=== PATIENT | female | born 2000 | race Caucasian/White ===

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

== ENCOUNTER 2021-02-01 09:30 | Emergency (ER) | payer OTHER ==
[2021-02-01 11:01] LABS: Urine Blood 2+ (Negative); Urine Glucose Negative (Negative); Urine Protein Negative (Negative); Urine Specific Gravity >=1.030 (1.005-1.030); Urine pH 6.5 (5.0-7.0)
[2021-02-01 11:05] LABS: Absolute Lymphocytes (CBC) 1.5 K/uL (0.7-4.9); Basophils % 0.5 % (0-1.3); Hematocrit 36.7 % (36.0-45.0); Lymphocytes % 20.2 % (15.3-44.8); MPV 7.4 fL (7.6-11.3)
[2021-02-01 11:06] LABS: Protime INR 0.97
--- NOTE | 2021-02-01 11:07 | RAD REPORT ---
EXAM DESCRIPTION: RAD - Chest Single View - 02/01/2021 10:51 am CLINICAL HISTORY: syncope COMPARISON: No comparisons FINDINGS: Lines: None. Lungs: No evidence of edema or pneumonia. Pleural: No significant pleural effusions or pneumothorax. Cardiac: The heart size is within normal limits. Bones: No acute fractures. Other: IMPRESSION: No acute cardiopulmonary disease.
--- NOTE | 2021-02-01 11:20 | RAD REPORT ---
EXAM DESCRIPTION: US - Abdomen Exam Limited - 02/01/2021 11:05 am CLINICAL HISTORY: abdominal pain COMPARISON: Abdomen Exam Limited dated 12/12/2018 FINDINGS: The gallbladder demonstrates no gallstones. No pericholecystic fluid or gallbladder wall t hickening. The common bile duct is normal measuring 3 mm. The liver demonstrates no findings of intrahepatic biliary dilatation. IMPRESSION: Negative for cholelithiasis or acute cholecystitis. No biliary duct dilatation. Exam is within normal limits.
[2021-02-01] MEDS ORDERED: NA CHLORIDE 0.9% 1,000 ML ONE (11:26)
[2021-02-01 11:27] LABS: Urine Specific Gravity/Preg >1.030 (1.005-1.030)
[2021-02-01 11:28] LABS: ALT/SGPT 19 U/L (12-78); AST/SGOT 13 U/L (15-37); Albumin 3.6 g/dL (3.4-5.0); Alkaline Phosphatase 105 U/L (45-117); BUN Blood Urea Nitrogen 13 mg/dL (7-18); Bicarbonate 29 mmol/L (21-32); Bilirubin Direct < 0.1 mg/dL (0-0.2); Bilirubin Total 0.2 mg/dL (0.2-1.0); Glucose Level 102 mg/dL (74-106); NT PRO-BNP 36 pg/mL (<125); Potassium 3.9 mmol/L (3.5-5.1); Protein, Total 7.7 g/dL (6.4-8.2); Sodium Level 140 mmol/L (136-145); Troponin (Emerg Dept Use Only) < 0.02 ng/mL (0.0-0.045)
--- NOTE | 2021-02-01 13:02 | RAD REPORT ---
EXAM DESCRIPTION: CTAbdomen Pelvis W Contrast - 02/01/2021 12:51 pm CLINICAL HISTORY: Abdominal pain. ABD PAIN COMPARISON: No comparisons TECHNIQUE: Biphasic CT imaging of the abdomen and pelvis was performed with 100 ml non-ionic IV cont rast. All CT scans are performed using dose optimization technique as appropriate and may include automated exposure control or mA/KV adjustment according to patient size. FINDINGS: The lung bases are clear. The liver, spleen, pancreas, adrenal glands and kidneys are within normal limits. No bowel obstruction, free air, free fluid or abscess. Sigmoid diverticulosis mild. Appendectomy. No evidence of significant lymphadenopathy. No suspicious bony findings. IMPRESSION: No acute intra-abdominal or pelvic finding.
--- NOTE | 2021-02-01 13:11 | ER ---
Nurse's Notes [facility] Name: Izzy Krishnan Age: 20 yrs Sex: Female : 2000 Arrival Date: 02/01/2021 Time: 09:33 Bed 30 Private MD: Diagnosis: Syncope Presentation: 02/01 09:48 Chief complaint: Patient states: i have been feeling weak, really weak since Saturday. I tw2 was 11 days past my period but i started last night. but my period blood is brown. i fainted last night. and from my chest down i have been hot even though my house is cold. also my stomach as been hurting and i vomited last night. Coronavirus screen: fatigue, nausea, Client presents with at least one sign or symptom that may indicate coronavirus-19. Standard/surgical mask placed on the client. Provider contacted for isolation considerations. Ebola Screen: Patient denies travel to an Ebola-affected area in the 21 days before illness onset. Initial Sepsis Screen: Does the patient meet any 2 criteria? No. Patient's initial sepsis screen is negative. Does the patient have a suspected source of infection? No. Patient's initial sepsis screen is negative. Risk Assessment: Do you want to hurt yourself or someone else? Patient reports no desire to harm self or others. Onset of symptoms was February 01, 2021. 09:48 Method Of Arrival: Ambulatory tw2 09:48 Acuity: ESAU 3 tw2 Triage Assessment: 09:53 General: Appears in no apparent distress. obese, Behavior is calm, cooperative, tw2 appropriate for age. Pain: Complains of pain in abdomen and pelvis. GI: Reports upper abdominal pain, cramping, nausea. 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 - Social history:: Smoking status: Reported history of juuling and/or vaping. 5% nicotine. Screenin:05 Abuse screen: Denies threats or abuse. Nutritional screening: No deficits noted. tw2 Tuberculosis screening: No symptoms or risk factors identified. Fall Risk None identified. Assessment: 10:52 Neuro: Reports dizziness, a syncopal episode weakness since saturday. oh 10:53 : Reports brown colored urine. oh Vital Signs: 09:48 Pulse 88; Resp 18; Temp 98.4(TE); Pulse Ox 99% on R/A; Weight 77.11 kg; Height 5 ft. 3 tw2 in. (160.02 cm); Pain 1010; 09:54 BP 107 / 68; tw2 11:15 BP 110 / 80 Supine; Pulse 71; Resp 19; Pulse Ox 100% on R/A; oh 11:18 BP 114 / 80 Sitting; Pulse 76; Resp 21; Pulse Ox 98% on R/A; oh 11:22 BP 121 / 90 Standing; Pulse 77; Resp 21; Pulse Ox 100% on R/A; oh 13:52 BP 119 / 89; Pulse 77; Resp 19; Pulse Ox 99% on R/A; oh 09:48 Body Mass Index 30.11 (77.11 kg, 160.02 cm) tw2 ED Course: 09:33 Patient arrived in ED. mr 09:40 Iván Nascimento PA is PHCP. jmm 09:40 Jose Rangel MD is Attending Physician. jmm 09:53 Triage completed. tw2 09:53 Arm band placed on. tw2 09:55 Bed in low position. Call light in reach. pt given urine specimen cup for sample. tw2 10:01 Angi Ward, RN is Primary Nurse. oh 10:51 XRAY Chest (1 view) In Process Unspecified. EDMS 10:52 Patient taken to ultrasound. oh 10:53 Inserted saline lock: 20 gauge in right antecubital area, using aseptic technique. oh Blood collected. 10:55 US Abdomen Limited In Process Unspecified. EDMS 11:43 D-Dimer Sent. oh 12:51 CT Abd/Pelvis - IV Contrast Only In Process Unspecified. EDMS 13:53 IV discontinued, bleeding controlled, Pressure dressing applied. oh 13:53 No provider procedures requiring assistance completed. oh Administered Medications: 11:10 Drug: NS 0.9% 1000 ml Route: IV; Rate: 1 bolus; Site: right antecubital; oh Point of Care Testing: Urine : 11:04 hCG Reading: Negative; oh Outcome: 13:11 Discharge ordered by MD. young 13:52 Discharged to home ambulatory. oh 13:52 Condition: stable 13:52 Discharge instructions given to patient. 13:53 Patient left the ED. oh Signatures: Dispatcher [employer] EDMS Iván Nascimento PA PA jmm Fouzia JacksonSavi, RN RN tw2 Angi Ward RN RN oh Corrections: (The following items were deleted from the chart) 10:06 09:48 Chief complaint: Patient states: i have been feeling weak, really weak since tw2 Saturday. I was 11 days past my period but i started last night. but my period blood is brown. i fainted last night. and from my chest down i have been got. and also my stomach as been hurting and i vomited last night tw2
--- NOTE | 2021-02-01 13:12 | EDPHYS ---
Physician Documentation [facility] Name: Izzy Krishnan Age: 20 yrs Sex: Female : 2000 Arrival Date: 02/01/2021 Time: 09:33 Bed 30 Private MD: ED Physician Jose Rangel HPI: 02/01 10:33 This 20 yrs old Female presents to ER via Ambulatory with complaints of jmm Weakness, Abdominal Pain. 10:33 The patient has experienced syncope. Onset: The symptoms/episode began/occurred jmm acutely, 1 day(s) ago. Associated injury: The patient did not suffer any apparent associated injury. Associated signs and symptoms: Pertinent positives: abdominal pain, vaginal bleeding, weakness. The patient has not experienced similar symptoms in the past. 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 - Social history:: Smoking status: Reported history of juuling and/or vaping. 5% nicotine. ROS: 10:33 Constitutional: Negative for fever, chills, and weight loss, Cardiovascular: Negative jmm for chest pain, palpitations, and edema, Respiratory: Negative for shortness of breath, cough, wheezing, and pleuritic chest pain. 10:33 Abdomen/GI: Positive for abdominal pain. 10:33 Neuro: Positive for syncope. 10:33 All other systems are negative. Exam: 10:33 Constitutional: This is a well developed, well nourished patient who is awake, alert, jmm and in no acute distress. Head/Face: atraumatic. Eyes: EOMI, no conjunctival erythema appreciated ENT: Moist Mucus Membranes Neck: Trachea midline, Supple Chest/axilla: Normal chest wall appearance and motion. Cardiovascular: Regular rate and rhythm. No edema appreciated Respiratory: Normal respirations, no respiratory distress appreciated 10:33 Back: Normal ROM Skin: General appearance color normal MS/ Extremity: Moves all extremities, no obvious deformities appreciated, no edema noted to the lower extremities Neuro: Awake and alert, normal gait Psych: Behavior is normal, Mood is normal, Patient is cooperative and pleasant 10:33 Abdomen/GI: Inspection: abdomen appears normal, Bowel sounds: normal, Palpation: soft, mild abdominal tenderness, in the right upper quadrant and left upper quadrant. Vital Signs: 09:48 Pulse 88; Resp 18; Temp 98.4(TE); Pulse Ox 99% on R/A; Weight 77.11 kg; Height 5 ft. 3 tw2 in. (160.02 cm); Pain 10/10; 09:54 BP 107 / 68; tw2 11:15 BP 110 / 80 Supine; Pulse 71; Resp 19; Pulse Ox 100% on R/A; oh 11:18 BP 114 / 80 Sitting; Pulse 76; Resp 21; Pulse Ox 98% on R/A; oh 11:22 BP 121 / 90 Standing; Pulse 77; Resp 21; Pulse Ox 100% on R/A; oh 13:52 BP 119 / 89; Pulse 77; Resp 19; Pulse Ox 99% on R/A; oh 09:48 Body Mass Index 30.11 (77.11 kg, 160.02 cm) tw2 MDM: 10:32 Patient medically screened. [facility] 13:10 Data reviewed: vital signs, nurses notes. Counseling: I had a detailed discussion with phil the patient and/or guardian regarding: the historical points, exam findings, and any diagnostic results supporting the discharge/admit diagnosis, lab results, radiology results, the need for outpatient follow up, to return to the emergency department if symptoms worsen or persist or if there are any questions or concerns that arise at home. ED course: Is alert nontoxic in appearance in the ED. [place] syncope rules does not recommend admission. Patient advised to follow-up with PCP and otherwise given strict return precautions. Patient understood agrees plan of care.. 02/01 10:33 Order name: Basic Metabolic Panel; Complete Time: 11:42 [facility] 02/01 10:33 Order name: CBC with Diff; Complete Time: 11:06 [facility] 02/01 10:33 Order name: LFT's; Complete Time: 11:42 [facility] 02/01 10:33 Order name: Magnesium; Complete Time: 11:42 [facility] 02/01 10:33 Order name: NT PRO-BNP; Complete Time: 11:42 [facility] 02/01 10:33 Order name: PT-INR; Complete Time: 11:08 [facility] 02/01 10:33 Order name: Troponin (emerg Dept Use Only); Complete Time: 11:42 [facility] 02/01 10:33 Order name: XRAY Chest (1 view); Complete Time: 11:08 [facility] 02/01 10:35 Order name: Lipase; Complete Time: 11:42 [facility] 02/01 10:35 Order name: US Abdomen Limited; Complete Time: 11:22 [facility] 02/01 11:01 Order name: Urine Dipstick-Ancillary; Complete Time: 11:02 [facility] 02/01 11:01 Order name: Urine --Ancillary (enter results); Complete Time: 11:42 bd 02/01 11:07 Order name: D-Dimer [facility] 02/01 11:07 Order name: D-Dimer; Complete Time: 12:17 [facility] 02/01 10:33 Order name: EKG; Complete Time: 10:34 [facility] 02/01 10:33 Order name: Cardiac monitoring; Complete Time: 10:34 [facility] 02/01 10:33 Order name: EKG - Nurse/Tech; Complete Time: 10:51 [facility] 02/01 10:33 Order name: IV Saline Lock; Complete Time: 10:52 [facility] 02/01 10:33 Order name: Labs collected and sent; Complete Time: 10:52 [facility] 02/01 10:33 Order name: O2 Per Protocol; Complete Time: 10:34 [facility] 02/01 10:33 Order name: O2 Sat Monitoring; Complete Time: 10:34 [facility] 02/01 10:33 Order name: Urine Dipstick-Ancillary (obtain specimen); Complete Time: 11:04 [facility] 02/01 10:33 Order name: Urine Test (obtain specimen); Complete Time: 10:34 [facility] 02/01 10:33 Order name: Orthostatics; Complete Time: 11:25 [facility] 02/01 12:33 Order name: CT Abd/Pelvis - IV Contrast Only; Complete Time: 13:03 [facility] Administered Medications: 11:10 Drug: NS 0.9% 1000 ml Route: IV; Rate: 1 bolus; Site: right antecubital; oh Point of Care Testing: Urine : 11:04 hCG Reading: Negative; oh Disposition: 23:43 Co-signature as Attending Physician, Jose Rangel MD I agree with the assessment and kdr plan of care. Disposition Summary: 02/01/21 13:11 Discharge Ordered Location: Home [facility] Condition: Stable jm Diagnosis - Syncope jm Followup: jm - With: Private Physician - When: 2 - 3 days - Reason: Recheck today's complaints, Continuance of care, Re-evaluation by your physician Discharge Instructions: - Discharge Summary Sheet jmm - Syncope jm Forms: - Medication Reconciliation Form [facility] - Thank You Letter jm - Antibiotic Education [facility] - Work release form [facility] - Prescription Opioid Use [facility] Signatures: Dispatcher [employer] EDJose Shipman MD MD kdr Mickail, Joel, PA PA jmm Wise, Tara, RN RN tw2 Angi Ward RN RN oh
[2021-02-01 14:01] VITALS: TEMP 98.4
[2021-02-01 14:06] VITALS: BP 119/89; O2SAT 99
== END 2021-02-01 13:53 | disposition home or self-care (01) ==
LOC: ER 09:30
DX: R55 Syncope and collapse (principal); R53.1 Weakness
CPT/HCPCS: 93005; 85025; 80048; 36415; 83735; 81025; 85610; 85379; 80076; 81003; 84484; 83690; 83880; 74177; 71045; 76705; 99284; Q9967; J7030

== ENCOUNTER 2021-06-13 18:53 | Emergency (ER) | payer OTHER, SELFPAY ==
--- OUTSIDE RECORDS SUMMARY | 2021-06-13 18:56 | XMS REPORT | Continuity of Care Document ---
:2000 Author Organization [facility] t Address [address] [place] [address] Care Team Providers Name Role Phone Ulisses Barron Primary Care Physician Zane GARDNER Attending Clinician Unavailable Zane Elizondo Attending Clinician Swetha Henry Attending Clinician SWETHA ARANDA Attending Clinician Unavailable Doctor Unassigned, Name Attending Clinician Unavailable SWETHA ARANDA Admitting Clinician Unavailable Payers Payer Name Policy Type Policy Number Effective Date Expiration Date [facility] [id number] 2021 CHOICE MEDICAID 00:00:00 Problems Condition Condition Condition Status Onset Resolution Last Treating Co mments Source Name Details Category Date Date Treatment Clinician Date Behavior Behavior Disease Active Unive rs concern concern 05-04 ity of 00:00: [address] Family Family Disease Active Univers circumstan circumstan 05-04 it y of ce ce 00:00: [address] Hx of Hx of Disease Active Univers suicide suicide 05-04 ity of attempt attempt 00:00: [address] Depression Depression Disease Active U nivers , , 1- it[place] Medical depression depression Br anch type type BMI (body BMI (body Disease Active Uni vers mass mass 1-13 ity of index), index), 00:00: [place] pediatric, pediatric, 00 Me dical 95-99% for 95-99% for Br anch age age Allergies, Adverse Reactions, Alerts Allergy Allergy Status Severity Reaction(s) Onset Inactive Treating Comm ents Source Name Type Date Date Clinician NO KNOWN Drug Active Univers ALLERGIE Class ity of S [facility] Social History Social Habit Start Date Stop Date Quantity Comments Source Exposure to Not sure [facility] SARS-CoV-2 (event) Medica l Branch Alcohol intake 2016-05-14 2016-05-14 0 /d [facility] 00:00:00 00:00:00 [facility] Sex Assigned At [birth year] [facility] 00:00:00 00:00:00 Medical Branch Smoking Status Start Date Stop Date Source Never smoker [facility] Medications Ordered Filled Start Stop Current Ordering Indication Dosage Frequency Signature Comments Components Source Medication Medication Date Date Medication? Clinician (SIG) Name Name amoxicillin 2020-04 No 500mg 500 mg, U nivers (TRIMOX) 06-08 Oral, ity of capsule 500 00:30: 23:33 [place]CE[place] 1 [place] :00 dose, On Medical [place] Branch 04/06/21 at 1830, JOANNA
Re ason for Anti-Infec tive: Documented Infection< br>Documen nadiya Infection Site: HEENT
D uration of Therapy: Other (see Comments) ketorolac 2020-04 No 30mg 30 mg, Unive rs (TORADOL) 06-08-16 Intramuscu ity of injection 00:30: 23:33 lar, ONCE, [place] 30 mg 00 :00 1 dose, On Medical [place] Branch 04/06/21 at 1830, JOANNA ibuprofen 2020-04 Yes [id number] 800mg Take 1 U nivers 800 mg 2-16 tablet by ity of tablet 00:00: mouth 3 00 (three) Medical times Branch daily with meals. chlorhexidi 2020-04 Yes [id number] 15mL Swish and Univers ne 0.12 % 2-16 spit out ity of mouthwash 00:00: 15 mL 2 [place] 00 (two) Medical times [place] daily. amoxicillin 2020-04- Yes [id number] 500mg Take 1 Univers 500 mg -16 12-24 capsule by ity of capsule 00:00: 05:59 mouth 3 [place] 00 :00 (three) Medical times [place] daily for 7 days. NaCl 0.9% 2020-04- No 1000mL at 999 Uni vers (NS) bolus 0-15 10-15 mL/hr, ity of infusion 23:15: 23:43 1,000 mL, [place] as 1,000 mL 00 :00 IV Medical Infusion, Branch ONCE, 1 dose, On Sat02/03/21 at 1815, STAT METAXALONE Yes Take by Uni vers (SKELAXIN 1-23 mouth. ity of ORAL) 14:34: [address] METAXALONE Yes Take by Uni vers (SKELAXIN 1-23 mouth. ity of ORAL) 14:34: [address] METAXALONE Yes Take by Uni vers (SKELAXIN 1-23 mouth. ity of ORAL) 14:34: [address] Vital Signs Vital Name Observation Time Observation Value Comments Source Body temperature 2021-04-06 22:53:00 36.94 [facility] Respiratory rate 2021-04-06 22:53:00 18 /min [facility] Body height 2021-04-06 22:53:00 162.6 cm [facility] Body weight 2021-04-06 22:53:00 86.183 kg [facility] BMI 2021-04-06 22:53:00 32.61 kg/m2 [facility] Oxygen saturation in 2021-04-06 22:53:00 99 /min [facility] Arterial blood by [facility] Pulse oximetry Branch Systolic blood 2021-04-06 22:53:00 139 mm[Hg] Univer sity of pressure [facility] Diastolic blood 2021-04-06 22:53:00 99 mm[facility]Hg[facility] Heart rate 2021-04-06 22:53:00 76 /min [facility] Systolic blood 2021-02-03 22:20:00 140 mm[Hg] Univer sity of pressure [facility] Diastolic blood 2021-02-03 22:20:00 98 mm[Hg] Unive rsity of pressure [facility] Heart rate 2021-02-03 22:20:00 85 /min [facility] Respiratory rate 2021-02-03 22:20:00 18 /min [facility] Oxygen saturation in 2021-02-03 22:20:00 99 /min [facility] Arterial blood by [facility] Pulse oximetry [place] Body temperature 2021-02-03 15:54:00 36.78 [facility] Body height 2021-02-03 15:54:00 160 cm [facility] Body weight 2021-02-03 15:54:00 74.844 kg [facility] BMI 2021-02-03 15:54:00 29.23 kg/m2 [facility] Body mass index 2021-02-03 15:54:00 91.94 % Unive rsity of (BMI) [Percentile] [facility] ica Per age and sex Branch Procedures Procedure Date / Time Performing Clinician Source Performed POCT TEST 2021-04-06 23:20:00 Lou Gardner [facility] CONSENT/REFUSAL FOR 2021-04-06 22:35:43 Doctor Unassigned, No Un [facility] DIAGNOSIS AND TREATMENT Name Medical [place] XR CHEST 1 VW 2021-02-03 23:04:39 Jesus Alberto Aranda [facility] D-DIMER 2021-02-03 18:33:00 Jesus Alberto Aranda [facility] LIPASE 2021-02-03 18:24:00 Jesus Alberto Aranda [facility] MAGNESIUM 2021-02-03 18:24:00 Jesus Alberto Aranda [facility] COMP. METABOLIC PANEL 2021-02-03 18:24:00 Jesus Alberto Aranda [facility] ([id number]) [facility] CBC WITH DIFF 2021-02-03 18:24:00 Partha, K Swetha [facility] URINALYSIS 2021-02-03 18:24:00 Jesus Alberto Aranda [facility] o f [facility] URINE DRUG (IMMUNOASSAY) 2021-02-03 18:23:00 Jesus [facility] 2021-02-03 18:23:00 Jesus Alberto Aranda Universi ty of [facility] NOTICE OF PRIVACY 2021-02-03 15:44:16 Doctor Unassigned, No Univ [facility] PRACTICES Name [facility] CONSENT/REFUSAL FOR 2021-02-03 15:43:59 [facility]igned, [facility]REATMENT Name [facility] Encounters Start End Encounter Admission Attending Care Care Encounter Source Date/Time Date/Time Type Type Clinicians Facility Department ID 2021-04-06 2021-04-06 Emergency X [facility] ERT [id number] Univers 16:54:00 17:47:00 LOU paula [facility] 2021-04-06 2021-04-06 Emergency [facility] [id number] Univers 16:54:00 17:47:00 Lou WARREN [id number] i ty of [place] [id number] [facility] [id number] [address] 2021-02-03 2021-02-03 Emergency Jesus Alberto Aranda [facility] [id number] Univers 11:11:00 18:44:00 Swetha Warren [id number] i ty of [place] [id number] [facility] [id number] [address] 2021-02-03 2021-02-03 Emergency X Jesus Alberto ARANDA [facility] ERT [id number] Univers 11:11:00 18:44:00 ity of [facility] 2021-02-03 2021-02-03 Orders Doctor LUO [id number] Univers 00:00:00 00:00:00 Only Unassigned, CHINYERE [id number] ity of [place] [facility] [id number] [place] as [id number] [address] Results Test Description Test Time Test Comments Results Result Comments Source POCT TEST 2021-04-06 23:20:00 Test Item Value Reference Range Interpretation Comme nts POCT PREG (test code = 1605) negative POCT PREG LOT # (test code = 3575) [id number] POCT PREG TEST DATE (test code = 3576) 2022-05-22 Lab Interpretation (test code = 25366-7) Normal [id number] 19:30:18 Test Item Value Reference Interpretation Comments Range D-DIMER (test code = <0.27 See_Comment [Autom ated 2929649514) message] The system which generated this result transmitted reference range : <0.41 ?g/mL (FEU). The reference range was not used to interpret this result as normal/abnormal . NIKA (test code = This test may be NIKA) used in conjunction with a clinical pretest probability (PTP) assessment model to exclude venous thromboembolism (VTE) in patients suspected of deep venous thrombosis (DVT) and pulmonary embolism (PE) A D-Dimer value less than 0.50 ?g/ml (FEU) has a negative predicative value of 96 to 100% (95% CI)and 97 to 100% (95% CI) as an aid in the diagnosis of deep vein thrombosis (DVT) and pulmonary embolism when there is low or moderate pretest probability of PE or DVT. D-Dimer values are expressed in initial fibrinogen equivalent units (FEU)" The assay results should be used with other information, including the clinical context, in forming a diagnosis. Lab Interpretation Normal (test code = 13494-1) [facility] 19:00:14 Test Item Value Reference Range Interpretation Comments MAGNESIUM (test code = 5932481791) 1.8 mg/dL 1.7-2.4 Lab Interpretation (test code = Normal 44743-6) [facility] MET[facility]OLIC PANEL (33020)2021-02-03 18:59:54 Test Item Value Reference Range Interpretation Comments NA (test code = 139 mmol/L 135-145 6175073767) K (test code = 4.0 mmol/L 3.5-5.0 0579076395) CL (test code = 101 mmol/L 98-108 0736405742) CO2 TOTAL (test code 30 mmol/L 23-31 = 3954126069) AGAP (test code = 2-16 6113612378) BUN (test code = 13 mg/dL 7-23 1859307164) GLUCOSE (test code = 87 mg/dL 70-110 9922334768) CREATININE (test code 0.57 mg/dL 0.50-1.04 = 3988662641) TOTAL BILI (test code 0.4 mg/dL 0.1-1.1 = 3389070566) CALCIUM (test code = 9.7 mg/dL 8.6-10.6 5082743737) T PROTEIN (test code 8.0 g/dL 6.3-8.2 = 5082189658) ALBUMIN (test code = 4.6 g/dL 3.5-5.0 0791607547) ALK PHOS (test code = 90 U/L 34-122 3144526285) ALTv (test code = 15 U/L 5-35 2-6) AST(SGOT) (test code 23 U/L 13-40 = 6053316685) eGFR (test code = mL/min/1.73m2 6419476204) NIKA (test code = NIKA) Association of Glomerular Filtration Rate (GFR) and Staging of Kidney Disease* + + +- +| GFR (mL/min/1.73 m2) ?| With Kidney Damage ?| ?Without Kidney Damage+ ------+ ----+ ------+| ?>90 ?| ?Stage one ?| ? Normal ?+ -+ + -+| ?60-89 ?| ?Stage two ?| ? Decreased GFR ? + + +- +| ?30-59 ?| ?Stage three ?| ? Stage three ? + + +- +| ?15-29 ?| ?Stage four ? | ? Stage four ?+ -+ + -+| ?<15 (or dialysis) ? ?| ?Stage five ? | ? Stage five ?+ -+ + -+ *Each stage assumes the associated GFR level has been in effect for at least three months. ?Stages 1 to 5, with or without kidney disease, indicate chronic kidney disease. Notes: Determination of stages one and two (with eGFR >59mL/min/1.73 m2) requires estimation of kidney damage for at least three months as defined by structural or functional abnormalities of the kidney, manifested by either:Pathological abnormalities or Markers of kidney damage (including abnormalities in the composition of the blood or urine or abnormalities in imaging tests). [facility] 18:59:34 Test Item Value Reference Range Interpretation Comments LIPASE (test code = 3266478766) 37 U/L 0-220 Lab Interpretation (test code = Normal 17081-7) [facility] Worth[facility] WITH [id number] 18:37:09 Test Item Value Reference Range Interpretation Comments WBC (test code = See_Comment [Automated 6290-2) message] The sy stem which generated this result transmitted reference range : 4.30 - 11.10 10*3/?L. The reference range was not used to interpret this result as normal/abnormal . RBC (test code = See_Comment [Automated 959-8) message] The sy stem which generated this result transmitted reference range : 3.93 - 5.25 10*6/?L. The reference range was not used to interpret this result as normal/abnormal . HGB (test code = 12.6 g/dL 11.6-15.0 718-7) HCT (test code = 40.9 % 35.7-45.2 4544-3) MCV (test code = 81.6 fL 80.6-95.5 787-2) MCH (test code = 25.1 pg 25.9-32.8 L 785-6) MCHC (test code = 30.8 g/dL 31.6-35.1 L 786-4) RDW-SD (test code = 38.9 fL 39.0-49.9 L 93596-5) RDW-CV (test code = 13.2 % 12.0-15.5 788-0) PLT (test code = See_Comment H [Automated 657-3) message] The sy stem which generated this result transmitted reference range : 166 - 358 10*3/ ?L. The reference r tomasa was not used to interpret this result as normal/abnormal . MPV (test code = 9.2 fL 9.5-12.9 L 21291-2) NRBC/100 WBC (test See_Comment [Automat ed code = 8388896865) message] The system which generated this result transmitted reference range : 0.0 - 10.0 /100 WBCs. The refer ence range was not u sed to interpret th is result as normal/abnormal . NRBC x10^3 (test code <0.01 See_Comment [Auto mated = 1601705212) message] The s ystem which generated this result transmitted reference range : 10*3/?L. The reference range was not used to interpret this result as normal/abnormal . GRAN MAT (NEUT) % 66.3 % (test code = 770-8) IMM GRAN % (test code 0.70 % = 0846821071) LYMPH % (test code = 20.6 % 736-9) MONO % (test code = 9.8 % 5905-5) EOS % (test code = 1.7 % 713-8) BASO % (test code = 0.9 % 706-2) GRAN MAT x10^3(ANC) 5.09 10*3/uL 1.88-7.09 (test code = 5246855432) IMM GRAN x10^3 (test 0.05 10*3/uL 0.00-0.06 code = 5555881879) LYMPH x10^3 (test code 1.58 10*3/uL 1.32-3.29 = 731-0) MONO x10^3 (test code 0.75 10*3/uL 0.33-0.92 = 742-7) EOS x10^3 (test code = 0.13 10*3/uL 0.03-0.39 711-2) BASO x10^3 (test code 0.07 10*3/uL 0.01-0.07 = 704-7) Lab Interpretation Abnormal (test code = 20266-4) [facility] [id number] 18:23:00 Test Item Value Reference Range Interpretation Comments POCT PREG (test code = 1605) negative On board controls acceptable with C present Line (test code = 3574) Lab Interpretation (test code = Normal 62476-9) [facility]
[2021-06-13 21:22] LABS: Urine Blood Negative (Negative); Urine Glucose Negative (Negative); Urine Protein Negative (Negative); Urine Specific Gravity >=1.030 (1.005-1.030)
[2021-06-13] MEDS ORDERED: ONDANSETRON 4 MG/2 ML VIAL ONE (21:22)
[2021-06-13] MEDS ORDERED: NA CHLORIDE 0.9% 1,000 ML ONE (21:22)
[2021-06-13 21:23] LABS: Absolute Lymphocytes (CBC) 1.8 K/uL (0.7-4.9); Hematocrit 35.5 % (36.0-45.0); Lymphocytes % 24.3 % (15.3-44.8); MPV 7.5 fL (7.6-11.3); RBC Red Blood Cell Count 4.54 M/uL (3.86-4.86)
[2021-06-13] MEDS ORDERED: FAMOTIDINE 20 MG/2 ML VIAL IV ONE (21:23)
[2021-06-13 21:27] LABS: Protime INR 0.99
[2021-06-13 21:36] LABS: Urine Bacteria 20-50 /HPF (<20); Urine Mucus 2+ /HPF (NONE SEEN); Urine RBC <5 /HPF (NONE SEEN)
[2021-06-13 21:37] LABS: Urine Specific Gravity/Preg >1.030 (1.005-1.030)
[2021-06-13 21:38] LABS: Potassium 3.7 mmol/L (3.5-5.1); Sodium Level 141 mmol/L (136-145)
[2021-06-13 21:50] LABS: ALT/SGPT 22 U/L (12-78); AST/SGOT 12 U/L (15-37); Albumin 3.6 g/dL (3.4-5.0); Alkaline Phosphatase 98 U/L (45-117); BUN Blood Urea Nitrogen 17 mg/dL (7-18); Bicarbonate 29 mmol/L (21-32); Bilirubin Direct < 0.1 mg/dL (0-0.2); Bilirubin Total 0.1 mg/dL (0.2-1.0); Glucose Level 81 mg/dL (74-106); Lipase 66 U/L (73-393); Magnesium 2.1 mg/dL (1.8-2.4); Protein, Total 7.7 g/dL (6.4-8.2)
--- NOTE | 2021-06-13 22:19 | RAD REPORT ---
EXAM DESCRIPTION: US - Abdomen Exam Limited - 06/13/2021 9:24 pm CLINICAL HISTORY: ABD PAIN COMPARISON: Abdomen Pelvis W Contrast dated 02/01/2021 FINDINGS: No gallstones, sludge or other abnormalities within the gallbladder lumen. There is no wal l thickening or pericholecystic fluid. No common duct stone or biliary tree dilatation identified. IMPRESSION: Normal gallbladder and biliary tree ultrasound.
--- NOTE | 2021-06-14 00:57 | EDPHYS ---
Physician Documentation [facility] Name: Izzy Krishnan Age: 21 yrs Sex: Female : 2000 Arrival Date: 06/13/2021 Time: 18:53 Bed 9 Private MD: ED Physician Richard Wakefield HPI: 06/13 20:05 This 21 yrs old Female presents to ER via Ambulatory with complaints of Weakness. cp 20:05 The patient presents to the emergency department with weakness of the entire body, cp generalized weakness. Onset: The symptoms/episode began/occurred last night. Context: occurred at home. Associated signs and symptoms: Pertinent positives: dizziness, syncope, Pertinent negatives: altered mental status, fever, headache, paresthesias. Severity of symptoms: in the emergency department the symptoms are unchanged despite home interventions. Patient's baseline: Neuro: alert and fully oriented, Motor: no deficits, Ambulation: walks without assistance, Speech: normal. Current symptoms: general weakness. Patient reports abdominal pain last night and syncopal episode at work today. 06/14 00:30 The patient presents with pain. cp 00:30 The problem is located in the right lower jaw. Duration: The symptoms are continuous. cp PARTS CHASER: 06/13 19:22 LMP 06/13/2021 al4 Historical: - Allergies: 19:22 No Known Allergies; al4 - PMHx: 19:22 Asthma; al4 - PSHx: 19:22 Appendectomy; al4 - Immunization history:: Adult Immunizations up to date. - Social history:: Smoking status: Reported history of juuling and/or vaping. ROS: 20:10 Constitutional: Negative for body aches, chills, fever, poor PO intake. cp 20:10 Eyes: Negative for injury, pain, redness, and discharge. cp 20:10 ENT: Negative for drainage from ear(s), ear pain, sore throat, difficulty swallowing, difficulty handling secretions. 20:10 Cardiovascular: Negative for chest pain, edema, palpitations. 20:10 Respiratory: Negative for cough, shortness of breath, wheezing. 20:10 Abdomen/GI: Positive for abdominal pain, Negative for vomiting, diarrhea, constipation. 20:10 Back: Negative for pain at rest, pain with movement. 20:10 : Negative for urinary symptoms, vaginal bleeding. 20:10 Neuro: Positive for dizziness, syncope, weakness, Negative for altered mental status, numbness. 20:10 All other systems are negative. Exam: 20:15 Constitutional: The patient appears in no acute distress, alert, awake, cp non-diaphoretic, non-toxic, well developed, well nourished, obese. 20:15 Head/Face: Normocephalic, atraumatic. cp 20:15 Eyes: Periorbital structures: appear normal, Pupils: equal, round, and reactive to light and accomodation, Extraocular movements: intact throughout, Conjunctiva: normal, no exudate, no injection, Sclera: no appreciated abnormality, Lids and lashes: appear normal, bilaterally. 20:15 ENT: External ear(s): are unremarkable, Nose: is normal, Mouth: Lips: moist, Oral mucosa: moist, Posterior pharynx: Airway: no evidence of obstruction, patent. 20:15 Neck: ROM/movement: is normal, is supple, without pain, no range of motions limitations. 20:15 Chest/axilla: Inspection: normal. 20:15 Cardiovascular: Rate: normal, Rhythm: regular, Heart sounds: murmur, not appreciated, Edema: is not appreciated, JVD: is not appreciated. 20:15 Respiratory: the patient does not display signs of respiratory distress, Respirations: normal, no use of accessory muscles, no retractions, labored breathing, is not present, Breath sounds: are clear throughout, no decreased breath sounds, no stridor, no wheezing. 20:15 Abdomen/GI: Inspection: abdomen appears normal, Bowel sounds: active, all quadrants, Palpation: abdomen is soft and non-tender, in all quadrants, rebound tenderness, is not appreciated, involuntary guarding, is not appreciated. 20:15 Back: pain, is absent, ROM is normal. 20:15 Neuro: Orientation: to person, place \T\ time. Mentation: is normal, Cerebellar function: is grossly normal, Motor: moves all fours, strength is normal, Sensation: is normal. 21:57 ECG was reviewed by the Attending Physician. cp 06/14 00:33 ENT: Dental exam: abscess, is not appreciated, dental caries, that is moderate, cp diffusely, pain, that is mild, specifically in the lower right first molar (#30), Voice: is normal. Vital Signs: 06/13 19:22 BP 125 / 88; Pulse 76; Resp 18; Temp 98.6; Pulse Ox 99% ; Weight 92.99 kg (R); Height 5 al4 ft. 4 in. (162.56 cm) (R); Pain 10/10; 21:36 BP 137 / 76 Supine; Pulse 68 LA; fu 21:37 BP 144 / 79 Sitting; Pulse 64; fu 21:37 BP 137 / 86 Standing; Pulse 71; fu 22:27 BP 126 / 66; Pulse 76; Resp 16; Pulse Ox 100% on R/A; Pain 8/10; fu 06/14 00:21 BP 132 / 82; Pulse 81; Resp 16; Pulse Ox 98% on R/A; Pain 8/10; fu 06/13 19:22 Body Mass Index 35.19 (92.99 kg, 162.56 cm) al4 MDM: 06/13 19:58 Patient medically screened. 06/14 00:55 Data reviewed: vital signs, nurses notes, lab test result(s), EKG, radiologic studies, cp CT scan, plain films. 00:55 Test interpretation: by ED physician or midlevel provider: ECG, plain radiologic cp studies. Counseling: I had a detailed discussion with the patient and/or guardian regarding: the historical points, exam findings, and any diagnostic results supporting the discharge/admit diagnosis, lab results, radiology results, the need for outpatient follow up, a family practitioner, to return to the emergency department if symptoms worsen or persist or if there are any questions or concerns that arise at home. Response to treatment: Improved. VSS. Patient resting comfortably in exam room. 00:55 Special discussion: I discussed with the patient the need to follow-up with the PCP/specialist for the noted incidental finding on X-ray/CT scanning. CT head showed concern for pituitary mass, patient instructed to f/u with pcp for MRI. 06/13 19:33 Order name: Glucose, Ancillary Testing; Complete Time: 19:58 EDMS 06/13 20:20 Order name: Basic Metabolic Panel; Complete Time: 22:47 cp 06/13 20:20 Order name: CBC with Diff; Complete Time: 22:47 cp 06/13 22:47 Interpretation: Normal except: HGB 11.8; HCT 35.5; MCV 78.0; MCH 26.0; MPV 7.5; BASO% cp 1.4. 06/13 20:20 Order name: LFT's; Complete Time: 22:47 cp 06/13 22:48 Interpretation: Normal except: AST 12; BILIT 0.1; GLOB 4.1; A/G 0.9. cp 06/13 20:20 Order name: Magnesium; Complete Time: 22:47 cp 06/13 20:20 Order name: PT-INR; Complete Time: 22:47 cp 06/13 20:20 Order name: Troponin HS; Complete Time: 22:47 cp 06/13 22:59 Interpretation: Reviewed. cp 06/13 20:20 Order name: XRAY Chest (1 view) cp 06/13 20:20 Order name: Urine Microscopic Only; Complete Time: 22:47 cp 06/13 22:48 Interpretation: Normal except: UBACT 20-50; SQEPI 5-10. cp 06/13 20:20 Order name: Lipase; Complete Time: 22:47 cp 06/13 20:21 Order name: D-Dimer; Complete Time: 22:47 cp 06/13 21:22 Order name: Urine Dipstick-Ancillary; Complete Time: 22:47 EDMS 06/13 21:30 Order name: Urine --Ancillary (enter results); Complete Time: 22:47 mw2 06/13 21:38 Order name: Urine Culture EDID 06/13 20:20 Order name: EKG; Complete Time: 20:21 cp 06/13 20:20 Order name: Cardiac monitoring; Complete Time: 22:15 cp 06/13 20:20 Order name: EKG - Nurse/Tech; Complete Time: 21:52 cp 06/13 20:20 Order name: IV Saline Lock; Complete Time: 21:21 cp 06/13 20:20 Order name: Labs collected and sent; Complete Time: 21:21 cp 06/13 20:20 Order name: O2 Per Protocol; Complete Time: 22:10 cp 06/13 20:20 Order name: O2 Sat Monitoring; Complete Time: 22:10 cp 06/13 20:20 Order name: Orthostatics; Complete Time: 22:15 cp 06/13 20:20 Order name: Urine Dipstick-Ancillary (obtain specimen); Complete Time: 21:22 cp 06/13 20:20 Order name: US Abdomen Limited: RUQ; Complete Time: 22:47 cp 06/13 22:58 Interpretation: Report reviewed. cp 06/13 23:00 Order name: CT Head Brain wo Cont cp 06/13 23:00 Order name: CT Abd/Pelvis - IV Contrast Only cp 06/13 20:20 Order name: Urine Test (obtain specimen); Complete Time: 21:21 cp 06/13 20:21 Order name: NPO; Complete Time: 22:25 cp EC/22 21:57 Rate is 67 beats/min. Rhythm is regular. CA interval is normal. QRS interval is normal. cp QT interval is normal. T waves are Inverted in lead aVR. Interpreted by me. Reviewed by me. Administered Medications: 21:31 Drug: NS 0.9% 1000 ml Route: IV; Rate: 1 bolus; Site: left antecubital; fu 06/14 00:12 Follow up: Response: No adverse reaction; IV Status: Completed infusion; IV Intake: fu 1000ml 06/13 21:32 Drug: Zofran (Ondansetron) 4 mg Route: IVP; Site: left antecubital; fu 23:01 Follow up: Response: No adverse reaction fu 21:32 Drug: Pepcid (famotidine) 20 mg Route: IVP; Site: left antecubital; fu 23:01 Follow up: Response: No adverse reaction fu 06/14 01:10 Drug: Ibuprofen 800 mg Route: PO; fu 01:18 Follow up: Response: Medication administered at discharge. fu Disposition: 06:38 Co-signature as Attending Physician, Richard Wakefield MD. [email or web address] Disposition Summary: 06/14/21 00:55 Discharge Ordered Location: Home cp Problem: new cp Symptoms: have improved cp Condition: Stable cp Diagnosis - Disorder of teeth and supporting structures, unspecified cp - Syncope cp - Abdominal pain, unspecified cp - Dizziness and giddiness cp Followup: cp - With: Private Physician - When: 2 - 3 days - Reason: Recheck today's complaints Discharge Instructions: - Abdominal Pain, Adult cp - Dental Pain cp - Discharge Summary Sheet fu - Dizziness cp - Syncope cp Forms: - Work release form fu - Medication Reconciliation Form cp - Thank You Letter cp - Antibiotic Education cp - Prescription Opioid Use cp Prescriptions: - Amoxicillin 875 mg Oral Tablet - take 1 tablet by ORAL route every 12 hours for 10 days; 20 tablet; Refills: 0, cp Product Selection Permitted - Meclizine 25 mg Oral Tablet - take 1 tablet by ORAL route every 8 hours As needed; 30 tablet; Refills: 0, cp Product Selection Permitted - Pepcid 20 mg Oral Tablet - take 1 tablet by ORAL route every 12 hours for 10 days; 20 tablet; Refills: 0, cp Product Selection Permitted Signatures: Dispatcher [employer] EDLes Marte PA PA cp Umadhay, Felix, Richard Pfeiffer RN, MD MD 7 Tigre Rasheed
--- NOTE | 2021-06-14 00:57 | ER ---
Nurse's Notes [facility] Name: Izzy Krishnan Age: 21 yrs Sex: Female : 2000 Arrival Date: 06/13/2021 Time: 18:53 Bed 9 Private MD: Diagnosis: Disorder of teeth and supporting structures, unspecified;Syncope;Abdominal pain, unspecified;Dizziness and giddiness Presentation: 06/13 19:16 Chief complaint: Patient states: patient states she started feeling weak last night al4 around 10pm and had abdominal pain. patient woke up this morning weak and dizzy. patient states she has "collapsed" twice today. Coronavirus screen: Vaccine status: Patient reports receiving the 2nd dose of the covid vaccine. [employer]. Ebola Screen: No symptoms or risks identified at this time. No acute neurological deficit is noted. Pre-hospital glucose is not applicable to this patient. Initial Sepsis Screen: Does the patient meet any 2 criteria? No. Patient's initial sepsis screen is negative. Does the patient have a suspected source of infection? No. Patient's initial sepsis screen is negative. Risk Assessment: Do you want to hurt yourself or someone else? Patient reports no desire to harm self or others. Onset of symptoms was June 12, 2021. 19:16 Method Of Arrival: Ambulatory al4 19:16 Acuity: ESAU 3 al4 Triage Assessment: 19:22 The onset of the patients symptoms was June 12, 2021 at 22:00. General: Appears in al4 no apparent distress. uncomfortable, Behavior is calm, cooperative, drowsy. Pain: Complains of pain in abdomen. EENT: No signs and/or symptoms were reported regarding the EENT system. Neuro: Level of Consciousness is awake, alert, obeys commands, Oriented to person, place, time, situation. Neuro: Reports dizziness, headache. Cardiovascular: Capillary refill < 3 seconds Patient's skin is warm and dry. Respiratory: Airway is patent Respiratory effort is even, unlabored, Respiratory pattern is regular, symmetrical. GI: Reports diarrhea, nausea. Musculoskeletal: Range of motion: intact in all extremities. 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 - Social history:: Smoking status: Reported history of juuling and/or vaping. Screenin:04 Abuse screen: Denies threats or abuse. Nutritional screening: No deficits noted. fu Tuberculosis screening: No symptoms or risk factors identified. Fall Risk None identified. Assessment: 20:03 General: Appears in no apparent distress. Behavior is calm, cooperative, appropriate fu for age, Reports weakness Denies fever, fatigue. Pain: Denies pain. Neuro: Level of Consciousness is awake, alert, obeys commands, Oriented to time, situation, [employer] are equal bilaterally Moves all extremities. Speech is normal, Facial symmetry appears normal, Reports weakness. Respiratory: Respiratory effort is even, unlabored, Respiratory pattern is regular. Derm: Skin is intact. 21:00 Reassessment: Patient and/or family updated on plan of care and expected duration. Pain fu level reassessed. Patient is alert, oriented x 3, equal unlabored respirations, skin warm/dry/pink. Patient states feeling better. Patient states symptoms have improved. 22:27 Reassessment: Patient and/or family updated on plan of care and expected duration. Pain fu level reassessed. Patient is alert, oriented x 3, equal unlabored respirations, skin warm/dry/pink. 23:30 Reassessment: Patient and/or family updated on plan of care and expected duration. Pain fu level reassessed. Patient is alert, oriented x 3, equal unlabored respirations, skin warm/dry/pink. 06/14 00:22 Reassessment: Patient complaining of toothache, PCP notified. fu Vital Signs: 06/13 19:22 BP 125 / 88; Pulse 76; Resp 18; Temp 98.6; Pulse Ox 99% ; Weight 92.99 kg (R); Height 5 al4 ft. 4 in. (162.56 cm) (R); Pain 10/10; 21:36 BP 137 / 76 Supine; Pulse 68 LA; fu 21:37 BP 144 / 79 Sitting; Pulse 64; fu 21:37 BP 137 / 86 Standing; Pulse 71; fu 22:27 BP 126 / 66; Pulse 76; Resp 16; Pulse Ox 100% on R/A; Pain 8/10; fu 06/14 00:21 BP 132 / 82; Pulse 81; Resp 16; Pulse Ox 98% on R/A; Pain 8/10; fu 06/13 19:22 Body Mass Index 35.19 (92.99 kg, 162.56 cm) al4 ED Course: 06/13 18:53 Patient arrived in ED. as 19:22 Triage completed. al4 19:22 Arm band placed on left wrist. al4 19:55 Jarad Craig, RN is Primary Nurse. fu 19:57 Les Bell PA is PHCP. cp 19:57 Richard Wakefield MD is Attending Physician. cp 20:05 Patient has correct armband on for positive identification. Placed in gown. Bed in low fu position. 20:20 Inserted saline lock: 22 gauge in left antecubital area, using aseptic technique. Blood fu collected. 21:21 Basic Metabolic Panel Sent. fu 21:21 CBC with Diff Sent. fu 21:21 LFT's Sent. fu 21:21 Magnesium Sent. fu 21:21 PT-INR Sent. fu 21:21 Troponin HS Sent. fu 21:22 Urine Microscopic Only Sent. fu 21:24 US Abdomen Limited: RUQ In Process Unspecified. EDMS 21:26 XRAY Chest (1 view) In Process Unspecified. EDMS 06/14 00:15 CT Head Brain wo Cont In Process Unspecified. EDMS 00:15 CT Abd/Pelvis - IV Contrast Only In Process Unspecified. EDMS 01:19 No provider procedures requiring assistance completed. fu 01:19 IV discontinued, bleeding controlled, Pressure dressing applied. fu Administered Medications: 06/13 21:31 Drug: NS 0.9% 1000 ml Route: IV; Rate: 1 bolus; Site: left antecubital; fu 06/14 00:12 Follow up: Response: No adverse reaction; IV Status: Completed infusion; IV Intake: fu 1000ml 06/13 21:32 Drug: Zofran (Ondansetron) 4 mg Route: IVP; Site: left antecubital; fu 23:01 Follow up: Response: No adverse reaction fu 21:32 Drug: Pepcid (famotidine) 20 mg Route: IVP; Site: left antecubital; fu 23:01 Follow up: Response: No adverse reaction fu 06/14 01:10 Drug: Ibuprofen 800 mg Route: PO; fu 01:18 Follow up: Response: Medication administered at discharge. fu Intake: 00:12 IV: 1000ml; Total: 1000ml. fu Outcome: 00:55 Discharge ordered by . shmuel 01:19 Discharged to home ambulatory. fu 01:19 Condition: good 01:19 Discharge instructions given to patient, Instructed on discharge instructions, follow up and referral plans. Demonstrated understanding of instructions, follow-up care, Prescriptions given X 3. 01:21 Patient left the ED. fu Signatures: Dispatcher [employer] EDhCeri Villafuerte Corey, PA PA cp Umadhay, Felix, RN RN Tigre Cardoso
[2021-06-14] MEDS ORDERED: IBUPROFEN 400 MG TAB ONE (01:09)
[2021-06-14 04:13] VITALS: TEMP 98.6
[2021-06-14 04:18] VITALS: BP 132/82; O2SAT 98
--- NOTE | 2021-06-14 07:15 | RAD REPORT ---
EXAM DESCRIPTION: RAD - Chest Single View - 06/13/2021 9:26 pm CLINICAL HISTORY: syncope COMPARISON: Portable 02/01/2021 TECHNIQUE: AP portable chest image was obtained 06/13/2021 9:26 pm . FINDINGS: No peripheral mass or consolidations seen. Increased opacification over both lower lung fi elds is believed be affects of under penetrated technique and prominent overlying soft tissues. True lung base abnormality is doubtful. No significant failure or volume overload finding. Heart and vasculature are normal. No measurable pleural effusion and no pneumothorax. No acute bony abnormality seen. No acute aortic findings suspected. IMPRESSION: No acute cardiopulmonary process.
--- NOTE | 2021-06-14 11:52 | RAD REPORT ---
EXAM DESCRIPTION: CT - Head Brain Wo Cont - 06/14/2021 8:54 am CLINICAL HISTORY: 21-year-old female with dizziness. COMPARISON: None. TECHNIQUE: CT brain without contrast. This exam was performed according to our departmental dose opt imization program which includes use of automated exposure control, adjustment of the mA and/or kV ac cording to patient size and/or use of iterative reconstruction technique. FINDINGS: Nonspecific slightly increased density is identified within the anterior pituitary gland o f uncertain etiology, clinical significance. Overall the pituitary gland measures within normal range of size of approximately 6 mm. The ventricles, sulci, and cisterns are within normal limits. The finley-white matter differentiati on is preserved. There is no mass effect, midline shift, intra- or extra-axial fluid collection/acu te hemorrhage. The osseous structures are unremarkable. The paranasal sinuses and mastoid air kriss ls are clear. IMPRESSION: 1. No acute intracranial abnormalities. 2. Nonspecific slightly increased density is identified within the anterior pituitary gland of unce rtain etiology, clinical significance. Overall the pituitary gland measures within normal range of si ze of approximately 6 mm. Follow-up evaluation with MRI pre and postcontrast may be considered. Electronically signed by: Shanti Adame MD 06/14/2021 12:37 AM FIELD SUPPORT REPRESENTATIVE Due to temporary technical issues with the PACS/Fluency reporting system, reports are being signed by the in house radiologist without review as a courtesy to ensure prompt reporting. The interpreting r adiologist is fully responsible for the content of the report.
--- NOTE | 2021-06-14 11:53 | RAD REPORT ---
EXAM DESCRIPTION: CT - Abdomen Pelvis W Contrast - 06/14/2021 8:54 am CLINICAL HISTORY: The patient is 21 years old and is Female; ABD PAIN TECHNIQUE: Axial computed tomography images of the abdomen and pelvis with intravenous contrast. S agittal and coronal reformatted images were created and reviewed. This CT exam was performed using one or more of the following dose reduction techniques: automated exposure control, adjustment of t he mA and/or kV according to patient size, and/or use of iterative reconstruction technique. COMPARISON: CT Abdomen Pelvis dated February 01 2021 FINDINGS: LIMITATIONS: Suboptimal study secondary to artifact related to patient body habitus. LUNG BASES: Unremarkable. No mass. No consolidation. ABDOMEN: LIVER: The liver is enlarged and mildly fatty. GALLBLADDER AND BILE DUCTS: No calcified stones. No ductal dilation. PANCREAS: No ductal dilation. No mass. SPLEEN: Unremarkable. ADRENALS: Unremarkable. No mass. KIDNEYS AND URETERS: Unremarkable. The kidneys enhance symmetrically. No obstructing renal or ur eteral calculus is seen. No hydronephrosis or hydroureter. No perinephric fluid or stranding. STOMACH AND BOWEL: The stomach is distended with fluid and air. The small bowel is normal in tate iber. Stool is present throughout colon. There is no mucosal thickening or evidence of bowel obstruct ion. PELVIS: APPENDIX: The appendix is surgically absent. BLADDER: The bladder is moderately distended. REPRODUCTIVE: Unremarkable as visualized. ABDOMEN and PELVIS: INTRAPERITONEAL SPACE: Unremarkable. No free air. No significant fluid collection. BONES/JOINTS: No acute fracture. SOFT TISSUES: The soft tissues are normal. VASCULATURE: Unremarkable. No abdominal aortic aneurysm. LYMPH NODES: Unremarkable. No enlarged lymph nodes. IMPRESSION: No acute findings on this contrasted CT of the abdomen and pelvis to explain the patient 's symptoms. Electronically signed by: Estelle Valdez MD 06/14/2021 12:34 AM VP OF MARKETING Due to temporary technical issues with the PACS/Fluency reporting system, reports are being signed by the in house radiologist without review as a courtesy to ensure prompt reporting. The interpreting r adiologist is fully responsible for the content of the report.
== END 2021-06-14 01:21 | disposition home or self-care (01) ==
LOC: ER 18:53
DX: K02.9 Dental caries, unspecified (principal); R10.9 Unspecified abdominal pain; R42 Dizziness and giddiness
CPT/HCPCS: 36415; 70450; 71045; 74177; 76705; 80048; 80076; 81003; 81015; 81025; 82947; 83690; 83735; 84484; 85025; 85379; 85610; 87086; 87088; 96361; 96374; 96375; 99284; J2405; J7030; Q9967

== ENCOUNTER 2021-08-18 10:46 | Emergency (ER) | payer SELFPAY ==
--- OUTSIDE RECORDS SUMMARY | 2021-08-18 10:49 | XMS REPORT | Continuity of Care Document ---
:2000 [facility] t Address [address] [place] [address] Care Team Providers Name Role Phone PCP, DOES NOT HAVE A Primary Care Physician Unavailable Zane GARDNER Attending Clinician Unavailable Zane Elizondo Attending Clinician Swetha Henry Attending Clinician SWETHA ARANDA Attending Clinician Unavailable SWETHA ARANDA Admitting Clinician Unavailable Payers Payer Name Policy Type Policy Number Effective Date Expiration Date Critical access hospital [id number] 2021 [facility] 00:00:00 Problems Condition Condition Condition Status Onset Resolution Last Treating Co mments Source Name Details Category Date Date Treatment Clinician Date Behavior Behavior Disease Active Unive rs concern concern -13 ity of 00:00: [address] Family Family Disease Active Univers circumstan circumstan -13 it y of ce ce 00:: [address] Hx of Hx of Disease Active Univers suicide suicide 13 ity of attempt attempt 00:00: [address] Depression Depression Disease Active U nivers , , 1- ity of [place]specif[place] depression depression Br anch type type BMI (body BMI (body Disease Active Uni vers mass mass 1-13 ity of index), index), 00:[place]: [place] [facility] pediatric, 00 Me dical 95-99% for 95-99% for Br anch age age Allergies, Adverse Reactions, Alerts Allergy Allergy Status Severity Reaction(s) Onset Inactive Treating Comm ents Source Name Type Date Date Clinician NO KNOWN Drug Active Univers ALLERGIE Class ity of [facility] [place] [facility] Social History Social Habit Start Date Stop Date Quantity Comments Source Exposure to Not sure [facility] SARS-CoV-2 (event) Medica l Branch Alcohol intake 2016-05-14 2016-05-14 0 /d [facility] 00:00:00 00:00:00 [facility] Branch Sex Assigned At [birth year] [facility] 00:00:00 00:00:00 Medical Branch Smoking Status Start Date Stop Date Source Never smoker [facility] Medications Ordered Filled Start Stop Current Ordering [...] No 30mg 30 mg, Unive rs (TORADOL) 06-08- Intramuscu ity of injection 00:30: 23:33 lar, ONCE, [place] 30 mg 00 :00 1 dose, On Medical Steffany Branch 04/06/21 at 1830, JOANNA ibuprofen 2020-04 Yes [id number] 800mg Take 1 U nivers 800 mg 2-16 tablet by ity of tablet 00:00: mouth 3 (three) Medical times Branch daily with meals. chlorhexidi 2020-04 Yes [id number] 15mL Swish and Univers ne 0.12 % 2-16 spit out ity of mouthwash 00:00: 15 mL 2 (two) Medical times [place] daily. amoxicillin 2020-04 No [id number] 500mg Take 1 Univers 500 mg 06-07 1224 capsule by ity of capsule 00:00: 05:59 mouth 3 [place] 00 :00 (three) Medical times [place] daily for 7 days. NaCl 0.9% 2020-04 No 1000mL at 999 Uni vers (NS) bolus 0-15 10-15 mL/hr, ity of infusion 23:15: 23:43 1,000 mL, [place] as 1,000 mL 00 :00 IV Medical Infusion, Branch ONCE, 1 dose, On Sat02/03/21 at 1815, STAT METAXALONE 2016- Yes Take by Uni vers (SKELAXIN 1-23 mouth. ity of ORAL) 14:34: [address] METAXALONE 2016- Yes Take by Uni vers (SKELAXIN 1-23 mouth. ity of ORAL) 14:34: [address] Vital Signs Vital Name Observation Time Observation Value Comments Source Body temperature 2021-04-06 22:53:00 36.94 Charo [facility] Respiratory rate 2021-04-06 22:53:00 18 /min [facility] Body height 2021-04-06 22:53:00 162.6 cm [facility] Body weight 2021-04-06 22:53:00 86.183 kg [facility] BMI 2021-04-06 22:53:00 32.61 kg/m2 [facility] Oxygen saturation in 2021-04-06 22:53:00 99 /min [facility] Arterial blood by [facility] Pulse oximetry Branch Systolic blood 2021-04-06 22:53:00 139 mm[Hg] Univer sity of pressure [facility] Diastolic blood 2021-04-06 22:53:00 99 mm[Hg] Unive rsity of [facility] Heart rate 2021-04-06 22:53:00 76 /min [facility] Systolic blood 2021-02-03 22:20:00 140 mm[Hg] Univer sity of [facility] Diastolic blood 2021-02-03 22:20:00 98 mm[Hg] Unive rsity of [facility] Heart rate 2021-02-03 22:20:00 85 /min [facility] Respiratory rate 2021-02-03 22:20:00 18 /min [facility] Oxygen saturation in 2021-02-03 22:20:00 99 /min [facility] Arterial blood by [facility] Pulse oximetry [place] Body temperature 2021-02-03 15:54:00 36.78 [place] [facility] ersity [facility] Body height 2021-02-03 15:54:00 160 cm [facility] Body weight 2021-02-03 15:54:00 74.844 kg [facility] BMI 2021-02-03 15:54:00 29.23 kg/m2 [facility] Body mass index 2021-02-03 15:54:00 91.94 % Unive rsity of (BMI) [Percentile] [facility] ica Per age and sex Branch Procedures Procedure Date / Time Performing Clinician Source Performed POCT TEST 2021-04-06 23:20:00 Lou Gardner [facility] CONSENT/REFUSAL FOR 2021-04-06 22:35:43 Doctor Unassigned, No Un [facility] DIAGNOSIS AND TREATMENT Name [facility] XR CHEST 1 VW 2021-02-03 23:04:39 Jesus Alberto Aranda [facility] D-DIMER 2021-02-03 18:33:00 Jesus Alberto Aranda [facility] CBC WITH DIFF 2021-02-03 18:24:00 Jesus Alberto Aranda [facility] URINALYSIS 2021-02-03 18:24:00 Jesus Alberto Aranda [facility] LIPASE 2021-02-03 18:24:00 Jesus Alberto Aranda [facility] MAGNESIUM 2021-02-03 18:24:00 Jesus Alberto Aranda [facility] COMP. METABOLIC PANEL 2021-02-03 18:24:00 Jesus Alberto Aranda [facility] ([id number]) [facility] URINE DRUG (IMMUNOASSAY) 2021-02-03 18:23:00 Jesus Alberto Aranda [facility] SCREEN POCT TEST 2021-02-03 18:23:00 Jesus Alberto Aranda [facility] NOTICE OF PRIVACY 2021-02-03 15:44:16 Doctor Unassigned, No Univ [facility] PRACTICES Name Medical Branch Encounters Start End Encounter Admission Attending Care Care Encounter Source Date/Time Date/Time Type Type Clinicians Facility Department ID 2021-04-06 2021-04-06 Emergency X [facility] ERT [id number] Univers 16:54:00 17:47:00 [facility] 2021-04-06 2021-04-06 Emergency [facility] [id number] Univers 16:54:00 17:47:00 Lou WARREN [id number] i ty of [place] [id number] [facility] [id number] [address] 2021-02-03 2021-02-03 Emergency RosiJesus Alberto [facility] [id number] Univers 11:11:00 18:44:00 Swetha Warren [id number] i ty of [place] [id number] [facility] [id number] [address] 2021-02-03 2021-02-03 Emergency X ROSI, K [facility] ERT [id number] Univers 11:11:00 18:44:00 [facility] Results Test Description Test Time Test Comments Results Result Comments Source POCT TEST 2021-04-06 23:20:00 Test Item Value Reference Range Interpretation Comme nts POCT PREG (test code = 1605) negative POCT PREG LOT # (test code = 3575) [id number] POCT PREG TEST DATE (test code = 3576) 2022-05-22 Lab Interpretation (test code = 24719-6) [id number]:30[facility]18 Test Item Value Reference Interpretation Comments Range D-DIMER (test code = <0.27 See_Comment [Autom ated [id number]) message] The system which generated this result [...] diagnosis. Lab Interpretation Normal (test code = 60667-3) [facility] 19:00:14 Test Item Value Reference Range Interpretation Comments MAGNESIUM (test code = 3492804911) 1.8 mg/dL 1.7-2.4 Lab Interpretation (test code = Normal 87413-0) [facility] (45392)2021-02-03 18:59:54 Test Item Value Reference Range Interpretation Comments NA (test code = 139 mmol/L 135-145 4256164868) K (test code = 4.0 mmol/L 3.5-5.0 3162709110) CL (test code = 101 mmol/L 98-108 9470267188) CO2 TOTAL (test code 30 mmol/L 23-31 = 8997422428) AGAP (test code = 2-16 1226193601) BUN (test code = 13 mg/dL 7-23 4616217355) GLUCOSE (test code = 87 mg/dL 70-110 9833547915) CREATININE (test code 0.57 mg/dL 0.50-1.04 = 3042937612) TOTAL BILI (test code 0.4 mg/dL 0.1-1.1 = 6882461816) CALCIUM (test code = 9.7 mg/dL 8.6-10.6 8256449283) T PROTEIN (test code 8.0 g/dL 6.3-8.2 = 8961742785) ALBUMIN (test code = 4.6 g/dL 3.5-5.0 1970840275) ALK PHOS (test code = 90 U/L 34-122 0178138935) ALTv (test code = 15 U/L 5-35 1742-6) AST(SGOT) (test code 23 U/L 13-40 = 2744039422) eGFR (test code = mL/min/1.73m2 8044846112) NIKA (test code = NIKA) Association of [...] or urine or abnormalities in imaging tests). [facility] 18:59:34 Test Item Value Reference Range Interpretation Comments LIPASE (test code = 1731537098) 37 U/L 0-220 Lab Interpretation (test code = Normal 87697-9) [facility] [id number] 18:37:09 Test Item Value Reference Range Interpretation Comments WBC (test code = See_Comment [Automated 6690-2) message] The sy stem which generated this result transmitted reference range : 4.30 - 11.10 10*3/?L. The reference range was not used to interpret this result as normal/abnormal . RBC (test code = See_Comment [Automated 789-8) message] The sy stem which generated this [...] (test code = 38.9 fL 39.0-49.9 L 44258-6) RDW-CV (test code = 13.2 % 12.0-15.5 788-0) PLT (test code = See_Comment H [Automated 777-3) message] The sy stem which generated this result transmitted reference range : 166 - 358 10*3/ ?L. The reference r tomasa was not used to interpret this result as normal/abnormal . MPV (test code = 9.2 fL 9.5-12.9 L 83454-2) NRBC/100 WBC (test See_Comment [Automat ed code = 2513358540) message] The system which generated this result transmitted reference range : 0.0 - 10.0 /100 WBCs. The refer ence range was not u sed to interpret th is result as normal/abnormal . NRBC x10^3 (test code <0.01 See_Comment [Auto mated = 1529643009) message] The s ystem which generated this result transmitted reference range : 10*3/?L. The reference range was not used to interpret this result as normal/abnormal . GRAN MAT (NEUT) % 66.3 % (test code = 770-8) IMM GRAN % (test code 0.70 % = 6777624467) LYMPH % (test code = 20.6 % 736-9) MONO % (test code = 9.8 % 5905-5) EOS % (test code = 1.7 % 713-8) BASO % (test code = 0.9 % 706-2) GRAN MAT x10^3(ANC) 5.09 10*3/uL 1.88-7.09 (test code = 9550451831) IMM GRAN x10^3 (test 0.05 10*3/uL 0.00-0.06 code = 9472858109) LYMPH x10^3 (test code 1.58 10*3/uL 1.32-3.29 = 731-0) MONO x10^3 (test code 0.75 10*3/uL 0.33-0.92 = 742-7) EOS x10^3 (test code = 0.13 10*3/uL 0.03-0.39 711-2) BASO x10^3 (test code 0.07 10*3/uL 0.01-0.07 = 704-7) Lab Interpretation Abnormal (test code = 15162-5) [facility] [id number] 18:23:00 Test Item Value Reference Range Interpretation Comments POCT PREG (test code = 1605) negative On board controls acceptable with C present Line (test code = 3574) Lab Interpretation (test code = Normal 35666-1) [facility]
[2021-08-18] MEDS ORDERED: IBUPROFEN 400 MG TAB ONE (12:11)
[2021-08-18 12:53] LABS: SARS-COV-2 RT PCR NEGATIVE (NEGATIVE)
--- NOTE | 2021-08-18 13:10 | EDPHYS ---
Physician Documentation [facility] Name: Izzy Krishnan Age: 21 yrs Sex: Female : 2000 Arrival Date: 08/18/2021 Time: 10:48 Bed 28 Private MD: ED Physician Jose Rangel HPI: 08/18 11:20 This 21 yrs old Female presents to ER via Ambulatory with complaints of Cough, Nasal jmm Congestion. 11:20 The patient or guardian reports cough. Onset: The symptoms/episode began/occurred jmm gradually, 3 day(s) ago. Is a 21-year-old female with history of asthma the presents emerged part with complaints of cough congestion body aches beginning approximately 3 days ago. Denies vomiting.. 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 - Social history:: Smoking status: Patient reports the use of cigarette tobacco products, Reported history of juuling and/or vaping. ROS: 11:20 Constitutional: Positive for body aches, chills. jmm 11:20 ENT: Positive for sore throat. 11:20 Respiratory: Positive for cough. 11:20 All other systems are negative. Exam: 11:20 Constitutional: This is a well developed, well nourished patient who is awake, alert, jmm and in no acute distress. Head/Face: atraumatic. Eyes: EOMI, no conjunctival erythema appreciated 11:20 Neck: Trachea midline, Supple Chest/axilla: Normal chest wall appearance and motion. Cardiovascular: Regular rate and rhythm. No edema appreciated Respiratory: Normal respirations, no respiratory distress appreciated Abdomen/GI: Non distended, soft Back: Normal ROM Skin: General appearance color normal MS/ Extremity: Moves all extremities, no obvious deformities appreciated, no edema noted to the lower extremities Neuro: Awake and alert Psych: Behavior is normal, Mood is normal, Patient is cooperative and pleasant 11:20 ENT: Posterior pharynx: erythema, that is moderate. 13:08 ENT: TM's: erythema, that is moderate, on the left. [facility] Vital Signs: 11:16 Pulse 89; Resp 16; Temp 98.9; Pulse Ox 96% on R/A; Weight 85.73 kg; Height 5 ft. 3 in. iw (160.02 cm); 13:07 BP 145 / 90; Pulse 87; Resp 17; Temp 98.9; Pulse Ox 97% ; bp 11:16 Body Mass Index 33.48 (85.73 kg, 160.02 cm) iw MDM: 11:53 Patient medically screened. [facility] 13:08 Data reviewed: vital signs, nurses notes. Counseling: I had a detailed discussion with [facility] the patient and/or guardian regarding: the historical points, exam findings, and any diagnostic results supporting the discharge/admit diagnosis, lab results, the need for outpatient follow up, to return to the emergency department if symptoms worsen or persist or if there are any questions or concerns that arise at home. ED course: Patient is alert nontoxic in appearance NAD. No signs respiratory distress. Patient advised follow-up PCP and otherwise given strict return precautions. Patient understood agrees plan of care.. 08/18 11:19 Order name: COVID-19/FLU A+B (Document "Date of Onset" if Symptomatic); Complete Time: [facility] 13:07 08/18 11:19 Order name: Strep; Complete Time: 11:54 [facility] 08/18 11:56 Order name: Throat Culture EDMS Administered Medications: 12:10 Drug: Ibuprofen 400 mg Route: PO; bp 13:00 Follow up: Response: No adverse reaction bp Disposition Summary: 08/18/21 13:09 Discharge Ordered Location: Home [facility] Condition: Stable [facility] Diagnosis - Acute pharyngitis, unspecified [facility] - Cough [facility] Followup: [facility] - With: Private Physician - When: 2 - 3 days - Reason: Recheck today's complaints, Continuance of care, Re-evaluation by your physician Discharge Instructions: - Discharge Summary Sheet [facility] - Pharyngitis [facility] - Cough, Adult [facility] Forms: - Medication Reconciliation Form [facility] - Thank You Letter [facility] - Antibiotic Education [facility] - Prescription Opioid Use [facility] - Work release form eb Prescriptions: - cefdinir 300 mg Oral capsule - take 1 capsule by ORAL route every 12 hours for 10 days; 20 capsule; Refills: jmm 0, Product Selection Permitted - albuterol sulfate 90 mcg/actuation Inhalation HFA aerosol inhaler - inhale 2 puff by INHALATION route every 4 hours; 1 Pump; Refills: 0, Product [facility] Selection Permitted Addendum: 08/20/2021 07:27 Co-signature as Attending Physician, Jose Rangel MD I agree with the assessment and k dr plan of care. 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
--- NOTE | 2021-08-18 13:10 | ER ---
Nurse's Notes [facility] Name: Izzy Krishnan Age: 21 yrs Sex: Female : 2000 Arrival Date: 08/18/2021 Time: 10:48 Bed 28 Private MD: Diagnosis: Acute pharyngitis, unspecified;Cough Presentation: 08/18 11:16 Chief complaint: Patient states: sore throat, cough with white phlegm and nasal iw congestion X 3 days ,also has a headache. Coronavirus screen: Client presents with at least one sign or symptom that may indicate coronavirus-19. Ebola Screen: Patient negative for fever greater than or equal to 101.5 degrees Fahrenheit, and additional compatible Ebola Virus Disease symptoms Patient denies exposure to infectious person. Patient denies travel to an Ebola-affected area in the 21 days before illness onset. No symptoms or risks identified at this time. Initial Sepsis Screen: Does the patient meet any 2 criteria? No. Patient's initial sepsis screen is negative. Does the patient have a suspected source of infection? No. Patient's initial sepsis screen is negative. Risk Assessment: Do you want to hurt yourself or someone else? Patient reports no desire to harm self or others. Onset of symptoms was August 15, 2021. 11:16 Method Of Arrival: Ambulatory iw 11:16 Acuity: ESAU 4 iw Triage Assessment: 11:20 General: Appears distressed, uncomfortable, obese, Behavior is calm, cooperative, bp appropriate for age. Pain: Denies pain. EENT: Reports nasal congestion. Neuro: No deficits noted. Cardiovascular: No deficits noted. Respiratory: Reports cough that is. GI: No signs and/or symptoms were reported involving the gastrointestinal system. : No signs and/or symptoms were reported regarding the genitourinary system. Derm: No deficits noted. Musculoskeletal: No deficits noted. 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 - Social history:: Smoking status: Patient reports the use of cigarette tobacco products, Reported history of juuling and/or vaping. Screenin:20 Abuse screen: Denies threats or abuse. Denies injuries from another. Nutritional bp screening: No deficits noted. Tuberculosis screening: No symptoms or risk factors identified. Fall Risk None identified. Assessment: 11:20 General: SEE TRIAGE NOTE. bp 13:08 Reassessment: No changes from previously documented assessment. Patient and/or family bp updated on plan of care and expected duration. Pain level reassessed. 13:22 Reassessment: PT D/C HOME AMBULATORY, DX WITH ACUTE PHARYNGITIS. bp Vital Signs: 11:16 Pulse 89; Resp 16; Temp 98.9; Pulse Ox 96% on R/A; Weight 85.73 kg; Height 5 ft. 3 in. iw (160.02 cm); 13:07 BP 145 / 90; Pulse 87; Resp 17; Temp 98.9; Pulse Ox 97% ; bp 11:16 Body Mass Index 33.48 (85.73 kg, 160.02 cm) iw ED Course: 10:48 Patient arrived in ED. am2 11:17 Triage completed. iw 11:18 Iván Nascimento PA is PHCP. hector 11:18 Jose Rangel MD is Attending Physician. jmm 11:18 Arm band placed on. iw 11:19 Roibn Bro, IRIS is Primary Nurse. bp 11:20 Patient has correct armband on for positive identification. Bed in low position. Call bp light in reach. Side rails up X2. 11:30 COVID-19/FLU A+B (Document "Date of Onset" if Symptomatic) Sent. tp1 11:30 Strep Sent. tp1 13:22 No provider procedures requiring assistance completed. Patient did not have IV access bp during this emergency room visit. Administered Medications: 12:10 Drug: Ibuprofen 400 mg Route: PO; bp 13:00 Follow up: Response: No adverse reaction bp Outcome: 13:09 Discharge ordered by . jmm 13:22 Discharged to home ambulatory. bp 13:22 Condition: stable 13:22 Discharge instructions given to patient, Instructed on discharge instructions, follow up and referral plans. medication usage, Demonstrated understanding of instructions, follow-up care, medications, Prescriptions given X 2. 13:23 Patient left the ED. bp Signatures: MickailIván PA PA jmm Williams, Irene, RN RN iw Mami Bonilla am2 Robin Bro, RN RN Elaine Branch tp1
[2021-08-18 13:29] VITALS: TEMP 98.9
[2021-08-18 13:31] VITALS: BP 145/90; O2SAT 97
== END 2021-08-18 13:23 | disposition home or self-care (01) ==
LOC: ER 10:46
DX: R05.9 Cough, unspecified (principal); J02.9 Acute pharyngitis, unspecified; Z20.822 Contact with and (suspected) exposure to COVID-19; Z72.0 Tobacco use
CPT/HCPCS: 0240U; 87070; 87081; 99283

== ENCOUNTER 2021-09-01 12:04 | Emergency (ER) | payer SELFPAY ==
--- OUTSIDE RECORDS SUMMARY | 2021-09-01 12:08 | XMS REPORT | Continuity of Care Document ---
:2000 Author Organization [facility] t Address [address] [place] [address] Care Team Providers Name Role Phone PCP, DOES NOT HAVE A Primary Care Physician Unavailable Zane GARDNER Attending Clinician Unavailable Zane Elizondo Attending Clinician Swetha Henry Attending Clinician SWETHA ARANDA Attending Clinician Unavailable SWETHA RAANDA Admitting Clinician Unavailable Payers Payer Name Policy Type Policy Number Effective Date Expiration Date [facility] [id number] 2021 [facility] MEDICAID 00:00:00 Problems Condition Condition Condition Status Onset Resolution Last Treating Co mments Source Name Details Category Date Date Treatment Clinician Date Behavior Behavior Disease Active Unive rs concern concern 05-04 ity of 00:00: [address] Family Family Disease Active Univers circumstan circumstan - it y of ce ce 00:: [address] Hx of Hx of Disease Active Univers suicide suicide 13 ity of attempt attempt 00:00: [address] Depression Depression Disease Active U nivers , , 1- ity of unspecif[place] depression [place] anch type type BMI (body BMI (body Disease Active Uni vers mass mass 1-13 ity of index), index), 00:00: [place] [facility], pediatric, 00 Me dical 95-99% for 95-99% for Br anch age age Allergies, Adverse Reactions, Alerts Allergy Allergy Status Severity Reaction(s) Onset Inactive Treating Comm ents Source Name Type Date Date Clinician NO KNOWN Drug Active Univers ALLERGIE Class ity of [facility] [place] [facility] Social History Social Habit Start Date Stop Date Quantity Comments Source Exposure to Not sure [facility] SARS-CoV-2 (event) Medica l Branch Alcohol intake 2016-05-14 2016-05-14 0 /d [facility] 00:00:00 00:00:00 Medical Branch Sex Assigned At [birth year] [facility] 00:00:00 00:00:00 Medical Branch Smoking Status [...] 04/06/21 at 1830, JOANNA ibuprofen 2020-04 Yes [id number] 800mg Take 1 U nivers 800 mg 2-16 tablet by ity of tablet 00:00: mouth 3 (three) Medical times Branch daily with meals. chlorhexidi 2020-04 Yes [id number] 15mL Swish and Univers ne 0.12 % 2-16 spit out ity of mouthwash 00:00: 15 mL 2 (two) Medical times [facility] daily. amoxicillin 2020-04- No [id number] 500mg Take 1 Univers 500 mg 06-07 12-24 capsule by ity of capsule 00:00: 05:59 mouth 3 [place] 00 :00 (three) Medical times [facility] daily for 7 days. NaCl 0.9% 2020-04- No 1000mL at 999 Uni vers (NS) bolus 0-15 10-15 mL/hr, ity of infusion 23:15: 23:43 1,000 mL, Leroy as 1,000 mL 00 :00 IV Medical Infusion, Branch ONCE, 1 dose, On Sat02/03/21 at 1815, STAT METAXALONE 2016- Yes Take by Uni vers (SKELAXIN 1-23 mouth. ity of ORAL) 14:34: [address] METAXALONE 2016- Yes Take by Uni vers (SKELAXIN 1-23 mouth. ity of ORAL) 14:34: [address] Vital Signs Vital Name Observation Time Observation Value Comments Source Body temperature 2021-04-06 22:53:00 36.94 Charo [facility] Respiratory rate 2021-04-06 22:53:00 18 /min [facility] Body height 2021-04-06 22:53:00 162.6 cm [facility] Body weight 2021-04-06 22:53:00 86.183 kg [facility] BMI 2021-04-06 22:53:00 32.61 kg/m2 [facility] Oxygen saturation in 2021-04-06 22:53:00 99 /min [facility] Arterial blood by [facility] Pulse oximetry Branch Systolic blood 2021-04-06 22:53:00 139 mm[Hg] Univer sity of pressure [facility] Diastolic blood 2021-04-06 22:53:00 99 mm[Hg] [facility] Heart rate 2021-04-06 22:53:00 76 /min [facility] Systolic blood 2021-02-03 22:20:00 140 mm[Hg] Univer sity of [facility] Diastolic blood 2021-02-03 22:20:00 98 mm[Hg] Unive rsity of [facility] Heart rate 2021-02-03 22:20:00 85 /min [facility] Respiratory rate 2021-02-03 22:20:00 18 /min [facility] Oxygen saturation in 2021-02-03 22:20:00 99 /min [facility] Arterial blood by [facility] Pulse oximetry [facility] Body temperature 2021-02-03 15:54:00 36.78 Charo [facility] ersity [facility] Body height 2021-02-03 15:54:00 160 cm [facility] Body weight 2021-02-03 15:54:00 74.844 kg [facility] BMI 2021-02-03 15:54:00 29.23 kg/m2 [facility] Body mass index 2021-02-03 15:54:00 91.94 % Unive rsity of (BMI) [Percentile] [facility] [place] Per age and sex Branch Procedures Procedure Date / Time Performing Clinician Source Performed POCT TEST 2021-04-06 23:20:00 Lou Gardner [facility] CONSENT/REFUSAL FOR 2021-04-06 22:35:43 Doctor Unassigned, No [facility]AT[facility] Name [facility] XR CHEST 1 VW 2021-02-03 23:04:[address] [facility] D-DIMER 2021-02-03 18:33:00 Jesus Alberto Aranda [facility] CBC WITH DIFF 2021-02-03 18:24:[address] [facility] URINALYSIS 2021-02-03 18:24:[address] [facility] LIPASE 2021-02-03 18:24:[address] [facility] MAGNESIUM 2021-02-03 18:24:[address] [facility] COMP. METABOLIC PANEL 2021-02-03 18:24:00 Jesus Alberto Aranda [facility] ([id number]) [facility] URINE DRUG (IMMUNOASSAY) 2021-02-03 18:23:00 [facility] 2021-02-03 18:23:00 Jesus Alberto Aranda [facility] NOTICE OF PRIVACY 2021-02-03 15:44:16 Doctor Unassigned, No Univ [facility] PRACTICES Name Medical Branch Encounters Start End Encounter Admission Attending Care Care Encounter Source Date/Time Date/Time Type Type Clinicians Facility Department ID 2021-04-06 2021-04-06 Emergency X [facility] ERT [id number] Univers 16:54:00 17:47:[facility] 2021-04-06 2021-04-06 Emergency [facility] [id number] Univers 16:54:00 17:47:00 Lou WARREN [id number] i ty of [place] [id number] [facility] [id number] [address] 2021-02-03 2021-02-03 Emergency Jesus Alberto Aranda [facility] [id number] Univers 11:11:00 18:44:00 Swetha Warren [id number] i ty of [place] [id number] [facility] [id number] [address] 2021-02-03 2021-02-03 Emergency X ROSI, K [facility] ERT [id number] Univers 11:11:00 18:44:00 [facility] Results Test Description Test Time Test Comments Results Result Comments Source POCT TEST 2021-04-06 23:20:00 Test Item Value Reference Range Interpretation Comme nts POCT PREG (test code = 1605) negative POCT PREG LOT # (test code = 3575) [id number] POCT PREG TEST DATE (test code = 3576) 2022-05-22 Lab Interpretation (test code = 20747-5) Normal [id number] 19:30:18 Test Item Value Reference Interpretation Comments Range D-DIMER (test code = <0.27 See_Comment [Autom ated [id number]) message] The system which generated this result [...] diagnosis. Lab Interpretation Normal (test code = 88287-4) [facility] 19:00:14 Test Item Value Reference Range Interpretation Comments MAGNESIUM (test code = 3458623178) 1.8 mg/dL 1.7-2.4 Lab Interpretation (test code = Normal 58508-7) [facility] MET[facility]OLIC PAN[facility] (18149)2021-02-03 18:59:54 Test Item Value Reference Range Interpretation Comments NA (test code = 139 mmol/L 135-145 9592091814) K (test code = 4.0 mmol/L 3.5-5.0 8476259832) CL (test code = 101 mmol/L 98-108 0471986080) CO2 TOTAL (test code 30 mmol/L 23-31 = 1512909206) AGAP (test code = 2-16 9487875759) BUN (test code = 13 mg/dL 7-23 5339737020) GLUCOSE (test code = 87 mg/dL 70-110 9622750764) CREATININE (test code 0.57 mg/dL 0.50-1.04 = 5843249598) TOTAL BILI (test code 0.4 mg/dL 0.1-1.1 = 4283576151) CALCIUM (test code = 9.7 mg/dL 8.6-10.6 5500425191) T PROTEIN (test code 8.0 g/dL 6.3-8.2 = 2576615742) ALBUMIN (test code = 4.6 g/dL 3.5-5.0 2257636375) ALK PHOS (test code = 90 U/L 34-122 3577809223) ALTv (test code = 15 U/L 5-35 2-6) AST(SGOT) (test code 23 U/L 13-40 = 7055580691) eGFR (test code = mL/min/1.73m2 4387218550) NIKA (test code = NIKA) Association of [...] or urine or abnormalities in imaging tests). [facility] 18:59:34 Test Item Value Reference Range Interpretation Comments LIPASE (test code = 5761073257) 37 U/L 0-220 Lab Interpretation (test code = Normal 64115-9) [facility] WITH [id number] 18:37:09 Test Item Value Reference Range Interpretation [...] (test code = 38.9 fL 39.0-49.9 L 80464-7) RDW-CV (test code = 13.2 % 12.0-15.5 788-0) PLT (test code = See_Comment H [Automated 777-3) message] The sy stem which generated this result transmitted reference range : 166 - 358 10*3/ ?L. The reference r tomasa was not used to interpret this result as normal/abnormal . MPV (test code = 9.2 fL 9.5-12.9 L 61572-6) NRBC/100 WBC (test See_Comment [Automat ed code = 8668219402) message] The system which generated this result transmitted reference range : 0.0 - 10.0 /100 WBCs. The refer ence range was not u sed to interpret th is result as normal/abnormal . NRBC x10^3 (test code <0.01 See_Comment [Auto mated = 5175510192) message] The s ystem which generated this result transmitted reference range : 10*3/?L. The reference range was not used to interpret this result as normal/abnormal . GRAN MAT (NEUT) % 66.3 % (test code = 770-8) IMM GRAN % (test code 0.70 % = 0680898705) LYMPH % (test code = 20.6 % 736-9) MONO % (test code = 9.8 % 5905-5) EOS % (test code = 1.7 % 713-8) BASO % (test code = 0.9 % 706-2) GRAN MAT x10^3(ANC) 5.09 10*3/uL 1.88-7.09 (test code = 3248225839) IMM GRAN x10^3 (test 0.05 10*3/uL 0.00-0.06 code = 2415710461) LYMPH x10^3 (test code 1.58 10*3/uL 1.32-3.29 = 731-0) MONO x10^3 (test code 0.75 10*3/uL 0.33-0.92 = 742-7) EOS x10^3 (test code = 0.13 10*3/uL 0.03-0.39 711-2) BASO x10^3 (test code 0.07 10*3/uL 0.01-0.07 = 704-7) Lab Interpretation Abnormal (test code = 56103-6) [facility] [id number] 18:23:00 Test Item Value Reference Range Interpretation Comments POCT PREG (test code = 1605) negative On board controls acceptable with C present Line (test code = 3574) Lab Interpretation (test code = Normal 39346-5) [facility]
[2021-09-01] MEDS ORDERED: BENZONATATE 100 MG CAP PO ONE (14:38)
--- NOTE | 2021-09-01 14:58 | RAD REPORT ---
EXAM DESCRIPTION: RAD - Chest Pa And Lat (2 Views) - 09/01/2021 2:50 pm CLINICAL HISTORY: COUGH Chest pain. COMPARISON: Chest Single View dated 06/13/2021; Chest Single View dated 02/01/2021 FINDINGS: The lungs are clear. The heart is normal in size. No displaced fractures. IMPRESSION: No acute or concerning finding suspected.
--- NOTE | 2021-09-01 15:31 | EDPHYS ---
Physician Documentation [facility] Name: Izzy Krishnan Age: 21 yrs Sex: Female : 2000 Arrival Date: 09/01/2021 Time: 12:05 Bed 12 Private MD: ED Physician Jose Rangel HPI: 09/01 14:15 This 21 yrs old Female presents to ER via Ambulatory with complaints of Cough, cp Nausea/Vomiting, Headache, Dizziness. 14:15 The patient or guardian reports cough, that is constant. Onset: The symptoms/episode cp began/occurred last week. Associated signs and symptoms: Pertinent positives: sore throat, vomiting, headache, dizziness, Pertinent negatives: chest pain, diarrhea, fever. 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 - Social history:: Smoking status: Reported history of juuling and/or vaping. ROS: 14:20 Constitutional: Negative for body aches, chills, fever, poor PO intake. cp 14:20 Eyes: Negative for injury, pain, redness, and discharge. cp 14:20 ENT: Positive for sore throat, Negative for drainage from ear(s), ear pain, difficulty swallowing, difficulty handling secretions. 14:20 Cardiovascular: Negative for chest pain. 14:20 Respiratory: Positive for cough, "sounds productive", Negative for wheezing. 14:20 Abdomen/GI: Positive for vomiting, Negative for abdominal pain, diarrhea, constipation. 14:20 Neuro: Positive for dizziness, headache, Negative for altered mental status. 14:20 All other systems are negative. Exam: 14:25 Constitutional: The patient appears in no acute distress, alert, awake, non-toxic, well cp developed, well nourished. 14:25 Head/Face: Normocephalic, atraumatic. cp 14:25 Eyes: Periorbital structures: appear normal, Conjunctiva: normal, no exudate, no injection, Sclera: no appreciated abnormality, Lids and lashes: appear normal, bilaterally. 14:25 ENT: External ear(s): are unremarkable, Ear canal(s): are normal, clear, TM's: dullness, bilaterally, Nose: is normal, Mouth: Lips: moist, Oral mucosa: pink and intact, moist, Posterior pharynx: Airway: no evidence of obstruction, patent, Tonsils: no enlargement, no exudate, swelling, is not appreciated, erythema, that is mild, exudate, is not appreciated. 14:25 Neck: ROM/movement: is normal, is supple, without pain, no range of motions limitations, no meningismus, Lymph nodes: no appreciated lymphadenopathy. 14:25 Chest/axilla: Inspection: normal. 14:25 Cardiovascular: Rate: normal. 14:25 Respiratory: the patient does not display signs of respiratory distress, Respirations: normal, no use of accessory muscles, no retractions, labored breathing, is not present, Breath sounds: decreased breath sounds, are not appreciated, stridor, is not appreciated, + upper airway congestion. wheezing: is not appreciated. 14:25 Abdomen/GI: Exam negative for discomfort, distension, guarding, Inspection: abdomen appears normal. 14:25 Skin: no rash present. Vital Signs: 14:13 BP 134 / 85; Pulse 85; Resp 16; Temp 99.0(TE); Pulse Ox 99% ; Weight 86.18 kg; Height 5 vg1 ft. 3 in. (160.02 cm); Pain 9/10; 14:13 Body Mass Index 33.66 (86.18 kg, 160.02 cm) vg1 MDM: 14:36 Patient medically screened. cp 15:15 Differential Diagnosis: Bronchitis Influenza Pharyngitis Viral Syndrome Pneumonia. cp 15:30 Data reviewed: vital signs, nurses notes, lab test result(s), radiologic studies, plain cp films. 15:30 Test interpretation: by ED physician or midlevel provider: plain radiologic studies. cp Counseling: I had a detailed discussion with the patient and/or guardian regarding: the historical points, exam findings, and any diagnostic results supporting the discharge/admit diagnosis, lab results, radiology results, to return to the emergency department if symptoms worsen or persist or if there are any questions or concerns that arise at home. Response to treatment: the patient's symptoms have mildly improved after treatment, and as a result, I will discharge patient. 09/01 14:03 Order name: Strep; Complete Time: 15:19 cp 09/01 15:20 Interpretation: Reviewed. cp 09/01 15:12 Order name: Throat Culture EDOH 09/01 14:03 Order name: XRAY Chest Pa And Lat (2 Views); Complete Time: 15:19 cp 09/01 15:19 Interpretation: Report reviewed. cp Administered Medications: 14:35 Drug: Tessalon Perle (benzonatate) 200 mg Route: PO; aa5 16:00 Follow up: Response: No adverse reaction aa5 Disposition Summary: 09/01/21 15:30 Discharge Ordered Location: Home cp Problem: new cp Symptoms: have improved cp Condition: Stable cp Diagnosis - Acute bronchitis, unspecified cp Followup: cp - With: Private Physician - When: 2 - 3 days - Reason: Worsening of condition Discharge Instructions: - Discharge Summary Sheet cp - Acute Bronchitis, Adult cp Forms: - Work release form aa5 - Medication Reconciliation Form cp - Thank You Letter cp - Antibiotic Education cp - Prescription Opioid Use cp Prescriptions: - albuterol sulfate 90 mcg/actuation Inhalation HFA aerosol inhaler - inhale 1 puff by INHALATION route every 4 hours; 1 Inhaler; Refills: 0, Product cp Selection Permitted - Tessalon Perles 100 mg Oral Capsule - take 2 capsule by ORAL route every 8 hours As needed; 20 capsule; Refills: 0, cp Product Selection Permitted - Zithromax Z-Garrett 250 mg Oral Tablet - take 1 tablet by ORAL route as directed for 5 days Day 1 - take two (2) tablets cp one time. Day 2, 3, 4 , 5 take one (1) tablet once daily.; 6 tablet; Refills: 0, Product Selection Permitted Signatures: Dispatcher [employer] [facility] Nichol Muller, RN RN aa5 Les Bell PA PA cp Garcia, Victoria RN RN vg1 Corrections: (The following items were deleted from the chart) 09/02 13:24 09/01 15:20 Data reviewed: vital signs, nurses notes, lab test result(s), radiologic cp studies, plain films, cp
--- NOTE | 2021-09-01 15:31 | ER ---
Nurse's Notes [facility] Name: Izzy Krishnan Age: 21 yrs Sex: Female : 2000 Arrival Date: 09/01/2021 Time: 12:05 Bed 12 Private MD: Diagnosis: Acute bronchitis, unspecified Presentation: 09/01 14:10 Chief complaint: Patient states: Was seen last week for cough and vomiting, states is vg1 still coughing and vomiting; c/o headache, stomach pain, and throat soreness. Also states 'Im starting to feel really dizzy'. Coronavirus screen: Vaccine status: Patient reports receiving the 2nd dose of the covid vaccine. Client denies travel out of the [place] in the last 14 days. Ebola Screen: Patient denies exposure to infectious person. Patient denies travel to an Ebola-affected area in the 21 days before illness onset. Initial Sepsis Screen: Does the patient meet any 2 criteria? No. Patient's initial sepsis screen is negative. Does the patient have a suspected source of infection? No. Patient's initial sepsis screen is negative. Risk Assessment: Do you want to hurt yourself or someone else? Patient reports no desire to harm self or others. Onset of symptoms was August 25, 2021. 14:10 Method Of Arrival: Ambulatory vg1 14:10 Acuity: ESAU 4 vg1 Triage Assessment: 14:12 General: Appears uncomfortable, Behavior is calm, cooperative. Pain: Complains of pain vg1 in head, throat, and ABD Pain currently is 9 out of 10 on a pain scale. Respiratory: Reports cough that is productive, Airway is patent Respiratory effort is even, unlabored. GI: Reports nausea, vomiting. 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 - Social history:: Smoking status: Reported history of juuling and/or vaping. Assessment: 14:35 Reassessment: Patient is alert, oriented x 3, equal unlabored respirations, skin aa5 warm/dry/pink. 16:01 Reassessment: Patient is alert, oriented x 3, equal unlabored respirations, skin aa5 warm/dry/pink. Vital Signs: 14:13 BP 134 / 85; Pulse 85; Resp 16; Temp 99.0(TE); Pulse Ox 99% ; Weight 86.18 kg; Height 5 vg1 ft. 3 in. (160.02 cm); Pain 9/10; 14:13 Body Mass Index 33.66 (86.18 kg, 160.02 cm) vg1 ED Course: 12:05 Patient arrived in ED. am2 12:21 Les Bell PA is PHCP. cp 12:21 Jose Rangel MD is Attending Physician. cp 14:08 Strep swab sent to lab. 3 14:12 Triage completed. vg1 14:12 Arm band placed on. vg1 14:52 XRAY Chest Pa And Lat (2 Views) In Process Unspecified. EDMS 16:01 No provider procedures requiring assistance completed. Patient did not have IV access aa5 during this emergency room visit. Administered Medications: 14:35 Drug: Tessalon Perle (benzonatate) 200 mg Route: PO; aa5 16:00 Follow up: Response: No adverse reaction aa5 Outcome: 15:30 Discharge ordered by . cp 16:01 Discharged to home ambulatory. aa5 16:01 Condition: stable 16:01 Discharge instructions given to patient, Instructed on discharge instructions, follow up and referral plans. medication usage, Demonstrated understanding of instructions, follow-up care, medications, Prescriptions given X 3. 16:02 Patient left the ED. aa5 Signatures: Dispatcher [employer] [facility] Nichol Muller, RN RN aa5 Les Bell PA PA Mami David am2 Nilda Cody, RN RN 1 Mechelle Cano 3
[2021-09-01 16:58] VITALS: BP 134/85; TEMP 99; O2SAT 99
== END 2021-09-01 16:02 | disposition home or self-care (01) ==
LOC: ER 12:04
DX: J20.9 Acute bronchitis, unspecified (principal)
CPT/HCPCS: 71046; 87070; 87081; 99284

== ENCOUNTER 2022-02-13 17:09 | Emergency (ER) | payer SELFPAY ==
--- OUTSIDE RECORDS SUMMARY | 2022-02-13 17:13 | XMS REPORT | Continuity of Care Document ---
:2000 Author Organization [facility] t Address [address] [place] [address] Care Team Providers Name Role Phone Pcp, Patient Does Not Have A Primary Care Physician [id number] PADMINI DOMINGO Attending Clinician Unavailable Padmini Diaz Attending Clinician Doctor Unassigned, [place] Attending Clinician Unavailable LOU GARDNER Attending Clinician Unavailable Lou Elizondo Attending Clinician Jesus Alberto Henry Attending Clinician Jesus Alberto ARANDA Attending Clinician Unavailable Jesus Alberto ARANDA Admitting Clinician Unavailable Payers Payer Name Policy Type Policy Number Effective Date Expiration Date [facility] [id number] 2021 CHOICE [place] STAR 00:00:00 Problems Condition Condition Condition Status Onset Resolution Last Treating Co mments Source Name Details Category Date Date Treatment Clinician Date Behavior Behavior Disease Active Unive rs concern concern -13 ity of 00:00: [address] Family Family Disease Active Univers circumstan circumstan -13 it y of ce ce 00:00: [place] 00 Medical Branch Hx of Hx of Disease Active Univers suicide suicide 1-13 ity of attempt attempt 00:00: [place] 00 Medical Branch Depression Depression Disease Active U nivers , , 1-13 ity of unspecifie unspecifie 00:00: [place] 00 Medical depression depression Br anch type type BMI (body BMI (body Disease Active Uni vers mass mass 1-13 ity of index), index), 00:00: [place] pediatric, pediatric, 00 Me dical 95-99% for 95-99% for Br anch age age Allergies, Adverse Reactions, Alerts Allergy Allergy Status Severity Reaction(s) Onset Inactive Treating Comm ents Source Name Type Date Date Clinician NO KNOWN Drug Active Univers ALLERGIE Class ity of S [facility] Social History Social Habit Start Date Stop Date Quantity Comments Source Exposure to 2022-01-15 2022-01-25 Not sure [facility] SARS-CoV-2 (event) 00:00:00 16:49:00 Medica l [place] Alcohol intake 2016-05-14 2016-05-14 0 /d [facility] 00:00:00 00:00:00 [facility] [birth year] [facility] [place] [facility]:00 [facility] Branch Smoking Status Start Date Stop Date Source Never smoked tobacco [facility] Medications Ordered Filled Start Stop Current Ordering Indication Dosage Frequency Signature Comments Components Source Medication Medication Date Date Medication? Clinician (SIG) Name Name ondansetron 2021-04 No 4mg 4 mg, Slow Univers (ZOFRAN 001-25 IV Push, ity of (PF)) 23:30: 22:39 ONCE, 1 [place] injection 4 00 :00 dose, On Medi tate mg [facility] 01/25/22 at 1830, JOANNA ketorolac 2021-04 No 15mg 15 mg, Unive rs (TORADOL) 001-25 Slow IV ity of injection 23:30: 22:39 Push, [place] 15 mg 00 :00 ONCE, 1 Medical dose, On Branch [facility] 01/25/22 at 1830, Routine ondansetron 2021-04 No 4mg 4 mg, Slow Univers (ZOFRAN 001-25 IV Push, ity of (PF)) 22:45: 22:04 ONCE, 1 [place] injection 4 00 :00 dose, On Medi tate mg [facility] Branch 01/25/22 at 1745, JOANNA NaCl 0.9% 2021-04 No 1000mL at 999 Uni vers (NS) bolus 0-06 10-06 mL/hr, ity of infusion 22:45: 23:10 1,000 mL, [place] as 1,000 mL 00 :00 IV Medical Infusion, Branch ONCE, 1 dose, On Steffany 01/25/22 at 1745, JOANNA dicyclomine 2021-04 Yes [id number] 20mg Take 1 Univers 20 mg 0-06 tablet by ity of tablet 00:00: mouth [place] 00 every 6 Medical (six) Branch hours as needed for Abdominal pain. ondansetron 2021-04 Yes [id number] 4mg Take 1 Univers 4 mg 0-06 tablet by ity of disintegrat 00:00: mouth [place] ing tablet 00 every 6 Medica l (six) Branch hours as needed for Nausea and Vomiting (N/V). amoxicillin 2020-04 No 500mg 500 mg, U nivers (TRIMOX) 06-08 Oral, ity of capsule 500 00:30: 23:33 [place]CE[place] 1 [place] mg [place] :[place] dose, On Medical [facility] Branch 04/06/21 at 1830, JOANNA
Re ason for Anti-Infec tive: Documented Infection< br>Documen nadiya Infection Site: HEENT
D uration of Therapy: Other (see Comments) ketorolac 2020-04 No 30mg 30 mg, Unive rs (TORADOL) 06-08 Intramuscu ity of injection 00:30: 23:33 lar, ONCE, [place] 30 mg 00 :00 1 dose, On Medical [place] Branch 04/06/21 at 1830, JOANNA ibuprofen 2020-04 Yes [id number] 800mg Take 1 U nivers 800 mg 2-16 tablet by ity of tablet 00:00: mouth 3 [place] 00 (three) Medical times Branch daily with meals. chlorhexidi 2020-04 Yes [id number] 15mL Swish and Univers ne 0.12 % 2-16 spit out ity of mouthwash 00:00: 15 mL 2 [place] 00 (two) Medical times Branch daily. chlorhexidi 2020-04 Yes [id number] 15mL Swish and Univers ne 0.12 % 2-16 spit out ity of mouthwash 00:00: 15 mL 2 [place] 00 (two) Medical times Branch daily. ibuprofen 2020-04 Yes [id number] 800mg Take 1 U nivers 800 mg 2-16 tablet by ity of tablet 00:00: mouth 3 [place] 00 (three) Medical times Branch daily with meals. chlorhexidi 2020-04 Yes [id number] 15mL Swish and Univers ne 0.12 % 2-16 spit out ity of mouthwash 00:00: 15 mL 2 [place] 00 (two) Medical times Branch daily. ibuprofen 2020-04- No [id number] 800mg Take 1 Univers 800 mg 2-16 10-06 tablet by ity of tablet 00:00: 00:00 mouth 3 [place] 00 :00 (three) Medical times Branch daily with meals. amoxicillin 2020-04- No [id number] 500mg Take 1 Univers 500 mg 2-16 12-24 capsule by ity of capsule 00:00: 05:59 mouth 3 [place] 00 :00 (three) Medical times Branch daily for 7 days. NaCl 0.9% 2020-04- No 1000mL at 999 Uni vers (NS) bolus 0-15 10-15 mL/hr, ity of infusion 23:15: 23:43 1,000 mL, [place] as 1,000 mL 00 :00 IV Medical Infusion, Branch ONCE, 1 dose, On Sat02/03/21 at 1815, STAT METAXALONE Yes Take by [facility] ers (SKELAXIN 1-23 mouth. ity of ORAL) 14:34: [address] METAXALONE Yes Take by [facility] ers (SKELAXIN 1-23 mouth. ity of ORAL) 14:34: [address] METAXALONE Yes Take by [facility] ers (SKELAXIN 1-23 mouth. ity of ORAL) 14:34: [address] METAXALONE Yes Take by [facility] ers (SKELAXIN 1-23 mouth. ity of ORAL) 14:34: [address] Vital Signs Vital Name Observation Time Observation Value Comments Source Heart rate 2022-01-25 21:49:00 80 /min [facility] [place] [facility] Body temperature 2022-01-25 21:49:00 37.06 Charo Univ [facility] [place] [facility] Respiratory rate 2022-01-25 21:49:00 16 /min Univ [facility] [place] [facility] Body height 2022-01-25 21:49:00 160 cm [facility] [place] [facility] Body weight 2022-01-25 21:49:00 88.451 kg [facility] [place] [facility] BMI 2022-01-25 21:49:00 34.54 kg/m2 [facility] [place] [facility] Oxygen saturation in 2022-01-25 21:49:00 97 /min University of Arterial blood by [place] [employer] tate Pulse oximetry Branch Systolic blood 2022-01-25 21:49:00 152 mm[Hg] Univer sity of pressure [place] [facility] Diastolic blood 2022-01-25 21:49:00 102 mm[Hg] Unive rsity of pressure [place] [facility] Body temperature 2021-04-06 22:53:00 36.94 Charo Univ [facility] [place] [facility] Respiratory rate 2021-04-06 22:53:00 18 /min Univ [facility] [place] [facility] Body height 2021-04-06 22:53:00 162.6 cm [facility] [place] [facility] Body weight 2021-04-06 22:53:00 86.183 kg [facility] [place] [facility] BMI 2021-04-06 22:53:00 32.61 kg/m2 [facility] [place] [facility] Oxygen saturation in 2021-04-06 22:53:00 99 /min University of Arterial blood by [place] [employer] tate Pulse oximetry Branch Systolic blood 2021-04-06 22:53:00 139 mm[Hg] Univer sity of pressure [place] [facility] Diastolic blood 2021-04-06 22:53:00 99 mm[Hg] Unive rsity of pressure [place] [facility] Heart rate 2021-04-06 22:53:00 76 /min [facility] [place] [facility] Systolic blood 2021-02-03 22:20:00 140 mm[Hg] Univer sity of pressure [place] [facility] Diastolic blood 2021-02-03 22:20:00 98 mm[Hg] Unive rsity of pressure [place] [facility] Heart rate 2021-02-03 22:20:00 85 /min [facility] Respiratory rate 2021-02-03 22:20:00 18 /min [facility] Oxygen saturation in 2021-02-03 22:20:00 99 /min [facility] Arterial blood by [facility] Pulse oximetry [place] Body temperature 2021-02-03 15:54:00 36.78 Charo [facility] Body height 2021-02-03 15:54:00 160 cm [facility] Body weight 2021-02-03 15:54:00 74.844 kg [facility] BMI 2021-02-03 15:54:00 29.23 kg/m2 [facility] Body mass index 2021-02-03 15:54:00 91.94 % Unive rsity of (BMI) [Percentile] [facility] ica Per age and sex Branch Procedures Procedure Date / Time Performing Clinician Source Performed POCT TEST 2022-01-25 22:06:00 Padmini Domingo [facility] LIPASE 2022-01-25 22:03:00 Padmini Domingo [facility] MAGNESIUM 2022-01-25 22:03:00 [facility] COMP. METABOLIC PANEL 2022-01-25 22:03:00 [facility] [place] [id number] CBC WITH DIFF 2022-01-25 22:03:00 [facility] NOTICE OF PRIVACY 2022-01-25 21:25:28 Doctor Unassigned, No [facility] ersity [facility] PRACTICES Name [facility] Branch CONSENT/REFUSAL FOR 2022-01-25 21:25:07 Doctor Unassigned, No Un [facility] [place] DIAGNOSIS AND TREATMENT Name [facility] POCT TEST 2021-04-06 23:20:00 Lou Gardner [facility] CONSENT/REFUSAL FOR 2021-04-06 22:35:43 Doctor Unassigned, No [facility] [place] [facility]NOS[facility] Name [facility] XR CHEST 1 VW 2021-02-03 23:04:39 Jesus Alberto Aranda Madalyn [facility] D-DIMER 2021-02-03 18:33:00 Jesus Alberto Aranda [facility] LIPASE 2021-02-03 18:24:00 Jesus Alberto Aranda [facility] MAGNESIUM 2021-02-03 18:24:00 Jesus Alberto Aranda Madalyn [facility] COMP. METABOLIC PANEL 2021-02-03 18:24:00 Jesus Alberto Aranda [facility] ([id number]) [facility] CBC WITH DIFF 2021-02-03 18:24:00 Jesus Alberto Aranda Madalyn [facility] URINALYSIS 2021-02-03 18:24:00 Jesus Alberto Aranda Madalyn [facility] URINE DRUG (IMMUNOASSAY) 2021-02-03 18:23:00 Jesus Alberto Aranda [facility] DRUG Medical [facility] nch SCREEN POCT TEST 2021-02-03 18:23:00 Jesus Alberto Aranda [facility] NOTICE OF PRIVACY 2021-02-03 15:44:16 Doctor Unassguera, No [facility] PRACTICES Name [facility] Encounters Start End Encounter Admission Attending Care Care Encounter Source Date/Time Date/Time Type Type Clinicians Facility Department ID 2022-01-25 2022-01-25 Emergency X RIDDLE, [facility] ERT [id number] Univers 16:50:00 18:32:00 PADMINI it y of [facility] 2022-01-25 2022-01-25 Emergency [place], [facility] [id number] Univers 16:50:00 18:32:00 Padmini WARREN [id number] ity of [place] [id number] [facility] [id number] [facility] 084 Branch 2022-01-25 2022-01-25 Orders Doctor LUO [id number] Univers 00:00:00 00:00:00 Only Unassigned, CHINYERE [id number] ity of [place] [facility] 4.2.7.2.686 [place] [id number] [facility] 009 Branch 2021-04-062021-04-06 Emergency X GARDNER, [facility] ERT [id number] Univers 16:54:00 17:47:00 [facility] 2021-04-06 2021-04-06 Emergency [facility] [id number] Univers 16:54:00 17:47:00 Lou WARREN [id number] i ty of [place] 4.2.7.2.686 [facility] [id number] [address] 2021-02-03 2021-02-03 Emergency Jesus Alberto Aranda [facility] [id number] Univers 11:11:00 18:44:00 Madalyn Warren [id number] i ty of [employer] 4.2.7.2.686 [facility] [id number] [address] 2021-02-03 2021-02-03 Emergency X Jesus Alberto ARANDA [facility] ERT [id number] Univers 11:11:00 18:44:00 [facility] Results Test Description Test Time Test Comments Results Result Comments Source POCT TEST 2022-01-25 22:06:00 Test Item Value Reference Range Interpretation Comme nts POCT PREG (test code = 1605) negative On board controls acceptable with C Line (test code = 3574) present POCT PREG LOT # (test code = 3575) [id number] POCT PREG TEST DATE (test code = 3576) Lab Interpretation (test code = 70688-9) Normal [facility] [id number] 23:20:00 Test Item Value Reference Range Interpretation Comments POCT PREG (test code = 1605) negative POCT PREG LOT # (test code = 3575) [id number] POCT PREG TEST DATE (test 2022-05-22 code = 3576) Lab Interpretation (test code = Normal 81206-6) [facility]-[id number] 19:30:18 Test Item Value Reference Interpretation Comments Range D-DIMER (test code = <0.27 See_Comment [Autom ated [id number]) message] The system which generated this result [...] diagnosis. Lab Interpretation Normal (test code = 06348-3) [facility]2021-10-15 19:00:14 Test Item Value Reference Range Interpretation Comments MAGNESIUM (test code = 7073353186) 1.8 mg/dL 1.7-2.4 Lab Interpretation (test code = Normal 32179-5) [facility]IC PAN[facility] ([id number])2021-02-03 18:59:54 Test Item Value Reference Range Interpretation Comments NA (test code = 139 mmol/L 135-145 9695751204) K (test code = 4.0 mmol/L 3.5-5.0 1642397960) CL (test code = 101 mmol/L 98-108 3305023969) CO2 TOTAL (test code 30 mmol/L 23-31 = 1485236765) AGAP (test code = 2-16 6759476670) BUN (test code = 13 mg/dL 7-23 7660224003) GLUCOSE (test code = 87 mg/dL 70-110 3944438122) CREATININE (test code 0.57 mg/dL 0.50-1.04 = 3900617407) TOTAL BILI (test code 0.4 mg/dL 0.1-1.1 = 5349906768) CALCIUM (test code = 9.7 mg/dL 8.6-10.6 3121008496) T PROTEIN (test code 8.0 g/dL 6.3-8.2 = 1909663766) ALBUMIN (test code = 4.6 g/dL 3.5-5.0 2321836803) ALK PHOS (test code = 90 U/L 34-122 0457071752) ALTv (test code = 15 U/L 5-35 1742-6) AST(SGOT) (test code 23 U/L 13-40 = 9242781765) eGFR (test code = mL/min/1.73m2 0885147503) NIKA (test code = NIKA) Association of [...] or urine or abnormalities in imaging tests). [facility]15 18:59:34 Test Item Value Reference Range Interpretation Comments LIPASE (test code = 5347765723) 37 U/L 0-220 Lab Interpretation (test code = Normal 01637-4) [facility] WITH [id number] 18:37:09 Test Item Value Reference Range Interpretation [...] (test code = 38.9 fL 39.0-49.9 L 52555-1) RDW-CV (test code = 13.2 % 12.0-15.5 788-0) PLT (test code = See_Comment H [Automated 777-3) message] The sy stem which generated this result transmitted reference range : 166 - 358 10*3/ ?L. The reference r tomasa was not used to interpret this result as normal/abnormal . MPV (test code = 9.2 fL 9.5-12.9 L 01025-5) NRBC/100 WBC (test See_Comment [Automat ed code = 4681719218) message] The system which generated this result transmitted reference range : 0.0 - 10.0 /100 WBCs. The refer ence range was not u sed to interpret th is result as normal/abnormal . NRBC x10^3 (test code <0.01 See_Comment [Auto mated = 4739271173) message] The s ystem which generated this result transmitted reference range : 10*3/?L. The reference range was not used to interpret this result as normal/abnormal . GRAN MAT (NEUT) % 66.3 % (test code = 770-8) IMM GRAN % (test code 0.70 % = 9704486341) LYMPH % (test code = 20.6 % 736-9) MONO % (test code = 9.8 % 5905-5) EOS % (test code = 1.7 % 713-8) BASO % (test code = 0.9 % 706-2) GRAN MAT x10^3(ANC) 5.09 10*3/uL 1.88-7.09 (test code = 3960275157) IMM GRAN x10^3 (test 0.05 10*3/uL 0.00-0.06 code = 2007318118) LYMPH x10^3 (test code 1.58 10*3/uL 1.32-3.29 = 731-0) MONO x10^3 (test code 0.75 10*3/uL 0.33-0.92 = 742-7) EOS x10^3 (test code = 0.13 10*3/uL 0.03-0.39 711-2) BASO x10^3 (test code 0.07 10*3/uL 0.01-0.07 = 704-7) Lab Interpretation Abnormal (test code = 51452-7) [facility] [id number] 18:23:00 Test Item Value Reference Range Interpretation Comments POCT PREG (test code = 1605) negative On board controls acceptable with C present Line (test code = 3574) Lab Interpretation (test code = Normal 02052-0) [facility]
[2022-02-13] MEDS ORDERED: LIDOCAINE 2% MPF 5 ML VIAL ONE ×2 (17:40→18:33)
[2022-02-13] MEDS ORDERED: HYDROCODONE/APAP 10/325 TAB ONE (17:40)
[2022-02-13] MEDS ORDERED: TETANUS & DIPHTHERIA TOX,ADULT 0.5 ML VIAL ONE (17:41)
[2022-02-13] MEDS ORDERED: BUPIVACAINE 0.5% PF 10 ML VIAL ONE (18:33)
--- NOTE | 2022-02-13 20:13 | EDPHYS ---
Physician Documentation [facility] [place] [facility] Name: Izzy Krishnan Age: 21 yrs Sex: Female : 2000 Arrival Date: 02/13/2022 Time: 17:13 Bed 14 Private MD: ED Physician Noe Schofield HPI: 02/13 17:33 This 21 yrs old Female presents to ER via Ambulatory with complaints of Finger nail pm1 injury. 17:33 The patient or guardian reports injury. The complaints affect the left thumb. Context: pm1 The problem was sustained at home, resulted from playing with daughter and accidentally bent her left thumb nail back. Patient had some fake acrylic nails on her fingers. Onset: The symptoms/episode began/occurred just prior to arrival. Modifying factors: The symptoms are alleviated by nothing, the symptoms are aggravated by movement, of her nail. Associated signs and symptoms: The patient has no apparent associated signs or symptoms. Severity of symptoms: in the emergency department the symptoms are unchanged. The patient has not experienced similar symptoms in the past. The patient has not recently seen a physician. Historical: - Allergies: 17:18 No Known Allergies; ss - Home Meds: 17:18 None [Active]; ss - PMHx: 17:18 Asthma; ss - PSHx: 17:18 Appendectomy; ss - Immunization history:: Client reports receiving the 2nd dose of the Covid vaccine. - Social history:: Smoking status: Reported history of juuling and/or vaping. Patient uses street drugs, marijuana. ROS: 17:33 Constitutional: Negative for fever, chills, and weight loss, Cardiovascular: Negative pm1 for chest pain, palpitations, and edema, Respiratory: Negative for shortness of breath, cough, wheezing, and pleuritic chest pain. 17:33 Neuro: Negative for headache, weakness, numbness, tingling, and seizure. 17:33 MS/extremity: Positive for pain, of the left thumb, Negative for decreased range of motion. 17:33 Skin: Positive for of the partial avulsion of left thumb nail. 17:33 All other systems are negative. Exam: 17:33 Constitutional: This is a well developed, well nourished patient who is awake, alert, pm1 and in no acute distress. Head/Face: Normocephalic, atraumatic. 17:33 MS/ Extremity: Pulses equal, no cyanosis. Neurovascular intact. Full, normal range of motion. 17:33 Eyes: Exam is negative for acute changes, Periorbital structures: no acute changes, Extraocular movements: no acute changes. 17:33 Cardiovascular: Exam negative for acute changes, Rate: normal, Rhythm: regular, Pulses: no pulse deficits are appreciated. 17:33 Respiratory: Exam negative for acute changes, respiratory distress, shortness of breath. 17:33 Skin: Appearance: normal except for affected area, injury, partial avulsion of left thumb nail. Proximal aspect of nail intact with large and thick acrylic nail attached. 17:33 Neuro: Exam negative for acute changes, Orientation: is normal, Mentation: is normal, Motor: is normal, moves all fours. Vital Signs: 17:16 Pulse 80; Resp 18; Temp 98.4(TE); Pulse Ox 98% on R/A; Weight 88.45 kg; Height 5 ft. 3 ss in. (160.02 cm); Pain 10/10; 17:18 BP 119 / 95; ss 19:25 BP 118 / 90; Pulse 80; Resp 19; Pulse Ox 98% on R/A; ha1 17:16 Body Mass Index 34.54 (88.45 kg, 160.02 cm) ss Laceration: 20:09 Wound Repair of 2cm ( 0.8in ) subcutaneous laceration to left thumb. Parital avulsion pm1 of left thumb nail. Distal neuro/vascular/tendon intact. Anesthesia: Digital block administered with 1 mls of Lido/Marcaine. Wound prep: Extensive cleansing with betadine with hibiclenz by me, Wound irrigation with saline by me, Wound explored extensively, Copious irrigation. Skin closed with 1 4-0 Prolene using figure 8. Dressed with 4x4's. Patient tolerated well. MDM: 17:28 Patient medically screened. pm1 19:49 ED course: Patient was able to remove the acrylic finger nail with soaking in warm pm1 water. Therefore I will clean her wound and figure 8 the nail to maintain the nail groove opening. 20:12 Data reviewed: vital signs. Data interpreted: Pulse oximetry: on room air is 98 %. pm1 Interpretation: normal. Counseling: I had a detailed discussion with the patient and/or guardian regarding: the historical points, exam findings, and any diagnostic results supporting the discharge/admit diagnosis, the need for outpatient follow up, to return to the emergency department if symptoms worsen or persist or if there are any questions or concerns that arise at home. 20:26 ED course: PMPAware reviewed. 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 Exp: bp 09/09/2023. Lot #: [id number]. } Route: IM; Site: right deltoid; 17:50 Drug: [place] (HYDROcodone-acetaminophen) 10 mg-325 mg 1 tabs Route: PO; bp Disposition Summary: 02/13/22 20:13 Discharge Ordered Location: Home pm1 Problem: new pm1 Symptoms: have improved pm1 Condition: Stable pm1 Diagnosis - Laceration without foreign body of left thumb with damage to nail, initial encounterpm1 Followup: pm1 - With: Emergency Department - When: As needed - Reason: Worsening of condition Followup: pm1 - With: Private Physician - When: 7 - 10 days - Reason: Recheck today's complaints, Continuance of care, Staple/Suture removal, Re-evaluation by your physician Discharge Instructions: - Discharge Summary Sheet pm1 - Laceration Care, Adult pm1 - Nail Avulsion pm1 Forms: - Medication Reconciliation Form pm1 - Thank You Letter pm1 - Antibiotic Education pm1 - Prescription Opioid Use pm1 Prescriptions: - Cephalexin 500 mg Oral Capsule - take 1 capsule by ORAL route every 6 hours for 10 days; 40 capsule; Refills: 0, pm1 Product Selection Permitted - Tramadol 50 mg Oral Tablet - take 1 tablet by ORAL route every 8 hours as needed; 12 tablet; Refills: 0, pm1 Product Selection Permitted Signatures: Shell Otto RN RN ss Khari Walter, MEDICAL LABORATORY SCIENTIST MEDICAL LABORATORY SCIENTIST pm1 Robin Bro, RN RN bp
--- NOTE | 2022-02-13 20:13 | ER ---
Nurse's Notes [facility] Name: Izzy Krishnan Age: 21 yrs Sex: Female : 2000 Arrival Date: 02/13/2022 Time: 17:13 Bed 14 Private MD: Diagnosis: Laceration without foreign body of left thumb with damage to nail, initial encounter Presentation: 02/13 17:16 Chief complaint: Patient states: "I was playing with my daughter and my hand hit my leg ss and my whole nail lifted off of my thumb and it hurts. I can't get it off the rest of the way.". Coronavirus screen: Client denies travel out of the [place] in the last 14 days. Ebola Screen: Patient denies exposure to infectious person. Patient denies travel to an Ebola-affected area in the 21 days before illness onset. Initial Sepsis Screen: Does the patient meet any 2 criteria? No. Patient's initial sepsis screen is negative. Does the patient have a suspected source of infection? No. Patient's initial sepsis screen is negative. Risk Assessment: Do you want to hurt yourself or someone else? Patient reports no desire to harm self or others. Onset of symptoms was February 13, 2022. 17:16 Method Of Arrival: Ambulatory ss 17:16 Acuity: ESAU 4 ss Historical: - Allergies: 17:18 No Known Allergies; ss - Home Meds: 17:18 None [Active]; ss - PMHx: 17:18 Asthma; ss - PSHx: 17:18 Appendectomy; ss - Immunization history:: Client reports receiving the 2nd dose of the Covid vaccine. - Social history:: Smoking status: Reported history of juuling and/or vaping. Patient uses street drugs, marijuana. Screenin:04 Abuse screen: Denies threats or abuse. Denies injuries from another. Nutritional ha1 screening: No deficits noted. Tuberculosis screening: No symptoms or risk factors identified. Fall Risk None identified. Assessment: 19:25 General: Appears in no apparent distress. Behavior is calm, cooperative. General: PT. ha1 REPORTS PULLING HER NAIL BY ACCIDENT. CARE PROVIDER AT BEDSIDE CUTTING LOOSE NAIL. Pain: Complains of pain in NAIL. Neuro: Level of Consciousness is awake, alert, Oriented to person, place, time, situation. Cardiovascular: Patient's skin is warm and dry. Respiratory: Airway is patent Trachea midline Respiratory effort is even, unlabored, Respiratory pattern is regular, symmetrical. GI: No signs and/or symptoms were reported involving the gastrointestinal system. : No signs and/or symptoms were reported regarding the genitourinary system. EENT:. Derm:. Musculoskeletal: Circulation, motion, and sensation intact. Range of motion: intact in all extremities. 20:25 Reassessment: Patient and/or family updated on plan of care and expected duration. Pain ha1 level reassessed. Patient is alert, oriented x 3, equal unlabored respirations, skin warm/dry/pink. SUTURES PUT IN PLACE BY CARE PROVIDER.FINGER NAIL COVER WITH A FINGER SPLINT. Vital Signs: 17:16 Pulse 80; Resp 18; Temp 98.4(TE); Pulse Ox 98% on R/A; Weight 88.45 kg; Height 5 ft. 3 ss in. (160.02 cm); Pain 10/10; 17:18 BP 119 / 95; ss 19:25 BP 118 / 90; Pulse 80; Resp 19; Pulse Ox 98% on R/A; ha1 17:16 Body Mass Index 34.54 (88.45 kg, 160.02 cm) ED Course: 17:13 Patient arrived in ED. mr 17:18 Triage completed. ss 17:18 Arm band placed on right wrist. ss 17:25 Robin Bro, RN is Primary Nurse. bp 17:27 Khari Walter, MARY is PHCP. pm1 17:27 Noe Schofield MD is Attending Physician. pm1 20:07 Patient has correct armband on for positive identification. Bed in low position. Call ha1 light in reach. Side rails up X 1. Door closed. Noise minimized. Warm blanket given. 20:29 No provider procedures requiring assistance completed. Patient did not have IV access ha1 during this emergency room visit. 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 Exp: bp 09/09/2023. Lot #: [id number]. } Route: IM; Site: right deltoid; 17:50 Drug: Tasley (HYDROcodone-acetaminophen) 10 mg-325 mg 1 tabs Route: PO; bp Medication: 20:29 VIS not applicable for this client. ha1 Outcome: 20:13 Discharge ordered by . pm1 20:29 Discharged to home ambulatory. ha1 20:29 Condition: stable 20:29 Discharge instructions given to patient, Instructed on discharge instructions, follow up and referral plans. Demonstrated understanding of instructions, follow-up care, medications, Prescriptions given X 2. 20:30 Patient left the ED. ha1 Signatures: Fouzia Jackson Shelby, RN RN ss Khari Walter NP EYE SURGEON pm1 Robin Bro RN RN bp Namrata Grant RN RN ha1
[2022-02-13 20:55] VITALS: TEMP 98.4; O2SAT 98
[2022-02-13 20:57] VITALS: BP 118/90
== END 2022-02-13 20:30 | disposition home or self-care (01) ==
LOC: ER 17:09
PROC: 0JQK0ZZ Repair Left Hand Subcutaneous Tissue and Fascia, Open Approach (ICD-10-PCS; principal; 2022-02-13)
DX: S61.112A Laceration without foreign body of left thumb with damage to nail, initial encounter (principal); Z23 Encounter for immunization
CPT/HCPCS: 90471; 90714; 99283; J2001

== ENCOUNTER 2022-08-30 22:26 | Emergency (ER) | payer SELFPAY ==
--- OUTSIDE RECORDS SUMMARY | 2022-08-30 22:45 | XMS REPORT | Continuity of Care Document ---
:2000 Author Organization [facility] t Address [address] [place] [address] Care Team Providers Name Role Phone Pcp, Patient Does Not Have A Primary Care Physician [id number] PADMINI DOMINGO Attending Clinician Unavailable Padmini Diaz Attending Clinician Doctor Unassigned, [place] Attending Clinician Unavailable LOU GARDNER Attending Clinician Unavailable Lou Elizondo Attending Clinician Jesus Alberto Henry Attending Clinician Jesus Alberto ARANDA Attending Clinician Unavailable Jesus Alberto ARANDA Admitting Clinician Unavailable Payers Payer Name Policy Type Policy Number Effective Date Expiration Date [facility] [id number] 2021 CHOICE [place] 00:00:00 Problems Condition Condition Condition Status Onset Resolution Last Treating Co mments Source Name Details Category Date Date Treatment Clinician Date Behavior Behavior Disease Active Unive rs concern concern -13 ity of 00:00: [address] Family Family Disease Active Univers circumstan [...] Source Exposure to 2022-01-15 2022-01-25 Not sure [facility] SARS-CoV-2 (event) 00:00:00 16:49:00 [facility] [place] Alcohol intake 2016-05-14 2016-05-14 0 /d [facility] 00:00:00 00:00:00 [facility] Sex Assigned At [address] [facility] [place] [facility]:00 00:00:00 [facility] Smoking Status Start Date Stop Date Source Never smoked tobacco [facility] Medications Ordered Filled Start Stop Current Ordering Indication Dosage Frequency Signature Comments Components Source Medication Medication Date Date Medication? Clinician (SIG) Name Name ondansetron 2021-04 No 4mg 4 mg, Slow Univers (ZOFRAN 001-25 IV Push, ity of (PF)) 23:30: 22:39 ONCE, 1 [place] injection 4 00 :00 dose, On Medi tate mg [facility] 01/25/22 at 1830, JOANNA ketorolac 2021-04 No 15mg 15 mg, Unive rs (TORADOL) 001-25 Slow IV ity of injection 23:30: 22:39 Push, [place] 15 mg 00 :00 ONCE, 1 Medical dose, On Branch [facility] 01/25/22 at 1830, Routine ondansetron 2021-04 No [...] 01/25/22 at 1745, JOANNA dicyclomine 2021-04 Yes [id number] 20mg Take 1 Univers 20 mg 0-06 tablet by ity of tablet 00:00: mouth [place] 00 every 6 Medical (six) Branch hours as needed for Abdominal pain. ondansetron 2021-04 Yes [id number] 4mg Take 1 Univers 4 mg 0-06 [...] 04/06/21 at 1830, JOANNA ibuprofen 2020-04 Yes [id number] 800mg Take 1 U nivers 800 mg 2-16 tablet by ity of tablet 00:00: mouth 3 [place] 00 (three) Medical times Branch daily with meals. chlorhexidi 2020-04 Yes [id number] 15mL Swish and Univers ne 0.12 % 2-16 spit out ity of mouthwash 00:00: 15 mL 2 [place] 00 (two) Medical times Branch daily. chlorhexidi 2020-04 Yes [id number] 15mL Swish and Univers ne 0.12 % 2-16 spit out ity of mouthwash 00:00: 15 mL 2 [place] 00 (two) Medical times Branch daily. ibuprofen 2020-04 Yes [id number] 800mg Take 1 U nivers 800 mg 2-16 tablet by ity of tablet 00:00: mouth 3 [place] 00 (three) Medical times Branch daily with meals. chlorhexidi 2020-04 Yes [id number] 15mL Swish and Univers ne 0.12 % 2-16 spit out ity of mouthwash 00:00: 15 mL 2 [place] 00 (two) Medical times Branch daily. ibuprofen 2020-04- No [id number] 800mg Take 1 Univers 800 mg 2-16 10-06 tablet by ity of tablet 00:00: 00:00 mouth 3 [place] 00 :00 (three) Medical times Branch daily with meals. amoxicillin 2020-04- No [id number] 500mg Take 1 Univers 500 mg 2-16 [...] at 1815, STAT METAXALONE Yes Take by [facility] ers (SKELAXIN 1-23 mouth. ity of ORAL) 14:34: [address] METAXALONE Yes Take by [facility] ers (SKELAXIN 1-23 mouth. ity of ORAL) 14:34: [address] METAXALONE Yes Take by [facility] ers (SKELAXIN 1-23 mouth. ity of ORAL) 14:34: [address] METAXALONE Yes Take by [facility] ers (SKELAXIN 1-23 mouth. ity of ORAL) 14:34: [address] Vital Signs Vital Name Observation Time Observation Value Comments Source Heart rate 2022-01-25 21:49:00 80 /min [facility] [place] [facility] Body temperature 2022-01-25 21:49:00 37.06 Charo [facility] [place] [facility] Respiratory rate 2022-01-25 21:49:00 16 /min [facility] [place] [facility] Body height 2022-01-25 21:49:00 160 cm [facility] [place] [facility] Body weight 2022-01-25 21:49:00 88.451 kg [facility] [place] [facility] BMI 2022-01-25 21:49:00 34.54 kg/m2 [facility] [place] [facility] Oxygen saturation in 2022-01-25 21:49:00 97 /min University of Arterial blood by [place] datango tate Pulse oximetry Branch Systolic blood 2022-01-25 21:49:00 152 mm[Hg] Univer sity of pressure [place] [facility] Diastolic blood 2022-01-25 21:49:00 102 mm[Hg] Unive rsity of pressure [place] [facility] Body temperature 2021-04-06 22:53:00 36.94 Charo [facility] [place] [facility] Respiratory rate 2021-04-06 22:53:00 18 /min [facility] [place] [facility] Body height 2021-04-06 22:53:00 162.6 cm [facility] [place] [facility] Body weight 2021-04-06 22:53:00 86.183 kg [facility] [place] [facility] BMI 2021-04-06 22:53:00 32.61 kg/m2 [facility] [place] [facility] Oxygen saturation in 2021-04-06 22:53:00 99 /min University of Arterial blood by [place] datango tate Pulse oximetry Branch Systolic blood 2021-04-06 22:53:00 139 mm[Hg] Univer sity [facility] [place] [facility] Diastolic blood 2021-04-06 22:53:00 99 mm[Hg] Unive rsity of pressure [place] [facility] Heart rate 2021-04-06 22:53:00 76 /min [facility] [place] [facility] Systolic blood 2021-02-03 22:20:00 140 mm[Hg] Univer sity [facility] [place] [facility] Diastolic blood 2021-02-03 22:20:00 98 mm[Hg] Unive rsity of [facility] [place] [facility] Heart rate 2021-02-03 22:20:00 85 /min [facility] Respiratory rate 2021-02-03 22:20:00 18 /min [facility] Oxygen saturation in 2021-02-03 22:20:00 99 /min [facility] Arterial blood by [facility] Pulse oximetry [place] Body temperature 2021-02-03 15:54:00 36.78 Charo [facility] Body height 2021-02-03 15:54:00 160 cm [facility] Body weight 2021-02-03 15:54:00 74.844 kg [facility] BMI 2021-02-03 15:54:00 29.23 kg/m2 [facility] Body mass index 2021-02-03 15:54:00 91.94 % Unive rsity of (BMI) [Percentile] [facility] ica Per age and sex Branch Procedures Procedure Date / Time Performing Clinician Source Performed POCT TEST 2022-01-25 22:06:00 Padmini Domingo [facility] LIPASE 2022-01-25 22:03:00 Padmini Domingo [facility] MAGNESIUM 2022-01-25 22:03:00 Jose L [facility] COMP. METABOLIC PANEL 2022-01-25 22:03:00 [facility] [place] [id number] CBC WITH DIFF 2022-01-25 22:03:00 Jose L [facility] NOTICE OF PRIVACY 2022-01-25 21:25:28 Doctor Unassigned, No [facility] ersity [facility] PRACTICES Name [facility] CONSENT/REFUSAL FOR 2022-01-25 21:25:07 Doctor Unassigned, No Un [facility] [place] DIAGNOSIS AND TREATMENT Name [facility] POCT TEST 2021-04-06 23:20:00 Lou [facility] CONSENT/REFUSAL FOR 2021-04-06 22:35:43 Doctor Unassigned, No Un [facility] [place] [facility] Name [facility] XR CHEST 1 VW 2021-02-03 23:04:39 Jesus Alberto Aranda Madalyn [facility] D-DIMER 2021-02-03 18:33:00 Jesus Alberto Aranda [facility] LIPASE 2021-02-03 18:24:00 Jesus Alberto Aranda [facility] MAGNESIUM 2021-02-03 18:24:00 Jesus Alberto Aranda Madalyn [facility] COMP. METABOLIC PANEL 2021-02-03 18:24:00 Jesus Alberto Aranda [facility] ([id number]) [facility] CBC WITH DIFF 2021-02-03 18:24:00 Jesus Alberto Aranda Madalyn [facility] URINALYSIS 2021-02-03 18:24:00 Jesus Alberto Aranda Madalyn [facility] URINE DRUG (IMMUNOASSAY) 2021-02-03 18:23:00 Jesus Alberto Aranda [facility] DRUG Medical [facility] SCREEN POCT TEST 2021-02-03 18:23:00 Jesus Alberto Aranda [facility] NOTICE OF PRIVACY 2021-02-03 15:44:16 Doctor Unassguera, No [facility] PRACTICES Name [facility] Encounters Start End Encounter Admission Attending Care Care Encounter Source Date/Time Date/Time Type Type Clinicians Facility Department ID 2022-01-25 2022-01-25 Emergency X RIDDLE, [facility] ERT [id number] Univers 16:50:00 18:32:00 PADMINI it y of [facility] 2022-01-25 2022-01-25 Emergency [place], [facility] [id number] Univers 16:50:00 18:32:00 Padmini WARREN [id number] ity of [place] [id number] [facility] [id number] [facility] 084 Branch 2022-01-25 2022-01-25 Orders Doctor LUO [id number] Univers 00:00:00 00:00:00 Only Unassigned, CHINYERE [id number] ity of [place] [facility] [id number] Leroy [id number] [facility] 009 Branch 2021-04-062021-04-06 Emergency X GARDNER, [facility] ERT [id number] Univers 16:54:00 17:47:00 [facility] 2021-04-06 2021-04-[address] [facility] [id number] Univers 16:54:00 17:47:00 Lou WARREN [id number] i ty of [place] 4.2.7.2.686 [facility] [id number] [address] 2021-02-03 2021-02-03 Emergency Jesus Alberto Aranda [facility] [id number] Univers 11:11:00 18:44:00 Madalyn [place] [id number] i ty of [place] 4.2.7.2.686 [facility] [id number] [address] 2021-02-03 2021-02-03 Emergency X Jesus Alberto ARANDA [facility] ERT [id number] Univers 11:11:00 18:44:00 [facility] Results Test Description Test Time Test Comments Results Result Comments Source POCT TEST 2022-01-25 22:06:00 Test Item Value Reference Range Interpretation Comme nts POCT PREG (test code = 1605) negative On board controls acceptable with C Line (test code = 3574) present POCT PREG LOT # (test code = 3575) [id number] POCT PREG TEST DATE (test code = 3576) Lab Interpretation (test code = 68515-9) Normal [facility] [id number] 23:20:00 Test Item Value Reference Range Interpretation Comments POCT PREG (test code = 1605) negative POCT PREG LOT # (test code = 3575) [id number] POCT PREG TEST DATE (test 2022-05-22 code = 3576) Lab Interpretation (test code = Normal 35895-3) [facility][id number] 19:30:18 Test Item Value Reference Interpretation Comments Range D-DIMER (test code = <0.27 See_Comment [Autom ated 6944169998) message] The system which generated this result [...] diagnosis. Lab Interpretation Normal (test code = 19180-9) [facility]2021-[facility]-15 19:00:14 Test Item Value Reference Range Interpretation Comments MAGNESIUM (test code = 5557328762) 1.8 mg/dL 1.7-2.4 Lab Interpretation (test code = Normal 51698-1) [facility]OLIC PANEL (15074)2021-02-03 18:59:54 Test Item Value Reference Range Interpretation Comments NA (test code = 139 mmol/L 135-145 3506838076) K (test code = 4.0 mmol/L 3.5-5.0 8172613520) CL (test code = 101 mmol/L 98-108 7231170746) CO2 TOTAL (test code 30 mmol/L 23-31 = 7732509530) AGAP (test code = 2-16 1684857434) BUN (test code = 13 mg/dL 7-23 3978274082) GLUCOSE (test code = 87 mg/dL 70-110 2451439178) CREATININE (test code 0.57 mg/dL 0.50-1.04 = 6347817255) TOTAL BILI (test code 0.4 mg/dL 0.1-1.1 = 3223344529) CALCIUM (test code = 9.7 mg/dL 8.6-10.6 5928443802) T PROTEIN (test code 8.0 g/dL 6.3-8.2 = 4127249690) ALBUMIN (test code = 4.6 g/dL 3.5-5.0 1286644356) ALK PHOS (test code = 90 U/L 34-122 3639645338) ALTv (test code = 15 U/L 5-35 1742-6) AST(SGOT) (test code 23 U/L 13-40 = 3356624692) eGFR (test code = mL/min/1.73m2 0327318512) NIKA (test code = NIKA) Association of [...] or abnormalities in imaging tests). [facility] 18:59:34 Test Item Value Reference Range Interpretation Comments LIPASE (test code = 8414534548) 37 U/L 0-220 Lab Interpretation (test code = Normal 43107-4) [facility] WITH [id number] 18:37:09 Test Item Value Reference Range Interpretation [...] (test code = 38.9 fL 39.0-49.9 L 89631-2) RDW-CV (test code = 13.2 % 12.0-15.5 788-0) PLT (test code = See_Comment H [Automated 777-3) message] The sy stem which generated this result transmitted reference range : 166 - 358 10*3/ ?L. The reference r tomasa was not used to interpret this result as normal/abnormal . MPV (test code = 9.2 fL 9.5-12.9 L 87564-9) NRBC/100 WBC (test See_Comment [Automat ed code = 4438535804) message] The system which generated this result transmitted reference range : 0.0 - 10.0 /100 WBCs. The refer ence range was not u sed to interpret th is result as normal/abnormal . NRBC x10^3 (test code <0.01 See_Comment [Auto mated = 3564883884) message] The s ystem which generated this result transmitted reference range : 10*3/?L. The reference range was not used to interpret this result as normal/abnormal . GRAN MAT (NEUT) % 66.3 % (test code = 770-8) IMM GRAN % (test code 0.70 % = 6953775664) LYMPH % (test code = 20.6 % 736-9) MONO % (test code = 9.8 % 5905-5) EOS % (test code = 1.7 % 713-8) BASO % (test code = 0.9 % 706-2) GRAN MAT x10^3(ANC) 5.09 10*3/uL 1.88-7.09 (test code = 6829758364) IMM GRAN x10^3 (test 0.05 10*3/uL 0.00-0.06 code = 6931990619) LYMPH x10^3 (test code 1.58 10*3/uL 1.32-3.29 = 731-0) MONO x10^3 (test code 0.75 10*3/uL 0.33-0.92 = 742-7) EOS x10^3 (test code = 0.13 10*3/uL 0.03-0.39 711-2) BASO x10^3 (test code 0.07 10*3/uL 0.01-0.07 = 704-7) Lab Interpretation Abnormal (test code = 61875-0) [facility] [id number] 18:23:00 Test Item Value Reference Range Interpretation Comments POCT PREG (test code = 1605) negative On board controls acceptable with C present Line (test code = 3574) Lab Interpretation (test code = Normal 95265-4) [facility]
--- NOTE | 2022-08-31 00:20 | ER ---
Nurse's Notes [facility] Name: Izzy Krishnan Age: 22 yrs Sex: Female : 2000 Arrival Date: 08/30/2022 Time: 22:26 Bed IW1 Private MD: Diagnosis: Disorder of teeth and supporting structures, unspecified Presentation: 08/30 23:43 Chief complaint: Patient states: "I was running 105 temp and my ears hurt, I can't tell vc1 if it is a toothache or earache.". Coronavirus screen: At this time, the client does not indicate any symptoms associated with coronavirus-19. Ebola Screen: Patient negative for fever greater than or equal to 101.5 degrees Fahrenheit, and additional compatible Ebola Virus Disease symptoms Patient denies exposure to infectious person. Patient denies travel to an Ebola-affected area in the 21 days before illness onset. No symptoms or risks identified at this time. Initial Sepsis Screen: Does the patient meet any 2 criteria? No. Patient's initial sepsis screen is negative. Does the patient have a suspected source of infection? No. Patient's initial sepsis screen is negative. Risk Assessment: Do you want to hurt yourself or someone else? Patient reports no desire to harm self or others. Onset of symptoms was August 30, 2022. 23:43 Method Of Arrival: Ambulatory vc1 23:43 Acuity: ESAU 4 vc1 Triage Assessment: 23:48 General: Appears in no apparent distress. uncomfortable, Behavior is calm, cooperative, vc1 appropriate for age. Pain: Complains of pain in right ear, left ear, right jaw and left jaw Pain does not radiate. Pain currently is 8 out of 10 on a pain scale. EENT: Reports pain in right ear, left ear, right jaw and left jaw. Neuro: No deficits noted. Cardiovascular: No deficits noted. Respiratory: Airway is patent Respiratory effort is even, unlabored, Respiratory pattern is regular, symmetrical. GI: No deficits noted. No signs and/or symptoms were reported involving the gastrointestinal system. : No deficits noted. No signs and/or symptoms were reported regarding the genitourinary system. Derm: No deficits noted. No signs and/or symptoms reported regarding the dermatologic system. Musculoskeletal: No deficits noted. No signs and/or symptoms reported regarding the musculoskeletal system. 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 - Social history:: Smoking status: Patient denies any tobacco usage or history of. Patient uses street drugs, marijuana. Screenin:47 [facility] ED Fall Risk Assessment (Adult) History of falling in the last 3 months, vc1 including since admission No falls in past 3 months (0 pts) Confusion or Disorientation No (0 pts) Intoxicated or Sedated No (0 pts) Impaired Gait No (0 pts) Mobility Assist Device Used No (0 pt) Altered Elimination No (0 pt) Score/Fall Risk Level 0 - 2 = Low Risk Oriented to surroundings, Maintained a safe environment, Educated pt \\T\\ family on fall prevention, incl call for assistance when getting out of bed. Abuse screen: Denies threats or abuse. Nutritional screening: No deficits noted. Tuberculosis screening: No symptoms or risk factors identified. Vital Signs: 23:43 BP 135 / 99; Pulse 68; Resp 20; Temp 98.4; Pulse Ox 100% ; vc1 ED Course: 22:28 Patient arrived in ED. ja2 22:30 Les Bell PA is PHCP. cp 22:30 Yoshi Espino MD is Attending Physician. cp 23:46 Triage completed. vc1 23:47 Arm band placed on left wrist. vc1 23:48 No provider procedures requiring assistance completed. Patient did not have IV access vc1 during this emergency room visit. 08/31 00:19 Saman Lagunas DDS is Referral Physician. cp 00:28 Savannah Funez RN is Primary Nurse. vc1 Administered Medications: 00:27 Drug: Acetaminophen PO 1000 mg Route: PO; vc1 00:28 Drug: Clindamycin PO 300 mg Route: PO; vc1 Medication: 08/30 23:48 VIS not applicable for this client. vc1 Outcome: 08/31 00:19 Discharge ordered by . cp 00:28 Discharged to home ambulatory. vc1 00:28 Condition: good 00:28 Discharge instructions given to patient, Instructed on discharge instructions, follow up and referral plans. medication usage, Demonstrated understanding of instructions, follow-up care, medications, Prescriptions given X 2. 00:28 Patient left the ED. vc1 Signatures: Les Bell PA PA cp Alexander, Jessica ja2 [place], Vanessa RN RN vc1
--- NOTE | 2022-08-31 00:20 | EDPHYS ---
Physician Documentation [facility] Name: Izzy Krishnan Age: 22 yrs Sex: Female : 2000 Arrival Date: 08/30/2022 Time: 22:26 Bed IW1 Private MD: ED Physician Yoshi Espino HPI: 08/31 00:00 This 22 yrs old Female presents to ER via Ambulatory with complaints of Toothache, cp Fever. 00:00 The patient presents with pain, lower jaw pain. The problem is located in the painful cp tooth to right lower jaw. Associated signs and symptoms: Pertinent positives: swelling, bilateral ear pain, reported fever of 105, Pertinent negatives: anorexia, dysphagia, inability to eat, vomiting. Severity of symptoms: in the emergency department the symptoms are unchanged, despite home interventions. 00:00 Duration: The symptoms are continuous, and are steadily getting worse. 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 - Social history:: Smoking status: Patient denies any tobacco usage or history of. Patient uses street drugs, marijuana. ROS: 08/31 00:05 Constitutional: Positive for body aches, Negative for fever, poor PO intake. cp 00:05 ENT: Positive for dental pain, ear pain, Negative for drainage from ear(s), sore cp throat, difficulty swallowing, difficulty handling secretions. 00:05 Neck: Negative for pain with movement, pain at rest, stiffness. 00:05 Cardiovascular: Negative for chest pain. 00:05 Respiratory: Negative for cough, shortness of breath, wheezing. 00:05 Abdomen/GI: Negative for abdominal pain, vomiting, diarrhea. 00:05 : Negative for urinary symptoms. 00:05 All other systems are negative. Exam: 00:10 Constitutional: The patient appears in no acute distress, alert, awake, non-toxic, well cp developed, well nourished. 00:10 Head/face: Noted is tenderness, that is mild, of the right jaw and left jaw. cp 00:10 Eyes: Periorbital structures: appear normal, Conjunctiva: normal, no exudate, no injection, Sclera: no appreciated abnormality, Lids and lashes: appear normal, bilaterally. 00:10 ENT: External ear(s): are unremarkable, Ear canal(s): are normal, clear, TM's: dullness, bilaterally, Nose: is normal, Mouth: Lips: moist, Oral mucosa: normal, Posterior pharynx: Airway: no evidence of obstruction, patent, Tonsils: enlarged on the right, swelling, is not appreciated, erythema, is not appreciated, exudate, is not appreciated, Dental exam: abscess, is not appreciated, dental caries, diffusely, fractured teeth are noted, specifically the lower right first molar (#30), gum swelling, not appreciated, pain, that is moderate, specifically in the lower left third molar (#17), lower right first molar (#30) and lower right third molar (#32), Voice: is normal. 00:10 Neck: ROM/movement: is normal, is supple, without pain, no range of motions limitations, no meningismus, Lymph nodes: no appreciated lymphadenopathy. 00:10 Chest/axilla: Inspection: normal. 00:10 Cardiovascular: Rate: normal. 00:10 Respiratory: the patient does not display signs of respiratory distress, Respirations: normal, no use of accessory muscles, no retractions, labored breathing, is not present, Breath sounds: are clear throughout. 00:10 Abdomen/GI: Exam negative for discomfort, distension, guarding, Inspection: abdomen appears normal. 00:10 Back: pain, is absent, ROM is normal. 00:10 Skin: cellulitis, is not appreciated. 00:10 Neuro: Orientation: to person, place \T\ time. Mentation: is normal. Vital Signs: 08/30 23:43 BP 135 / 99; Pulse 68; Resp 20; Temp 98.4; Pulse Ox 100% ; vc1 MDM: 23:42 Patient medically screened. 08/31 00:10 Differential diagnosis: dental caries, gingivitis, dental abscess, pericoronitis, cp aphthous ulcers, acute necrotizing ulcerative gingivitis. 00:18 Data reviewed: vital signs, nurses notes. 00:18 I considered the following discharge prescriptions or medication management in the emergency department Medications were administered in the Emergency Department. See MAR. Test considered but Not performed: Labs: cbc, bmp. Counseling: I had a detailed discussion with the patient and/or guardian regarding: the historical points, exam findings, and any diagnostic results supporting the discharge/admit diagnosis, the need for outpatient follow up, for definitive care, a dentist, to return to the emergency department if symptoms worsen or persist or if there are any questions or concerns that arise at home. Administered Medications: 00:27 Drug: Acetaminophen PO 1000 mg Route: PO; vc1 00:28 Drug: Clindamycin PO 300 mg Route: PO; vc1 Disposition: 22:42 Co-signature as Attending Physician, Yoshi Espino MD I reviewed the patient's care rn provided by the Advanced Practice Provider and agree with the diagnosis and treatment plan. Disposition Summary: 08/31/22 00:19 Discharge Ordered Location: Home cp Problem: new cp Symptoms: have improved cp Condition: Stable cp Diagnosis - Disorder of teeth and supporting structures, unspecified cp Followup: cp - With: Saman Lagunas DDS - When: 2 - 3 days - Reason: Recheck today's complaints Discharge Instructions: - Discharge Summary Sheet cp Forms: - Medication Reconciliation Form cp - Thank You Letter cp - Antibiotic Education cp - Prescription Opioid Use cp Prescriptions: - Clindamycin HCl 300 mg Oral Capsule - take 1 capsule by ORAL route every 6 hours for 10 days; 40 capsule; Refills: 0, cp Product Selection Permitted - Diclofenac Sodium 75 mg Oral Tablet Sustained Release - take 1 tablet by ORAL route 2 times per day; 30 tablet; Refills: 0, Product cp Selection Permitted Signatures: Yoshi Espino MD MD rn Page, Corey, PA PA cp Calcote, Vanessa, RN RN vc1 Corrections: (The following items were deleted from the chart) 20:52 00:00 Associated signs and symptoms: Pertinent positives: swelling, bilateral ear pain, cp reported fever, Pertinent negatives: anorexia, dysphagia, inability to eat, vomiting, cp
[2022-08-31] MEDS ORDERED: ACETAMINOPHEN 500 MG TAB ONE (00:31)
[2022-08-31 00:45] VITALS: BP 135/99; TEMP 98.4; O2SAT 100
== END 2022-08-31 00:28 | disposition home or self-care (01) ==
LOC: ER 22:26
DX: K08.9 Disorder of teeth and supporting structures, unspecified (principal)
CPT/HCPCS: 99283

== ENCOUNTER 2022-10-11 15:23 | Emergency (ER) | payer SELFPAY ==
--- OUTSIDE RECORDS SUMMARY | 2022-10-11 15:28 | XMS REPORT | Continuity of Care Document ---
:2000 Author Organization [facility] [place] t Address [address] [place] [address] Care Team Providers Name Role Phone Pcp, Patient Does Not Have A Primary Care Physician [id number] PADMINI DOMINGO Attending Clinician Unavailable Padmini Diaz Attending Clinician Doctor Unassigned, [place] Attending Clinician Unavailable LOU GARDNER Attending Clinician Unavailable Lou Elizondo Attending Clinician Jesus Alberto Henry Attending Clinician Jesus Alberto ARANDA Attending Clinician Unavailable Jesus Alberto ARANDA Admitting Clinician Unavailable Payers Payer Name Policy Type Policy Number Effective Date Expiration Date [facility] [id number] 2021 CHOICE [place] 00:00:00 Problems Condition Condition Condition Status Onset Resolution Last Treating Co mments Source Name Details Category Date Date Treatment Clinician Date Behavior Behavior Disease Active Unive rs concern concern -13 ity of 00:00: [address] Family Family Disease Active Univers circumstan [...] Active Univers ALLERGIE Class ity of S [facility] Social History Social Habit Start Date Stop Date Quantity Comments Source Exposure to 2022-01-15 2022-01-25 Not sure [facility] SARS-CoV-2 (event) 00:00:00 16:49:00 [facility] [place] Alcohol intake 2016-05-14 2016-05-14 0 /d [facility] 00:00:00 00:00:00 [facility]igned At [birth year] [facility] [place] 00:00:00 00:00:00 [facility] Smoking Status Start Date Stop Date Source Never smoked tobacco [facility] Medications Ordered Filled Start Stop Current Ordering Indication Dosage Frequency Signature Comments Components Source Medication Medication Date Date Medication? Clinician (SIG) Name Name ondansetron 2021-04 No 4mg 4 mg, Slow Univers (ZOFRAN 001-25 IV Push, ity of (PF)) 23:30: 22:39 ONCE, 1 [place] injection 4 00 :00 dose, On Medi tate mg [facility] 01/25/22 at 1830, JOANNA ketorolac 2021-04 No 15mg 15 mg, Unive rs (TORADOL) 001-25 Slow IV ity of injection 23:30: 22:39 Push, [place] 15 mg 00 :00 ONCE, 1 Medical dose, On Branch [facility] 01/25/22 at 1830, Routine ondansetron 2021-04 [...] 01/25/22 at 1745, JOANNA dicyclomine 2021-04 Yes [id number] 20mg Take 1 Univers 20 mg 0-06 tablet by ity of tablet 00:00: mouth [place] 00 every 6 Medical (six) Branch hours as needed for Abdominal pain. ondansetron 2021-04 Yes [id number] 4mg Take 1 Univers 4 mg 0-06 [...] 04/06/21 at 1830, JOANNA ibuprofen 2020-04 Yes [id number] 800mg Take 1 U nivers 800 mg 2-16 tablet by ity of tablet 00:00: mouth 3 [place] 00 (three) Medical times Branch daily with meals. chlorhexidi 2020-04 Yes [id number] 15mL Swish and Univers ne 0.12 % 2-16 spit out ity of mouthwash 00:00: 15 mL 2 [place] 00 (two) Medical times Branch daily. chlorhexidi 2020-04 Yes [id number] 15mL Swish and Univers ne 0.12 % 2-16 spit out ity of mouthwash 00:00: 15 mL 2 [place] 00 (two) Medical times Branch daily. ibuprofen 2020-04 Yes [id number] 800mg Take 1 U nivers 800 mg 2-16 tablet by ity of tablet 00:00: mouth 3 [place] 00 (three) Medical times Branch daily with meals. chlorhexidi 2020-04 Yes [id number] 15mL Swish and Univers ne 0.12 % 2-16 spit out ity of mouthwash 00:00: 15 mL 2 [place] 00 (two) Medical times Branch daily. ibuprofen 2020-04- No [id number] 800mg Take 1 Univers 800 mg 2-16 10-06 tablet by ity of tablet 00:00: 00:00 mouth 3 [place] 00 :00 (three) Medical times Branch daily with meals. amoxicillin 2020-04- No [id number] 500mg Take 1 Univers 500 mg 2-16 [...] at 1815, STAT METAXALONE Yes Take by [facility] ers (SKELAXIN 1-23 mouth. ity of ORAL) 14:34: [address] METAXALONE Yes Take by [facility] ers (SKELAXIN 1-23 mouth. ity of ORAL) 14:34: [address] METAXALONE Yes Take by [facility] ers (SKELAXIN 1-23 mouth. ity of ORAL) 14:34: [address] METAXALONE Yes Take by [facility] ers (SKELAXIN 1-23 mouth. ity of ORAL) 14:34: [address] Vital Signs Vital Name Observation Time Observation Value Comments Source Diastolic blood 2022-01-25 21:49:00 102 mm[Hg] Unive rsity of pressure [place] [facility] Heart rate 2022-01-25 21:49:00 80 /min Universi ty [facility] [place] [facility] Body temperature 2022-01-25 21:49:00 37.06 Charo Univ ersity of [place] [facility] Respiratory rate 2022-01-25 21:49:00 16 /min Univ ersity of [place] [facility] Body height 2022-01-25 21:49:00 160 cm [facility] [place] [facility] Body weight 2022-01-25 21:49:00 88.451 kg [facility] [place] [facility] BMI 2022-01-25 21:49:00 34.54 kg/m2 Universi ty [facility] [place] [facility] Oxygen saturation in 2022-01-25 21:49:00 97 /min University of Arterial blood by [place] [employer] tate Pulse oximetry Branch Systolic blood 2022-01-25 21:49:00 152 mm[Hg] Univer sity of pressure [place] [facility] Body temperature 2021-04-06 22:53:00 36.94 Charo Univ ersity [facility] [place] [facility] Respiratory rate 2021-04-06 22:53:00 18 /min Univ ersity [facility] [place] [facility] Body height 2021-04-06 22:53:00 162.6 cm [facility] [place] [facility] Body weight 2021-04-06 22:53:00 86.183 kg [facility] [place] [facility] BMI 2021-04-06 22:53:00 32.61 kg/m2 [facility] [place] [facility] Oxygen saturation in 2021-04-06 22:53:00 99 /min University of Arterial blood by [place] Medi tate Pulse oximetry Branch Systolic blood 2021-04-06 22:53:00 139 mm[Hg] Univer sity of pressure [place] [facility] Diastolic blood 2021-04-06 22:53:00 99 mm[Hg] Unive rsity of pressure [place] [facility] Heart rate 2021-04-06 22:53:00 76 /min [facility]i [facility] [place] [facility] Systolic blood 2021-02-03 22:20:00 140 mm[Hg] Univer sity of pressure [place] [facility] Diastolic blood 2021-02-03 22:20:00 98 mm[Hg] Unive rsity of pressure [place] [facility] Heart rate 2021-02-03 22:20:00 85 /min [facility] Respiratory rate 2021-02-03 22:20:00 18 /min [facility] Oxygen saturation in 2021-02-03 22:20:00 99 /min [facility] Arterial blood by [facility] Pulse oximetry [place] Body temperature 2021-02-03 15:54:00 36.78 Charo [facility] Body height 2021-02-03 15:54:00 160 cm [facility] Body weight 2021-02-03 15:54:00 74.844 kg [facility] BMI 2021-02-03 15:54:00 29.23 kg/m2 [facility] Body mass index 2021-02-03 15:54:00 91.94 % Unive rsity of (BMI) [Percentile] [facility] ica Per age and sex Branch Procedures Procedure Date / Time Performing Clinician Source Performed POCT TEST 2022-01-25 22:06:00 Padmini Domingo [facility] LIPASE 2022-01-25 22:03:00 Padmini Domingo [facility] MAGNESIUM 2022-01-25 22:03:00 [facility] COMP. METABOLIC PANEL 2022-01-25 22:03:00 [facility] [place] [id number] CBC WITH DIFF 2022-01-25 22:03:00 [facility] NOTICE OF PRIVACY 2022-01-25 21:25:28 Doctor Unassigned, No [facility] ersity [facility] PRACTICES Name [facility] CONSENT/REFUSAL FOR 2022-01-25 21:25:07 Doctor Unassigned, No Un iversity of [place] DIAGNOSIS AND TREATMENT Name [facility] POCT TEST 2021-04-06 23:20:00 Lou Gardner [facility] CONSENT/REFUSAL FOR 2021-04-06 22:35:43 Doctor Unassigned, No Un iversity of [place] DIAGNOSIS AND TREATMENT Name [facility] XR CHEST 1 VW 2021-02-03 23:04:39 Jesus Alberto Aranda Madalyn [facility] D-DIMER 2021-02-03 18:33:00 Jesus Alberto Aranda [facility] LIPASE 2021-02-03 18:24:00 Jesus Alberto Aranda [facility] MAGNESIUM 2021-02-03 18:24:00 Jesus Alberto Aranda [facility] COMP. METABOLIC PANEL 2021-02-03 18:24:00 Jesus Alberto Aranda [facility] ([id number]) [facility] CBC WITH DIFF 2021-02-03 18:24:00 Jesus Alberto Aranda Madalyn [facility] URINALYSIS 2021-02-03 18:24:00 Jesus Alberto Aranda Madalyn [facility] URINE DRUG (IMMUNOASSAY) 2021-02-03 18:23:00 Jesus Alberto Aranda [facility] DRUG Medical [facility] SCREEN POCT TEST 2021-02-03 18:23:00 Jesus Alberto Aradna [facility] NOTICE OF PRIVACY 2021-02-03 15:44:16 Doctor Unassigned, No [facility] PRACTICES Name [facility] Encounters Start End Encounter Admission Attending Care Care Encounter Source Date/Time Date/Time Type Type Clinicians Facility Department ID 2022-10-01 2022-10-01 Outpatient [facility] [id number] Erasmo 08:43:03 08:43:03 0612 F Howell 2022-01-25 2022-01-25 Emergency X RIDD[place], [facility] ERT [id number] Univers 16:50:00 18:32:00 PADMINI catherine y of [facility] 2022-01-25 2022-01-25 Emergency [place], [facility] [id number] Univers 16:50:00 18:32:00 Padmini WARREN 350.1.13.10 ity [facility] 4.2.7.2.686 [facility] [id number] [facility] 084 Branch 2022-01-25 2022-01-25 Orders Doctor LUO [id number] Univers 00:00:00 00:00:00 Only UnassignedCHINYERE 350.1.13.10 ity of [facility] 4.2.7.2.686 Leroy as [id number] [address] 2021-04-06 2021-04-06 Emergency X [facility] ERT [id number] Univers 16:54:00 17:47:[address] [facility] 2021-04-06 2021-04-06 Emergency [facility] [id number] Univers 16:54:00 17:47:00 Lou WARREN 350.1.13.10 i ty of [place] 4.2.7.2.686 [place] [id number] [address] 2021-02-03 2021-02-03 Emergency [facility] [id number] Univers 11:11:00 18:44:00 Madalyn [place] 350.1.13.10 i ty of [place] 4.2.7.2.686 [facility] [id number] [address] 2021-02-03 2021-02-03 Emergency X Jesus Alberto ARANDA [facility] ERT [id number] Univers 11:11:00 18:44:00 [facility] Results Test Description Test Time Test Comments Results Result Comments Source POCT TEST 2022-01-25 22:06:00 Test Item Value Reference Range Interpretation Comme nts POCT PREG (test code = 1605) negative On board controls acceptable with C Line (test code = 3574) present POCT PREG LOT # (test code = 3575) [id number] POCT PREG TEST DATE (test code = 3576) Lab Interpretation (test code = 50051-2) Normal [facility] [id number] 23:20:00 Test Item Value Reference Range Interpretation Comments POCT PREG (test code = 1605) negative POCT PREG LOT # (test code = 3575) [id number] POCT PREG TEST DATE (test 2022-05-22 code = 3576) Lab Interpretation (test code = Normal 46953-4) [facility][id number] 19:30:18 Test Item Value Reference Interpretation Comments Range D-DIMER (test code = <0.27 See_Comment [Autom ated [id number]) message] The system which generated this result [...] diagnosis. Lab Interpretation Normal (test code = 89230-5) [facility]21-[facility]-15 19:00:14 Test Item Value Reference Range Interpretation Comments MAGNESIUM (test code = 3352745379) 1.8 mg/dL 1.7-2.4 Lab Interpretation (test code = Normal 18390-3) [facility] MET[facility]OLIC PANEL (75044)2021-02-03 18:59:54 Test Item Value Reference Range Interpretation Comments NA (test code = 139 mmol/L 135-145 8404194361) K (test code = 4.0 mmol/L 3.5-5.0 0260978403) CL (test code = 101 mmol/L 98-108 3654413045) CO2 TOTAL (test code 30 mmol/L 23-31 = 2649178832) AGAP (test code = 2-16 4616799455) BUN (test code = 13 mg/dL 7-23 8422909912) GLUCOSE (test code = 87 mg/dL 70-110 5750381330) CREATININE (test code 0.57 mg/dL 0.50-1.04 = 2680483623) TOTAL BILI (test code 0.4 mg/dL 0.1-1.1 = 4297207264) CALCIUM (test code = 9.7 mg/dL 8.6-10.6 8731520438) T PROTEIN (test code 8.0 g/dL 6.3-8.2 = 7572893172) ALBUMIN (test code = 4.6 g/dL 3.5-5.0 8518839762) ALK PHOS (test code = 90 U/L 34-122 1662442985) ALTv (test code = 15 U/L 5-35 1742-6) AST(SGOT) (test code 23 U/L 13-40 = 2495112788) eGFR (test code = mL/min/1.73m2 4254906820) NIKA (test code = NIKA) Association of [...] or abnormalities in imaging tests). [facility] 18:59:34 Test Item Value Reference Range Interpretation Comments LIPASE (test code = 0015427595) 37 U/L 0-220 Lab Interpretation (test code = Normal 35948-4) [facility] WITH [id number] 18:37:09 Test Item Value Reference Range Interpretation [...] (test code = 38.9 fL 39.0-49.9 L 83895-4) RDW-CV (test code = 13.2 % 12.0-15.5 788-0) PLT (test code = See_Comment H [Automated 777-3) message] The sy stem which generated this result transmitted reference range : 166 - 358 10*3/ ?L. The reference r tomasa was not used to interpret this result as normal/abnormal . MPV (test code = 9.2 fL 9.5-12.9 L 50402-1) NRBC/100 WBC (test See_Comment [Automat ed code = 5370868599) message] The system which generated this result transmitted reference range : 0.0 - 10.0 /100 WBCs. The refer ence range was not u sed to interpret th is result as normal/abnormal . NRBC x10^3 (test code <0.01 See_Comment [Auto mated = 1184151647) message] The s ystem which generated this result transmitted reference range : 10*3/?L. The reference range was not used to interpret this result as normal/abnormal . GRAN MAT (NEUT) % 66.3 % (test code = 770-8) IMM GRAN % (test code 0.70 % = 1651744966) LYMPH % (test code = 20.6 % 736-9) MONO % (test code = 9.8 % 5905-5) EOS % (test code = 1.7 % 713-8) BASO % (test code = 0.9 % 706-2) GRAN MAT x10^3(ANC) 5.09 10*3/uL 1.88-7.09 (test code = 4429131103) IMM GRAN x10^3 (test 0.05 10*3/uL 0.00-0.06 code = 8072421814) LYMPH x10^3 (test code 1.58 10*3/uL 1.32-3.29 = 731-0) MONO x10^3 (test code 0.75 10*3/uL 0.33-0.92 = 742-7) EOS x10^3 (test code = 0.13 10*3/uL 0.03-0.39 711-2) BASO x10^3 (test code 0.07 10*3/uL 0.01-0.07 = 704-7) Lab Interpretation Abnormal (test code = 97078-5) [facility] [id number] 18:23:00 Test Item Value Reference Range Interpretation Comments POCT PREG (test code = 1605) negative On board controls acceptable with C present Line (test code = 3574) Lab Interpretation (test code = Normal 80211-3) [facility]
[2022-10-11 16:23] LABS: Specific Gravity > 1.030 (1.005-1.030)
[2022-10-11 16:25] LABS: Absolute Lymphocytes (CBC) 1.5 K/uL (0.7-4.9); Hematocrit 37.8 % (36.0-45.0); Lymphocytes % 19.7 % (15.3-44.8); MCV 76.9 fL (80-100); MPV 7.8 fL (7.6-11.3); RBC Red Blood Cell Count 4.91 M/uL (3.86-4.86)
[2022-10-11 16:26] LABS: Specific Gravity > 1.030 (1.005-1.030); Urine Bacteria <20 /HPF (<20); Urine Bilirubin NEGATIVE (Negative); Urine Blood 3+ (OVER) (Negative); Urine Clarity Turbid (Clear); Urine Color Yellow (Yellow); Urine Glucose NEGATIVE (Negative); Urine Mucus Slight /HPF (None Seen); Urine Protein TRACE (Negative); Urine RBC <5 /HPF (None Seen); Urine Urobilinogen Normal (Normal); Urine pH 5.5 (5.0-7.0)
[2022-10-11] MEDS ORDERED: ONDANSETRON 4 MG/2 ML VIAL ONE ×2 (16:40→18:05)
[2022-10-11] MEDS ORDERED: FAMOTIDINE 20 MG/2 ML VIAL IV ONE (16:40)
[2022-10-11] MEDS ORDERED: KETOROLAC 30 MG/ML INJ ONE (16:40)
[2022-10-11] MEDS ORDERED: NA CHLORIDE 0.9% 1,000 ML ONE (16:40)
[2022-10-11 16:50] LABS: Albumin 3.7 g/dL (3.4-5.0); Bilirubin Total 0.4 mg/dL (0.2-1.0); Potassium 3.7 mEq/L (3.5-5.1); Protein, Total 8.1 g/dL (6.4-8.2)
--- NOTE | 2022-10-11 16:59 | ER ---
Nurse's Notes [facility] Name: Izzy Krishnan Age: 22 yrs Sex: Female : 2000 Arrival Date: 10/11/2022 Time: 15:23 Bed 10 Private MD: Diagnosis: Upper abdominal pain, unspecified;Nausea with vomiting, unspecified;Diarrhea, unspecified Presentation: 10/11 15:40 Chief complaint: Patient states: Vomiting, diarrhea and abdominal pain X5-6 days. Pt cm10 now able to keep down fluids. Coronavirus screen: Vaccine status: Patient reports receiving the 2nd dose of the covid vaccine. Ebola Screen: No symptoms or risks identified at this time. Initial Sepsis Screen: Does the patient meet any 2 criteria? No. Patient's initial sepsis screen is negative. Does the patient have a suspected source of infection? No. Patient's initial sepsis screen is negative. Risk Assessment: Do you want to hurt yourself or someone else? Patient reports no desire to harm self or others. Onset of symptoms was October 06, 2022. 15:40 Method Of Arrival: Ambulatory cm10 15:40 Acuity: ESAU 3 cm10 Triage Assessment: 15:44 General: Appears in no apparent distress. comfortable, Behavior is calm, cooperative. cm10 Neuro: No deficits noted. Level of Consciousness is awake, alert, Oriented to person, place, time, situation. Respiratory: No deficits noted. Airway is patent Respiratory effort is even, unlabored, Respiratory pattern is regular, symmetrical. 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 - Social history:: Smoking status: Reported history of juuling and/or vaping. Patient uses street drugs, marijuana. Screenin:40 [facility] ED Fall Risk Assessment (Adult) Score/Fall Risk Level 0 - 2 = Low Risk ll1 Oriented to surroundings, Maintained a safe environment, Educated pt \T\ family on fall prevention, incl call for assistance when getting out of bed, Hourly rounding (assess needs \T\ fall precautionary measures) done. Abuse screen: Denies threats or abuse. Nutritional screening: No deficits noted. Tuberculosis screening: No symptoms or risk factors identified. Assessment: 16:40 Reassessment: No changes from previously documented assessment. Patient and/or family ll1 updated on plan of care and expected duration. Pain level reassessed. Patient is alert, oriented x 3, equal unlabored respirations, skin warm/dry/pink. 17:12 Reassessment: No changes from previously documented assessment. Patient and/or family ll1 updated on plan of care and expected duration. Pain level reassessed. Patient is alert, oriented x 3, equal unlabored respirations, skin warm/dry/pink. 18:01 Reassessment: No changes from previously documented assessment. Patient and/or family ll1 updated on plan of care and expected duration. Pain level reassessed. Patient is alert, oriented x 3, equal unlabored respirations, skin warm/dry/pink. 18:11 Reassessment: No changes from previously documented assessment. Patient and/or family ll1 updated on plan of care and expected duration. Pain level reassessed. 18:11 Pain: Denies pain. GI: Bowel sounds present X 4 quads. Abd is soft and non tender X 4 ll1 quads. Vital Signs: 15:40 BP 132 / 91; Pulse 86; Resp 18; Temp 97.6(O); Pulse Ox 100% on R/A; Weight 99.79 kg; cm10 Height 5 ft. 2 in. ; Pain 8/10; 18:11 BP 99 / 52; Pulse 64; Resp 17; Pulse Ox 100% ; ll1 15:40 Body Mass Index 40.24 (99.79 kg, 157.48 cm) cm10 15:40 Pain Scale: Adult cm10 ED Course: 15:24 Patient arrived in ED. mr 15:36 Lali Black F[facility]-C is [facility]. kb 15:36 Marlon Dao MD is Attending Physician. kb 15:43 Triage completed. cm10 15:44 Arm band placed on Patient placed in waiting room. cm10 16:08 Urinalysis w/ reflexes Sent. ll1 16:08 Test, Urine Sent. ll1 16:08 Inserted saline lock: 22 gauge in left antecubital area, using aseptic technique. Blood ll1 collected. 16:28 Christopher Larios RN is Primary Nurse. ll1 16:28 Patient placed in an exam room, on a stretcher. ll1 16:40 Patient has correct armband on for positive identification. Bed in low position. Call ll1 light in reach. Cardiac monitoring not applicable on this patient. 18:11 No provider procedures requiring assistance completed. IV discontinued, intact, ll1 bleeding controlled, No redness/swelling at site. Pressure dressing applied. Administered Medications: 16:40 Drug: NS 0.9% IV 1000 ml Route: IV; Rate: 1 bolus; Site: left antecubital; ll1 18:12 Follow up: Response: No adverse reaction; IV Status: Completed infusion; IV Intake: ll1 1000ml 16:40 Drug: Famotidine IVP 20 mg Route: IVP; Site: left antecubital; ll1 17:15 Follow up: Response: No adverse reaction ll1 16:40 Drug: TORadol - Ketorolac IVP 15 mg Route: IVP; Site: left antecubital; ll1 17:15 Follow up: Response: No adverse reaction ll1 16:40 Drug: Ondansetron IVP 4 mg Route: IVP; Site: left antecubital; ll1 17:15 Follow up: Response: No adverse reaction ll1 18:01 Drug: Ondansetron IVP 4 mg Route: IVP; Site: left antecubital; ll1 18:12 Follow up: Response: No adverse reaction ll1 18:01 Drug: Acetaminophen PO 1000 mg Route: PO; ll1 18:12 Follow up: Response: No adverse reaction ll1 Medication: 16:40 VIS not applicable for this client. ll1 Intake: 18:12 IV: 1000ml; Total: 1000ml. ll1 Outcome: 16:59 Discharge ordered by . kb 18:11 Discharged to home ambulatory. ll1 18:11 Condition: stable 18:11 Discharge instructions given to patient, Instructed on discharge instructions, follow up and referral plans. medication usage, Demonstrated understanding of instructions, follow-up care, medications, Prescriptions given X 2. 18:12 Patient left the ED. ll1 Signatures: Lali Black, CLINICAL TECHNICIAN-C CLINICAL TECHNICIAN-Ivana JacksonFouzia Christopher Larios, RN RN ll1 Izzy Avila RN RN cm10
--- NOTE | 2022-10-11 17:00 | EDPHYS ---
Physician Documentation [facility] Name: Izzy Krishnan Age: 22 yrs Sex: Female : 2000 Arrival Date: 10/11/2022 Time: 15:23 Bed 10 Private MD: ED Physician Marlon Dao HPI: 10/11 16:42 This 22 yrs old Female presents to ER via Ambulatory with complaints of Abdominal Pain, kb Vomiting/Diarrhea. 16:42 The patient presents with abdominal pain that is diffuse. Onset: The symptoms/episode kb began/occurred 5 day(s) ago. The symptoms do not radiate. Associated signs and symptoms: Pertinent positives: nausea, vomiting, and diarrhea, Pertinent negatives: fever. The symptoms are described as constant. Modifying factors: The symptoms are alleviated by nothing, the symptoms are aggravated by nothing. Severity of pain: At its worst the pain was moderate in the emergency department the pain is unchanged. The patient has not experienced similar symptoms in the past. The patient has not recently seen a physician. Pt reports diarrhea and abd pain for 5-6 days, vomiting started today so her boss sent her in to get checked out. denies fever. PT drinking water at time of triage. 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 - Social history:: Smoking status: Reported history of juuling and/or vaping. Patient uses street drugs, marijuana. ROS: 16:41 Constitutional: Negative for fever, chills, and weight loss. kb 16:41 Abdomen/GI: Positive for abdominal pain, nausea, vomiting, and diarrhea. 16:41 All other systems are negative. Exam: 16:41 Constitutional: This is a well developed, well nourished patient who is awake, alert, kb and in no acute distress. Head/Face: Normocephalic, atraumatic. ENT: Moist Mucous membranes Cardiovascular: Regular rate and rhythm with a normal S1 and S2. No gallops, murmurs, or rubs. No pulse deficits. Respiratory: Respirations even and unlabored. No increased work of breathing. Talking in full sentences Abdomen/GI: Soft, non-tender. No distention Skin: Warm, dry with normal turgor. Normal color. MS/ Extremity: Pulses equal, no cyanosis. Neurovascular intact. Full, normal range of motion. Neuro: Awake and alert, GCS 15, oriented to person, place, time, and situation. Moves all extremities. Normal gait. Vital Signs: 15:40 BP 132 / 91; Pulse 86; Resp 18; Temp 97.6(O); Pulse Ox 100% on R/A; Weight 99.79 kg; cm10 Height 5 ft. 2 in. ; Pain 8/10; 18:11 BP 99 / 52; Pulse 64; Resp 17; Pulse Ox 100% ; ll1 15:40 Body Mass Index 40.24 (99.79 kg, 157.48 cm) cm10 15:40 Pain Scale: Adult cm10 MDM: 15:41 Patient medically screened. kb 16:56 Differential diagnosis: gastritis, non-specific abd pain. Data reviewed: vital signs, kb nurses notes. Test considered but Not performed: CT: CT considered, but pt has no abd tenderness, is afebrile, nontoxic in appearance. . Counseling: I had a detailed discussion with the patient and/or guardian regarding: the historical points, exam findings, and any diagnostic results supporting the discharge/admit diagnosis, lab results, the need for outpatient follow up, a family practitioner, to return to the emergency department if symptoms worsen or persist or if there are any questions or concerns that arise at home. ED course: Pt is tolerating po intake, nontoxic in appearance, afebrile with no abd tenderness. Stable for discharge. 17:53 ED course: Pt reports she ate a THC gummy yesterday for the first time.. kb 10/11 15:42 Order name: CBC with Diff; Complete Time: 16:29 kb 10/11 15:42 Order name: CMP; Complete Time: 16:54 kb 10/11 15:42 Order name: Lipase; Complete Time: 16:54 kb 10/11 15:42 Order name: Test, Urine; Complete Time: 16:41 kb 10/11 15:42 Order name: Urinalysis w/ reflexes; Complete Time: 16:29 kb 10/11 15:42 Order name: IV Saline Lock; Complete Time: 15:58 kb 10/11 15:42 Order name: Labs collected and sent; Complete Time: 15:58 kb Administered Medications: 16:40 Drug: NS 0.9% IV 1000 ml Route: IV; Rate: 1 bolus; Site: left antecubital; ll1 18:12 Follow up: Response: No adverse reaction; IV Status: Completed infusion; IV Intake: ll1 1000ml 16:40 Drug: Famotidine IVP 20 mg Route: IVP; Site: left antecubital; ll1 17:15 Follow up: Response: No adverse reaction ll1 16:40 Drug: TORadol - Ketorolac IVP 15 mg Route: IVP; Site: left antecubital; ll1 17:15 Follow up: Response: No adverse reaction ll1 16:40 Drug: Ondansetron IVP 4 mg Route: IVP; Site: left antecubital; ll1 17:15 Follow up: Response: No adverse reaction ll1 18:01 Drug: Ondansetron IVP 4 mg Route: IVP; Site: left antecubital; ll1 18:12 Follow up: Response: No adverse reaction ll1 18:01 Drug: Acetaminophen PO 1000 mg Route: PO; ll1 18:12 Follow up: Response: No adverse reaction ll1 Disposition: 10/12 09:59 Co-signature as Attending Physician, Marlon Dao MD I reviewed the patient's care rt provided by the Advanced Practice Provider and agree with the diagnosis and treatment plan. Disposition Summary: 10/11/22 16:59 Discharge Ordered Location: Home kb Condition: Stable kb Diagnosis - Upper abdominal pain, unspecified kb - Nausea with vomiting, unspecified kb - Diarrhea, unspecified kb Followup: kb - With: Emergency Department - When: As needed - Reason: Worsening of condition Followup: kb - With: Private Physician - When: 2 - 3 days - Reason: Recheck today's complaints, Continuance of care, Re-evaluation by your physician Discharge Instructions: - Discharge Summary Sheet kb - Food Choices to Help Relieve Diarrhea, Adult kb - Nausea and Vomiting, Adult, [id number] kb - Diarrhea, Adult, [id number] kb Forms: - Medication Reconciliation Form kb - Thank You Letter kb - Antibiotic Education kb - Prescription Opioid Use kb - Work release form ll1 Prescriptions: - Zofran 4 mg Oral Tablet - take 1 tablet by ORAL route every 6 hours As needed; 12 tablet; Refills: 0, kb Product Selection Permitted - dicyclomine 20 mg Oral Tablet - take 1 tablet by ORAL route 4 times per day As needed; 20 tablet; Refills: 0, kb Product Selection Permitted Signatures: Dispatcher [employer] Lali Graham, BALDEMARC Christopher Moreland, RN RN ll1 Marlon Dao MD MD rt Martinez, Clarissa, RN RN cm10
[2022-10-11] MEDS ORDERED: ACETAMINOPHEN 500 MG TAB ONE (18:05)
[2022-10-11 18:18] VITALS: TEMP 97.6; O2SAT 100
[2022-10-11 18:20] VITALS: BP 99/52
== END 2022-10-11 18:12 | disposition home or self-care (01) ==
LOC: ER 15:23
DX: R10.10 Upper abdominal pain, unspecified (principal); R11.2 Nausea with vomiting, unspecified; R19.7 Diarrhea, unspecified
CPT/HCPCS: 36415; 80053; 81001; 81025; 83690; 85025; 96361; 96374; 96375; 99284; J2405; J7030

== ENCOUNTER 2022-11-04 14:24 | Emergency (ER) | payer SELFPAY ==
--- OUTSIDE RECORDS SUMMARY | 2022-11-04 14:27 | XMS REPORT | Continuity of Care Document ---
:2000 Author Organization [facility] t Address [address] [facility] [address] [place] [address] Care Team Providers Name Role Phone Pcp, Patient Does Not Have A Primary Care Physician [id number] PADMINI DOMINGO Attending Clinician Unavailable Padmini Diaz Attending Clinician Doctor Unassigned, [place] Attending Clinician Unavailable LOU GARDNER Attending Clinician Unavailable Lou Elizondo Attending Clinician Jesus Alberto Henry Attending Clinician Jesus Alberto ARANDA Attending Clinician Unavailable Jesus Alberto ARANDA Admitting Clinician Unavailable Payers Payer Name Policy Type Policy Number Effective Date Expiration Date [facility] [id number] 2021 CHOICE [place] 00:00:00 Problems Condition Condition Condition Status Onset Resolution Last Treating Co mments Source Name Details Category Date Date Treatment Clinician Date Behavior Behavior Disease Active Unive rs concern concern -13 ity of 00:00: [address] Family Family Disease Active Univers circumstan [...] Active Univers ALLERGIE Class ity of S [facility] [place] Social History Social Habit Start Date Stop Date Quantity Comments Source Exposure to 2022-01-15 2022-01-25 Not sure [facility] SARS-CoV-2 (event) 00:00:00 16:49:00 Medica l [place] Alcohol intake 2016-05-14 2016-05-14 0 /d [facility] 00:00:00 00:00:[address] [facility] At [birth year] [facility] [place] 00:[facility]:00 00:00:00 [facility] Smoking Status Start Date Stop Date Source Never smoked tobacco [facility] Medications Ordered Filled Start Stop Current Ordering Indication Dosage Frequency Signature Comments Components Source Medication Medication Date Date Medication? Clinician (SIG) Name Name ondansetron 2021-04 No 4mg 4 mg, Slow Univers (ZOFRAN 001-25 IV Push, ity of (PF)) 23:30: 22:39 ONCE, 1 [place] injection 4 00 :00 dose, On Medi tate mg [facility] 01/25/22 at 1830, JOANNA ketorolac 2021-04 No 15mg 15 mg, Unive rs (TORADOL) 001-25 Slow IV ity of injection 23:30: 22:39 Push, [place] 15 mg 00 :00 ONCE, 1 Medical dose, On Branch [facility] 01/25/22 at 1830, Routine ondansetron 2021-04 [...] 01/25/22 at 1745, JOANNA dicyclomine 2021-04 Yes [id number] 20mg Take 1 Univers 20 mg 0-06 tablet by ity of tablet 00:00: mouth [place] 00 every 6 Medical (six) Branch hours as needed for Abdominal pain. ondansetron 2021-04 Yes [id number] 4mg Take 1 Univers 4 mg 0-06 [...] 04/06/21 at 1830, JOANNA ibuprofen 2020-04 Yes [id number] 800mg Take 1 U nivers 800 mg 2-16 tablet by ity of tablet 00:00: mouth 3 [place] 00 (three) Medical times Branch daily with meals. chlorhexidi 2020-04 Yes [id number] 15mL Swish and Univers ne 0.12 % 2-16 spit out ity of mouthwash 00:00: 15 mL 2 [place] 00 (two) Medical times Branch daily. chlorhexidi 2020-04 Yes [id number] 15mL Swish and Univers ne 0.12 % 2-16 spit out ity of mouthwash 00:00: 15 mL 2 [place] 00 (two) Medical times Branch daily. ibuprofen 2020-04 Yes [id number] 800mg Take 1 U nivers 800 mg 2-16 tablet by ity of tablet 00:00: mouth 3 [place] 00 (three) Medical times Branch daily with meals. chlorhexidi 2020-04 Yes [id number] 15mL Swish and Univers ne 0.12 % 2-16 spit out ity of mouthwash 00:00: 15 mL 2 [place] 00 (two) Medical times Branch daily. ibuprofen 2020-04- No [id number] 800mg Take 1 Univers 800 mg 2-16 10-06 tablet by ity of tablet 00:00: 00:00 mouth 3 [place] 00 :00 (three) Medical times Branch daily with meals. amoxicillin 2020-04- No [id number] 500mg Take 1 Univers 500 mg 2-16 [...] [facility] ers (SKELAXIN 1-23 mouth. ity of ORAL) 14:34: [address] METAXALONE Yes Take by [facility] ers (SKELAXIN 1-23 mouth. ity of ORAL) 14:34: [address] METAXALONE Yes Take by [facility] ers (SKELAXIN 1-23 mouth. ity of ORAL) 14:34: [address] METAXALONE Yes Take by [facility] ers (SKELAXIN 1-23 mouth. ity of ORAL) 14:34: [address] Vital Signs Vital Name Observation Time Observation Value Comments Source Diastolic blood 2022-01-25 21:49:00 102 mm[Hg] Unive rsity of pressure [place] [facility] Heart rate 2022-01-25 21:49:00 80 /min [facility] [place] [facility] Body temperature 2022-01-25 21:49:00 37.06 Charo Univ ersity [facility] [place] [facility] Respiratory rate 2022-01-25 21:49:00 16 /min Univ ers[facility] [place] [facility] Body height 2022-01-25 21:49:00 160 cm [facility] [place] [facility] Body weight 2022-01-25 21:49:00 88.451 kg [facility] [place] [facility] BMI 2022-01-25 21:49:00 34.54 kg/m2 [facility] [place] [facility] Oxygen saturation in 2022-01-25 21:49:00 97 /min University of Arterial blood by [place] [employer] tate Pulse oximetry Branch Systolic blood 2022-01-25 21:49:00 152 mm[Hg] Univer sity of pressure [place] [facility] Body temperature 2021-04-06 22:53:00 36.94 Charo Univ [facility] [place] [facility] Respiratory rate 2021-04-06 22:53:00 18 /min Univ [facility] [place] [facility] Body height 2021-04-06 22:53:00 162.6 cm [facility] [place] [facility] Body weight 2021-04-06 22:53:00 86.183 kg [facility] [place] [facility] BMI 2021-04-06 22:53:00 32.61 kg/m2 [facility] [place] [facility] Oxygen saturation in 2021-04-06 22:53:00 99 /min University of Arterial blood by [place] Medi tate Pulse oximetry Branch Systolic blood 2021-04-06 22:53:00 139 mm[Hg] Univer sity of pressure [place] [facility] Diastolic blood 2021-04-06 22:53:00 99 mm[Hg] Unive rsity of pressure [place] [facility] Heart rate 2021-04-06 22:53:00 76 /min [facility] [place] [facility] Systolic blood 2021-02-03 22:20:00 140 mm[Hg] Univer sity of pressure [place] [facility] Diastolic blood 2021-02-03 22:20:00 98 mm[Hg] Unive rsity of pressure [place] [facility] Heart rate 2021-02-03 22:20:00 85 /min [facility] Respiratory rate 2021-02-03 22:20:00 18 /min [facility] Oxygen saturation in 2021-02-03 22:20:00 99 /min [facility] Arterial blood by [facility] Pulse oximetry [place] Body temperature 2021-02-03 15:54:00 36.78 Charo [facility] Body height 2021-02-03 15:54:00 160 cm [facility] Body weight 2021-02-03 15:54:00 74.844 kg [facility] BMI 2021-02-03 15:54:00 29.23 kg/m2 [facility] Body mass index 2021-02-03 15:54:00 91.94 % Unive rsity of (BMI) [Percentile] [facility] ica Per age and sex Branch Procedures Procedure Date / Time Performing Clinician Source Performed POCT TEST 2022-01-25 22:06:00 Padmini Domingo [facility] LIPASE 2022-01-25 22:03:00 Padmini Domingo [facility] MAGNESIUM 2022-01-25 22:03:00 [facility] COMP. METABOLIC PANEL 2022-01-25 22:03:00 [facility] [place] [id number] CBC WITH DIFF 2022-01-25 22:03:00 Joes L [facility] NOTICE OF PRIVACY 2022-01-25 21:25:28 Doctor Unassigned, No [facility] ersity [facility] [place] PRACTICES Name [facility] CONSENT/REFUSAL FOR 2022-01-25 21:25:07 Doctor Unassigned, No Un [facility] [place] DIAGNOSIS AND TREATMENT Name [facility] POCT TEST 2021-04-06 23:20:00 Lou Gardner [facility] CONSENT/REFUSAL FOR 2021-04-06 22:35:43 Doctor Unassigned, No Un [facility] [place] DIAGNOSIS AND TREATMENT Name [facility] XR CHEST 1 VW 2021-02-03 23:04:39 Jesus Alberto Aranda Madalyn [facility] D-DIMER 2021-02-03 18:33:00 Jesus Alberto Aranda [facility] LIPASE 2021-02-03 18:24:00 Jesus Alberto Aranda [facility] MAGNESIUM 2021-02-03 18:24:00 Jesus Alberto Aranda [facility] COMP. METABOLIC PANEL 2021-02-03 18:24:00 Jesus Alberto Aranda [facility] ([id number]) [facility] CBC WITH DIFF 2021-02-03 18:24:00 Jesus Alberto Aranda Madalyn [facility] URINALYSIS 2021-02-03 18:24:00 Jesus Alberto Aranda Madalyn [facility] URINE DRUG (IMMUNOASSAY) 2021-02-03 18:23:00 Jesus Alberto Aranda [facility] DRUG Medical [facility] nc SCREEN POCT TEST 2021-02-03 18:23:00 Jesus Alberto Aranda [facility] NOTICE OF PRIVACY 2021-02-03 15:44:16 Doctor Unassigned, No [facility] PRACTICES Name [facility] Encounters Start End Encounter Admission Attending Care Care Encounter Source Date/Time Date/Time Type Type Clinicians Facility Department ID 2022-10-01 2022-10-[address] [facility] [id number] Erasmo 08:43:03 08:43:03 0612 F [place] 2022-01-25 2022-01-25 Emergency X [place], [facility] ERT [id number] Univers 16:50:00 18:32:00 PADMINI catherine y of [facility] [place] 2022-01-25 2022-01-25 Emergency [place], [facility] [id number] Univers 16:50:00 18:32:00 Padmini WARREN [id number] ity [facility] [id number] [facility] [id number] [facility] 084 Branch 2022-01-25 2022-01-25 Orders Doctor LUO [id number] Univers 00:00:00 00:00:00 Only UnassignedCHINYERE [id number] ity of [facility] 4.2.7.2.686 Leroy as [id number] [address] 2021-04-06 2021-04-06 Emergency X [facility] ERT [id number] Univers 16:54:00 17:47:00 LOU ity [facility] 2021-04-06 2021-04-06 Emergency [facility] [id number] Univers 16:54:00 17:47:00 Lou WARREN [id number] i ty of [place] 4.2.7.2.686 [place] [id number] [address] 2021-02-03 2021-02-03 Emergency [facility] [id number] Univers 11:11:00 18:44:00 Madalyn Warren [id number] i ty of [place] 4.2.7.2.686 [facility] [id number] [address] 2021-02-03 2021-02-03 Emergency X Jesus Alberto ARANDA [facility] ERT [id number] Univers 11:11:00 18:44:00 [facility] Results Test Description Test Time Test Comments Results Result Comments Source POCT TEST 2022-01-25 22:06:00 Test Item Value Reference Range Interpretation Comme nts POCT PREG (test code = 1605) negative On board controls acceptable with C Line (test code = 3574) present POCT PREG LOT # (test code = 3575) [id number] POCT PREG TEST DATE (test code = 3576) Lab Interpretation (test code = 01430-4) Normal [facility] [id number] 23:20:00 Test Item Value Reference Range Interpretation Comments POCT PREG (test code = 1605) negative POCT PREG LOT # (test code = 3575) [id number] POCT PREG TEST DATE (test 2022-05-22 code = 3576) Lab Interpretation (test code = Normal 86159-9) [facility]-[id number] 19:30:18 Test Item Value Reference Interpretation Comments Range D-DIMER (test code = <0.27 See_Comment [Autom ated 9478126157) message] The system which generated this result [...] diagnosis. Lab Interpretation Normal (test code = 93482-4) [facility]2021-10-15 19:00:14 Test Item Value Reference Range Interpretation Comments MAGNESIUM (test code = 0256345630) 1.8 mg/dL 1.7-2.4 Lab Interpretation (test code = Normal 48417-4) [facility] MET[facility]OLIC PANEL (84931)2021-02-03 18:59:54 Test Item Value Reference Range Interpretation Comments NA (test code = 139 mmol/L 135-145 6200197603) K (test code = 4.0 mmol/L 3.5-5.0 5614063951) CL (test code = 101 mmol/L 98-108 1000995853) CO2 TOTAL (test code 30 mmol/L 23-31 = 4626016111) AGAP (test code = 2-16 3244431230) BUN (test code = 13 mg/dL 7-23 7221409461) GLUCOSE (test code = 87 mg/dL 70-110 8229216193) CREATININE (test code 0.57 mg/dL 0.50-1.04 = 8598066785) TOTAL BILI (test code 0.4 mg/dL 0.1-1.1 = 0719943862) CALCIUM (test code = 9.7 mg/dL 8.6-10.6 3619709979) T PROTEIN (test code 8.0 g/dL 6.3-8.2 = 3108320519) ALBUMIN (test code = 4.6 g/dL 3.5-5.0 6185941112) ALK PHOS (test code = 90 U/L 34-122 1607203998) ALTv (test code = 15 U/L 5-35 1742-6) AST(SGOT) (test code 23 U/L 13-40 = 9693125763) eGFR (test code = mL/min/1.73m2 1015662287) NIKA (test code = NKIA) Association of Glomerular Filtration Rate (GFR) and [...] [facility]2021-10-15 18:59:34 Test Item Value Reference Range Interpretation Comments LIPASE (test code = 0188299753) 37 U/L 0-220 Lab Interpretation (test code = Normal 77826-4) [facility] WITH [id number] 18:37:09 Test Item Value Reference Range Interpretation [...] (test code = 38.9 fL 39.0-49.9 L 69310-4) RDW-CV (test code = 13.2 % 12.0-15.5 788-0) PLT (test code = See_Comment H [Automated 777-3) message] The sy stem which generated this result transmitted reference range : 166 - 358 10*3/ ?L. The reference r tomasa was not used to interpret this result as normal/abnormal . MPV (test code = 9.2 fL 9.5-12.9 L 54875-5) NRBC/100 WBC (test See_Comment [Automat ed code = 2179977675) message] The system which generated this result transmitted reference range : 0.0 - 10.0 /100 WBCs. The refer ence range was not u sed to interpret th is result as normal/abnormal . NRBC x10^3 (test code <0.01 See_Comment [Auto mated = 4455186859) message] The s ystem which generated this result transmitted reference range : 10*3/?L. The reference range was not used to interpret this result as normal/abnormal . GRAN MAT (NEUT) % 66.3 % (test code = 770-8) IMM GRAN % (test code 0.70 % = 2221263882) LYMPH % (test code = 20.6 % 736-9) MONO % (test code = 9.8 % 5905-5) EOS % (test code = 1.7 % 713-8) BASO % (test code = 0.9 % 706-2) GRAN MAT x10^3(ANC) 5.09 10*3/uL 1.88-7.09 (test code = 3868462213) IMM GRAN x10^3 (test 0.05 10*3/uL 0.00-0.06 code = 6882220325) LYMPH x10^3 (test code 1.58 10*3/uL 1.32-3.29 = 731-0) MONO x10^3 (test code 0.75 10*3/uL 0.33-0.92 = 742-7) EOS x10^3 (test code = 0.13 10*3/uL 0.03-0.39 711-2) BASO x10^3 (test code 0.07 10*3/uL 0.01-0.07 = 704-7) Lab Interpretation Abnormal (test code = 52297-1) [facility] [id number] 18:23:00 Test Item Value Reference Range Interpretation Comments POCT PREG (test code = 1605) negative On board controls acceptable with C present Line (test code = 3574) Lab Interpretation (test code = Normal 55713-2) [facility]
[2022-11-04] MEDS ORDERED: IBUPROFEN 200 MG TAB PO ONE (14:48)
[2022-11-04] MEDS ORDERED: IBUPROFEN 400 MG TAB ONE (14:48)
--- NOTE | 2022-11-04 15:11 | EDPHYS ---
Physician Documentation [facility] Name: Izzy Krishnan Age: 22 yrs Sex: Female : 2000 Arrival Date: 11/04/2022 Time: 14:24 Bed 17 Private MD: ED Physician Les Trejo HPI: 11/04 15:05 This 22 yrs old Female presents to ER via Ambulatory with complaints of Fever, kb Headache, Sore Throat. 15:05 The patient or guardian reports cough, flu symptoms. Onset: The symptoms/episode kb began/occurred this morning. Severity of symptoms: At their worst the symptoms were mild, moderate, in the emergency department the symptoms are unchanged. Modifying factors: The symptoms are alleviated by nothing, the symptoms are aggravated by nothing. Associated signs and symptoms: Pertinent positives: fever, rhinorrhea, sore throat. The patient has not experienced similar symptoms in the past. The patient has not recently seen a physician. Patient reports cough, congestion, runny nose, sore throat, fever, chills, body aches that started this morning.. 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 kb 15:05 Constitutional: Positive for body aches, chills, fatigue, fever, malaise. 15:05 ENT: Positive for rhinorrhea, sinus congestion, sore throat. 15:05 Respiratory: Positive for cough. 15:05 Neuro: Positive for headache. 15:05 All other systems are negative. Exam: 15:06 Constitutional: This is a well developed, well nourished patient who is awake, alert, kb and in no acute distress. Head/Face: Normocephalic, atraumatic. ENT: Moist Mucous membranes Cardiovascular: Regular rate and rhythm with a normal S1 and S2. No gallops, murmurs, or rubs. No pulse deficits. Respiratory: Respirations even and unlabored. No increased work of breathing. Talking in full sentences Abdomen/GI: Soft, non-tender. No distention Skin: Warm, dry with normal turgor. Normal color. MS/ Extremity: Pulses equal, no cyanosis. Neurovascular intact. Full, normal range of motion. Neuro: Awake and alert, GCS 15, oriented to person, place, time, and situation. Moves all extremities. Normal gait. Vital Signs: 14:30 BP 102 / 76; Pulse 126; Resp 18; Temp 100.8; Pulse Ox 98% on R/A; iw 15:04 BP 103 / 82; Pulse 105; Resp 18; Temp 98.6(O); Pulse Ox 98% on R/A; Weight 88.45 kg; mb9 Height 5 ft. 3 in. ; 15:04 Body Mass Index 34.54 (88.45 kg, 160.02 cm) mb9 MDM: 14:27 Patient medically screened. kb 15:06 Differential Diagnosis: Other Strep, flu, COVID, URI. Data reviewed: vital signs, kb nurses notes. 15:10 Counseling: I had a detailed discussion with the patient and/or guardian regarding: the kb historical points, exam findings, and any diagnostic results supporting the discharge/admit diagnosis, lab results, the need for outpatient follow up, a family practitioner, to return to the emergency department if symptoms worsen or persist or if there are any questions or concerns that arise at home. 11/04 14:28 Order name: Strep; Complete Time: 15:10 kb 11/04 14:28 Order name: Flu; Complete Time: 15:10 kb 11/04 14:28 Order name: SARS-COV-2 RT PCR; Complete Time: 15:14 kb Administered Medications: 14:45 Drug: Ibuprofen PO 600 mg Route: PO; mb9 Disposition Summary: 11/04/22 15:10 Discharge Ordered Location: Home kb Condition: Stable kb Diagnosis - Streptococcal pharyngitis kb - SARS-associated coronavirus as the cause of diseases classified elsewhere kb Followup: kb - With: Emergency Department - When: As needed - Reason: Worsening of condition Followup: kb - With: Private Physician - When: 2 - 3 days - Reason: Recheck today's complaints, Continuance of care, Re-evaluation by your physician Discharge Instructions: - Discharge Summary Sheet kb - Strep Throat, Adult, Pbiu-ut-Qzel kb - COVID-19 kb Forms: - Medication Reconciliation Form kb - Thank You Letter kb - Antibiotic Education kb - Prescription Opioid Use kb - Patient Portal Instructions kb - Work release form mb9 Prescriptions: - Augmentin 875-125 mg Oral Tablet - take 1 tablet by ORAL route every 12 hours for 10 days; 20 tablet; Refills: 0, kb Product Selection Permitted Signatures: Dispatcher [employer] Lali Graham, Vandana Andrew, IRIS SIMMONS iw Fouzia Sutton RN RN mb9
--- NOTE | 2022-11-04 15:11 | ER ---
Nurse's Notes [facility] Name: Izzy Krishnan Age: 22 yrs Sex: Female : 2000 Arrival Date: 11/04/2022 Time: 14:24 Bed 17 Private MD: Diagnosis: Streptococcal pharyngitis;SARS-associated coronavirus as the cause of diseases classified elsewhere Presentation: 11/04 14:30 Chief complaint: Patient states: fever, headache, ,my ribs on right side are hurting , iw feels cold, woke up with symptoms, nose runny , sore throat. Coronavirus screen: Client presents with at least one sign or symptom that may indicate coronavirus-19. Ebola Screen: Patient negative for fever greater than or equal to 101.5 degrees Fahrenheit, and additional compatible Ebola Virus Disease symptoms Patient denies exposure to infectious person. Patient denies travel to an Ebola-affected area in the 21 days before illness onset. No symptoms or risks identified at this time. Initial Sepsis Screen: Does the patient meet any 2 criteria? No. Patient's initial sepsis screen is negative. Does the patient have a suspected source of infection? No. Patient's initial sepsis screen is negative. Risk Assessment: Do you want to hurt yourself or someone else? Patient reports no desire to harm self or others. Onset of symptoms was November 04, 2022. 14:30 Method Of Arrival: Ambulatory iw 14:30 Acuity: ESAU 4 iw Triage Assessment: 14:47 Headache History: The patient has had previous headaches and this one is similar to mb9 previous episodes. 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 - mb9 Historical: - Allergies: 14:33 No Known Allergies; iw - PMHx: 14:33 Asthma; iw - PSHx: 14:33 Appendectomy; iw Screenin:47 [facility] ED Fall Risk Assessment (Adult) History of falling in the last 3 months, mb9 including since admission No falls in past 3 months (0 pts) Confusion or Disorientation No (0 pts) Intoxicated or Sedated No (0 pts) Impaired Gait No (0 pts) Mobility Assist Device Used No (0 pt) Altered Elimination No (0 pt) Score/Fall Risk Level 0 - 2 = Low Risk Oriented to surroundings, Maintained a safe environment, Educated pt \T\ family on fall prevention, incl call for assistance when getting out of bed. Abuse screen: Denies threats or abuse. Nutritional screening: No deficits noted. Tuberculosis screening: No symptoms or risk factors identified. Assessment: 14:45 General: Appears uncomfortable, Behavior is calm, cooperative. Pain: Complains of pain mb9 in head Pain does not radiate. Pain currently is 10 out of 10 on a pain scale. Quality of pain is described as throbbing, Pain began suddenly. Neuro: Pandey Agitation-Sedation Scale (RASS): 0 - Alert and Calm Level of Consciousness is awake, alert, obeys commands, Oriented to person, place, time, situation, Appropriate for age. Neuro: Reports headache. Cardiovascular: Patient's skin is warm and dry. Respiratory: Airway is patent Respiratory effort is even, unlabored, Respiratory pattern is regular, symmetrical. Respiratory: Reports cough that is. GI: Abdomen is round non-distended, Bowel sounds present X 4 quads. Abd is soft and non tender X 4 quads. Reports diarrhea. EENT: Throat is reddened. Derm: Skin is pink, warm \T\ dry. Musculoskeletal: Range of motion: intact in all extremities. Vital Signs: 14:30 BP 102 / 76; Pulse 126; Resp 18; Temp 100.8; Pulse Ox 98% on R/A; iw 15:04 BP 103 / 82; Pulse 105; Resp 18; Temp 98.6(O); Pulse Ox 98% on R/A; Weight 88.45 kg; mb9 Height 5 ft. 3 in. ; 15:04 Body Mass Index 34.54 (88.45 kg, 160.02 cm) mb9 ED Course: 14:25 Patient arrived in ED. am2 14:27 Lali Black FNP-C [facility]. kb 14:27 Les Trejo MD is Attending Physician. kb 14:33 Triage completed. iw 14:33 Arm band placed on. iw 14:37 Fouzia Sutton, IRIS is Primary Nurse. mb9 14:45 SARS-COV-2 RT PCR Sent. mb9 14:45 Flu Sent. mb9 14:45 Strep Sent. mb9 14:47 Placed in gown. Bed in low position. Call light in reach. Side rails up X 1. Client mb9 placed on continuous cardiac and pulse oximetry monitoring. NIBP monitoring applied. 14:48 No provider procedures requiring assistance completed. mb9 15:19 Patient did not have IV access during this emergency room visit. mb9 Administered Medications: 14:45 Drug: Ibuprofen PO 600 mg Route: PO; mb9 Medication: 14:48 VIS not applicable for this client. mb9 Outcome: 15:10 Discharge ordered by . jackie 15:19 Discharged to home ambulatory. mb9 15:19 Condition: stable 15:19 Discharge instructions given to patient, Instructed on discharge instructions, follow up and referral plans. Demonstrated understanding of instructions, follow-up care, medications, Prescriptions given X 1. 15:19 Patient left the ED. mb9 Signatures: Lali Black, PHOTOGRAPHIC ENLARGER OPERATOR-C PHOTOGRAPHIC ENLARGER OPERATOR-Vandana Antonio, RN Mami Hamilton Mary Beth RN RN mb9 Corrections: (The following items were deleted from the chart) 15:05 15:04 BP 103 / 82; Pulse 105bpm; Resp 18bpm; Pulse Ox 98% RA; Temp 98.6F Oral; mb9 mb9
[2022-11-04 15:42] VITALS: O2SAT 98
[2022-11-04 15:43] VITALS: BP 103/82; TEMP 98.6
== END 2022-11-04 15:19 | disposition home or self-care (01) ==
LOC: ER 14:24
DX: U07.1 COVID-19 (principal); J02.0 Streptococcal pharyngitis
CPT/HCPCS: 87081; 87635; 87804; 99284

== ENCOUNTER 2022-11-30 13:34 | Emergency (ER) | payer SELFPAY ==
--- OUTSIDE RECORDS SUMMARY | 2022-11-30 13:38 | XMS REPORT | Continuity of Care Document ---
:[address] [facility] t Address [address] [facility] [address] [place] [address] Care Team Providers Name Role Phone PCP, PATIENT DOES NOT HAVE A Primary Care Physician Unavaila ble GORDON DUKE Attending Clinician Unavailable Gordon Duke MD Attending Clinician PADMINI DOMINGO Attending Clinician Unavailable Padmini Diaz Attending Clinician Doctor Unassigned, [place] Attending Clinician Unavailable LOU GARDNER Attending Clinician Unavailable Lou Elizondo Attending Clinician Jesus Alberto Henry Attending Clinician Jesus Alberto ARANDA Attending Clinician Unavailable GORDON DUKE Admitting Clinician Unavailable Jesus Alberto ARANDA Admitting Clinician Unavailable Payers Payer Name Policy Type Policy Number Effective Date Expiration Date [facility] [id number] 2021 CHOICE [place] STAR 00:00:00 Problems Condition Condition Condition Status Onset Resolution Last Treating Co mments Source Name Details Category Date Date Treatment Clinician Date Behavior Behavior Disease Active Unive rs concern concern 05-04 ity of 00:00: [address] Family Family Disease Active Univers circumstan circumstan 1-13 it y of ce ce 00:00: [place] 00 Medical Branch Hx of Hx of Disease Active Univers suicide suicide -13 ity of attempt attempt 00:00: [place] 00 Medical Branch Depression Depression Disease Active U nivers , , 1-13 ity of unspecif[place] Medical depression depression Br anch type type BMI (body BMI (body Disease Active Uni vers mass mass 1-13 ity of index), index), 00:00: [place] pediatric, pediatric, 00 Me dical 95-99% for 95-99% for Br anch age age Allergies, Adverse Reactions, Alerts Allergy Allergy Status Severity Reaction(s) Onset Inactive Treating Comm ents Source Name Type Date Date Clinician NO KNOWN Drug Active Univers ALLERGIE Class ity of S [facility] Social History Social Habit Start Date Stop Date Quantity Comments Source Gender identity Universit y [facility] Exposure to 2022-01-15 2022-01-25 Not sure [facility] SARS-CoV-2 (event) 00:00:00 16:49:00 Medica l Branch Alcohol intake 2016-05-14 2016-05-14 0 /d [facility] 00:00:00 00:00:00 [facility] History of Social 2016-03-08 2016-03-08 [facility] of [place] function 00:00:00 00:00:00 [facility] Sex Assigned At [birth year] [facility] of [place] 00:00:00 00:00:00 [facility] Smoking Status Start Date Stop Date Source Never smoked tobacco [facility] Medications Ordered Filled Start Stop Current Ordering Indication Dosage Frequency Signature Comments Components Source Medication Medication Date Date Medication? Clinician (SIG) Name Name acetaminoph 2022- No 975mg 975 mg, U nivers en 11-06 Oral, ity of (TYLENOL) 02:45: 01:45 ONCE, [place] tablet 975 00 :00 dose, On Medic al mg [facility] Branch 11/05/22 at 2145, JOANNA loratadine- Yes [id number] 1{tbl} Take 1 Univers pseudoephed 7-17 tablet by ity of rine 00:00: mouth in [place] (CLARITIN-D 00 the Medical 24 HOUR) morning. Branch 10-240 mg per 24 hr tablet dextrometho Yes [id number] 10mL Take 10 mL Univers rphan-guaif 7-17 by mouth ity of enesin 00:00: every 6 [place] 10-100 mg/5 00 (six) Medical mL solution hours as Bran ch needed for Cough. ondansetron 0 Yes [id number] 4mg Take 1 Univers 4 mg 7-17 tablet by ity of disintegrat 00:00: mouth [place] ing tablet 00 every 4 Medica l (four) Branch hours as needed for Nausea and Vomiting (N/V). naproxen 0 2022- Yes [id number] 500mg Take 1 Univers 500 mg 7-17 07-28 tablet by ity of tablet 00:00: 04:59 mouth in [place] 00 :00 the Medical morning Branch and 1 tablet in the evening. Take with meals. Do all this for 10 days. ondansetron 2021-04 No 4mg 4 mg, Slow Univers (ZOFRAN 0-06 10-06 IV Push, ity of (PF)) 23:30: 22:39 ONCE, 1 [place] injection 4 00 :00 dose, On Medi tate mg [facility] 01/25/22 at 1830, JOANNA ketorolac 2021-04 No 15mg 15 mg, Unive rs (TORADOL) 0-06 10-06 Slow IV ity of injection 23:30: 22:39 Push, [place] 15 mg 00 :00 ONCE, 1 Medical dose, On Branch [facility] 01/25/22 at 1830, Routine ondansetron 2021-04 No 4mg 4 mg, Slow Univers (ZOFRAN 0-06 10-06 IV Push, ity of (PF)) 22:45: 22:04 ONCE, 1 [place] injection 4 00 :00 dose, On Medi tate mg [facility] 01/25/22 at 1745, JOANNA NaCl 0.9% 2021-04 No 1000mL at 999 Uni vers (NS) bolus 0-06 10-06 mL/hr, ity of infusion 22:45: 23:10 1,000 mL, [place] as 1,000 mL 00 :00 IV Medical Infusion, Branch ONCE, 1 dose, On [place] 01/25/22 at 1745, JOANNA dicyclomine 2021-04 Yes [id number] 20mg Take 1 Univers 20 mg 0-06 tablet by ity of tablet 00:00: mouth [place] 00 every 6 Medical (six) Branch hours as needed for Abdominal pain. ondansetron 2021-04 Yes [id number] 4mg Take 1 Univers 4 mg 0-06 tablet by ity of disintegrat 00:00: mouth [place] ing tablet 00 every 6 Medica l (six) Branch hours as needed for Nausea and Vomiting (N/V). dicyclomine 2021-04 Yes [id number] 20mg Take 1 Univers 20 mg 0-06 tablet by ity of tablet 00:00: mouth [place] 00 every 6 Medical (six) Branch hours as needed for Abdominal pain. ondansetron 2021-04 No [id number] 4mg Take 1 Univers 4 mg 0-06 07-17 tablet by ity of disintegrat 00:00: 00:00 [place] tablet 00 :00 every 6 Medica l (six) Branch hours [...] uration of Therapy: Other (see Comments) ketorolac 2020-04- No 30mg 30 mg, Unive rs (TORADOL) 06-08-16 Intramuscu ity of injection 00:30: 23:33 lar, ONCE, [place] 30 mg 00 :00 1 dose, On Medical [place] Branch 04/06/21 at 1830, JOANNA ibuprofen 2020-04 Yes [id number] 800mg Take 1 U nivers 800 mg 2-16 tablet by ity of tablet 00:00: mouth 3 [place] 00 (three) Medical times Branch daily with meals. chlorhexidi 2020-04 Yes [id number] 15mL Swish and Univers ne 0.12 % 2-16 spit out ity of mouthwash 00:00: 15 mL 2 [place] 00 (two) Medical times Branch daily. chlorhexidi 2020-04 Yes [id number] 15mL Swish and Univers ne 0.12 % 2-16 spit out ity of mouthwash 00:00: 15 mL 2 [place] 00 (two) Medical times Branch daily. chlorhexidi 2020-04 Yes [id number] 15mL Swish and Univers ne 0.12 % 2-16 spit out ity of mouthwash 00:00: 15 mL 2 [place] 00 (two) Medical times Branch daily. ibuprofen 2020-04 Yes [id number] 800mg Take 1 U nivers 800 mg 2-16 tablet by ity of tablet 00:00: mouth 3 [place] 00 (three) Medical times Branch daily with meals. chlorhexidi 2020-04 Yes [id number] 15mL Swish and Univers ne 0.12 % 2-16 spit out ity of mouthwash 00:00: 15 mL 2 [place] 00 (two) Medical times Branch daily. ibuprofen 2020-04- No [id number] 800mg Take 1 Univers 800 mg 2-16 10-06 tablet by ity of tablet 00:00: 00:00 mouth 3 [place] 00 :00 (three) Medical times Branch daily with meals. amoxicillin 2020-04- No [id number] 500mg Take 1 Univers 500 mg 2-16 12-24 capsule by ity of capsule 00:00: 05:59 mouth 3 [place] 00 :00 (three) Medical times Branch daily for 7 days. NaCl 0.9% 2020-04- No 1000mL at 999 Uni vers (NS) bolus 0-15 10-15 mL/hr, ity of infusion 23:15: 23:43 1,000 mL, [place] as 1,000 mL 00 :00 IV Medical Infusion, Branch ONCE, 1 dose, On Sat02/03/21 at 1815, STAT METAXALONE Yes Take by [facility] ers (SKELAXIN 1-23 mouth. ity of ORAL) 14:34: [place] [address] Medical Branch METAXALONE 2016- Yes Take by [facility] ers (SKELAXIN 1-23 mouth. ity of ORAL) 14:34: [address] Branch METAXALONE Yes Take by [facility] ers (SKELAXIN 1-23 mouth. ity of ORAL) 14:34: [address] METAXALONE Yes Take by Univ ers (SKELAXIN 1-23 mouth. ity of ORAL) 14:34: [address] METAXALONE Yes Take by [facility] ers (SKELAXIN 1-23 mouth. ity of ORAL) 14:34: [address] Vital Signs Vital Name Observation Time Observation Value Comments Source Heart rate 2022-11-06 04:10:00 96 /min Universi ty [facility] Body temperature 2022-11-06 04:10:00 37.28 Charo [facility] Respiratory rate 2022-11-06 04:10:00 18 /min [facility] Oxygen saturation in 2022-11-06 04:10:00 98 /min [facility] Arterial blood by [facility] [place] [facility] Pulse oximetry Branch Systolic blood 2022-11-06 01:19:00 116 mm[Hg] Univer sity of [facility] Diastolic blood 2022-11-06 01:19:00 83 mm[Hg] Unive rsity of [facility] Body height 2022-11-06 01:19:00 157.5 cm Universi ty [facility] Body weight 2022-11-06 01:19:00 97.523 [facility] BMI 2022-11-06 01:19:00 39.32 kg/m2 Universi ty [facility] Systolic blood 2022-01-25 21:49:00 152 mm[Hg] Univer sity of [facility] Diastolic blood 2022-01-25 21:49:00 102 mm[Hg] Unive rsity of [facility] Heart rate 2022-01-25 21:49:00 80 /min Universi ty [facility] Body temperature 2022-01-25 21:49:00 37.06 Charo [facility] [place] [facility] Respiratory rate 2022-01-25 21:49:00 16 /min [facility] [place] [facility] Body height 2022-01-25 21:49:00 160 cm Universi ty [facility] Body weight 2022-01-25 21:49:00 88.451 kg Universi ty [facility] [place] [facility] BMI 2022-01-25 21:49:00 34.54 kg/m2 Universi ty [facility] [place] [facility] Oxygen saturation in 2022-01-25 21:49:00 97 /min University of Arterial blood by [facility] tate Pulse oximetry Branch Body temperature 2021-04-06 22:53:00 36.94 Charo Univ ersity of [place] [facility] Respiratory rate 2021-04-06 22:53:00 18 /min Univ ersity of [place] [facility] Body height 2021-04-06 22:53:00 162.6 cm Universi ty [facility] [place] [facility] Body weight 2021-04-06 22:53:00 86.183 kg Universi ty [facility] [place] [facility] BMI 2021-04-06 22:53:00 32.61 kg/m2 Universi ty of [place] [facility] Oxygen saturation in 2021-04-06 22:53:00 99 /min University of Arterial blood by [facility] [place] [facility] Pulse oximetry Branch Systolic blood 2021-04-06 22:53:00 139 mm[Hg] Univer sity of pressure [place] [facility] Diastolic blood 2021-04-06 22:53:00 99 mm[Hg] Unive rsity of pressure [place] [facility] Heart rate 2021-04-06 22:53:00 76 /min Universi ty [facility] [place] [facility] Systolic blood 2021-02-03 22:20:00 140 mm[Hg] Univer sity of pressure [place] [facility] Diastolic blood 2021-02-03 22:20:00 98 mm[Hg] Unive rsity of pressure [place] [facility] Heart rate 2021-02-03 22:20:00 85 /min Universi ty [facility] [place] [facility] Respiratory rate 2021-02-03 22:20:00 18 /min Univ ersity of [place] [facility] Oxygen saturation in 2021-02-03 22:20:00 99 /min University of Arterial blood by [facility] tate Pulse oximetry Branch Body temperature 2021-02-03 15:54:00 36.78 Charo Univ ersity of [place] [facility] Body height 2021-02-03 15:54:00 160 cm Universi ty [facility] [place] [facility] Body weight 2021-02-03 15:54:00 74.844 kg Universi ty [facility] [place] [facility] BMI 2021-02-03 15:54:00 29.23 kg/m2 [facility] Body mass index 2021-02-03 15:54:00 91.94 % [facility] (BMI) [Percentile] [facility] ica Per age and sex Branch Procedures Procedure Date / Time Performing Clinician Source Performed XR CHEST 2 VW 2022-11-06 03:46:00 Gordon Duke [place] o f [facility] RAPID STREP SCREEN FOR 2022-11-06 01:45:00 Gordon Duke [facility] GROUP A [facility] RAPID INFLUENZA A/B 2022-11-06 01:45:00 Gordon Duke [facility] COVID-19 (ID NOW RAPID 2022-11-06 01:45:00 Gordon Duke [facility] TESTING) Medical Branch CONSENT/REFUSAL FOR 2022-11-06 01:06:48 Doctor Unassigned, No Un iversity of [place] DIAGNOSIS AND TREATMENT Name [facility] POCT TEST 2022-01-25 22:06:00 Padmini Domingo [facility] [place] [facility] LIPASE 2022-01-25 22:03:00 [facility] MAGNESIUM 2022-01-25 22:03:00 Jose L [facility] COMP. METABOLIC PANEL 2022-01-25 22:03:00 [facility]admini [facility]ingo [facility] [place] [id number] CBC WITH DIFF 2022-01-25 22:03:00 Jose L [facility] NOTICE OF PRIVACY 2022-01-25 21:25:28 Doctor Unassigned, No Univ ersity [facility] PRACTICES Name [facility] CONSENT/REFUSAL FOR 2022-01-25 21:25:07 Doctor Unassigned, No Un iversity of [place] DIAGNOSIS AND TREATMENT Name [facility] POCT TEST 2021-04-06 23:20:00 Lou Gardner [facility] CONSENT/REFUSAL FOR 2021-04-06 22:35:43 Doctor Unassigned, No Un iversity of [place] DIAGNOSIS AND TREATMENT Name [facility] XR CHEST 1 VW 2021-02-03 23:04:39 Jesus Alberto Aranda [place] [facility] D-DIMER 2021-02-03 18:33:00 Jesus Alberto Aranda [facility] LIPASE 2021-02-03 18:24:00 Jesus Alberto Aranda Madalyn [facility] MAGNESIUM 2021-02-03 18:24:00 Jesus Alberto Aranda [facility] COMP. METABOLIC PANEL 2021-02-03 18:24:00 Jesus Alberto Aranda [facility] ([id number]) [facility] CBC WITH DIFF 2021-02-03 18:24:00 Jesus Alberto Aranda Madalyn [facility] URINALYSIS 2021-02-03 18:24:00 [facility] URINE DRUG (IMMUNOASSAY) 2021-02-03 18:23:00 Jesus Alberto Aranda [facility] Medical [facility] SCREEN POCT TEST 2021-02-03 18:23:00 Jesus Alberto Aranda [facility] NOTICE OF PRIVACY 2021-02-03 15:44:16 Doctor Unassigned, No [facility] PRACTICES Name [facility] Encounters Start End Encounter Admission Attending Care Care Encounter Source Date/Time Date/Time Type Type Clinicians Facility Department ID 2022-11-05 2022-11-05 Emergency X [facility] ERT [id number] Univers 20:21:00 23:12:00 GORDON chai [facility] 2022-11-05 2022-11-05 Emergency [facility] [id number] Univers 20:21:00 23:12:[id number] [facility] [id number] [facility] [id number] [facility] 084 Branch 2022-10-01 2022-10-01 Outpatient SFA SFA [id number] Erasmo 08:43:03 08:43:03 0612 F Schuyler 2022-01-25 2022-01-25 Emergency X RIDROSEMARIE, [facility] ERT [id number] Univers 16:50:00 18:32:00 PADMINI catherine [facility] 2022-01-25 2022-01-25 Emergency Arthur, [facility] [id number] Univers 16:50:00 18:32:00 Padmini WARREN [id number] ity of [place] 4.2.7.2.686 [facility] [id number] [place] [address]014 [place] 2022-01-25 2022-01-25 Orders Doctor PUJA [id number] Univers 00:00:00 00:00:00 Only Unassigned, CHINYERE [id number] ity of [place] [facility] 4.2.7.2.686 [place] [id number] [place] [address] Branch 2021-04-06 2021-04-06 Emergency X [facility] ERT [id number] Univers 16:54:00 17:47:00 LOU ity [facility] 2021-04-06 2021-04-[address] [facility] [id number] Univers 16:54:00 17:47:00 Lou WARREN 350.1.13.10 i ty of [place] 4.2.7.2.686 [facility] [id number] [address] 2021-02-03 2021-02-03 Emergency Jesus Alberto Aranda [facility] [id number] Univers 11:11:00 18:44:00 Madalyn Warren [id number] i ty of [place] 4.2.7.2.6 [facility] [id number] [address] 2021-02-03 2021-02-03 Emergency X Jesus Alberto ARANDA [facility] ERT [id number] Univers 11:11:00 18:44:00 ity [facility] Results Test Description Test Time Test Comments Results Result Comments Source POCT TEST 2022-01-25 22:06:00 Test Item Value Reference Range Interpretation Comme nts POCT PREG (test code = 1605) negative On board controls acceptable with C Line (test code = 3574) present POCT PREG LOT # (test code = 3575) [id number] POCT PREG TEST DATE (test code = 3576) Lab Interpretation (test code = 75163-9) Normal [facility] [id number] 23:20:00 Test Item Value Reference Range Interpretation Comments POCT PREG (test code = 1605) negative POCT PREG LOT # (test code = 3575) [id number] POCT PREG TEST DATE (test 2022-05-22 code = 3576) Lab Interpretation (test code = Normal 93280-0) [facility]-[id number] 19:30:18 Test Item Value Reference Interpretation Comments Range D-DIMER (test code = <0.27 See_Comment [Autom ated 1377155212) message] The system which generated this result [...] diagnosis. Lab Interpretation Normal (test code = 19405-7) [facility]2021-10-15 19:00:14 Test Item Value Reference Range Interpretation Comments MAGNESIUM (test code = 6197196815) 1.8 mg/dL 1.7-2.4 Lab Interpretation (test code = Normal 71926-8) [facility] MET[facility]OLIC PANEL (50745)2021-02-03 18:59:54 Test Item Value Reference Range Interpretation Comments NA (test code = 139 mmol/L 135-145 0029878823) K (test code = 4.0 mmol/L 3.5-5.0 3382593080) CL (test code = 101 mmol/L 98-108 8501630389) CO2 TOTAL (test code 30 mmol/L 23-31 = 9449980623) AGAP (test code = 2-16 9498742452) BUN (test code = 13 mg/dL 7-23 9214641310) GLUCOSE (test code = 87 mg/dL 70-110 4937427334) CREATININE (test code 0.57 mg/dL 0.50-1.04 = 9585676925) TOTAL BILI (test code 0.4 mg/dL 0.1-1.1 = 2768219731) CALCIUM (test code = 9.7 mg/dL 8.6-10.6 8261184955) T PROTEIN (test code 8.0 g/dL 6.3-8.2 = 4022245439) ALBUMIN (test code = 4.6 g/dL 3.5-5.0 2091223179) ALK PHOS (test code = 90 U/L 34-122 3711145307) ALTv (test code = 15 U/L 5-35 1742-6) AST(SGOT) (test code 23 U/L 13-40 = 6385046209) eGFR (test code = mL/min/1.73m2 5269562159) NIKA (test code = NIKA) Association of [...] [facility]20[facility]-15 18:59:34 Test Item Value Reference Range Interpretation Comments LIPASE (test code = 3900782713) 37 U/L 0-220 Lab Interpretation (test code = Normal 52143-3) [facility] [id number] 18:37:09 Test Item Value Reference Range Interpretation [...] (test code = 38.9 fL 39.0-49.9 L 85600-5) RDW-CV (test code = 13.2 % 12.0-15.5 788-0) PLT (test code = See_Comment H [Automated 777-3) message] The sy stem which generated this result transmitted reference range : 166 - 358 10*3/ ?L. The reference r tomasa was not used to interpret this result as normal/abnormal . MPV (test code = 9.2 fL 9.5-12.9 L 14958-4) NRBC/100 WBC (test See_Comment [Automat ed code = 9827657126) message] The system which generated this result transmitted reference range : 0.0 - 10.0 /100 WBCs. The refer ence range was not u sed to interpret th is result as normal/abnormal . NRBC x10^3 (test code <0.01 See_Comment [Auto mated = 0284027359) message] The s ystem which generated this result transmitted reference range : 10*3/?L. The reference range was not used to interpret this result as normal/abnormal . GRAN MAT (NEUT) % 66.3 % (test code = 770-8) IMM GRAN % (test code 0.70 % = 4467716546) LYMPH % (test code = 20.6 % 736-9) MONO % (test code = 9.8 % 5905-5) EOS % (test code = 1.7 % 713-8) BASO % (test code = 0.9 % 706-2) GRAN MAT x10^3(ANC) 5.09 10*3/uL 1.88-7.09 (test code = 4030182260) IMM GRAN x10^3 (test 0.05 10*3/uL 0.00-0.06 code = 5124063021) LYMPH x10^3 (test code 1.58 10*3/uL 1.32-3.29 = 731-0) MONO x10^3 (test code 0.75 10*3/uL 0.33-0.92 = 742-7) EOS x10^3 (test code = 0.13 10*3/uL 0.03-0.39 711-2) BASO x10^3 (test code 0.07 10*3/uL 0.01-0.07 = 704-7) Lab Interpretation Abnormal (test code = 71479-4) [facility] [id number] 18:23:00 Test Item Value Reference Range Interpretation Comments POCT PREG (test code = 1605) negative On board controls acceptable with C present Line (test code = 3574) Lab Interpretation (test code = Normal 15957-5) [facility]
[2022-11-30] MEDS ORDERED: ACETAMINOPHEN 500 MG TAB ONE (14:11)
--- NOTE | 2022-11-30 14:13 | RAD REPORT ---
EXAM DESCRIPTION: RAD - Chest Single View - 11/30/2022 2:03 pm CLINICAL HISTORY: Cough;Congestion Chest pain. COMPARISON: Chest Pa And Lat (2 Views) dated 09/01/2021; Chest Single View dated 06/13/2021; Chest Sin gle View dated 02/01/2021 FINDINGS: Portable technique limits examination quality. The lungs are grossly clear. The heart is normal in size. No displaced fractures. IMPRESSION: No acute intrathoracic process suspected.
--- NOTE | 2022-11-30 15:00 | ER ---
Nurse's Notes [facility] Name: Izzy Krishnan Age: 22 yrs Sex: Female : 2000 Arrival Date: 11/30/2022 Time: 13:34 Bed IW1 Private MD: Diagnosis: Streptococcal pharyngitis Presentation: 11/30 13:47 Chief complaint: Patient states: Sore throat, congestion, body aches, malaise since nj yesterday. Coronavirus screen: Vaccine status: Patient reports receiving the 2nd dose of the covid vaccine. Ebola Screen: Patient denies travel to an Ebola-affected area in the 21 days before illness onset. Initial Sepsis Screen: Does the patient meet any 2 criteria? HR > 90 bpm. No. Patient's initial sepsis screen is negative. Does the patient have a suspected source of infection? No. Patient's initial sepsis screen is negative. Risk Assessment: Do you want to hurt yourself or someone else? Patient reports no desire to harm self or others. Onset of symptoms was November 29, 2022. 13:47 Method Of Arrival: Ambulatory [facility] 13:47 Acuity: ESAU 5 [facility] Triage Assessment: 14:00 General: Appears in no apparent distress. uncomfortable, Behavior is calm, cooperative, nj1 appropriate for age. 14:00 Pain: Complains of pain in Throat Pain currently is 8 out of 10 on a pain scale. EENT: nj1 Throat has enlarged tonsils. Neuro: Level of Consciousness is awake, alert, obeys commands, Oriented to person, place, time, situation. Cardiovascular: Patient's skin is warm and dry. Respiratory: Airway is patent Respiratory effort is even, unlabored. 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 - Social history:: Smoking status: Reported history of juuling and/or vaping. Screenin:00 [facility] ED Fall Risk Assessment (Adult) Score/Fall Risk Level 0 - 2 = Low Risk nj Oriented to surroundings, Maintained a safe environment. 14:00 Abuse screen: Denies threats or abuse. Denies injuries from another. Nutritional nj1 screening: No deficits noted. Tuberculosis screening: No symptoms or risk factors identified. Vital Signs: 13:47 BP 143 / 91; Pulse 91; Resp 18; Temp 98.4; Pulse Ox 98% ; Weight 97.52 kg; Height 5 ft. nj1 2 in. ; Pain 8/10; 15:22 BP 141 / 85; Pulse 85; Resp 18; Temp 98.9(O); Pulse Ox 99% on R/A; Pain 8/10; nj1 13:47 Body Mass Index 39.32 (97.52 kg, 157.48 cm) nj1 13:47 Pain Scale: Adult nj1 15:22 Pain Scale: Adult nj1 ED Course: 13:37 Patient arrived in ED. mr 13:38 [facility] Black [facility]C [facility]. kb 13:38 Garry Sutton MD is Attending Physician. kb 13:53 Triage completed. nj1 13:54 Arm band placed on left wrist. nj1 14:05 Chest Single View XRAY In Process Unspecified. EDMS 15:20 Patient has correct armband on for positive identification. Provided Education on: nj1 Strep throat treatment. 15:21 No provider procedures requiring assistance completed. Patient did not have IV access nj1 during this emergency room visit. Administered Medications: 14:12 Drug: Acetaminophen PO 1000 mg Route: PO; nj1 15:18 Follow up: Response: No adverse reaction nj1 15:17 Drug: Dexamethasone IM 10 mg Route: IM; Site: left gluteus; nj1 15:25 Follow up: Response: No adverse reaction nj1 Medication: 15:20 VIS not applicable for this client. nj1 Outcome: 15:00 Discharge ordered by . kb 15:21 Discharged to home ambulatory. nj1 15:21 Condition: stable 15:21 Discharge instructions given to patient, Instructed on discharge instructions, follow up and referral plans. medication usage, Demonstrated understanding of instructions, follow-up care, medications, Prescriptions given X 3. 15:25 Patient left the ED. nj1 Signatures: Dispatcher [employer] EDMS Lali Black FNP-C FNP-Ivana Fouzia Jackson Isha Oneal, RN RN nj1 Corrections: (The following items were deleted from the chart) 15:23 15:21 Discharge instructions given to patient, Instructed on discharge instructions, nj1 follow up and referral plans. medication usage, Demonstrated understanding of instructions, follow-up care, medications, Prescriptions given X 2, nj1 15:24 15:22 Pulse 85bpm; Resp 18bpm; Pulse Ox 99% RA; Temp 98.9F Oral; Pain 8/10, Adult; nj1 nj1
--- NOTE | 2022-11-30 15:00 | EDPHYS ---
Physician Documentation [facility] Name: Izzy Krishnan Age: 22 yrs Sex: Female : 2000 Arrival Date: 11/30/2022 Time: 13:34 Bed IW1 Private MD: ED Physician Garry Sutton HPI: 11/30 14:59 This 22 yrs old Female presents to ER via Ambulatory with complaints of Flu Symptoms. kb 14:59 The patient or guardian reports cough, that is intermittent, described as mild. Onset: kb The symptoms/episode began/occurred yesterday. Severity of symptoms: At their worst the symptoms were moderate, in the emergency department the symptoms are unchanged. Modifying factors: The symptoms are alleviated by nothing, the symptoms are aggravated by nothing. Associated signs and symptoms: Pertinent positives: rhinorrhea, sore throat. The patient has experienced similar episodes in the past. The patient has not recently seen a physician. 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 Historical: - Allergies: 13:53 No Known Allergies; nj1 - PMHx: 13:53 Asthma; nj1 - PSHx: 13:53 Appendectomy; nj1 - Immunization history:: Client reports receiving the 2nd dose of the Covid vaccine. - Social history:: Smoking status: Reported history of juuling and/or vaping. ROS: 14:57 Constitutional: Negative for fever, chills, and weight loss. kb 14:57 ENT: Positive for rhinorrhea, sinus congestion, sore throat. 14:57 Respiratory: Positive for cough. 14:57 All other systems are negative. Exam: 14:57 Constitutional: This is a well developed, well nourished patient who is awake, alert, kb and in no acute distress. Head/Face: Normocephalic, atraumatic. Cardiovascular: Regular rate and rhythm with a normal S1 and S2. No gallops, murmurs, or rubs. No pulse deficits. Respiratory: Respirations even and unlabored. No increased work of breathing. Talking in full sentences Abdomen/GI: Soft, non-tender. No distention Skin: Warm, dry with normal turgor. Normal color. MS/ Extremity: Pulses equal, no cyanosis. Neurovascular intact. Full, normal range of motion. Neuro: Awake and alert, GCS 15, oriented to person, place, time, and situation. Moves all extremities. Normal gait. 14:57 ENT: Posterior pharynx: Airway: normal, no evidence of obstruction, Tonsils: bilaterally enlarged, with erythema. Vital Signs: 13:47 BP 143 / 91; Pulse 91; Resp 18; Temp 98.4; Pulse Ox 98% ; Weight 97.52 kg; Height 5 ft. nj1 2 in. ; Pain 8/10; 15:22 BP 141 / 85; Pulse 85; Resp 18; Temp 98.9(O); Pulse Ox 99% on R/A; Pain 8/10; nj1 13:47 Body Mass Index 39.32 (97.52 kg, 157.48 cm) nj1 13:47 Pain Scale: Adult nj1 15:22 Pain Scale: Adult nj1 MDM: 13:38 Patient medically screened. kb 14:58 Differential diagnosis: flu, covid, strep, pharyngitis, tonsillitis. Data reviewed: kb vital signs, nurses notes. Counseling: I had a detailed discussion with the patient and/or guardian regarding: the historical points, exam findings, and any diagnostic results supporting the discharge/admit diagnosis, lab results, radiology results, the need for outpatient follow up, an ENT specialist, to return to the emergency department if symptoms worsen or persist or if there are any questions or concerns that arise at home. ED course: Pt was diagnosed with strep and treated with augmentin last month. will prescribe zithromax this time and pt educated to follow up with ENT. 11/30 13:46 Order name: Flu; Complete Time: 14:54 kb 11/30 13:46 Order name: Strep; Complete Time: 14:54 kb 11/30 13:46 Order name: COVID-19 SARS RT PCR; Complete Time: 15:04 kb 11/30 13:46 Order name: Chest Single View XRAY; Complete Time: 14:15 kb Administered Medications: 14:12 Drug: Acetaminophen PO 1000 mg Route: PO; nj1 15:18 Follow up: Response: No adverse reaction nj1 15:17 Drug: Dexamethasone IM 10 mg Route: IM; Site: left gluteus; nj1 15:25 Follow up: Response: No adverse reaction nj1 Disposition: 14:55 I agree with the assessment and plan of care. cp3 15:23 I agree with the assessment and plan of care. I reviewed the patient's care provided by cp3 Advanced Practice Provider \T\ agree w/ the diagnosis \T\ care plan. I personally saw the pt \T\ performed a substantive portion of the visit, incldng all aspects of the (History/Exam/Medical Decision Making). ED attending note: Patient is a 22-year-old female with a history of recurrent strep pharyngitis. Patient endorses that this is her third episode of pharyngitis in the last 3 months. Patient denies fever, chills, vomiting. Patient tolerating p.o. without difficulty no changes to the voice no throat pain no shortness of breath. On exam patient afebrile well-appearing no acute distress patient with symmetrical bilateral tonsillitis with white exudate. No pointing of the tonsils and uvula is midline. I agree with the history, exam, assessment of BING provider. Discussed with patient need for close outpatient follow-up with ENT for consideration of tonsil removal per her discussion and advised that on today's visit we would treat for both strep and mono as a secondary cause for tonsillar enlargement. Patient with positive strep as well today. Patient is nontoxic-appearing at time of discharge and Motrin and prednisone added to discharge medications to help with pain and tonsillar swelling.. Disposition Summary: 11/30/22 15:00 Discharge Ordered Location: Home Condition: Stable Diagnosis - Streptococcal pharyngitis kb Followup: kb - With: Emergency Department - When: As needed - Reason: Worsening of condition Followup: kb - With: Private Physician - When: 2 - 3 days - Reason: Recheck today's complaints, Continuance of care, Re-evaluation by your physician Discharge Instructions: - Discharge Summary Sheet kb - Strep Throat, Adult, [id number] kb Forms: - Medication Reconciliation Form kb - Thank You Letter kb - Antibiotic Education kb - Prescription Opioid Use kb - Patient Portal Instructions kb Prescriptions: - Zithromax 500 mg Oral Tablet - take 1 tablet by ORAL route once daily for 5 days; 5 tablet; Refills: 0, kb Product Selection Permitted - Ibuprofen 800 mg Oral Tablet - take 1 tablet by ORAL route every 8 hours As needed take with food; 30 tablet; cp3 Refills: 0, Product Selection Permitted - Prednisone 20 mg Oral Tablet - take 2 tablets by ORAL route once daily for 5 days; 10 tablet; Refills: 0, cp3 Product Selection Permitted Signatures: Dispatcher [employer] Lali Graham, BALDEMARC Garry Aguilar MD MD cp3 Isha Oneal RN RN nj1
[2022-11-30] MEDS ORDERED: dexAMETHasone 10 MG/ML VIAL ONE (15:24)
[2022-11-30 15:32] VITALS: BP 141/85; TEMP 98.9; O2SAT 99
== END 2022-11-30 15:25 | disposition home or self-care (01) ==
LOC: ER 13:34
DX: J02.0 Streptococcal pharyngitis (principal); Z20.822 Contact with and (suspected) exposure to COVID-19
CPT/HCPCS: 71045; 87081; 87635; 87804; 96372; 99284; J1100

== ENCOUNTER → 2023-05-20 | Emergency (ER) | payer SELFPAY ==
[~2023-05-20] MED LIST: GABAPENTIN 100 MG CAP ONE; KETOROLAC 30 MG/ML INJ ONE; NA CHLORIDE 0.9% 1,000 ML ONE
--- OUTSIDE RECORDS SUMMARY | 2023-05-20 13:22 | XMS REPORT | Continuity of Care Document ---
Author Name Unknown Address [address] [facility] [address] [place] [address] [facility] thconnect Address [address] [facility] [address] [place] [address] Care Team Providers Care Practice Physician Name Role Phone PCP, PATIENT DOES NOT HAVE A Primary Care Physic tristin Unavailable PADMINI DOMINGO Attending Clinician UnavailPadmini Donnelly Attending Clinician [phone] GORDON DUKE Attending Clinician Unavailable Gordon Duke MD Attending Clinician [phone] Doctor Unassigned, Gallina Attending Clinician LOU Painting Attending Clinician Unavailable Lou Elizondo Attending Clinician [phone] Jesus Alberto Henry Attending Clinician [phone] Jesus Alberto ARANDA Attending Clinician Unavailable GORDON DUKE Admitting Clinician Unavailable Jesus Alberto ARANDA Admitting Clinician Unavailable Payers Payer Name Policy Type Policy Number Effective Date Expirati on Date Source TherOx [facility] [id number] 2021 00:00:00 Problems Condition Name Condition Details Condition Category Status Onset Date Resolution Date Last Treatment Date Treating Clinician Comments Source Behavior concern Behavior concern Disease Active 05-04 00:00: 00 [facility] Family circumstan ce Family circumstan ce Disease Active 05-04 00:00: 00 [facility] Hx of suicide attempt Hx of suicide attempt Disease Active 05-04 00:00: 00 [facility] Depression , unspecifie d depression type Depression , unspecifie d depression type Disease Active 05-04 00:00: 00 [facility] BMI (body mass index), pediatric, 95-99% for age BMI (body mass index), pediatric, 95-99% for age Disease Active 05-04 00:00: 00 [facility] Allergies, Adverse Reactions, Alerts Allergy Name Allergy Type Status Severity Reaction(s) Onset Date Inactive Date Treating Clinician Comments Source NO KNOWN ALLERGIE S Drug Class Active [facility] Social History Social Habit Start Date Stop Date Quantity Comments Source Gender identity [facility] of Social function 2023-01-03 00:00:00 2023-01-03 00:00:00 [facility] Alcohol intake 2023-01-03 00:00:00 2023-01-03 00:00:00 0 /d [facility] Exposure to SARS-CoV-2 (event) 2022-01-15 00:00:00 2022-01-25 16:49:00 Not sure [facility] Sex Assigned At 2001 00:00:00 2000 00:00:00 [facility] Smoking Status Start Date Stop Date Source Never smoked tobacco [facility] Medications Ordered Medication Name Filled Medication Name Start Date Stop Date Current Medication? Ordering Clinician Indication Dosage Frequency Signature (SIG) Comments Components Source acetaminoph en (TYLENOL) tablet 1,000 mg 01-04 02:30: 00 01-04 01:59 :00 No 1000mg 1,000 mg, Oral, ONCE, 1 dose, On Steffany 01/03/23 at 2130, JOANNA [facility] ondansetron (ZOFRAN) tablet 4 mg 01-04 02:30: 00 01-04 02:30 :00 No 4mg 4 mg, Oral, ONCE, 1 dose, On Steffany 01/03/23 at 2130, Routine [facility] ondansetron 4 mg disintegrat ing tablet 01-03 00:00: 00 Yes [id number] 4mg Take 1 tablet by mouth every 8 (eight) hours as needed for Nausea and Vomiting (N/V). [facility] acetaminoph en (TYLENOL) tablet 975 mg 11-06 02:45: 00 11-06 01:45 :00 No 975mg 975 mg, Oral, ONCE, 1 dose, On Sat11/05/22 at 2145, JOANNA [facility] loratadine- pseudoephed rine (CLARITIN-D 24 HOUR) 10-240 mg per 24 hr tablet 11-05 00:00: 00 Yes [id number] 1{tbl} Take 1 tablet by mouth in the morning. [facility] dextrometho rphan-guaif enesin 10-100 mg/5 mL solution 11-05 00:00: 00 Yes [id number] 10mL Take 10 mL by mouth every 6 (six) hours as needed for Cough. [facility] ondansetron 4 mg disintegrat ing tablet 11-05 00:00: 00 Yes [id number] 4mg Take 1 tablet by mouth every 4 (four) hours as needed for Nausea and Vomiting (N/V). [facility] loratadine- pseudoephed rine (CLARITIN-D 24 HOUR) 10-240 mg per 24 hr tablet 11-05 00:00: 00 Yes [id number] 1{tbl} Take 1 tablet by mouth in the morning. [facility] dextrometho rphan-guaif enesin 10-100 mg/5 mL solution 11-05 00:00: 00 Yes [id number] 10mL Take 10 mL by mouth every 6 (six) hours as needed for Cough. [facility] ondansetron 4 mg disintegrat ing tablet 11-05 00:00: 00 01-03 00:00 :00 No [id number] 4mg Take 1 tablet by mouth every 4 (four) hours as needed for Nausea and Vomiting (N/V). [facility] naproxen 500 mg tablet 17 00:00: 00 11-16 04:59 :00 No [id number] 500mg Take 1 tablet by mouth in the morning and 1 tablet in the evening. Take with meals. Do all this for 10 days. [facility] ondansetron (ZOFRAN (PF)) injection 4 mg 2021-04 0 23:30: 00 01-25 22:39 :00 No 4mg 4 mg, Slow IV Push, ONCE, 1 dose, On Steffany 01/25/22 at 1830, JOANNA [facility] ketorolac (TORADOL) injection 15 mg 2021-04 0 23:30: 00 01-25 22:39 :00 No 15mg 15 mg, Slow IV Push, ONCE, 1 dose, On Steffany 01/25/22 at 1830, Routine [facility] ondansetron (ZOFRAN (PF)) injection 4 mg 2021-04 0 22:45: 00 01-25 22:04 :00 No 4mg 4 mg, Slow IV Push, ONCE, 1 dose, On Steffany 01/25/22 at 1745, JOANNA [facility] NaCl 0.9% (NS) bolus infusion 1,000 mL 2021-04 22:45: 00 01-25 23:10 :00 No 1000mL at 999 mL/hr, 1,000 mL, IV Infusion, ONCE, 1 dose, On Steffany 01/25/22 at 1745, JOANNA [facility] dicyclomine 20 mg tablet 2021-04 0 00:00: 00 Yes [id number] 20mg Take 1 tablet by mouth every 6 (six) hours as needed for Abdominal pain. [facility] ondansetron 4 mg disintegrat ing tablet 2021-04 0 00:00: 00 Yes [id number] 4mg Take 1 tablet by mouth every 6 (six) hours as needed for Nausea and Vomiting (N/V). [facility] dicyclomine 20 mg tablet 2021-04 0-06 00:00: 00 Yes [id number] 20mg Take 1 tablet by mouth every 6 (six) hours as needed for Abdominal pain. [facility] dicyclomine 20 mg tablet 2021-04 0-06 00:00: 00 Yes [id number] 20mg Take 1 tablet by mouth every 6 (six) hours as needed for Abdominal pain. [facility] ondansetron 4 mg disintegrat ing tablet 2021-04 0 00:00: 00 11-05 00:00 :00 No [id number] 4mg Take 1 tablet by mouth every 6 (six) hours as needed for Nausea and Vomiting (N/V). [facility] amoxicillin (TRIMOX) capsule 500 mg 2020-04 00:30: 00 04-06 23:33 :00 No 500mg 500 mg, Oral, ONCE, 1 dose, On Steffany 04/06/21 at 1830, JOANNA
Re ason for Anti-Infec tive: Documented Infection< br>Documen nadiya Infection Site: HEENT
D uration of Therapy: Other (see Comments) [facility] ketorolac (TORADOL) injection 30 mg 2020-04 00:30: 00 04-06 23:33 :00 No 30mg 30 mg, Intramuscu lar, ONCE, 1 dose, On Steffany 04/06/21 at 1830, JOANNA [facility] ibuprofen 800 mg tablet 2020-04 00:00: 00 Yes [id number] 800mg Take 1 tablet by mouth 3 (three) times daily with meals. [facility] chlorhexidi ne 0.12 % mouthwash 2020-04 00:00: 00 Yes [id number] 15mL Swish and spit out 15 mL 2 (two) times daily. [facility] chlorhexidi ne 0.12 % mouthwash 2020-04 00:00: 00 Yes [id number] 15mL Swish and spit out 15 mL 2 (two) times daily. [facility] chlorhexidi ne 0.12 % mouthwash 2020-0416 00:00: 00 Yes [id number] 15mL Swish and spit out 15 mL 2 (two) times daily. [facility] chlorhexidi ne 0.12 % mouthwash 2020-0416 00:00: 00 Yes [id number] 15mL Swish and spit out 15 mL 2 (two) times daily. [facility] ibuprofen 800 mg tablet 2020-0416 00:00: 00 Yes [id number] 800mg Take 1 tablet by mouth 3 (three) times daily with meals. [facility] chlorhexidi ne 0.12 % mouthwash 2020-04 00:00: 00 Yes [id number] 15mL Swish and spit out 15 mL 2 (two) times daily. [facility] ibuprofen 800 mg tablet 2020-04 00:00: 00 01-25 00:00 :00 No [id number] 800mg Take 1 tablet by mouth 3 (three) times daily with meals. [facility] amoxicillin 500 mg capsule 2020-04 00:00: 00 04-14 05:59 :00 No [id number] 500mg Take 1 capsule by mouth 3 (three) times daily for 7 days. [facility] NaCl 0.9% (NS) bolus infusion 1,000 mL 2020-04 23:15: 00 02-03 23:43 :00 No 1000mL at 999 mL/hr, 1,000 mL, IV Infusion, ONCE, 1 dose, On Sat02/03/21 at 1815, STAT [facility] METAXALONE (SKELAXIN ORAL) 05-14 14:34: 04 Yes Take by mouth. [facility] METAXALONE (SKELAXIN ORAL) 05-14 14:34: 04 Yes Take by mouth. [facility] METAXALONE (SKELAXIN ORAL) 05-14 14:34: 04 Yes Take by mouth. [facility] METAXALONE (SKELAXIN ORAL) 05-14 14:34: 04 Yes Take by mouth. [facility] METAXALONE (SKELAXIN ORAL) 05-14 14:34: 04 Yes Take by mouth. [facility] METAXALONE (SKELAXIN ORAL) 05-14 14:34: 04 Yes Take by mouth. [facility] Vital Signs Vital Name Observation Time Observation Value Comments Jey austin Systolic blood pressure 2023-01-04 01:35:00 148 mm[Hg] [facility] Diastolic blood pressure 2023-01-04 01:35:00 107 mm[Hg] [facility] Heart rate 2023-01-04 01:35:00 98 /min [facility] Body temperature 2023-01-04 01:35:00 37.39 Charo [facility] Respiratory rate 2023-01-04 01:35:00 18 /min [facility] Body height 2023-01-04 01:35:00 157.5 cm [facility] Body weight 2023-01-04 01:35:00 89.812 kg [facility] BMI 2023-01-04 01:35:00 36.21 kg/m2 [facility] Oxygen saturation in Arterial blood by Pulse oximetry 2023-01-04 01:35:00 99 /min [facility] Heart rate 2022-11-06 04:10:00 96 /min [facility] Body temperature 2022-11-06 04:10:00 37.28 Charo [facility] Respiratory rate 2022-11-06 04:10:00 18 /min [facility] Oxygen saturation in Arterial blood by Pulse oximetry 2022-11-06 04:10:00 98 /min [facility] Systolic blood pressure 2022-11-06 01:19:00 116 mm[Hg] [facility] Diastolic blood pressure 2022-11-06 01:19:00 83 mm[Hg] [facility] Body height 2022-11-06 01:19:00 157.5 cm [facility] Body weight 2022-11-06 01:19:00 97.523 kg [facility] BMI 2022-11-06 01:19:00 39.32 kg/m2 [facility] Systolic blood pressure 2022-01-25 21:49:00 152 mm[Hg] [facility] Diastolic blood pressure 2022-01-25 21:49:00 102 mm[Hg] [facility] Heart rate 2022-01-25 21:49:00 80 /min [facility] Body temperature 2022-01-25 21:49:00 37.06 Charo [facility] Respiratory rate 2022-01-25 21:49:00 16 /min [facility] Body height 2022-01-25 21:49:00 160 cm [facility] Body weight 2022-01-25 21:49:00 88.451 kg [facility] BMI 2022-01-25 21:49:00 34.54 kg/m2 [facility] Oxygen saturation in Arterial blood by Pulse oximetry 2022-01-25 21:49:00 97 /min [facility] Body temperature 2021-04-06 22:53:00 36.94 Charo [facility] Respiratory rate 2021-04-06 22:53:00 18 /min [facility] Body height 2021-04-06 22:53:00 162.6 cm [facility] Body weight 2021-04-06 22:53:00 86.183 kg [facility] BMI 2021-04-06 22:53:00 32.61 kg/m2 [facility] Oxygen saturation in Arterial blood by Pulse oximetry 2021-04-06 22:53:00 99 /min [facility] Systolic blood pressure 2021-04-06 22:53:00 139 mm[Hg] [facility] Diastolic blood pressure 2021-04-06 22:53:00 99 mm[Hg] [facility] Heart rate 2021-04-06 22:53:00 76 /min [facility] Systolic blood pressure 2021-02-03 22:20:00 140 mm[Hg] [facility] Diastolic blood pressure 2021-02-03 22:20:00 98 mm[Hg] [facility] Heart rate 2021-02-03 22:20:00 85 /min [facility] Respiratory rate 2021-02-03 22:20:00 18 /min [facility] Oxygen saturation in Arterial blood by Pulse oximetry 2021-02-03 22:20:00 99 /min [facility] Body temperature 2021-02-03 15:54:00 36.78 Charo [facility] Body height 2021-02-03 15:54:00 160 cm [facility] Body weight 2021-02-03 15:54:00 74.844 kg [facility] BMI 2021-02-03 15:54:00 29.23 kg/m2 [facility] Body mass index (BMI) [Percentile] Per age and sex 2021-02-03 15:54:00 91.94 % [facility] Procedures Procedure Date / Time Performed Performing Clinician Source [facility]23[facility]01-04 [facility]23-01-04 02:27:00 Tarun Domingo [facility] CONSENT/REFUSAL FOR DIAGNOSIS AND TREATMENT 2023-01-04 01:19:40 Doctor Unassigned, Gallina [facility] XR CHEST 2 VW 2022-11-06 03:46:00 Gordon Duke [facility] RAPID STREP SCREEN FOR GROUP A 2022-11-06 01:45:00 Gordon Duke [facility] RAPID INFLUENZA A/B 2022-11-06 01:45:00 Twan Duke [facility] COVID-19 (ID NOW RAPID TESTING) 2022-11-06 01:45:00 Gordon Duke [facility] CONSENT/REFUSAL FOR DIAGNOSIS AND TREATMENT 2022-11-06 01:06:48 Doctor Unassigned, Gallina [facility] POCT TEST 2022-01-25 22:06:00 Tarun Domingo [facility] LIPASE 2022-01-25 22:03:00 Padmini Domingo [facility] MAGNESIUM 2022-01-25 22:03:00 Cuney Padmini Fragoso [facility] COMP. METABOLIC PANEL ([id number]) 2022-01-25 22:03:[address] CBC WITH DIFF 2022-01-25 22:03:00 Jose L [facility] NOTICE OF PRIVACY PRACTICES 2022-01-25 21:25:28 Doctor Unassigned, Gallina [facility] CONSENT/REFUSAL FOR DIAGNOSIS AND TREATMENT 2022-01-25 21:25:07 Doctor Unassigned, Gallina [facility] POCT TEST 2021-04-06 23:20:00 Lou Vences [facility] CONSENT/REFUSAL FOR DIAGNOSIS AND TREATMENT 2021-04-06 22:35:43 Doctor Unassigned, Gallina [facility] XR CHEST 1 VW 2021-02-03 23:04:39 Jesus Alberto Aranda [facility] D-DIMER 2021-02-03 18:33:00 Jesus Alberto Aranda [facility] LIPASE 2021-02-03 18:24:00 Jesus Alberto Arandae [facility] MAGNESIUM 2021-02-03 18:24:00 [facility] COMP. METABOLIC PANEL ([id number]) 2021-02-03 18:24:00 Jesus Alberto Aranda [facility] CBC WITH DIFF 2021-02-03 18:24:00 Jesus Alberto Aranda [facility] URINALYSIS 2021-02-03 18:24:00 [facility] URINE DRUG (IMMUNOASSAY) - COMPREHENSIVE DRUG SCREEN 2021-02-03 18:23:00 Jesus Alberto Aranda [facility] POCT TEST 2021-02-03 18:23:00 Jesus Alberto Aranda [facility] NOTICE OF PRIVACY PRACTICES 2021-02-03 15:44:16 Doctor Unassigned, Gallina [facility] Encounters Start Date/Time End Date/Time Encounter Type Admission Type Attending [facility] Care Department Encounter ID Source 2023-01-03 20:37:00 2023-01-03 22:10:00 Emergency X PADMINI DOMINGO [facility] ERT [id number] [facility] 2023-01-03 20:37:00 2023-01-03 22:10:00 Emergency [facility] 1.2840.114 350.1.13.10 4.2.7.2.686 [id number] [facility] 2022-11-05 20:21:00 2022-11-05 23:12:00 Emergency X GORDON DUKE [facility] ERT [id number] [facility] 2022-11-05 20:21:00 2022-11-05 23:12:00 Emergency Gordon Duke [facility] 1.2840.114 350.1.13.10 4.2.7.2.686 [id number] [facility] 2022-10-01 08:43:03 2022-10-01 08:43:03 Outpatient [facility] [id number] Erasmo Payan 2022-01-25 16:50:00 2022-01-25 18:32:00 Emergency X PADMINI DOMINGO [facility] ERT [id number] [facility] 2022-01-25 16:50:00 2022-01-25 18:32:00 Emergency Cuney, [facility] 1.2840.114 350.1.13.10 4.2.7.2.686 [id number] [facility] 2022-01-25 00:00:00 2022-01-25 00:00:00 Orders Only Doctor Unassigned, Gallina [facility] [id number] 350.1.13.10 4.2.7.2.686 [id number] [facility] 2021-04-06 16:54:00 2021-04-06 17:47:00 Emergency LOU VIRAMONTES [facility] ERT [id number] [facility] 2021-04-06 16:54:00 2021-04-06 17:47:00 Emergency Lou Vences [facility] [id number] 350.1.13.10 4.2.7.2.686 [id number] [facility] 2021-02-03 11:11:00 2021-02-03 18:44:00 Emergency Jesus Alberto Aranda [facility] [id number] 350.1.13.10 4.2.7.2.686 [id number] [facility] 2021-02-03 11:11:00 2021-02-03 18:44:00 Emergency X Jesus Alberto ARANDA [facility] ERT [id number] [facility] Results Test Description Test Time Test Comments Results Result Co mments Source [id number] 22:06:00* Test Item Value Reference Range Interpretation Comme [facility] PO[facility] PREG (test code = 1605) negative On board controls acceptable with C Line (test code = 3574) present POCT PREG LOT # (test code = 3575) [id number] POCT PREG TEST DATE ( test code = 3576) Lab Interpretation (test cod e = 17263-1) Normal [facility] [id number] 23:20:00* Test Item Value Reference Range Interpretation Comme [facility] POCT PREG (test code = 1605) negative POCT PREG LOT # (test code = 3575) [id number] POCT PREG TEST DATE ( test code = 3576) 2022-05-22 Lab Interpretation (test cod e = 34117-0) Normal [facility][id number] 19:30:18* Test Item Value Reference Range Interpretation Comments D-DIMER (test code = 9303764862) <0.27 See_Comment [Automated message] The system which generated this result transmitted reference range: <0.41 ?g/mL (FEU). The reference range was not used to interpret this result as normal/abnormal. NIKA (test code = NIKA) This test may be used in conjunction with a clinical pretest [...] context, in forming a diagnosis. Lab Interpretation (test code = 55490-8) [facility]2021-[facility]-15 19:00:14* Test Item Value Reference Range Interpretation Comme nts MAGNESIUM (test code = 6972285666) 1.8 mg/dL 1.7-2.4 Lab Interpretation (test cod e = 47126-7) [facility] ([id number])2021-02-03 18:59:54* Test Item Value Reference Range Interpretation Comme nts NA (test code = 9696754703) 139 mmol/L 135-145 K (test code = 5871191674) 4.0 mmol/L 3.5-5.0 CL (test code = 6285058425) 101 mmol/L 98-108 CO2 TOTAL (test code = 3942462922) 30 mmol/L 23-31 AGAP (test code = 7041305268) 2-16 BUN (test code = 5343245403) 13 mg/dL 7-23 GLUCOSE (test code = 2648449559) 87 mg/dL 70-110 CREATININE (test code = 1108428483) 0.57 mg/dL 0.50-1.04 TOTAL BILI (test code = 2739992791) 0.4 mg/dL 0.1-1.1 CALCIUM (test code = 5882648964) 9.7 mg/dL 8.6-10.6 T PROTEIN (test code = 0463869246) 8.0 g/dL 6.3-8.2 ALBUMIN (test code = 4682203943) 4.6 g/dL 3.5-5.0 ALK PHOS (test code = 0987027943) 90 U/L 34-122 ALTv (test code = 1742-6) 15 U/L 5-35 AST(SGOT) (test code = 7176912410) 23 U/L 13-40 eGFR (test code = 9986828719) mL/min/1.73m2 NIKA (test code = NIKA) Association of [...] or urine or abnormalities in imaging tests). [facility] 18:59:34* Test Item Value Reference Range Interpretation Comme nts LIPASE (test code = 9641869289) 37 U/L 0-220 Lab Interpretation (test cod e = 72665-4) Normal [facility] WITH [id number] 18:37:09* Test Item Value Reference Range Interpretation Comme nts WBC (test code = 6690-2) See_Comment [Automated messa ge] The system which generated this result transmitted reference range: 4.30 - 11.10 10*3/?L. The reference range was not used to interpret this result as normal/abnormal. RBC (test code = 789-8) See_Comment [Automated messa ge] The system which generated this result transmitted reference range: 3.93 - 5.25 10*6/?L. The reference range was not used to interpret this result as normal/abnormal. HGB (test code = 718-7) 12.6 g/dL 11.6-15.0 HCT (test code = 4544-3) 40.9 % 35.7-45.2 MCV (test code = 787-2) 81.6 fL 80.6-95.5 MCH (test code = 785-6) 25.1 pg 25.9-32.8 L MCHC (test code = 786-4) 30.8 g/dL 31.6-35.1 L RDW-SD (test code = 39343-7) 38.9 fL 39.0-49.9 L RDW-CV (test code = 788-0) 13.2 % 12.0-15.5 PLT (test code = 777-3) See_Comment H [Automated messa ge] The system which generated this result transmitted reference range: 166 - 358 10*3/?L. The reference range was not used to interpret this result as normal/abnormal. MPV (test code = 35987-4) 9.2 fL 9.5-12.9 L NRBC/100 WBC (test code = 1153153428) See_Comment [Automated [employer] ssage] The system which generated this result transmitted reference range: 0.0 - 10.0 /100 WBCs. The reference range was not used to interpret this result as normal/abnormal. NRBC x10^3 (test code = 6306423562) <0.01 See_Comment [Automated messa ge] The system which generated this result transmitted reference range: 10*3/?L. The reference range was not used to interpret this result as normal/abnormal. GRAN MAT (NEUT) % (test code = 770-8) 66.3 % IMM GRAN % (test code = 1923468569) 0.70 % LYMPH % (test code = 736-9) 20.6 % MONO % (test code = 5905-5) 9.8 % EOS % (test code = 713-8) 1.7 % BASO % (test code = 706-2) 0.9 % GRAN MAT x10^3(ANC) (test code = 7617877582) 5.09 10*3/uL 1.88-7.09 IMM GRAN x10^3 (test code = 6593219941) 0.05 10*3/uL 0.00-0.06 LYMPH x10^3 (test code = 731-0) 1.58 10*3/uL 1.32-3.29 MONO x10^3 (test code = 742-7) 0.75 10*3/uL 0.33-0.92 EOS x10^3 (test code = 711-2) 0.13 10*3/uL 0.03-0.39 BASO x10^3 (test code = 704-7) 0.07 10*3/uL 0.01-0.07 Lab Interpretation (test code = 48617-1) [facility]normal [facility] [id number] 18:23:00* Test Item Value Reference Range Interpretation Comme nts POCT PREG (test code = 1605) negative On board controls acceptable with C Line (test code = 3574) present Lab Interpretation (test cod e = 48727-7) Normal [facility] Notes Date/Time Note Provider Source 2023-01-03 22:05:51 [id number]+[id number] [id number] [id number]/[id number] -09-14T22:05:51 Awake, alert oriented X4, respiratory even and unlabored,skin w/d color appropriate for race, moves all ext well, pt encouraged to follow up with pcp and or return as neededPt given printed and verbal discharge instructions regarding frequency of urination, viral illness , patient verbralized understanding and signature obtained, patient denies any other concerns. Prescriptions providedAdvised to seek medical attention for new/prolonged/worsening of symptoms, No adverse reaction to meds given in ER noted upon dischargePt [facility] 10719-1Puduipnvp department [id number]:06:22[facility] [id number] .[id number] for patient [id number] [address] [id number]| [id number] [facility] 2023-01-03 20:32:45 [id number] v/[id number] [id number]+[id number] -09-14T20:32:45 Pt states that she was seen @ [facility] this am and was neg for covid and strep. Pt states she is still not feeling well and she has to work tomorrow and doesn't want to feel this way. 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 Pt states the pain is sharp. [id number] department Triage [id number]:35:24[facility] Triage [id number] for patient [id number] department [id number] J Hoot RN[address] T[id number]| [id number] Angi Perry RN [facility]
[2023-05-20 15:36] LABS: Absolute Lymphocytes (CBC) 1.9 K/uL (0.7-4.9); Hematocrit 36.9 % (36.0-45.0); Lymphocytes % 20.2 % (15.3-44.8); MCV 78.5 fL (80-100); MPV 7.3 fL (7.6-11.3); Platelets 388 thou/uL (152-406)
--- NOTE | 2023-05-20 15:42 | RAD REPORT ---
EXAM DESCRIPTION: RADChest Single View05/20/2023 2:26 pm CLINICAL HISTORY: CHEST PAIN COMPARISON: Chest Single View dated 11/30/2022; Chest Pa And Lat (2 Views) dated 09/01/2021; Chest Sin gle View dated 06/13/2021; Chest Single View dated 02/01/2021 TECHNIQUE: Portable AP view of the chest. FINDINGS: The lungs are clear. No pneumothorax or effusion. The cardiomediastinal contours are unre markable. IMPRESSION: No acute cardiopulmonary process.
[2023-05-20 15:51] LABS: Potassium 3.5 mEq/L (3.5-5.1); Troponin High Sensitivity 3.2 pg/mL (<58.9)
--- NOTE | 2023-05-20 17:10 | ER ---
Nurse's Notes [facility] Name: Izzy Krishnan Age: 23 yrs Sex: Female : 2000 Arrival Date: 05/20/2023 Time: 13:18 Bed 12 Private MD: Diagnosis: chest pain, nipple pain Presentation: 05/20 13:55 Chief complaint: Patient states: Pt c/o stabbing right side breast and nipple pain tl4 since last . Pt also c/o chest pain and headache. Coronavirus screen: Vaccine status: Patient reports receiving the 2nd dose of the covid vaccine. At this time, the client does not indicate any symptoms associated with coronavirus-19. Ebola Screen: Patient negative for fever greater than or equal to 101.5 degrees Fahrenheit, and additional compatible Ebola Virus Disease symptoms Patient denies exposure to infectious person. Patient denies travel to an Ebola-affected area in the 21 days before illness onset. No symptoms or risks identified at this time. Initial Sepsis Screen: Does the patient meet any 2 criteria? No. Patient's initial sepsis screen is negative. Does the patient have a suspected source of infection? No. Patient's initial sepsis screen is negative. Risk Assessment: Do you want to hurt yourself or someone else? Patient reports no desire to harm self or others. Onset of symptoms was May 15, 2023. 13:55 Method Of Arrival: Ambulatory tl4 13:55 Acuity: ESAU 3 tl4 Triage Assessment: 13:59 General: Appears in no apparent distress. Behavior is calm, cooperative. Pain: tl4 Complains of pain in chest, right breast/nipple. EENT: No deficits noted. No signs and/or symptoms were reported regarding the EENT system. Neuro: No deficits noted. Cardiovascular: Reports chest pain, Denies diaphoresis, fatigue, lightheadedness, palpitations. Respiratory: No deficits noted. Denies cough, shortness of breath. GI: No deficits noted. No signs and/or symptoms were reported involving the gastrointestinal system. : No deficits noted. No signs and/or symptoms were reported regarding the genitourinary system. Historical: - Allergies: 13:59 No Known Allergies; tl4 - Home Meds: 13:59 None [Active]; tl4 - PMHx: 13:59 Asthma; tl4 - PSHx: 13:59 Appendectomy; tl4 - Immunization history:: Adult Immunizations unknown. - Social history:: Smoking status: Reported history of juuling and/or vaping. Screenin:43 [facility] ED Fall Risk Assessment (Adult) Score/Fall Risk Level 0 - 2 = Low Risk nj1 Oriented to surroundings, Maintained a safe environment, Hourly rounding (assess needs \T\ fall precautionary measures) done. Abuse screen: Denies threats or abuse. Denies injuries from another. Nutritional screening: No deficits noted. Tuberculosis screening: No symptoms or risk factors identified. Assessment: 15:43 Reassessment: See triage assessment. nj1 16:40 Reassessment: Patient appears in no apparent distress at this time. Patient and/or nj1 family updated on plan of care and expected duration. Pain level reassessed. Patient is alert, oriented x 3, equal unlabored respirations, skin warm/dry/pink. 16:40 Pain: Complains of pain in chest Pain currently is 8 out of 10 on a pain scale. nj1 Vital Signs: 13:55 BP 151 / 97; Pulse 94; Resp 16; Temp 98.4; Pulse Ox 100% ; Weight 112.04 kg; Height 5 tl4 ft. 2 in. ; Pain 8/10; 15:55 BP 126 / 96; Pulse 81; Resp 18; Pulse Ox 96% on R/A; Pain 8/10; nj1 16:40 BP 102 / 81; Pulse 75; Resp 16; Pulse Ox 100% on R/A; Pain 8/10; nj1 17:23 Pain 7/10; nj1 13:55 Body Mass Index 45.18 (112.04 kg, 157.48 cm) tl4 13:55 Pain Scale: Adult tl4 15:55 Pain Scale: Adult nj1 16:40 Pain Scale: Adult nj1 17:23 Pain Scale: Adult nj1 ED Course: 13:21 Patient arrived in ED. im 13:27 Radha Sanchez PA-C is PHCP. sb4 13:27 Marlon Dao MD is Attending Physician. sb4 13:59 Triage completed. tl4 14:00 Arm band placed on right wrist. tl4 14:27 XRAY Chest (1 view) In Process Unspecified. EDMS 15:27 Basic Metabolic Panel Sent. ap3 15:27 CBC with Diff Sent. ap3 15:27 D-Dimer Sent. ap3 15:27 Troponin HS Sent. ap3 15:27 Initial lab(s) drawn, by me, sent to lab. Inserted saline lock: 20 gauge in right ap3 antecubital area, using aseptic technique. Blood collected. 15:42 Isha Oneal, RN is Primary Nurse. nj1 15:43 Patient maintains SpO2 saturation greater than 95% on room air. nj1 15:44 Patient has correct armband on for positive identification. Bed in low position. Call nj1 light in reach. Side rails up X 1. Provided Education on: call light, fall precautions. 15:55 EKG done, by ED staff, reviewed by Radha Sanchez PA-C. em1 17:10 Natali Peacock MD is Referral Physician. sb4 17:23 No provider procedures requiring assistance completed. IV discontinued, intact, nj1 bleeding controlled. Administered Medications: 15:55 Drug: NS 0.9% IV 1000 ml IV at 1 bolus Per protocol; 1000 mL bolus Route: IV; Rate: 1 nj1 bolus; Site: right antecubital; 17:22 Follow up: Response: No adverse reaction; IV Status: Completed infusion; IV Intake: nj1 1000ml 16:38 Drug: Ketorolac IVP 30 mg IVP once Route: IVP; Site: right antecubital; nj1 17:23 Follow up: Pain 7/10 Adult; Response: No adverse reaction; Pain is decreased nj1 17:22 Drug: Gabapentin PO 100 mg PO once Route: PO; nj1 Medication: 17:24 VIS not applicable for this client. nj1 Intake: 17:22 IV: 1000ml; Total: 1000ml. nj1 Outcome: 17:10 Discharge ordered by . sb4 17:23 Discharged to home ambulatory, nj1 17:23 Condition: stable 17:23 Discharge instructions given to patient, Instructed on discharge instructions, follow up and referral plans. medication usage, Demonstrated understanding of instructions, follow-up care, medications, Prescriptions given X 1, 17:24 Patient left the ED. nj1 Signatures: Dispatcher [employer] EDMS Ruddy Avila em1 Mami Julio RN RN ap3 Radha Sanchez PA-C PA-C sb4 Isha Oneal RN RN nj1 Suri Vasquez Toni tl4 Corrections: (The following items were deleted from the chart) 14:03 13:55 Pulse 94bpm; Resp 16bpm; Pulse Ox 100%; Temp 98.4F; 112.04 kg; Height 5 ft. 2 tl4 in.; BMI: 45.1; Pain 8/10, Adult; tl4
--- NOTE | 2023-05-20 17:11 | EDPHYS ---
Physician Documentation [facility] Name: Izzy Krishnan Age: 23 yrs Sex: Female : 2000 Arrival Date: 05/20/2023 Time: 13:18 Bed 12 Private MD: ED Physician Marlon Dao HPI: 05/20 14:05 This 23 yrs old Female presents to ER via Ambulatory with complaints of Breast Problem, sb4 Chest Pain. 14:05 patient states that she has been experiencing epigastric/substernal chest pain for 24 sb4 hours now. she also reports right nipple pain- stabbing/shooting. she is unsure if they are related. she has not taken anything for the pain. she states she ended her menstrual cycle last week. also reports headache. denies any sob, fever, chills, URI symptoms, vag bleeding. Historical: - Allergies: 13:59 No Known Allergies; tl4 - Home Meds: 13:59 None [Active]; tl4 - PMHx: 13:59 Asthma; tl4 - PSHx: 13:59 Appendectomy; tl4 - Immunization history:: Adult Immunizations unknown. - Social history:: Smoking status: Reported history of juuling and/or vaping. ROS: 14:05 Constitutional: Negative for fever, chills, and weight loss, sb4 14:07 Cardiovascular: Positive for chest pain, sb4 14:07 Skin: Positive for right nipple pain, 14:07 Neuro: Positive for headache, 14:07 All other systems are negative, Exam: 15:47 Constitutional: This is a well developed, well nourished patient who is awake, alert, sb4 and in no acute distress. Head/Face: Normocephalic, atraumatic. Eyes: Extra-ocular motions intact. Periorbital areas with no swelling, redness, or edema. ENT: Mucous membranes moist. Cardiovascular: Regular rate and rhythm with a normal S1 and S2. Respiratory: Lungs have equal breath sounds bilaterally, clear to auscultation and percussion. No rales, rhonchi or wheezes noted. No increased work of breathing, no retractions or nasal flaring. Abdomen/GI: Soft, non-tender, no distension. Skin: Warm, dry with normal turgor. Normal color with no rashes, no lesions, and no evidence of cellulitis. MS/ Extremity: Pulses equal, no cyanosis. Neurovascular intact. Full, normal range of motion. Neuro: Awake and alert, GCS 15, oriented to person, place, time, and situation. Motor strength 5/5 in all extremities. Sensory grossly intact. 15:47 Chest/axilla: Breasts: abscess, not appreciated, cellulitis, is not appreciated, nipple discharge, is not appreciated, rash, is not appreciated, swelling, is not appreciated, tenderness, that is moderate, of the right breast, Vital Signs: 13:55 BP 151 / 97; Pulse 94; Resp 16; Temp 98.4; Pulse Ox 100% ; Weight 112.04 kg; Height 5 tl4 ft. 2 in. ; Pain 8/10; 15:55 BP 126 / 96; Pulse 81; Resp 18; Pulse Ox 96% on R/A; Pain 8/10; nj1 16:40 BP 102 / 81; Pulse 75; Resp 16; Pulse Ox 100% on R/A; Pain 8/10; nj1 17:23 Pain 7/10; nj1 13:55 Body Mass Index 45.18 (112.04 kg, 157.48 cm) tl4 13:55 Pain Scale: Adult tl4 15:55 Pain Scale: Adult nj1 16:40 Pain Scale: Adult nj1 17:23 Pain Scale: Adult nj1 MDM: 14:03 Patient medically screened. sb4 17:10 Data reviewed: vital signs, nurses notes, lab test result(s), EKG, radiologic studies, sb4 and as a result, I will discharge patient. Counseling: I had a detailed discussion with the patient and/or guardian regarding the historical points, exam findings, and any diagnostic results supporting the discharge/admit diagnosis, lab results, radiology results, the need for outpatient follow up, an OB/Gyne specialist, to return to the emergency department if symptoms worsen or persist or if there are any questions or concerns that arise at home. 05/20 13:58 Order name: Basic Metabolic Panel; Complete Time: 15:52 sb4 05/20 13:58 Order name: CBC with Diff; Complete Time: 15:39 sb4 05/20 13:58 Order name: D-Dimer; Complete Time: 15:47 sb4 05/20 13:58 Order name: Troponin HS; Complete Time: 15:52 sb4 05/20 13:58 Order name: Test, Urine; Complete Time: 16:33 sb4 05/20 13:58 Order name: XRAY Chest (1 view); Complete Time: 15:43 sb4 05/20 13:58 Order name: EKG; Complete Time: 13:58 sb4 05/20 13:58 Order name: EKG - Nurse/Tech; Complete Time: 15:54 sb4 05/20 13:58 Order name: IV Saline Lock; Complete Time: 15:27 sb4 EC:52 Rate is 68 beats/min. Rhythm is regular, Normal Sinus Rhythm. MD interval is normal at sb4 132 msec. QRS interval is normal at 88 msec. QT interval is normal at 384 msec. No Q waves. T waves are Normal. No ST changes noted. Clinical impression: Normal ECG. Interpreted by me. Reviewed by me. Administered Medications: 15:55 Drug: NS 0.9% IV 1000 ml IV at 1 bolus Per protocol; 1000 mL bolus Route: IV; Rate: 1 nj1 bolus; Site: right antecubital; 17:22 Follow up: Response: No adverse reaction; IV Status: Completed infusion; IV Intake: nj1 1000ml 16:38 Drug: Ketorolac IVP 30 mg IVP once Route: IVP; Site: right antecubital; nj1 17:23 Follow up: Pain 7/10 Adult; Response: No adverse reaction; Pain is decreased nj1 17:22 Drug: Gabapentin PO 100 mg PO once Route: PO; nj1 Disposition: 17:53 Co-signature as Attending Physician, Marlon Dao MD I reviewed the patient's care rt provided by the Advanced Practice Provider and agree with the diagnosis and treatment plan. Chart complete. Disposition Summary: 05/20/23 17:10 Discharge Ordered Notes: Location: Home sb4 Problem: new sb4 Symptoms: are unchanged sb4 Condition: Stable sb4 Diagnosis - chest pain, nipple pain sb4 Followup: sb4 - With: Natali Peacock MD - When: As needed - Reason: Further diagnostic work-up, Recheck today's complaints, Re-evaluation by your physician Discharge Instructions: - Discharge Summary Sheet sb4 - Nonspecific Chest Pain, Adult, [id number] sb4 Forms: - Medication Reconciliation Form sb4 - Thank You Letter sb4 - Antibiotic Education sb4 - Prescription Opioid Use sb4 - Patient Portal Instructions sb4 - Leadership Thank You Letter sb4 Prescriptions: - Diclofenac Sodium 75 mg Oral tablet, delayed release (enteric coated) - take 1 tablet ORAL route 2 times per day; 14 tablet; Refills: 0, Product sb4 Selection Permitted Signatures: Dispatcher [employer] Radha Bernal PA-C PA-C sb4 Marlon Dao MD MD rt Isha Oneal RN RN nj1 Fitz Logan tl4
[2023-05-20 19:53] VITALS: BP 102/81; TEMP 98.4; O2SAT 100
== END ==
LOC: ER 13:18
DX: R07.9 Chest pain, unspecified (principal); N64.4 Mastodynia
CPT/HCPCS: 36415; 71045; 80048; 81025; 84484; 85025; 85379; 93005; J7030

== ENCOUNTER → 2023-06-12 | Emergency (ER) | payer BC ==
[~2023-06-12] MED LIST changes: -GABAPENTIN 100 MG CAP ONE; +LIDOCAINE VISCOUS 2% 10ML ORAL SOLN ONE; +METOCLOPRAMIDE 10 MG/2mL INJ ONE; +ONDANSETRON 4 MG/2 ML VIAL ONE; +dexAMETHasone 10 MG/ML VIAL ONE
--- OUTSIDE RECORDS SUMMARY | 2023-06-12 17:41 | XMS REPORT | Continuity of Care Document ---
Author Name Unknown Address [address] [facility]. [address] [place] [address] [facility] thconnect Address [address] [facility] [address] [place] [address] Care Team Providers Care Signing Teacher Name Role Phone PCP, PATIENT DOES NOT HAVE A Primary Care Physic tristin Unavailable PADMINI DOMINGO Attending Clinician UnavailPadmini Donnelly Attending Clinician [phone] GORDON DUKE Attending Clinician Unavailable Gordon Duke MD Attending Clinician [phone] Doctor Unassigned, [place] Attending Clinician LOU Painting Attending Clinician Unavailable Lou Elizondo Attending Clinician [phone] Jesus Alberto Henry Attending Clinician [phone] Jesus Alberto ARANDA Attending Clinician Unavailable GORDON DUKE Admitting Clinician Unavailable Jesus Alberto ARANDA Admitting Clinician Unavailable Payers Payer Name Policy Type Policy Number Effective Date Expirati on Date Source hiyalife [facility] [id number] 2021 00:00:00 Problems Condition Name Condition Details Condition Category Status Onset Date Resolution Date Last Treatment Date Treating Clinician Comments Source Behavior concern Behavior concern Disease Active 05-04 00:00: 00 [facility] Family circumstan ce Family circumstan ce Disease Active 05-04 00:00: 00 [facility] Hx of suicide attempt Hx of suicide attempt Disease Active 05-04 00:00: 00 [facility] Depression , unspecifie d depression type Depression , unspecifie d depression type Disease Active 05-04 00:00: 00 [facility] BMI (body mass index), pediatric, 95-99% for age BMI (body mass index), pediatric, 95-99% for age Disease Active 05-04 00:00: 00 [facility] Allergies, Adverse Reactions, Alerts Allergy Name Allergy Type Status Severity Reaction(s) Onset Date Inactive Date Treating Clinician Comments Source NO KNOWN ALLERGIE S Drug Class Active [facility] Social History Social Habit Start Date Stop Date Quantity Comments Source Gender identity [facility] function 2023-01-03 00:00:00 2023-01-03 00:00:00 [facility] Alcohol intake 2023-01-03 00:00:00 2023-01-03 00:00:00 0 /d [facility] Exposure to SARS-CoV-2 (event) 2022-01-15 00:00:00 2022-01-25 16:49:00 Not sure [facility] Sex Assigned At 2000 00:00:00 2000 00:00:00 [facility] Smoking Status Start Date Stop Date Source Never smoked tobacco [facility] Medications Ordered Medication Name Filled Medication Name Start Date Stop Date Current Medication? Ordering Clinician Indication Dosage Frequency Signature (SIG) Comments Components Source acetaminoph en (TYLENOL) tablet 1,000 mg 01-04 02:30: 00 01-04 01:59 :00 No 1000mg 1,000 mg, Oral, ONCE, 1 dose, On Steffany 01/03/23 at 2130, JOANNA [facility] ondansetron (ZOFRAN) tablet 4 mg 01-04 02:30: 00 01-04 02:30 :00 No 4mg 4 mg, Oral, ONCE, 1 dose, On Steffany 01/03/23 at 2130, Routine [facility] ondansetron 4 mg disintegrat ing tablet 01-03 00:00: 00 Yes [id number] 4mg Take 1 tablet by mouth every 8 (eight) hours as needed for Nausea and Vomiting (N/V). [facility] acetaminoph en (TYLENOL) tablet 975 mg 11-06 02:45: 00 11-06 01:45 :00 No 975mg 975 mg, Oral, ONCE, 1 dose, On Sat11/05/22 at 2145, JOANNA [facility] loratadine- pseudoephed rine (CLARITIN-D 24 HOUR) 10-240 mg per 24 hr tablet 11-05 00:00: 00 Yes [id number] 1{tbl} Take 1 tablet by mouth in the morning. [facility] dextrometho rphan-guaif enesin 10-100 mg/5 mL solution 11-05 00:00: 00 Yes [id number] 10mL Take 10 mL by mouth every 6 (six) hours as needed for Cough. [facility] ondansetron 4 mg disintegrat ing tablet 11-05 00:00: 00 Yes [id number] 4mg Take 1 tablet by mouth every 4 (four) hours as needed for Nausea and Vomiting (N/V). [facility] loratadine- pseudoephed rine (CLARITIN-D 24 HOUR) 10-240 mg per 24 hr tablet 11-05 00:00: 00 Yes [id number] 1{tbl} Take 1 tablet by mouth in the morning. [facility] dextrometho rphan-guaif enesin 10-100 mg/5 mL solution 11-05 00:00: 00 Yes [id number] 10mL Take 10 mL by mouth every 6 (six) hours as needed for Cough. [facility] ondansetron 4 mg disintegrat ing tablet 11-05 00:00: 00 01-03 00:00 :00 No [id number] 4mg Take 1 tablet by mouth every 4 (four) hours as needed for Nausea and Vomiting (N/V). [facility] naproxen 500 mg tablet 17 00:00: 00 11-16 04:59 :00 No [id number] 500mg Take 1 tablet by mouth in the morning and 1 tablet in the evening. Take with meals. Do all this for 10 days. [facility] ondansetron (ZOFRAN (PF)) injection 4 mg 2021-04 0 23:30: 00 01-25 22:39 :00 No 4mg 4 mg, Slow IV Push, ONCE, 1 dose, On Steffany 01/25/22 at 1830, JOANNA [facility] ketorolac (TORADOL) injection 15 mg 2021-04 0 23:30: 00 01-25 22:39 :00 No 15mg 15 mg, Slow IV Push, ONCE, 1 dose, On Steffany 01/25/22 at 1830, Routine [facility] ondansetron (ZOFRAN (PF)) injection 4 mg 2021-04 0 22:45: 00 01-25 22:04 :00 No 4mg 4 mg, Slow IV Push, ONCE, 1 dose, On Steffany 01/25/22 at 1745, JOANNA [facility] NaCl 0.9% (NS) bolus infusion 1,000 mL 2021-04 22:45: 00 01-25 23:10 :00 No 1000mL at 999 mL/hr, 1,000 mL, IV Infusion, ONCE, 1 dose, On Steffany 01/25/22 at 1745, JOANNA [facility] dicyclomine 20 mg tablet 2021-04 0 00:00: 00 Yes [id number] 20mg Take 1 tablet by mouth every 6 (six) hours as needed for Abdominal pain. [facility] ondansetron 4 mg disintegrat ing tablet 2021-04 0 00:00: 00 Yes [id number] 4mg Take 1 tablet by mouth every 6 (six) hours as needed for Nausea and Vomiting (N/V). [facility] dicyclomine 20 mg tablet 2021-04 0-06 00:00: 00 Yes [id number] 20mg Take 1 tablet by mouth every 6 (six) hours as needed for Abdominal pain. [facility] dicyclomine 20 mg tablet 2021-04 0-06 00:00: 00 Yes [id number] 20mg Take 1 tablet by mouth every 6 (six) hours as needed for Abdominal pain. [facility] ondansetron 4 mg disintegrat ing tablet 2021-04 0 00:00: 00 11-05 00:00 :00 No [id number] 4mg Take 1 tablet by mouth every 6 (six) hours as needed for Nausea and Vomiting (N/V). [facility] amoxicillin (TRIMOX) capsule 500 mg 2020-04 00:30: 00 04-06 23:33 :00 No 500mg 500 mg, Oral, ONCE, 1 dose, On Steffany 04/06/21 at 1830, JOANNA
Re ason for Anti-Infec tive: Documented Infection< br>Documen nadiya Infection Site: HEENT
D uration of Therapy: Other (see Comments) [facility] ketorolac (TORADOL) injection 30 mg 2020-04 00:30: 00 04-06 23:33 :00 No 30mg 30 mg, Intramuscu lar, ONCE, 1 dose, On Steffany 04/06/21 at 1830, JOANNA [facility] ibuprofen 800 mg tablet 2020-04 00:00: 00 Yes [id number] 800mg Take 1 tablet by mouth 3 (three) times daily with meals. [facility] chlorhexidi ne 0.12 % mouthwash 2020-04 00:00: 00 Yes [id number] 15mL Swish and spit out 15 mL 2 (two) times daily. [facility] chlorhexidi ne 0.12 % mouthwash 2020-04 00:00: 00 Yes [id number] 15mL Swish and spit out 15 mL 2 (two) times daily. [facility] chlorhexidi ne 0.12 % mouthwash 2020-0416 00:00: 00 Yes [id number] 15mL Swish and spit out 15 mL 2 (two) times daily. [facility] chlorhexidi ne 0.12 % mouthwash 2020-0416 00:00: 00 Yes [id number] 15mL Swish and spit out 15 mL 2 (two) times daily. [facility] ibuprofen 800 mg tablet 2020-0416 00:00: 00 Yes [id number] 800mg Take 1 tablet by mouth 3 (three) times daily with meals. [facility] chlorhexidi ne 0.12 % mouthwash 2020-04 00:00: 00 Yes [id number] 15mL Swish and spit out 15 mL 2 (two) times daily. [facility] ibuprofen 800 mg tablet 2020-04 00:00: 00 01-25 00:00 :00 No [id number] 800mg Take 1 tablet by mouth 3 (three) times daily with meals. [facility] amoxicillin 500 mg capsule 2020-04 00:00: 00 04-14 05:59 :00 No [id number] 500mg Take 1 capsule by mouth 3 (three) times daily for 7 days. [facility] NaCl 0.9% (NS) bolus infusion 1,000 mL 2020-04 23:15: 00 02-03 23:43 :00 No 1000mL at 999 mL/hr, 1,000 mL, IV Infusion, ONCE, 1 dose, On Sat02/03/21 at 1815, STAT [facility] METAXALONE (SKELAXIN ORAL) 05-14 14:34: 04 Yes Take by mouth. [facility] METAXALONE (SKELAXIN ORAL) 05-14 14:34: 04 Yes Take by mouth. [facility] METAXALONE (SKELAXIN ORAL) 05-14 14:34: 04 Yes Take by mouth. [facility] METAXALONE (SKELAXIN ORAL) 05-14 14:34: 04 Yes Take by mouth. [facility] METAXALONE (SKELAXIN ORAL) 05-14 14:34: 04 Yes Take by mouth. [facility] METAXALONE (SKELAXIN ORAL) 05-14 14:34: 04 Yes Take by mouth. [facility] Vital Signs Vital Name Observation Time Observation Value Comments Jey austin Systolic blood pressure 2023-01-04 01:35:00 148 mm[Hg] [facility] Diastolic blood pressure 2023-01-04 01:35:00 107 mm[Hg] [facility] Heart rate 2023-01-04 01:35:00 98 /min [facility] Body temperature 2023-01-04 01:35:00 37.39 Charo [facility] Respiratory rate 2023-01-04 01:35:00 18 /min [facility] Body height 2023-01-04 01:35:00 157.5 cm [facility] Body weight 2023-01-04 01:35:00 89.812 kg [facility] BMI 2023-01-04 01:35:00 36.21 kg/m2 [facility] Oxygen saturation in Arterial blood by Pulse oximetry 2023-01-04 01:35:00 99 /min [facility] Heart rate 2022-11-06 04:10:00 96 /min [facility] Body temperature 2022-11-06 04:10:00 37.28 Charo [facility] Respiratory rate 2022-11-06 04:10:00 18 /min [facility] Oxygen saturation in Arterial blood by Pulse oximetry 2022-11-06 04:10:00 98 /min [facility] Systolic blood pressure 2022-11-06 01:19:00 116 mm[Hg] [facility] Diastolic blood pressure 2022-11-06 01:19:00 83 mm[Hg] [facility] Body height 2022-11-06 01:19:00 157.5 cm [facility] Body weight 2022-11-06 01:19:00 97.523 kg [facility] BMI 2022-11-06 01:19:00 39.32 kg/m2 [facility] Systolic blood pressure 2022-01-25 21:49:00 152 mm[Hg] [facility] Diastolic blood pressure 2022-01-25 21:49:00 102 mm[Hg] [facility] Heart rate 2022-01-25 21:49:00 80 /min [facility] Body temperature 2022-01-25 21:49:00 37.06 Charo [facility] Respiratory rate 2022-01-25 21:49:00 16 /min [facility] Body height 2022-01-25 21:49:00 160 cm [facility] Body weight 2022-01-25 21:49:00 88.451 kg [facility] BMI 2022-01-25 21:49:00 34.54 kg/m2 [facility] Oxygen saturation in Arterial blood by Pulse oximetry 2022-01-25 21:49:00 97 /min [facility] Body temperature 2021-04-06 22:53:00 36.94 Charo [facility] Respiratory rate 2021-04-06 22:53:00 18 /min [facility] Body height 2021-04-06 22:53:00 162.6 cm [facility] Body weight 2021-04-06 22:53:00 86.183 kg [facility] BMI 2021-04-06 22:53:00 32.61 kg/m2 [facility] Oxygen saturation in Arterial blood by Pulse oximetry 2021-04-06 22:53:00 99 /min [facility] Systolic blood pressure 2021-04-06 22:53:00 139 mm[Hg] [facility] Diastolic blood pressure 2021-04-06 22:53:00 99 mm[Hg] [facility] Heart rate 2021-04-06 22:53:00 76 /min [facility] Systolic blood pressure 2021-02-03 22:20:00 140 mm[Hg] [facility] Diastolic blood pressure 2021-02-03 22:20:00 98 mm[Hg] [facility] Heart rate 2021-02-03 22:20:00 85 /min [facility] Respiratory rate 2021-02-03 22:20:00 18 /min [facility] Oxygen saturation in Arterial blood by Pulse oximetry 2021-02-03 22:20:00 99 /min [facility] Body temperature 2021-02-03 15:54:00 36.78 Charo [facility] Body height 2021-02-03 15:54:00 160 cm [facility] Body weight 2021-02-03 15:54:00 74.844 kg [facility] BMI 2021-02-03 15:54:00 29.23 kg/m2 [facility] Body mass index (BMI) [Percentile] Per age and sex 2021-02-03 15:54:00 91.94 % [facility] Procedures Procedure Date / Time Performed Performing Clinician Source URINALYSIS 2023-01-04 02:27:00 [facility] 2023-01-04 02:27:00 Tarun Domingo [facility] CONSENT/REFUSAL FOR DIAGNOSIS AND TREATMENT 2023-01-04 01:19:40 Doctor Unassigned, [place] [facility] XR CHEST 2 VW 2022-11-06 03:46:00 Gordon Duke [facility] RAPID STREP SCREEN FOR GROUP A 2022-11-06 01:45:00 Gordon Duke [facility] RAPID INFLUENZA A/B 2022-11-06 01:45:00 Twan Duke [facility] COVID-19 (ID NOW RAPID TESTING) 2022-11-06 01:45:00 Gordon Duke [facility] CONSENT/REFUSAL FOR DIAGNOSIS AND TREATMENT 2022-11-06 01:06:48 Doctor Unassigned, [place] [facility] POCT TEST 2022-01-25 22:06:00 Tarun Domingo [facility] LIPASE 2022-01-25 22:03:00 Padmini Domingo [facility] MAGNESIUM 2022-01-25 22:03:00 [place] Padmini Fragoso [facility] COMP. METABOLIC PANEL ([id number]) 2022-01-25 22:03:00 [facility] CBC WITH DIFF 2022-01-25 22:03:00 Jose L [place] NOTICE OF PRIVACY PRACTICES 2022-01-25 21:25:28 Doctor Unassigned, [place] [facility] CONSENT/REFUSAL FOR DIAGNOSIS AND TREATMENT 2022-01-25 21:25:07 Doctor Unassigned, [place] [facility] POCT TEST 2021-04-06 23:20:00 Lou Vences [facility] CONSENT/REFUSAL FOR DIAGNOSIS AND TREATMENT 2021-04-06 22:35:43 Doctor Unassigned, [place] [facility] XR CHEST 1 VW 2021-02-03 23:04:39 Jesus Alberto Aranda [facility] D-DIMER 2021-02-03 18:33:00 Jesus Alberto Aranda [facility] LIPASE 2021-02-03 18:24:00 Jesus Alberto Arandae [facility] MAGNESIUM 2021-02-03 18:24:00 [facility] COMP. METABOLIC PANEL ([id number]) 2021-02-03 18:24:00 Jesus Alberto Aranda [facility] CBC WITH DIFF 2021-02-03 18:24:00 Jesus Alberto Aranda [facility] URINALYSIS 2021-02-03 18:24:00 [facility] URINE DRUG (IMMUNOASSAY) - COMPREHENSIVE DRUG SCREEN 2021-02-03 18:23:00 Jesus Alberto Aranda [facility] POCT TEST 2021-02-03 18:23:00 Jesus Alberto Aranda [facility] NOTICE OF PRIVACY PRACTICES 2021-02-03 15:44:16 Doctor Unassigned, [place] [facility] Encounters Start Date/Time End Date/Time Encounter Type Admission Type Attending [facility] Care Department Encounter ID Source 2023-01-03 20:37:00 2023-01-03 22:10:00 Emergency X PADMINI DOMINGO [facility] ERT [id number] [facility] 2023-01-03 20:37:00 2023-01-03 22:10:00 Emergency Jose L [facility] Emergency Departmentpete [facility] 1.2840.114 350.1.13.10 4.2.7.2.686 [id number] [facility] 2022-11-05 20:21:00 2022-11-05 23:12:00 Emergency X GORDON DUKE [facility] ERT [id number] [facility] 2022-11-05 20:21:00 2022-11-05 23:12:00 Emergency Gordon Duke [facility] 1.2840.114 350.1.13.10 4.2.7.2.686 [id number] [facility] 2022-10-01 08:43:03 2022-10-01 08:43:03 Outpatient [facility] [id number] Erasmo Payan 2022-01-25 16:50:00 2022-01-25 18:32:00 Emergency X PADMINI DOMINGO [facility] ERT [id number] [facility] 2022-01-25 16:50:00 2022-01-25 18:32:00 Emergency [place], [facility] Emergency Departmentpete [facility] 1.2840.114 350.1.13.10 4.2.7.2.686 [id number] [facility] 2022-01-25 00:00:00 2022-01-25 00:00:00 Orders Only Doctor Unassigned, [place] [facility] [id number] 350.1.13.10 4.2.7.2.686 [id number] [facility] 2021-04-06 16:54:00 2021-04-06 17:47:00 Emergency LOU VIRAMONTES [facility] ERT [id number] [facility] 2021-04-06 16:54:00 2021-04-06 17:47:00 Emergency Lou Vences [facility] [id number] 350.1.13.10 4.2.7.2.686 [id number] [facility] 2021-02-03 11:11:00 2021-02-03 18:44:00 Emergency Jesus Alberto Aranda [facility] [id number] 350.1.13.10 4.2.7.2.686 [id number] [facility] 2021-02-03 11:11:00 2021-02-03 18:44:00 Emergency X Jesus Alberto ARANDA [facility] ERT [id number] [facility] Results Test Description Test Time Test Comments Results Result Co mments Source [facility] [id number] 22:06:00* Test Item Value Reference Range Interpretation Comme [facility] POCT PREG (test code = 1605) negative On board controls acceptable with C Line (test code = 3574) present POCT PREG LOT # (test code = 3575) [id number] POCT PREG TEST DATE ( test code = 3576) Lab Interpretation (test cod e = 01461-6) Normal [facility] [id number] 23:20:00* Test Item Value Reference Range Interpretation Comme [facility] POCT PREG (test code = 1605) negative POCT PREG LOT # (test code = 3575) [id number] POCT PREG TEST DATE ( test code = 3576) 2022-05-22 Lab Interpretation (test cod e = 81155-1) Normal [id number] 19:30:18* Test Item Value Reference Range Interpretation Comments D-DIMER (test code = 8573438605) <0.27 See_Comment [Automated message] The system which [...] a diagnosis. Lab Interpretation (test code = 21684-4) Normal [facility]2021-10-15 19:00:14* Test Item Value Reference Range Interpretation Comme nts MAGNESIUM (test code = 3364752292) 1.8 mg/dL 1.7-2.4 Lab Interpretation (test cod e = 61136-8) Normal [facility] MET[facility]OLIC PANEL (18305)2021-02-03 18:59:54* Test Item Value Reference Range Interpretation Comme nts NA (test code = 8381695849) 139 mmol/L 135-145 K (test code = 2825615289) 4.0 mmol/L 3.5-5.0 CL (test code = 4222041493) 101 mmol/L 98-108 CO2 TOTAL (test code = 9193622351) 30 mmol/L 23-31 AGAP (test code = 7353594735) 2-16 BUN (test code = 6759166123) 13 mg/dL 7-23 GLUCOSE (test code = 6495802422) 87 mg/dL 70-110 CREATININE (test code = 1615917465) 0.57 mg/dL 0.50-1.04 TOTAL BILI (test code = 5479714864) 0.4 mg/dL 0.1-1.1 CALCIUM (test code = 9529827995) 9.7 mg/dL 8.6-10.6 T PROTEIN (test code = 2158331321) 8.0 g/dL 6.3-8.2 ALBUMIN (test code = 5340943617) 4.6 g/dL 3.5-5.0 ALK PHOS (test code = 4886485053) 90 U/L 34-122 ALTv (test code = 1742-6) 15 U/L 5-35 AST(SGOT) (test code = 9968267732) 23 U/L 13-40 eGFR (test code = 8324347909) mL/min/1.73m2 NIKA (test code = NIKA) Association [...] or urine or abnormalities in imaging tests). [facility]2021-[facility]-15 18:59:34* Test Item Value Reference Range Interpretation Comme nts LIPASE (test code = 4138587436) 37 U/L 0-220 Lab Interpretation (test cod e = 82966-5) Normal [facility] WITH [id number] 18:37:09* Test Item Value Reference Range Interpretation [...] g/dL 31.6-35.1 L RDW-SD (test code = 22079-4) 38.9 fL 39.0-49.9 L RDW-CV (test code = 788-0) 13.2 % 12.0-15.5 PLT (test code = 777-3) See_Comment H [Automated messa ge] The system which generated this result transmitted reference range: 166 - 358 10*3/?L. The reference range was not used to interpret this result as normal/abnormal. MPV (test code = 42071-8) 9.2 fL 9.5-12.9 L NRBC/100 WBC (test code = 9180333622) See_Comment [Automated Stance ssage] The system which generated this result transmitted reference range: 0.0 - 10.0 /100 WBCs. The reference range was not used to interpret this result as normal/abnormal. NRBC x10^3 (test code = 9525968798) <0.01 See_Comment [Automated messa ge] The system which generated this result transmitted reference range: 10*3/?L. The reference range was not used to interpret this result as normal/abnormal. GRAN MAT (NEUT) % (test code = 770-8) 66.3 % IMM GRAN % (test code = 1990684544) 0.70 % LYMPH % (test code = 736-9) 20.6 % MONO % (test code = 5905-5) 9.8 % EOS % (test code = 713-8) 1.7 % BASO % (test code = 706-2) 0.9 % GRAN MAT x10^3(ANC) (test code = 8088587033) 5.09 10*3/uL 1.88-7.09 IMM GRAN x10^3 (test code = 9664127942) 0.05 10*3/uL 0.00-0.06 LYMPH x10^3 (test code = 731-0) 1.58 10*3/uL 1.32-3.29 MONO x10^3 (test code = 742-7) 0.75 10*3/uL 0.33-0.92 EOS x10^3 (test code = 711-2) 0.13 10*3/uL 0.03-0.39 BASO x10^3 (test code = 704-7) 0.07 10*3/uL 0.01-0.07 Lab Interpretation (test code = 71334-1) Abnormal [facility] [id number] 18:23:00* Test Item Value Reference Range Interpretation Comme nts POCT PREG (test code = 1605) negative On board controls acceptable with C Line (test code = 3574) present Lab Interpretation (test cod e = 21176-4) Normal [facility] Notes Date/Time Note Provider Source 2023-01-03 22:05:51 NzqMGyRxdcaoEL+phF3q gLzbVm3N4jWzOO IZe4L9msGqy7KAkngnrrjo/RpNeGn14986 -09-14T22:05:51 Awake, alert oriented X4, respiratory even [...] ER noted upon dischargePt [facility] gait 79071-7Upinfughb department GtkxJG1770-94-46O50:06:22[facility] [id number] for patient qtwo58916-0KlzfLSJSDEVHCV[id number] 03QFYRHUUVMVIANDDYDFKJSJ9947-16-72 T22:06:221.2.840.731534.1.72.3.15| [id number] [facility] 2023-01-03 20:32:45 lUz1UP111fr4x1obvRFq v/G4H6kkmS4Ekr mrZIwvILh79Z9AMsKmQlMGwi+dQ2W76847 -09-14T20:32:45 Pt states that she was seen @ [facility] this am and was neg for covid and strep. Pt states she is still not feeling well and she has to work tomorrow and doesn't want to feel this way. 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 Pt states the pain is sharp. [id number] department Triage [id number] Triage [id number] for patient [id number] department [id number] J Hoot RN[address] [id number] Angi Perry RN [facility]
--- NOTE | 2023-06-12 18:48 | RAD REPORT ---
[facility] 6[facility]27 pm CLINICAL HISTORY: COUGH COMPARISON: Chest Single View dated 05/20/2023; Chest Single View dated 11/30/2022; Chest Pa And Lat ( 2 Views) dated 09/01/2021; Chest Single View dated 06/13/2021 TECHNIQUE: Portable AP view of the chest. FINDINGS: The lungs are clear. No pneumothorax or effusion. The cardiomediastinal contours are unre markable. IMPRESSION: No acute cardiopulmonary process.
[2023-06-12 19:26] LABS: Absolute Lymphocytes (CBC) 2.7 K/uL (0.7-4.9); Hematocrit 38.1 % (36.0-45.0); Lymphocytes % 24.2 % (15.3-44.8); MCV 77.9 fL (80-100); MPV 7.7 fL (7.6-11.3); Platelets 428 thou/uL (152-406); RBC Red Blood Cell Count 4.89 M/uL (3.86-4.86)
[2023-06-12 19:50] LABS: Albumin 3.5 g/dL (3.4-5.0); Bilirubin Total 0.4 mg/dL (0.2-1.0); Potassium 3.9 mEq/L (3.5-5.1); Protein, Total 8.6 g/dL (6.4-8.2)
--- NOTE | 2023-06-12 20:03 | EDPHYS ---
Physician Documentation [facility] Name: Izzy Krishnan Age: 23 yrs Sex: Female : 2000 Arrival Date: 06/12/2023 Time: 17:38 Bed 4 Private MD: ED Physician David Tineo HPI: 06/12 18:06 This 23 yrs old Female presents to ER via Ambulatory with complaints of Pain, ec2 Breathing Difficulty, Flu Symptoms. 18:06 Patient arrives today for URI signs and symptoms. Reports she has been having symptoms ec2 for approximately 1 week. Reports that she been having rhinorrhea, cough, congestion as well as nausea and vomiting and body pains. Patient reports decreased p.o. intake. Reports taking Tylenol and ibuprofen with minimal alleviation in symptoms.. 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 - Social history:: Smoking status: Reported history of juuling and/or vaping. ROS: 18:06 Constitutional: as per hpi ec2 Exam: 18:06 Constitutional: GEN: NAD Head: atraumatic Eyes: EOMI Ears: External ears are normal. ec2 Mouth: No anterior cervical lymphadenopathy noted CV: regular rate LUNGS: no respiratory distress, no wheezes, rales, or rhonchi ABD: non-distended, soft, nontender, no guarding, not rigid SKIN: no evidence of rashes MSK: no evidence of trauma NEURO: moves all extremities equally Vital Signs: 17:57 BP 131 / 105; Pulse 83; Resp 16; Temp 98.7(O); Pulse Ox 97% ; Weight 102.06 kg; Height db 5 ft. 3 in. ; 17:57 Body Mass Index 39.86 (102.06 kg, 160.02 cm) db MDM: 18:05 Patient medically screened. ec2 18:06 Data reviewed: vital signs. ED course: Patient arrives today for evaluation of URI ec2 signs and symptoms. Examination remarkable for nontoxic dividual is otherwise in no acute distress. Will obtain lab work, chest x-ray and treat the patient symptoms. Suspect viral infection causing patient's symptoms, suspicion for pneumonia given lack of focal lung sounds. Low suspicion for strep given constellation of symptoms.. 18:58 ED course: Chest x-ray shows no acute intrathoracic process.. ec2 19:59 ED course: CBC shows slight leukocytosis, metabolic profile shows appropriate ec2 electrolytes and renal function. On reassessment patient remains well-appearing in no acute distress. Will discharge home with prescription for antiemetic. Return precautions given. . 06/12 18:06 Order name: CBC with Diff; Complete Time: 19:58 ec2 06/12 18:06 Order name: CMP; Complete Time: 19:58 ec2 06/12 18:06 Order name: CXR XRAY; Complete Time: 18:57 ec2 Administered Medications: 19:35 Drug: NS 0.9% IV 1000 ml IV at 1 bolus Per protocol; 1000 mL bolus Route: IV; Rate: 1 jb4 bolus; Site: left antecubital; 19:35 Drug: Ketorolac IVP 15 mg IVP once Route: IVP; Site: left antecubital; jb4 19:35 Drug: Decadron - Dexamethasone IVP 10 mg IVP once Route: IVP; Site: left antecubital; jb4 19:35 Drug: Viscous Lidocaine Mucous Membrane Liquid (4 %) 10 ml Mucous Membrane once {Note: jb4 2% was used due to not having 4%.} Route: Mucous Membrane; 19:35 Drug: Ondansetron IVP 4 mg IVP once; over 2 minutes Route: IVP; Site: left antecubital; jb4 20:16 Drug: metoCLOPramide IVP 10 mg IVP once; over 1 to 2 minutes Route: IVP; Site: left jb4 antecubital; Disposition Summary: 06/12/23 20:02 Discharge Ordered Notes: Location: Home ec2 Condition: Stable ec2 Diagnosis - Viral infection, unspecified ec2 Followup: ec2 - With: Private Physician - When: - Reason: Re-evaluation by your physician Discharge Instructions: - Discharge Summary Sheet ec2 - Viral Illness, Adult ec2 Forms: - Work release form jb4 - Medication Reconciliation Form ec2 - Thank You Letter ec2 - Antibiotic Education ec2 - Prescription Opioid Use ec2 - Patient Portal Instructions ec2 - Leadership Thank You Letter ec2 Prescriptions: - Zofran 4 mg Oral Tablet - take 1 tablet ORAL route every 12 hours As needed; 20 tablet; Refills: 0, ec2 Product Selection Permitted - Tessalon Perles 100 mg Oral Capsule - take 1 capsule ORAL route every 8 hours As needed; 15 capsule; Refills: 0, ec2 Product Selection Permitted Signatures: Dispatcher [employer] Arnaud Diaz RN RN jb4 Camille Akhtar RN RN db Corral, Edwin, MD MD ec2
--- NOTE | 2023-06-12 20:03 | ER ---
Nurse's Notes [facility] Name: Izzy Krishnan Age: 23 yrs Sex: Female : 2000 Arrival Date: 06/12/2023 Time: 17:38 Bed 4 Private MD: Diagnosis: Viral infection, unspecified Presentation: 06/12 17:57 Chief complaint: Patient states: COUGH AND CONGESTION WITH HOARSE VOICE. PCP DID NOT db HAVE ANY OPENINGS. SYMPTOMS STARTED 2 DAYS. VOMITING STARTED LAST NIGHT. Coronavirus screen: Client denies travel out of the [place] in the last 14 days. At this time, the client does not indicate any symptoms associated with coronavirus-19. Ebola Screen: Patient negative for fever greater than or equal to 101.5 degrees Fahrenheit, and additional compatible Ebola Virus Disease symptoms Patient denies exposure to infectious person. Patient denies travel to an Ebola-affected area in the 21 days before illness onset. Initial Sepsis Screen: Does the patient meet any 2 criteria? No. Patient's initial sepsis screen is negative. Does the patient have a suspected source of infection? No. Patient's initial sepsis screen is negative. Risk Assessment: Do you want to hurt yourself or someone else? Patient reports no desire to harm self or others. Onset of symptoms was June 12, 2023. 17:57 Method Of Arrival: Ambulatory db 17:57 Acuity: ESAU 4 db Triage Assessment: 17:59 General: Appears in no apparent distress. comfortable, Behavior is calm, cooperative. db Pain:. Neuro: Level of Consciousness is awake, alert, obeys commands, Oriented to person, place, time, situation. Respiratory: Reports shortness of breath cough that is Airway is patent Respiratory effort is even, unlabored, Respiratory pattern is regular, symmetrical, Onset: The symptoms/episode began/occurred gradually, the patient has mild shortness of breath. 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 - Social history:: Smoking status: Reported history of juuling and/or vaping. Screenin:17 [facility] ED Fall Risk Assessment (Adult) History of falling in the last 3 months, jb4 including since admission No falls in past 3 months (0 pts) Confusion or Disorientation No (0 pts). Abuse screen: Denies threats or abuse. Nutritional screening: No deficits noted. Tuberculosis screening: No symptoms or risk factors identified. Assessment: 19:20 General: Appears in no apparent distress. comfortable, Behavior is calm, cooperative, jb4 appropriate for age. Pain: Complains of pain in abdomen, headache. Neuro: Level of Consciousness is awake, alert, obeys commands, Oriented to person, place, time, situation. Cardiovascular: Patient's skin is warm and dry. Respiratory: Airway is patent Respiratory effort is even, unlabored, Respiratory pattern is regular, symmetrical. GI: Reports nausea. : No signs and/or symptoms were reported regarding the genitourinary system. EENT: No signs and/or symptoms were reported regarding the EENT system. Derm: Skin is intact, Skin is pink, warm \T\ dry. Musculoskeletal: Circulation, motion, and sensation intact. Range of motion: intact in all extremities. 20:17 Reassessment: Patient appears in no apparent distress at this time. Patient and/or jb4 family updated on plan of care and expected duration. Pain level reassessed. Patient is alert, oriented x 3, equal unlabored respirations, skin warm/dry/pink. Vital Signs: 17:57 BP 131 / 105; Pulse 83; Resp 16; Temp 98.7(O); Pulse Ox 97% ; Weight 102.06 kg; Height db 5 ft. 3 in. ; 17:57 Body Mass Index 39.86 (102.06 kg, 160.02 cm) db ED Course: 17:42 Patient arrived in ED. mg5 17:42 David Tineo MD is Attending Physician. ec2 17:59 Triage completed. db 17:59 Arm band placed on. db 18:29 CXR XRAY In Process Unspecified. EDMS 19:25 Inserted saline lock: 20 gauge in left antecubital area, using aseptic technique. Blood kmf collected. 19:26 CMP Sent. kmf 19:26 CBC with Diff Sent. kmf 20:17 Patient has correct armband on for positive identification. Bed in low position. Call jb4 light in reach. Side rails up X 1. 20:17 No provider procedures requiring assistance completed. IV discontinued, intact, jb4 bleeding controlled, No redness/swelling at site. Pressure dressing applied. Administered Medications: 19:35 Drug: NS 0.9% IV 1000 ml IV at 1 bolus Per protocol; 1000 mL bolus Route: IV; Rate: 1 jb4 bolus; Site: left antecubital; 19:35 Drug: Ketorolac IVP 15 mg IVP once Route: IVP; Site: left antecubital; jb4 19:35 Drug: Decadron - Dexamethasone IVP 10 mg IVP once Route: IVP; Site: left antecubital; jb4 19:35 Drug: Viscous Lidocaine Mucous Membrane Liquid (4 %) 10 ml Mucous Membrane once {Note: jb4 2% was used due to not having 4%.} Route: Mucous Membrane; 19:35 Drug: Ondansetron IVP 4 mg IVP once; over 2 minutes Route: IVP; Site: left antecubital; jb4 20:16 Drug: metoCLOPramide IVP 10 mg IVP once; over 1 to 2 minutes Route: IVP; Site: left jb4 antecubital; Outcome: 20:02 Discharge ordered by . ec2 20:17 Discharged to home ambulatory, jb4 20:17 Condition: stable 20:17 Discharge instructions given to patient, Instructed on discharge instructions, follow up and referral plans. medication usage, Demonstrated understanding of instructions, follow-up care, medications, Prescriptions given X 2, 20:19 Patient left the ED. jb4 Signatures: Dispatcher [employer] Arnaud Diaz RN RN jb4 Camille Akhtar RN RN db [place], [place] mg5 David Tineo MD MD ec2 [facility] Corrections: (The following items were deleted from the chart) 18:00 17:57 Pulse 83bpm; Resp 16bpm; Pulse Ox 97%; Temp 98.7F Oral; 102.06 kg; Height 5 ft. 3 db in.; BMI: 39.8; db 18:00 17:57 BP 131 / 105; Pulse 83bpm; Resp 16bpm; Pulse Ox 97%; Temp 98.7F Oral; 102.06 kg; db Height 5 ft. 3 in.; BMI: 39.8; db 19:36 19:35 Viscous Lidocaine Mucous Membrane Liquid (4 %) 10 ml Mucous Membrane jb4 jb4
[2023-06-12 20:41] VITALS: BP 131/105; TEMP 98.7; O2SAT 97
== END ==
LOC: ER 17:38
DX: B34.9 Viral infection, unspecified (principal)
CPT/HCPCS: 85025; 36415; 80053; 71045; J2765; J1100; J2405; J7030

== ENCOUNTER 2023-08-22 11:50 | Emergency (ER) | payer BC ==
--- OUTSIDE RECORDS SUMMARY | 2023-08-22 11:53 | XMS REPORT | Continuity of Care Document ---
Author Name Unknown Address [address] [facility]. [address] [place] [address] [facility] thconnect Address [address] [facility] [address] [place] [address] Care Team Providers Care Sales Trainer Name Role Phone PCP, PATIENT DOES NOT HAVE A Primary Care Physic tritsin Unavailable PADMINI DOMINGO Attending Clinician UnavailPadmini Donnelly Attending Clinician [phone] GORDON DUKE Attending Clinician Unavailable Gordon Duke MD Attending Clinician [phone] Doctor Unassigned, [place] Attending Clinician LOU Painting Attending Clinician Unavailable Lou Elizondo Attending Clinician [phone] Jesus Alberto Henry Attending Clinician [phone] Jesus Alberto ARANDA Attending Clinician Unavailable GORDON DUKE Admitting Clinician Unavailable Jesus Alberto ARANDA Admitting Clinician Unavailable Payers Payer Name Policy Type Policy Number Effective Date Expirati on Date Source Solutionary [facility] [id number] 2021 00:00:00 Problems Condition Name Condition Details Condition Category Status Onset Date Resolution Date Last Treatment Date Treating Clinician Comments Source Behavior concern Behavior concern Disease Active 05-04 00:00: 00 [facility] Family circumstan ce Family circumstan ce Disease Active 05-04 00:00: 00 [facility] Hx of suicide attempt Hx of suicide attempt Disease Active 05-04 00:00: 00 [facility] Depression , unspecifie d depression type Depression , unspecifie d depression type Disease Active 05-04 00:00: 00 [facility] BMI (body mass index), pediatric, 95-99% for age BMI (body mass index), pediatric, 95-99% for age Disease Active 05-04 00:00: 00 [facility] Allergies, Adverse Reactions, Alerts Allergy Name Allergy Type Status Severity Reaction(s) Onset Date Inactive Date Treating Clinician Comments Source NO KNOWN ALLERGIE S Drug Class Active [facility] Social History Social Habit Start Date Stop Date Quantity Comments Source Gender identity [facility] of Social function 2023-01-03 00:00:00 2023-01-03 00:00:00 [facility] Alcohol intake 2023-01-03 00:00:00 2023-01-03 00:00:00 0 /d [facility] Exposure to SARS-CoV-2 (event) 2022-01-15 00:00:00 2022-01-25 16:49:00 Not sure [facility] Sex Assigned At 2001 00:00:00 2000 00:00:00 [facility] Smoking Status Start Date Stop Date Source Never smoked tobacco [facility] Medications Ordered Medication Name Filled Medication Name Start Date Stop Date Current Medication? Ordering Clinician Indication Dosage Frequency Signature (SIG) Comments Components Source acetaminoph en (TYLENOL) tablet 1,000 mg 01-04 02:30: 00 01-04 01:59 :00 No 1000mg 1,000 mg, Oral, ONCE, 1 dose, On Steffany 01/03/23 at 2130, JOANNA [facility] ondansetron (ZOFRAN) tablet 4 mg 01-04 02:30: 00 01-04 02:30 :00 No 4mg 4 mg, Oral, ONCE, 1 dose, On Steffany 01/03/23 at 2130, Routine [facility] ondansetron 4 mg disintegrat ing tablet 01-03 00:00: 00 Yes [id number] 4mg Take 1 tablet by mouth every 8 (eight) hours as needed for Nausea and Vomiting (N/V). [facility] acetaminoph en (TYLENOL) tablet 975 mg 11-06 02:45: 00 11-06 01:45 :00 No 975mg 975 mg, Oral, ONCE, 1 dose, On 11/05/22 at 2145, JOANNA [facility] loratadine- pseudoephed rine (CLARITIN-D 24 HOUR) 10-240 mg per 24 hr tablet 11-05 00:00: 00 Yes [id number] 1{tbl} Take 1 tablet by mouth in the morning. [facility] dextrometho rphan-guaif enesin 10-100 mg/5 mL solution 11-05 00:00: 00 Yes [id number] 10mL Take 10 mL by mouth every 6 (six) hours as needed for Cough. [facility] ondansetron 4 mg disintegrat ing tablet 11-05 00:00: 00 01-03 00:00 :00 No [id number] 4mg Take 1 tablet by mouth every 4 (four) hours as needed for Nausea and Vomiting (N/V). [facility] naproxen 500 mg tablet 11-05 00:00: 00 11-16 04:59 :00 No [id number] 500mg Take 1 tablet by mouth in the morning and 1 tablet in the evening. Take with meals. Do all this for 10 days. [facility] ondansetron (ZOFRAN (PF)) injection 4 mg 2021-04 23:30: 00 01-25 22:39 :00 No 4mg 4 mg, Slow IV Push, ONCE, 1 dose, On Steffany 01/25/22 at 1830, JOANNA [facility] ketorolac (TORADOL) injection 15 mg 2021-04 0 23:30: 00 01-25 22:39 :00 No 15mg 15 mg, Slow IV Push, ONCE, 1 dose, On Steffany 01/25/22 at 1830, Routine [facility] ondansetron (ZOFRAN (PF)) injection 4 mg 2021-04 0 22:45: 00 01-25 22:04 :00 No 4mg 4 mg, Slow IV Push, ONCE, 1 dose, On Steffany 01/25/22 at 1745, JOANNA [facility] NaCl 0.9% (NS) bolus infusion 1,000 mL 2021-04 22:45: 00 01-25 23:10 :00 No 1000mL at 999 mL/hr, 1,000 mL, IV Infusion, ONCE, 1 dose, On Steffany 01/25/22 at 1745, JOANNA [facility] dicyclomine 20 mg tablet 2021-04 00:00: 00 Yes [id number] 20mg Take 1 tablet by mouth every 6 (six) hours as needed for Abdominal pain. [facility] ondansetron 4 mg disintegrat ing tablet 2021-04 00:00: 00 11-05 00:00 :00 No [id number] 4mg Take 1 tablet by mouth every 6 (six) hours as needed for Nausea and Vomiting (N/V). [facility] amoxicillin (TRIMOX) capsule 500 mg 2020-04 00:30: 00 04-06 23:33 :00 No 500mg 500 mg, Oral, ONCE, 1 dose, On Steffany 04/06/21 at 1830, JOANNA
Re ason for Anti-Infec tive: Documented Infection< br>Documen nadiya Infection Site: HEENT
D uration of Therapy: Other (see Comments) [facility] ketorolac (TORADOL) injection 30 mg 2020-04 00:30: 00 04-06 23:33 :00 No 30mg 30 mg, Intramuscu lar, ONCE, 1 dose, On Steffany 04/06/21 at 1830, JOANNA [facility] chlorhexidi ne 0.12 % mouthwash 2020-04 00:00: 00 Yes [id number] 15mL Swish and spit out 15 mL 2 (two) times daily. [facility] ibuprofen 800 mg tablet 2020-04 00:00: 00 01-25 00:00 :00 No [id number] 800mg Take 1 tablet by mouth 3 (three) times daily with meals. [facility] amoxicillin 500 mg capsule 2020-04 00:00: 00 04-14 05:59 :00 No [id number] 500mg Take 1 capsule by mouth 3 (three) times daily for 7 days. [facility] NaCl 0.9% (NS) bolus infusion 1,000 mL 2020-04 0 23:15: 00 02-03 23:43 :00 No 1000mL at 999 mL/hr, 1,000 mL, IV Infusion, ONCE, 1 dose, On Sat02/03/21 at 1815, STAT [facility] METAXALONE (SKELAXIN ORAL) - 14:34: 04 Yes Take by mouth. [facility] Vital Signs Vital Name Observation Time Observation Value Comments S ourmelody Systolic blood pressure 2023-01-04 01:35:00 148 mm[Hg] [facility] Diastolic blood pressure 2023-01-04 01:35:00 107 mm[Hg] [facility] Heart rate 2023-01-04 01:35:00 98 /min [facility] Body temperature 2023-01-04 01:35:00 37.39 Charo [facility] Respiratory rate 2023-01-04 01:35:00 18 /min [facility] Body height 2023-01-04 01:35:00 157.5 cm [facility] Body weight 2023-01-04 01:35:00 89.812 kg [facility] BMI 2023-01-04 01:35:00 36.21 kg/m2 [facility] Oxygen saturation in Arterial blood by Pulse oximetry 2023-01-04 01:35:00 99 /min [facility] Heart rate 2022-11-06 04:10:00 96 /min [facility] Body temperature 2022-11-06 04:10:00 37.28 Charo [facility] Respiratory rate 2022-11-06 04:10:00 18 /min [facility] Oxygen saturation in Arterial blood by Pulse oximetry 2022-11-06 04:10:00 98 /min [facility] Systolic blood pressure 2022-11-06 01:19:00 116 mm[Hg] [facility] Diastolic blood pressure 2022-11-06 01:19:00 83 mm[Hg] [facility] Body height 2022-11-06 01:19:00 157.5 cm [facility] Body weight 2022-11-06 01:19:00 97.523 kg [facility] BMI 2022-11-06 01:19:00 39.32 kg/m2 [facility] Systolic blood pressure 2022-01-25 21:49:00 152 mm[Hg] [facility] Diastolic blood pressure 2022-01-25 21:49:00 102 mm[Hg] [facility] Heart rate 2022-01-25 21:49:00 80 /min [facility] Body temperature 2022-01-25 21:49:00 37.06 Charo [facility] Respiratory rate 2022-01-25 21:49:00 16 /min [facility] Body height 2022-01-25 21:49:00 160 cm [facility] Body weight 2022-01-25 21:49:00 88.451 kg [facility] BMI 2022-01-25 21:49:00 34.54 kg/m2 [facility] Oxygen saturation in Arterial blood by Pulse oximetry 2022-01-25 21:49:00 97 /min [facility] Body temperature 2021-04-06 22:53:00 36.94 Charo [facility] Respiratory rate 2021-04-06 22:53:00 18 /min [facility] Body height 2021-04-06 22:53:00 162.6 cm [facility] Body weight 2021-04-06 22:53:00 86.183 kg [facility] BMI 2021-04-06 22:53:00 32.61 kg/m2 [facility] Oxygen saturation in Arterial blood by Pulse oximetry 2021-04-06 22:53:00 99 /min [facility] Systolic blood pressure 2021-04-06 22:53:00 139 mm[Hg] [facility] Diastolic blood pressure 2021-04-06 22:53:00 99 mm[Hg] [facility] Heart rate 2021-04-06 22:53:00 76 /min [facility] Systolic blood pressure 2021-02-03 22:20:00 140 mm[Hg] [facility] Diastolic blood pressure 2021-02-03 22:20:00 98 mm[Hg] [facility] Heart rate 2021-02-03 22:20:00 85 /min [facility] Respiratory rate 2021-02-03 22:20:00 18 /min [facility] Oxygen saturation in Arterial blood by Pulse oximetry 2021-02-03 22:20:00 99 /min [facility] Body temperature 2021-02-03 15:54:00 36.78 Charo [facility] Body height 2021-02-03 15:54:00 160 cm [facility] Body weight 2021-02-03 15:54:00 74.844 kg [facility] BMI 2021-02-03 15:54:00 29.23 kg/m2 [facility] Body mass index (BMI) [Percentile] Per age and sex 2021-02-03 15:54:00 91.94 % [facility] Procedures Procedure Date / Time Performed Performing Clinician Source URINALYSIS 2023-01-04 02:27:00 [facility] 2023-01-04 02:27:00 Tarun Domingo [facility] CONSENT/REFUSAL FOR DIAGNOSIS AND TREATMENT 2023-01-04 01:19:40 Doctor Unassigned, [place] [facility] XR CHEST 2 VW 2022-11-06 03:46:00 Gordon Duke [facility] RAPID STREP SCREEN FOR GROUP A 2022-11-06 01:45:00 Gordon Duke [facility] RAPID INFLUENZA A/B 2022-11-06 01:45:00 Twan Duke [facility] COVID-19 (ID NOW RAPID TESTING) 2022-11-06 01:45:00 Gordon Duke [facility] CONSENT/REFUSAL FOR DIAGNOSIS AND TREATMENT 2022-11-06 01:06:48 Doctor Unassigned, [place] [facility] POCT TEST 2022-01-25 22:06:00 Tarun Domingo [facility] LIPASE 2022-01-25 22:03:00 Padmini Domingo [facility] MAGNESIUM 2022-01-25 22:03:00 Padmini Domingo [facility] COMP. METABOLIC PANEL ([id number]) 2022-01-25 22:03:00 Jose L [facility] CBC WITH DIFF 2022-01-25 22:03:00 Jose L [facility] NOTICE OF PRIVACY PRACTICES 2022-01-25 21:25:28 Doctor Unassigned, [place] [facility] CONSENT/REFUSAL FOR DIAGNOSIS AND TREATMENT 2022-01-25 21:25:07 Doctor Unassigned, [place] [facility] POCT TEST 2021-04-06 23:20:00 Lou Gardner [facility] CONSENT/REFUSAL FOR DIAGNOSIS AND TREATMENT 2021-04-06 22:35:43 Doctor Unassigned, [place] [facility] XR CHEST 1 VW 2021-02-03 23:04:39 Jesus Alberto Aranda [facility] D-DIMER 2021-02-03 18:33:00 Jesus Alberto Aranda [facility] LIPASE 2021-02-03 18:24:00 [facility] MAG[facility]ESIUM 2021-02-03 18:24:00 Jesus Alberto Aranda [facility] COMP. METABOLIC PANEL ([id number]) 2021-02-03 18:24:00 Jesus Alberto Aranda [facility] CBC WITH DIFF 2021-02-03 18:24:00 Jesus Alberto Aranda [facility] URINALYSIS 2021-02-03 18:24:00 Jesus Alberto Aranda [facility] URINE DRUG (IMMUNOASSAY) - COMPREHENSIVE DRUG SCREEN 2021-02-03 18:23:00 Jesus Alberto Aranda [facility] POCT TEST 2021-02-03 18:23:00 Jesus Alberto Aranda e [facility] NOTICE OF PRIVACY PRACTICES 2021-02-03 15:44:16 Doctor Unassigned, [place] [facility] Encounters Start Date/Time End Date/Time Encounter Type Admission Type Attending [facility] Care Department Encounter ID Source 2023-01-03 20:37:00 2023-01-03 22:10:00 [id number] 2023-01-03 20:37:00 2023-01-03 22:10:00 Emergency Padmini Domingo [facility] 1.2.840.114 350.1.13.10 4.2.7.2.686 [id number] [facility] 2022-11-05 20:21:00 2022-11-05 23:12:00 Emergency X GORDON DUKE [facility] ERT [id number] [facility] 2022-11-05 20:21:00 2022-11-05 23:12:00 Emergency ArvindGordon [facility] 1.2.840.114 350.1.13.10 4.2.7.2.686 [id number] [facility] 2022-10-01 08:43:03 2022-10-01 08:43:03 Outpatient [facility] MICHELLE [id number] Erasmo Payan 2022-01-25 16:50:00 2022-01-25 18:32:00 Emergency X PADMINI DOMINGO [facility] ERT [id number] [facility] 2022-01-25 16:50:00 2022-01-25 18:32:00 Emergency Padmini Domingo [facility] 1.2.840.114 350.1.13.10 4.2.7.2.686 [id number] [facility] 2022-01-25 00:00:00 2022-01-25 00:00:00 Orders Only Doctor Unassigned, [place] [facility] 1.2.840.114 350.1.13.10 4.2.7.2.686 [id number] [facility] 2021-04-06 16:54:00 2021-04-06 17:47:00 Emergency X JANICE GARDNERN [facility] ERT [id number] [facility] 2021-04-06 16:54:00 2021-04-06 17:47:00 Emergency Lou Gardner Zane [facility] 1.2.840.114 350.1.13.10 4.2.7.2.686 [id number] [facility] 2021-02-03 11:11:00 2021-02-03 18:44:00 Emergency Jesus Alberto Aranda [facility] 1.2.840.114 350.1.13.10 4.2.7.2.686 [id number] [facility] 2021-02-03 11:11:00 2021-02-03 18:44:00 Emergency X Jesus Alberto ARANDA [facility] ERT [id number] [facility] Results Test Description Test Time Test Comments Results Result Co mments Source [id number] 22:06:00* Test Item Value Reference Range Interpretation Comme nts POCT PREG (test code = 1605) negative On board controls acceptable with C Line (test code = 3574) present POCT PREG LOT # (test code = 3575) [id number] POCT PREG TEST DATE ( test code = 3576) Lab Interpretation (test cod e = 31374-0) [facility] [id number] 23:20:00* Test Item Value Reference Range Interpretation Comme nts POCT PREG (test code = 1605) negative POCT PREG LOT # (test code = 3575) [id number] POCT PREG TEST DATE ( test code = 3576) 2022-05-22 Lab Interpretation (test cod e = 33905-0) [facility][id number] 19:30:18* Test Item Value Reference Range Interpretation Comments D-DIMER (test code = 7604934415) <0.27 See_Comment [Automated message] The system which [...] a diagnosis. Lab Interpretation (test code = 34334-8) [facility] 19:00:14* Test Item Value Reference Range Interpretation Comme nts MAGNESIUM (test code = 0942840310) 1.8 mg/dL 1.7-2.4 Lab Interpretation (test cod e = 04804-4) [facility]OLIC PAN[facility] (56743)2021-02-03 18:59:54* Test Item Value Reference Range Interpretation Comme nts NA (test code = 6001691600) 139 mmol/L 135-145 K (test code = 3891858194) 4.0 mmol/L 3.5-5.0 CL (test code = 8353188119) 101 mmol/L 98-108 CO2 TOTAL (test code = 0222421926) 30 mmol/L 23-31 AGAP (test code = 7835470329) 2-16 BUN (test code = 3171151747) 13 mg/dL 7-23 GLUCOSE (test code = 4327674260) 87 mg/dL 70-110 CREATININE (test code = 3401910927) 0.57 mg/dL 0.50-1.04 TOTAL BILI (test code = 4149610042) 0.4 mg/dL 0.1-1.1 CALCIUM (test code = 4156946610) 9.7 mg/dL 8.6-10.6 T PROTEIN (test code = 9265192354) 8.0 g/dL 6.3-8.2 ALBUMIN (test code = 0261540228) 4.6 g/dL 3.5-5.0 ALK PHOS (test code = 8499717792) 90 U/L 34-122 ALTv (test code = 1742-6) 15 U/L 5-35 AST(SGOT) (test code = 5388798913) 23 U/L 13-40 eGFR (test code = 4956866124) mL/min/1.73m2 NIKA (test code = NIKA) Association [...] or urine or abnormalities in imaging tests). [facility] 18:59:34* Test Item Value Reference Range Interpretation Comme nts LIPASE (test code = 2343005676) 37 U/L 0-220 Lab Interpretation (test cod e = 77606-1) [facility] [id number] 18:37:09* Test Item Value Reference Range Interpretation Comme nts WBC (test code = 6690-2) See_Comment [Automated [employer]] The system which generated this result transmitted reference range: 4.30 - 11.10 10*3/?L. The reference range was not used to interpret this result as normal/abnormal. RBC (test code = 789-8) See_Comment [Automated [employer]] The system which generated this result transmitted [...] g/dL 31.6-35.1 L RDW-SD (test code = 78122-4) 38.9 fL 39.0-49.9 L RDW-CV (test code = 788-0) 13.2 % 12.0-15.5 PLT (test code = 777-3) See_Comment H [Automated messa ge] The system which generated this result transmitted reference range: 166 - 358 10*3/?L. The reference range was not used to interpret this result as normal/abnormal. MPV (test code = 76166-8) 9.2 fL 9.5-12.9 L NRBC/100 WBC (test code = 8390043256) See_Comment [Automated [employer] ssage] The system which generated this result transmitted reference range: 0.0 - 10.0 /100 WBCs. The reference range was not used to interpret this result as normal/abnormal. NRBC x10^3 (test code = 8105960756) <0.01 See_Comment [Automated messa ge] The system which generated this result transmitted reference range: 10*3/?L. The reference range was not used to interpret this result as normal/abnormal. GRAN MAT (NEUT) % (test code = 770-8) 66.3 % IMM GRAN % (test code = 7894163896) 0.70 % LYMPH % (test code = 736-9) 20.6 % MONO % (test code = 5905-5) 9.8 % EOS % (test code = 713-8) 1.7 % BASO % (test code = 706-2) 0.9 % GRAN MAT x10^3(ANC) (test code = 0346329606) 5.09 10*3/uL 1.88-7.09 IMM GRAN x10^3 (test code = 1230083620) 0.05 10*3/uL 0.00-0.06 LYMPH x10^3 (test code = 731-0) 1.58 10*3/uL 1.32-3.29 MONO x10^3 (test code = 742-7) 0.75 10*3/uL 0.33-0.92 EOS x10^3 (test code = 711-2) 0.13 10*3/uL 0.03-0.39 BASO x10^3 (test code = 704-7) 0.07 10*3/uL 0.01-0.07 Lab Interpretation (test code = 11793-9) Abnormal [facility] [id number] 18:23:00* Test Item Value Reference Range Interpretation Comme nts POCT PREG (test code = 1605) negative On board controls acceptable with C Line (test code = 3574) present Lab Interpretation (test cod e = 98315-6) Normal [facility] Notes Date/Time Note Provider Source 2023-01-03 22:05:51 NzqMGyRxdcaoEL+phF3q mKeaXi8T8bGcMF PIl1Q2ixBrh9EAdaeihhii/FvRgMn73360 -09-14T22:05:51 Awake, alert oriented X4, respiratory even [...] ER noted [facility] 8[facility]-6Tvnmiqsvv department CsisCI4922-03-97R94:06:22Emergency department NoteTXT1.2.840.842971.1.13.104.2.7 .2.444859|[id number] for patient nmwh21742-1KwokAEOVFLRLCT[address]TXTX[address]75 85SYJUBQITABFSXODHPZMKOU0152-33-78 T22:06:221.2.840.485750.1.72.3.15| 1.2.840.674347.1.13.104.2.7.2.7278 [id number] [facility] 2023-01-03 20:32:45 aJs4NN217bs4o2dxpLXe v/E9P6liyI8Esv ltLKzdRYr70W9LEfKmOnBRfp+sE1E29491T20:32:45 Pt states that she was seen @ [facility] this am and was neg for covid and strep. Pt states she is still not feeling well and she has to work tomorrow and doesn't want to feel this way. 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 Pt states the pain is sharp. 59510-5Qrbymcgzk department Triage rpesIX9765-61-08V19:35:24[facility] Triage noteTXT1.2.840.907369.1.13.104.2.7 .2.803442|[id number] for patient gong41175-9Gmbxluncs department TcbaNB756060608Qrorzw J Hoot RNUT[address] StreetKsjwNvhhlzjedQvspnwibjPFLF46234848 19JDFNVLQMDTFCAGWQVUKKJP0819-19-94 T20:35:241.2.840.585853.1.72.3.15| 1.2.840.761300.1.13.104.2.7.2.7278 [id number] Angi Perry RN [facility]
[2023-08-22] MEDS ORDERED: ONDANSETRON 4 MG/2 ML VIAL ONE (12:27)
[2023-08-22 12:32] LABS: Absolute Basophils 0.1 K/uL (0-0.5); Absolute Eosinophils 0.1 K/uL (0-0.5); Absolute Lymphocytes (CBC) 1.6 K/uL (0.7-4.9); Absolute Monocytes 0.7 K/uL (0.1-1.3); Absolute Neutrophil 5.5 K/uL (1.8-8.0); Basophils % 0.8 % (0-1.3); Eosinophils % 1.2 % (0-4.4); Hematocrit 37.9 % (36.0-45.0); Hemoglobin 12.3 g/dL (12.0-15.0); Lymphocytes % 19.7 % (15.3-44.8); MCH 25.5 pg (27.0-35.0); MCHC 32.4 g/dL (32.0-36.0); MCV 78.9 fL (80-100); MPV 8.1 fL (7.6-11.3); Monocytes % 8.4 % (3.3-12.3); Neutrophils % 69.9 % (41.7-73.7); Platelets 394 thou/uL (152-406); RBC Red Blood Cell Count 4.81 M/uL (3.86-4.86); Red Cell Distribution Width 14.2 % (12.1-15.2)
[2023-08-22 12:53] LABS: ALT/SGPT 16 U/L (13-56); AST/SGOT 10 U/L (15-37); Albumin 3.5 g/dL (3.4-5.0); Albumin/Globulin Ratio 0.8 (1.1-1.8); Alkaline Phosphatase 90 U/L (45-117); Anion Gap 7.8 mEq/L (5.0-15.0); BUN Blood Urea Nitrogen 12 mg/dL (7-18); Bicarbonate 28 mEq/L (21-32); Bilirubin Total 0.3 mg/dL (0.2-1.0); Globulin 4.3 g/dL (2.3-3.5); Glomerular Filtration Rate 128 ml/min (=/>90); Glucose Level 98 mg/dL (74-106); Lipase 21 U/L (13-75); Potassium 3.8 mEq/L (3.5-5.1); Protein, Total 7.8 g/dL (6.4-8.2); Sodium Level 139 mEq/L (136-145)
[2023-08-22 12:54] LABS: HCG, Quantitative < 1 mIU/mL (1-3)
[2023-08-22 13:36] LABS: Specific Gravity 1.028 (1.005-1.030)
[2023-08-22 13:54] LABS: Specific Gravity 1.028 (1.005-1.030); Sqamous Epithelial 20-50 /HPF (None Seen); Urine Bacteria <20 /HPF (<20); Urine Bilirubin NEGATIVE (Negative); Urine Blood Negative (Negative); Urine Clarity Extremely Turbid (Clear); Urine Color Light-Orange (Yellow); Urine Culture Reflex Order NOT NEEDED; Urine Glucose NEGATIVE (Negative); Urine Ketones NEGATIVE (Negative); Urine Microscopic Reflex YN ORDER UMIC; Urine Mucus Slight /HPF (None Seen); Urine Nitrite NEGATIVE (Negative); Urine Protein TRACE (Negative); Urine Triple Phosphate Crystal Few /HPF (None Seen); Urine Urobilinogen Normal (Normal)
--- NOTE | 2023-08-22 14:40 | RAD REPORT ---
EXAM DESCRIPTION: CTAbdomen Pelvis W Contrast - 08/22/2023 2:29 pm CLINICAL HISTORY: Abdominal pain. ABD PAIN COMPARISON: Abdomen Pelvis W Contrast dated 06/14/2021; Abdomen Pelvis W Contrast dated TECHNIQUE: Biphasic CT imaging of the abdomen and pelvis was performed with 100 ml non-ionic IV cont rast. All CT scans are performed using dose optimization technique as appropriate and may include automated exposure control or mA/KV adjustment according to patient size. FINDINGS: The lung bases are clear. The liver, spleen, pancreas, adrenal glands and kidneys are within normal limits. No bowel obstruction, free air, free fluid or abscess. Appendectomy. No evidence of significant lym phadenopathy. Small amount of pelvic free fluid likely physiologic. No suspicious bony findings. IMPRESSION: No acute intra-abdominal or pelvic finding. Small volume of pelvic free fluid.
--- NOTE | 2023-08-22 14:55 | EDPHYS ---
Physician Documentation [facility] Name: Izzy Krishnan Age: 23 yrs Sex: Female : 2000 Arrival Date: 08/22/2023 Time: 11:50 Bed 8 Private MD: ED Physician Yoshi Espino HPI: 08/21 14:46 This 23 yrs old Female presents to ER via Ambulatory with complaints of Vomiting, rn Abdominal Pain. 14:46 The patient presents to the emergency department with nausea, vomiting, abdominal pain. rn Onset: The symptoms/episode began/occurred yesterday. Possible causes: unknown. The symptoms are aggravated by nothing. The symptoms are alleviated by nothing. Severity of symptoms: At their worst the symptoms were mild in the emergency department the symptoms have improved. The patient has not experienced similar symptoms in the past. Patient reports lower abdominal pain for about a week, got worse this morning, associated with nausea and vomiting. Took tests at home in June and had 2 positive tests. Since then has had 2 negative tests as well. Denies vaginal bleeding. Last menstrual period was May. Denies trauma. Went to work today and boss that she did not look well so told her to come to the emergency room and he would not let her work. Patient already feeling better.. 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 - Infectious Disease History:: Denies. - Social history:: Smoking status: Patient denies any tobacco usage or history of. Patient uses street drugs, marijuana. - Family history:: not pertinent. - Hospitalizations: : No recent hospitalization is reported. ROS: 14:46 Constitutional: Negative for fever, chills, and weight loss, Cardiovascular: Negative rn for chest pain, palpitations, and edema, Respiratory: Negative for shortness of breath, cough, wheezing, and pleuritic chest pain, Abdomen/GI: Positive for abdominal pain and nausea/vomiting Back: Negative for injury and pain, : Negative for injury, bleeding, discharge, and swelling, MS/Extremity: Negative for injury and deformity, Skin: Negative for injury, rash, and discoloration, Neuro: Negative for headache, weakness, numbness, tingling, and seizure, Exam: 14:46 Constitutional: This is a well developed, well nourished patient who is awake, alert, rn and in no acute distress. Cardiovascular: Regular rate and rhythm with a normal S1 and S2. No gallops, murmurs, or rubs. Normal PMI, no JVD. No pulse deficits. Respiratory: Lungs have equal breath sounds bilaterally, clear to auscultation and percussion. No rales, rhonchi or wheezes noted. No increased work of breathing, no retractions or nasal flaring. Abdomen/GI: Soft, mild lower abdominal tenderness bilaterally. No rebound or guarding Back: No spinal tenderness. No costovertebral tenderness. Full range of motion. MS/ Extremity: Pulses equal, no cyanosis. Neuro: Awake and alert, GCS 15 Vital Signs: 11:55 BP 140 / 95; Pulse 64; Resp 16; Temp 98.7(O); Pulse Ox 96% ; Weight 88.45 kg; Height 5 db ft. 4 in. ; Pain 8/10; 14:28 BP 118 / 78; Pulse 68; Resp 16; Pulse Ox 100% on R/A; mb9 11:55 Body Mass Index 33.47 (88.45 kg, 162.56 cm) db 11:55 Pain Scale: Adult db MDM: 11:55 Patient medically screened. rn 14:46 Differential diagnosis: Nonspecific abd pain, pancreatitis, diverticulitis, viral rn gastroenteritis, gastroenteritis, UTI, , missed . Data reviewed: vital signs, nurses notes, lab test result(s), radiologic studies, CT scan, and as a result, I will discharge patient. Counseling: I had a detailed discussion with the patient and/or guardian regarding the historical points, exam findings, and any diagnostic results supporting the discharge/admit diagnosis, lab results, radiology results, the need for outpatient follow up, to return to the emergency department if symptoms worsen or persist or if there are any questions or concerns that arise at home. Special discussion: I discussed with the patient/guardian in detail that at this point there is no indication for admission to the hospital. It is understood, however, that if the symptoms persist or worsen the patient needs to return immediately for re-evaluation. Based on the history and exam findings, there is no indication for further emergent testing or inpatient evaluation. I discussed with the patient/guardian the need to see the primary care provider for further evaluation of the symptoms. 14:46 ED course: Beta-hCG less than 1, negative UPT. CT abdomen pelvis without acute rn findings. Will discharge home with as needed Zofran and GI follow-up given weeklong symptoms without clear etiology.. 08/21 12:16 Order name: CBC with Diff; Complete Time: 14:17 rn 08/21 12:16 Order name: CMP; Complete Time: 14:17 rn 08/21 12:16 Order name: Lipase; Complete Time: 14:17 rn 08/21 12:16 Order name: Test, Urine; Complete Time: 14:17 rn 08/21 12:16 Order name: Urinalysis w/ reflexes; Complete Time: 14:17 rn 08/21 12:16 Order name: Beta hcg; Complete Time: 14:17 rn 08/21 14:17 Order name: CT Abd/Pelvis - IV Contrast Only; Complete Time: 14:42 rn 08/21 12:16 Order name: IV Saline Lock; Complete Time: 12:25 rn 08/21 12:16 Order name: Labs collected and sent; Complete Time: 12:25 rn Administered Medications: 12:29 Drug: Ondansetron IVP 4 mg IVP once; over 2 minutes Route: IVP; Site: right antecubital;9 12:46 Follow up: Response: No adverse reaction mb9 Disposition Summary: 08/22/23 14:54 Discharge Ordered Notes: Location: Home rn Problem: new rn Symptoms: have improved rn Condition: Stable rn Diagnosis - Lower abdominal pain, unspecified rn Followup: rn - With: Private Physician - When: As needed - Reason: Recheck today's complaints, Re-evaluation by your physician Discharge Instructions: - Abdominal Pain, Adult rn - Pain Without a Known Cause rn - Discharge Summary Sheet mb9 Forms: - Medication Reconciliation Form rn - Antibiotic rn clinical documentation - Prescription Opioid Use rn - Patient Portal Instructions rn - Leadership Thank You Letter rn - Work release form mb9 Prescriptions: - ondansetron 4 mg Oral Tablet,disintegrating - take 1 tablet ORAL route every 8 hours As needed; 10 tablet; Refills: 0, rn Product Selection Permitted Signatures: Dispatcher [employer] EDMS Yoshi Espino MD MD rn Benton, Danielle, RN RN db Herman, Mary, RN RN mb9
--- NOTE | 2023-08-22 14:55 | ER ---
Nurse's Notes [facility] Name: Izzy Krishnan Age: 23 yrs Sex: Female : 2000 Arrival Date: 08/22/2023 Time: 11:50 Bed 8 Private MD: Diagnosis: Lower abdominal pain, unspecified Presentation: 08/21 11:55 Chief complaint: Patient states: N/V STARTED THIS AM. STATES WENT TO WORK BOSS TOLD db LOOKS PALE. STATES WAS "SWEATING". VOMITED AT WORK. Coronavirus screen: Client denies travel out of the [place] in the last 14 days. At this time, the client does not indicate any symptoms associated with coronavirus-19. Ebola Screen: Patient negative for fever greater than or equal to 101.5 degrees Fahrenheit, and additional compatible Ebola Virus Disease symptoms Patient denies exposure to infectious person. Patient denies travel to an Ebola-affected area in the 21 days before illness onset. No symptoms or risks identified at this time. Initial Sepsis Screen: Does the patient meet any 2 criteria? No. Patient's initial sepsis screen is negative. Does the patient have a suspected source of infection? No. Patient's initial sepsis screen is negative. Risk Assessment: Do you want to hurt yourself or someone else? Patient reports no desire to harm self or others. Onset of symptoms was August 22, 2023. 11:55 Method Of Arrival: Ambulatory db 11:55 Acuity: ESAU 3 db Triage Assessment: 11:55 General: Appears in no apparent distress. comfortable, Behavior is calm, cooperative. db Pain: Complains of pain in abdomen. Neuro: Level of Consciousness is awake, alert, obeys commands, Oriented to person, place, time, situation. Respiratory: Airway is patent Respiratory effort is even, unlabored, Respiratory pattern is regular, symmetrical. GI: Reports lower abdominal pain, nausea, vomiting. 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 - Infectious Disease History:: Denies. - Social history:: Smoking status: Patient denies any tobacco usage or history of. Patient uses street drugs, marijuana. - Family history:: not pertinent. - Hospitalizations: : No recent hospitalization is reported. Screenin:03 [facility] ED Fall Risk Assessment (Adult) History of falling in the last 3 months, mb9 including since admission No falls in past 3 months (0 pts) Confusion or Disorientation No (0 pts) Intoxicated or Sedated No (0 pts) Impaired Gait No (0 pts) Mobility Assist Device Used No (0 pt) Altered Elimination No (0 pt) Score/Fall Risk Level 0 - 2 = Low Risk Oriented to surroundings, Maintained a safe environment, Educated pt \\T\\ family on fall prevention, incl call for assistance when getting out of bed. Abuse screen: Denies threats or abuse. Nutritional screening: No deficits noted. Tuberculosis screening: No symptoms or risk factors identified. Assessment: 12:08 General: Appears in no apparent distress. Behavior is calm, cooperative. Pain: mb9 Complains of pain in abdomen Pain does not radiate. Pain currently is 7 out of 10 on a pain scale. Quality of pain is described as crampy, throbbing. Neuro: Pandey Agitation-Sedation Scale (RASS): 0 - Alert and Calm Level of Consciousness is awake, alert, obeys commands, Oriented to person, place, time, situation, Appropriate for age. Cardiovascular: Patient's skin is warm and dry. Respiratory: Airway is patent Respiratory effort is even, unlabored, Respiratory pattern is regular, symmetrical. GI: Abdomen is round non-distended, Bowel sounds present X 4 quads. Abd is soft Abdomen is tender to palpation in suprapubic area, right lower quadrant and left lower quadrant Reports nausea, vomiting. : Urine is clear. EENT: No signs and/or symptoms were reported regarding the EENT system. Derm: Skin is pink, warm \\T\\ dry. Musculoskeletal: Range of motion: intact in all extremities. 13:25 Reassessment: No changes from previously documented assessment. Patient and/or family mb9 updated on plan of care and expected duration. Pain level reassessed. Patient is alert, oriented x 3, equal unlabored respirations, skin warm/dry/pink. 15:00 Reassessment: No changes from previously documented assessment. Patient and/or family mb9 updated on plan of care and expected duration. Pain level reassessed. Patient is alert, oriented x 3, equal unlabored respirations, skin warm/dry/pink. Vital Signs: 11:55 BP 140 / 95; Pulse 64; Resp 16; Temp 98.7(O); Pulse Ox 96% ; Weight 88.45 kg; Height 5 db ft. 4 in. ; Pain 8/10; 14:28 BP 118 / 78; Pulse 68; Resp 16; Pulse Ox 100% on R/A; mb9 11:55 Body Mass Index 33.47 (88.45 kg, 162.56 cm) db 11:55 Pain Scale: Adult db ED Course: 11:54 Patient arrived in ED. mr 11:55 Yoshi Espino MD is Attending Physician. rn 11:55 Camille Akhtar, IRIS is Primary Nurse. db 11:55 Arm band placed on Patient placed in an exam room. db 11:58 Triage completed. db 12:03 Primary Nurse role handed off by Camille Akhtar, RN mb9 12:03 Fouzia Sutton, IRIS is Primary Nurse. mb9 12:03 Placed in gown. Bed in low position. Call light in reach. Side rails up X 1. Provided mb9 Education on: press call light if needing anything. Client placed on continuous cardiac and pulse oximetry monitoring. NIBP monitoring applied. 12:13 Initial lab(s) drawn, by me, sent to lab. Inserted saline lock: 20 gauge in right mb9 antecubital area, using aseptic technique. Blood collected. 12:13 No provider procedures requiring assistance completed. mb9 14:[address] via wheelchair. mb9 14:31 CT Abd/Pelvis - IV Contrast Only In Process Unspecified. EDMS 15:00 IV discontinued, intact, bleeding controlled, No redness/swelling at site. Pressure mb9 dressing applied. Administered Medications: 12:29 Drug: Ondansetron IVP 4 mg IVP once; over 2 minutes Route: IVP; Site: right antecubital;mb9 12:46 Follow up: Response: No adverse reaction mb9 Medication: 12:03 VIS not applicable for this client. mb9 Outcome: 14:54 Discharge ordered by . rn 15:00 Discharged to home ambulatory, mb9 15:00 Condition: stable 15:00 Discharge instructions given to patient, Instructed on discharge instructions, follow up and referral plans. Demonstrated understanding of instructions, follow-up care, medications, Prescriptions given X 1, 15:01 Patient left the ED. mb9 Signatures: Dispatcher [employer] EDMS Fouzia Jackson, Wayne Blcak mr Yoshi Espino MD MD rn Benton, Danielle, RN RN db Breneman, Mary Beth, RN RN mb9 Corrections: (The following items were deleted from the chart) 11:58 11:55 Pulse 64bpm; Resp 16bpm; Pulse Ox 96%; Temp 98.7F Oral; 88.45 kg; Height 5 ft. 4 db in.; BMI: 33.4; Pain 8/10, Adult; db
[2023-08-22 15:21] VITALS: BP 118/78; TEMP 98.7; O2SAT 100
== END 2023-08-22 15:01 | disposition home or self-care (01) ==
LOC: ER 11:50
DX: R10.30 Lower abdominal pain, unspecified (principal); R11.2 Nausea with vomiting, unspecified
CPT/HCPCS: 85025; 81001; 36415; 81025; 84702; 83690; 80053; 74177; 96374; 99285; Q9967; J2405

== ENCOUNTER 2023-12-21 21:56 | Emergency (ER) | payer BC, MEDICARE, OTHER, SELFPAY ==
--- OUTSIDE RECORDS SUMMARY | 2023-12-21 22:00 | XMS REPORT | Continuity of Care Document ---
Author Name Unknown Address [address] [facility] [address] [place] [address] [facility] thconnect Address [address] 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 Name Role Phone PCP, PATIENT DOES NOT HAVE A Primary Care Physic tristin Unavailable PADMINI DOMINGO Attending Clinician UnavailPadmini Donnelly Attending Clinician [phone]- [phone] GORDON DUKE Attending Clinician Unavailable Gordon Duke MD Attending Clinician [phone] Doctor Unassigned, [place] Attending Clinician U LOU Pressley Attending Clinician Unavailable Lou Elizondo Attending Clinician [phone] Jesus Alberto Henry Attending Clinician [phone] Jesus Alberto ARANDA Attending Clinician Unavailable GORDON DUKE Admitting Clinician Unavailable Jesus Alberto ARANDA Admitting Clinician Unavailable Payers Payer Name Policy Type Policy Number Effective Date Expirati on Date Source [facility] [id number] 2021 00:00:00 Problems Condition Name Condition Details Condition Category Status Onset Date Resolution Date Last Treatment Date Treating Clinician Comments Source Behavior concern Behavior concern Disease Active 05-04 00:00: 00 [facility] Family circumstan ce Family circumstan ce Disease Active 05-04 00:00: 00 [facility] Hx of suicide attempt Hx of suicide attempt Disease Active 05-04 00:00: 00 [facility] Depression , unspecifie d depression type Depression , unspecifie d depression type Disease Active 05-04 00:00: 00 [facility] BMI (body mass index), pediatric, 95-99% for age BMI (body mass index), pediatric, 95-99% for age Disease Active 05-04 00:00: 00 [facility] Allergies, Adverse Reactions, Alerts Allergy Name Allergy Type Status Severity Reaction(s) Onset Date Inactive Date Treating Clinician Comments Source NO KNOWN ALLERGIE S Drug Class Active [facility] Social History Social Habit Start Date Stop Date Quantity Comments Source Gender identity [facility] of Social function 2023-01-03 00:00:00 2023-01-03 00:00:00 [facility] Alcohol intake 2023-01-03 00:00:00 2023-01-03 00:00:00 0 /d [facility] Exposure to SARS-CoV-2 (event) 2022-01-15 00:00:00 2022-01-25 16:49:[address] [facility] Sex Assigned At 2001 00:00:00 2001 00:00:00 [facility] Smoking Status Start Date Stop Date Source Never smoked tobacco [facility] Medications Ordered Medication Name Filled Medication Name Start Date Stop Date Current Medication? Ordering Clinician Indication Dosage Frequency Signature (SIG) Comments Components Source acetaminoph en (TYLENOL) tablet 1,000 mg 01-04 02:30: 00 01-04 01:59 :00 No 1000mg 1,000 mg, Oral, ONCE, 1 dose, On Steffany 01/03/23 at 2130, JOANNA [facility] ondansetron (ZOFRAN) tablet 4 mg 01-04 02:30: 00 01-04 02:30 :00 No 4mg 4 mg, Oral, ONCE, 1 dose, On Steffany 01/03/23 at 2130, Routine [facility] ondansetron 4 mg disintegrat ing tablet 01-03 00:00: 00 Yes [id number] 4mg Take 1 tablet by mouth every 8 (eight) hours as needed for Nausea and Vomiting (N/V). [facility] acetaminoph en (TYLENOL) tablet 975 mg 11-06 02:45: 00 11-06 01:45 :00 No 975mg 975 mg, Oral, ONCE, 1 dose, On 11/05/22 at 2145, JOANNA [facility] loratadine- pseudoephed rine (CLARITIN-D 24 HOUR) 10-240 mg per 24 hr tablet 11-05 00:00: 00 Yes [id number] 1{tbl} Take 1 tablet by mouth in the morning. [facility] dextrometho rphan-guaif enesin 10-100 mg/5 mL solution 11-05 00:00: 00 Yes [id number] 10mL Take 10 mL by mouth every 6 (six) hours as needed for Cough. [facility] ondansetron 4 mg disintegrat ing tablet 11-05 00:00: 00 Yes [id number] 4mg Take 1 tablet by mouth every 4 (four) hours as needed for Nausea and Vomiting (N/V). [facility] naproxen 500 mg tablet 11-05 00:00: 00 11-16 04:59 :00 No [id number] 500mg Take 1 tablet by mouth in the morning and 1 tablet in the evening. Take with meals. Do all this for 10 days. [facility] ondansetron (ZOFRAN (PF)) injection 4 mg 2021-04 0 23:30: 00 01-25 22:39 :00 No 4mg 4 mg, Slow IV Push, ONCE, 1 dose, On Steffany 01/25/22 at 1830, JOANNA [facility] ketorolac (TORADOL) injection 15 mg 2021-04 0-06 23:30: 00 01-25 22:39 :00 No 15mg 15 mg, Slow IV Push, ONCE, 1 dose, On Steffany 01/25/22 at 1830, Routine [facility] ondansetron (ZOFRAN (PF)) injection 4 mg 2021-04 006 22:45: 00 01-25 22:04 :00 No 4mg 4 mg, Slow IV Push, ONCE, 1 dose, On Steffany 01/25/22 at 1745, JOANNA [facility] NaCl 0.9% (NS) bolus infusion 1,000 mL 2021-04 22:45: 00 01-25 23:10 :00 No 1000mL at 999 mL/hr, 1,000 mL, IV Infusion, ONCE, 1 dose, On Steffany 01/25/22 at 1745, JOANNA [facility] dicyclomine 20 mg tablet 2021-04 0 00:00: 00 Yes [id number] 20mg Take 1 tablet by mouth every 6 (six) hours as needed for Abdominal pain. [facility] ondansetron 4 mg disintegrat ing tablet 2021-04 0 00:00: 00 Yes [id number] 4mg Take 1 tablet by mouth every 6 (six) hours as needed for Nausea and Vomiting (N/V). [facility] amoxicillin (TRIMOX) capsule 500 mg 2020-04 00:30: 00 04-06 23:33 :00 No 500mg 500 mg, Oral, ONCE, 1 dose, On Steffany 04/06/21 at 1830, JOANNA
Re ason for Anti-Infec tive: Documented Infection< br>Documen nadiya Infection Site: HEENT
D uration of Therapy: Other (see Comments) [facility] ketorolac (TORADOL) injection 30 mg 2020-04 00:30: 00 04-06 23:33 :00 No 30mg 30 mg, Intramuscu lar, ONCE, 1 dose, On Steffany 04/06/21 at 1830, JOANNA [facility] ibuprofen 800 mg tablet 2020-04 00:00: 00 Yes [id number] 800mg Take 1 tablet by mouth 3 (three) times daily with meals. [facility] chlorhexidi ne 0.12 % mouthwash 2020-04 00:00: 00 Yes [id number] 15mL Swish and spit out 15 mL 2 (two) times daily. [facility] amoxicillin 500 mg capsule 2020-04 00:00: 00 04-14 05:59 :00 No [id number] 500mg Take 1 capsule by mouth 3 (three) times daily for 7 days. [facility] NaCl 0.9% (NS) bolus infusion 1,000 mL 2020-04 23:15: 00 02-03 23:43 :00 No 1000mL at 999 mL/hr, 1,000 mL, IV Infusion, ONCE, 1 dose, On Sat02/03/21 at 1815, STAT [facility] METAXALONE (SKELAXIN ORAL) 05-14 14:34: 04 Yes Take by mouth. [facility] Vital Signs Vital Name Observation Time Observation Value Comments S ource Systolic blood pressure 2023-01-04 01:35:00 148 mm[Hg] [facility] Diastolic blood pressure 2023-01-04 01:35:00 107 mm[Hg] [facility] Heart rate 2023-01-04 01:35:00 98 /min [facility] Body temperature 2023-01-04 01:35:[address] [facility] Respiratory rate 2023-01-04 01:35:00 18 /min [facility] Body height 2023-01-04 01:35:00 157.5 cm [facility] Body weight 2023-01-04 01:35:00 89.812 kg [facility] BMI 2023-01-04 01:35:00 36.21 kg/m2 [facility] Oxygen saturation in Arterial blood by Pulse oximetry 2023-01-04 01:35:00 99 /min [facility] Heart rate 2022-11-06 04:10:00 96 /min [facility] Body temperature 2022-11-06 04:10:[address] [facility] Respiratory rate 2022-11-06 04:10:00 18 /min [facility] Oxygen saturation in Arterial blood by Pulse oximetry 2022-11-06 04:10:00 98 /min [facility] Systolic blood pressure 2022-11-06 01:19:00 116 mm[Hg] [facility] Diastolic blood pressure 2022-11-06 01:19:00 83 mm[Hg] [facility] Body height 2022-11-06 01:19:00 157.5 cm [facility] Body weight 2022-11-06 01:19:00 97.523 kg [facility] BMI 2022-11-06 01:19:00 39.32 kg/m2 [facility] Systolic blood pressure 2022-01-25 21:49:00 152 mm[Hg] [facility] Diastolic blood pressure 2022-01-25 21:49:00 102 mm[Hg] [facility] Heart rate 2022-01-25 21:49:00 80 /min [facility] Body temperature 2022-01-25 21:49:[address] [facility] Respiratory rate 2022-01-25 21:49:00 16 /min [facility] Body height 2022-01-25 21:49:00 160 cm [facility] Body weight 2022-01-25 21:49:00 88.451 kg [facility] BMI 2022-01-25 21:49:00 34.54 kg/m2 [facility] Oxygen saturation in Arterial blood by Pulse oximetry 2022-01-25 21:49:00 97 /min [facility] Body temperature 2021-04-06 22:53:[address] [facility] Respiratory rate 2021-04-06 22:53:00 18 /min [facility] Body height 2021-04-06 22:53:00 162.6 cm [facility] Body weight 2021-04-06 22:53:00 86.183 kg [facility] BMI 2021-04-06 22:53:00 32.61 kg/m2 [facility] Oxygen saturation in Arterial blood by Pulse oximetry 2021-04-06 22:53:00 99 /min [facility] Systolic blood pressure 2021-04-06 22:53:00 139 mm[Hg] [facility] Diastolic blood pressure 2021-04-06 22:53:00 99 mm[Hg] [facility] Heart rate 2021-04-06 22:53:00 76 /min [facility] Systolic blood pressure 2021-02-03 22:20:00 140 mm[Hg] [facility] Diastolic blood pressure 2021-02-03 22:20:00 98 mm[Hg] [facility] Heart rate 2021-02-03 22:20:00 85 /min [facility] Respiratory rate 2021-02-03 22:20:00 18 /min [facility] Oxygen saturation in Arterial blood by Pulse oximetry 2021-02-03 22:20:00 99 /min [facility] Body temperature 2021-02-03 15:54:[address] [facility] Body height 2021-02-03 15:54:00 160 cm [facility] Body weight 2021-02-03 15:54:00 74.844 kg [facility] BMI 2021-02-03 15:54:00 29.23 kg/m2 [facility] Body mass index (BMI) [Percentile] Per age and sex 2021-02-03 15:54:00 91.94 % [facility] Procedures Procedure Date / Time Performed Performing Clinician Source URINALYS[facility] 2023-01-04 02:27[facility] 2023-01-04 02:27:[address] [facility] CONSENT/REFUSAL FOR DIAGNOSIS AND TREATMENT 2023-01-04 01:19:40 Doctor Unassigned, Penn Wynne [facility] XR CHEST 2 VW 2022-11-06 03:46:00 Gordon Duke [facility] RAPID STREP SCREEN FOR GROUP A 2022-11-06 01:45:[address] [facility] RAPID INFLUENZA A/B 2022-11-06 01:45:[address] [facility] COVID-19 (ID NOW RAPID TESTING) 2022-11-06 01:45:[address] [facility] CONSENT/REFUSAL FOR DIAGNOSIS AND TREATMENT 2022-11-06 01:06:48 Doctor Unassigned, Penn Wynne [facility] POCT TEST 2022-01-25 22:06:00 Jose L [facility] LIPASE 2022-01-25 22:03:00 [facility] MAGNESIUM 2022-01-25 22:03:00 [facility] L [facility] COMP. METABOLIC PANEL ([id number]) 2022-01-25 22:03:00 Jose L [facility] CBC WITH DIFF 2022-01-25 22:03:00 Jose L [facility] NOTICE OF PRIVACY PRACTICES 2022-01-25 21:25:28 Doctor Unassigned, Penn Wynne [facility] CONSENT/REFUSAL FOR DIAGNOSIS AND TREATMENT 2022-01-25 21:25:07 Doctor Unassigned, Penn Wynne [facility] POCT TEST 2021-04-06 23:20:[address] [facility] CONSENT/REFUSAL FOR DIAGNOSIS AND TREATMENT 2021-04-06 22:35:43 Doctor Unassigned, Penn Wynne [facility] XR CHEST 1 VW 2021-02-03 23:04:39 Jesus Alberto Aranda [facility] D-DIMER 2021-02-03 18:33:00 Jesus Alberto Aranda [facility] LIPASE 2021-02-03 18:24:00 Jesus Alberto Aranda [facility] MAGNESIUM 2021-02-03 18:24:00 Jesus Alberto Aranda [facility] COMP. METABOLIC PANEL ([id number]) 2021-02-03 18:24:[address] [facility] CBC WITH DIFF 2021-02-03 18:24:00 Jesus Alberto Aranda [facility] URINALYSIS 2021-02-03 18:24:00 [facility]IM[facility]UNOASSAY[facility] - COMPREHENSIVE DRUG SCREEN 2021-02-03 18:23:[address] [facility] POCT TEST 2021-02-03 18:23:[address] [facility] NOTICE OF PRIVACY PRACTICES 2021-02-03 15:44:16 Doctor Unassigned, [place] Wynne [facility] Encounters Start Date/Time End Date/Time Encounter Type Admission Type Attending [facility] Care Department Encounter ID Source 2023-01-03 20:37:00 2023-01-03 22:10:00 Emergency X RIDPADMINI HOUSTON [email or web address] ERT [id number] [facility] 2023-01-03 20:37:00 2023-01-03 22:10:00 Emergency Padmini Domingo [facility] 1.2.840.114 350.1.13.10 4.2.7.2.686 [id number] [facility] 2022-11-05 20:21:00 2022-11-05 23:12:00 Emergency X GORDON DUKE [facility] [[email or web address] ERT [id number] [facility] 2022-11-05 20:21:00 2022-11-05 23:12:00 Emergency Gordon Duke [facility] 1.2.840.114 350.1.13.10 4.2.7.2.686 [id number] [facility] 2022-10-01 08:43:03 2022-10-01 08:43:03 Outpatient [facility] [id number] Erasmo Payan 2022-01-25 16:50:00 2022-01-25 18:32:00 [facility] [id number] [facility] 2022-01-25 16:50:00 2022-01-25 18:32:00 Emergency Padmini Domingo [facility] 1.2.840.114 350.1.13.10 4.2.7.2.686 [id number] [facility] 2022-01-25 00:00:00 2022-01-25 00:00:00 Orders Only Doctor Unassigned, Penn Wynne [facility] 1.2.840.114 350.1.13.10 4.2.7.2.686 [id number] [facility] 2021-04-06 16:54:00 2021-04-06 17:47:00 Emergency X JANICE GARDNERN [facility] [[email or web address] ERT [id number] [facility] 2021-04-06 16:54:00 2021-04-06 17:47:00 Emergency Lou Gardner [facility] 1.2.840.114 350.1.13.10 4.2.7.2.686 [id number] [facility] 2021-02-03 11:11:00 2021-02-03 18:44:00 Emergency Jesus Alberto Aranda Madalyn [facility] 1.2.840.114 350.1.13.10 4.2.7.2.686 [id number] [facility] 2021-02-03 11:11:00 2021-02-03 18:44:00 Emergency X ROSI Jesus Alberto [facility] [[email or web address]] ERT [id number] [facility] Results Test Description Test Time Test Comments Results Result Co mments Source [facility] [id number] 22:06:00* Test Item Value Reference Range Interpretation Comme nts POCT PREG (test code = 1605) negative On board controls acceptable with C Line (test code = 3574) present POCT PREG LOT # (test code = 3575) [id number] POCT PREG TEST DATE ( test code = 3576) Lab Interpretation (test cod e = 00278-5) Normal [facility] [id number] 23:20:00* Test Item Value Reference Range Interpretation Comme nts POCT PREG (test code = 1605) negative POCT PREG LOT # (test code = 3575) [id number] POCT PREG TEST DATE ( test code = 3576) 2022-05-22 Lab Interpretation (test cod e = 59017-6) Normal [facility][id number] 19:30:18* Test Item Value Reference Range Interpretation Comments D-DIMER (test code = 7109661808) <0.27 See_Comment [Automated message] The system which [...] a diagnosis. Lab Interpretation (test code = 57955-1) Normal [facility]-15 19:00:14* Test Item Value Reference Range Interpretation Comme nts MAGNESIUM (test code = 8673098530) 1.8 mg/dL 1.7-2.4 Lab Interpretation (test cod e = 25278-8) [id number][facility] 18:59:54* Test Item Value Reference Range Interpretation Comme nts NA (test code = 7238113919) 139 mmol/L 135-145 K (test code = 9493628292) 4.0 mmol/L 3.5-5.0 CL (test code = 1006110977) 101 mmol/L 98-108 CO2 TOTAL (test code = 0731914894) 30 mmol/L 23-31 AGAP (test code = 3260482439) 2-16 BUN (test code = 9800020667) 13 mg/dL 7-23 GLUCOSE (test code = 2507914355) 87 mg/dL 70-110 CREATININE (test code = 8504322722) 0.57 mg/dL 0.50-1.04 TOTAL BILI (test code = 9085872356) 0.4 mg/dL 0.1-1.1 CALCIUM (test code = 0925622508) 9.7 mg/dL 8.6-10.6 T PROTEIN (test code = 0949613945) 8.0 g/dL 6.3-8.2 ALBUMIN (test code = 1770337101) 4.6 g/dL 3.5-5.0 ALK PHOS (test code = 3103066965) 90 U/L 34-122 ALTv (test code = 1742-6) 15 U/L 5-35 AST(SGOT) (test code = 5331978443) 23 U/L 13-40 eGFR (test code = 8037919580) mL/min/1.73m2 NIKA (test code = NIKA) Association [...] or urine or abnormalities in imaging tests). [facility] 18:59:34* Test Item Value Reference Range Interpretation Comme nts LIPASE (test code = 1178894760) 37 U/L 0-220 Lab Interpretation (test cod e = 72926-3) Normal [facility] [id number] 18:37:09* Test Item Value Reference Range Interpretation Comme nts WBC (test code = 6690-2) See_Comment [Automated [employer]] The system which generated this result transmitted reference range: 4.30 - 11.10 10*3/?L. The reference range was not used to interpret this result as normal/abnormal. RBC (test code = 789-8) See_Comment [Automated [employer]] The system which generated this result transmitted [...] g/dL 31.6-35.1 L RDW-SD (test code = 22275-2) 38.9 fL 39.0-49.9 L RDW-CV (test code = 788-0) 13.2 % 12.0-15.5 PLT (test code = 777-3) See_Comment H [Automated [employer]] The system which generated this result transmitted reference range: 166 - 358 10*3/?L. The reference range was not used to interpret this result as normal/abnormal. MPV (test code = 06115-7) 9.2 fL 9.5-12.9 L NRBC/100 WBC (test code = 6739642596) See_Comment [Automated me ssage] The system which generated this result transmitted reference range: 0.0 - 10.0 /100 WBCs. The reference range was not used to interpret this result as normal/abnormal. NRBC x10^3 (test code = 0045016345) <0.01 See_Comment [Automated messa ge] The system which generated this result transmitted reference range: 10*3/?L. The reference range was not used to interpret this result as normal/abnormal. GRAN MAT (NEUT) % (test code = 770-8) 66.3 % IMM GRAN % (test code = 3612673043) 0.70 % LYMPH % (test code = 736-9) 20.6 % MONO % (test code = 5905-5) 9.8 % EOS % (test code = 713-8) 1.7 % BASO % (test code = 706-2) 0.9 % GRAN MAT x10^3(ANC) (test code = 3086095555) 5.09 10*3/uL 1.88-7.09 IMM GRAN x10^3 (test code = 4681713950) 0.05 10*3/uL 0.00-0.06 LYMPH x10^3 (test code = 731-0) 1.58 10*3/uL 1.32-3.29 MONO x10^3 (test code = 742-7) 0.75 10*3/uL 0.33-0.92 EOS x10^3 (test code = 711-2) 0.13 10*3/uL 0.03-0.39 BASO x10^3 (test code = 704-7) 0.07 10*3/uL 0.01-0.07 Lab Interpretation (test code = 21260-2) Abnormal [facility] [id number] 18:23:00* Test Item Value Reference Range Interpretation Comme nts POCT PREG (test code = 1605) negative On board controls acceptable with C Line (test code = 3574) present Lab Interpretation (test cod e = 86139-7) Normal [facility] Notes Date/Time Note Provider Source 2023-01-03 22:05:51 Formatting of this n ote might be different from the original. Awake, alert oriented X4, respiratory even and unlabored,skin w/d color appropriate for race, moves all ext well, pt encouraged to follow up with pcp and or return as needed Pt given printed and verbal discharge instructions regarding frequency of urination, viral illness , patient verbralized understanding and signature obtained, patient denies any other concerns. Prescriptions provided Advised to seek medical attention for new/prolonged/worsening of symptoms, No adverse reaction to meds given in ER noted upon discharge [facility] 2023-01-03 20:32:45 Formatting of this n ote might be different from the original. Pt states that she was seen @ [facility] this am and was neg for covid and strep. Pt states she is still not feeling well and she has to work tomorrow and doesn't want to feel this way. Vomiting X2, fever, cough, chest discomfort that started 1 hr padder. Pt states the pain is sharp. Angi Perry RN [facility]
[2023-12-21] MEDS ORDERED: ALBUTEROL 2.5 MG/3 ML NEB SOL ONE (22:45)
[2023-12-21 23:25] LABS: Specific Gravity 1.023 (1.005-1.030); Sqamous Epithelial <5 /HPF (None Seen); Urine Bacteria <20 /HPF (<20); Urine Bilirubin NEGATIVE (Negative); Urine Blood Negative (Negative); Urine Clarity Turbid (Clear); Urine Color Light-Yellow (Yellow); Urine Culture Reflex Order REFLEXED; Urine Glucose NEGATIVE (Negative); Urine Ketones NEGATIVE (Negative); Urine Microscopic Reflex YN ORDER UMIC; Urine Nitrite NEGATIVE (Negative); Urine Protein NEGATIVE (Negative); Urine RBC <5 /HPF (None Seen); Urine Urobilinogen Normal (Normal); Urine WBC 20-50 /HPF (<5)
[2023-12-21 23:28] LABS: Absolute Eosinophils 0.2 K/uL (0-0.5); Absolute Lymphocytes (CBC) 2.5 K/uL (0.7-4.9); Basophils % 0.5 % (0-1.3); Eosinophils % 1.9 % (0-4.4); Hematocrit 38.2 % (36.0-45.0); Hemoglobin 12.1 g/dL (12.0-15.0); Lymphocytes % 23.1 % (15.3-44.8); MCH 25.9 pg (27.0-35.0); MCHC 31.8 g/dL (32.0-36.0); MCV 81.6 fL (80-100); MPV 8.3 fL (7.6-11.3); Monocytes % 9.1 % (3.3-12.3); Neutrophils % 65.4 % (41.7-73.7); Platelets 335 thou/uL (152-406); RBC Red Blood Cell Count 4.68 M/uL (3.86-4.86); Red Cell Distribution Width 14.6 % (12.1-15.2)
[2023-12-21 23:39] LABS: ALT/SGPT 19 U/L (13-56); AST/SGOT 14 U/L (15-37); Albumin 3.3 g/dL (3.4-5.0); Albumin/Globulin Ratio 0.8 (1.1-1.8); Alkaline Phosphatase 91 U/L (45-117); Anion Gap 5.9 mEq/L (5.0-15.0); BUN Blood Urea Nitrogen 12 mg/dL (7-18); Bicarbonate 29 mEq/L (21-32); Globulin 3.9 g/dL (2.3-3.5); Glomerular Filtration Rate 127 ml/min (=/>90); Glucose Level 106 mg/dL (74-106); Magnesium 1.8 mg/dL (1.6-2.4); Potassium 3.9 mEq/L (3.5-5.1); Protein, Total 7.2 g/dL (6.4-8.2); Sodium Level 140 mEq/L (136-145); Troponin High Sensitivity 4.4 pg/mL (<58.9)
[2023-12-21 23:51] LABS: Bilirubin Direct < 0.2 mg/dL (0-0.2); Bilirubin Total < 0.2 mg/dL (0.2-1.0)
[2023-12-22] MEDS ORDERED: dexAMETHasone 10 MG/ML VIAL ONE (00:56)
[2023-12-22] MEDS ORDERED: KETOROLAC 30 MG/ML INJ ONE (00:56)
[2023-12-22] MEDS ORDERED: NA CHLORIDE 0.9% 1,000 ML ONE (00:56)
--- NOTE | 2023-12-22 01:48 | EDPHYS ---
Physician Documentation [facility] Name: Izzy Krishnan Age: 23 yrs Sex: Female : 2000 Arrival Date: 12/21/2023 Time: 21:56 Bed 8 Private MD: ED Physician Ricky Ricci HPI: 12/20 22:45 This 23 yrs old Female presents to ER via Ambulatory with complaints of Chest Tightness.cp 22:45 The patient or guardian reports chest pain that is located primarily in the anterior cp chest wall. 22:45 The pain does not radiate. Associated signs and symptoms: Pertinent negatives: cp abdominal pain, diaphoresis, dizziness, syncope, vomiting. The chest pain is described as tightness. Duration: The patient or guardian reports a single episode, that is still ongoing, and worsening. Modifying factors: the symptoms are aggravated by deep breath. Severity of pain: in the emergency department the pain is unchanged despite home interventions. 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 - Infectious Disease History:: Denies. - Social history:: Smoking status: Reported history of juuling and/or vaping. Patient uses alcohol, occasionally. street drugs, marijuana. ROS: 22:50 Cardiovascular: Positive for chest pain, Negative for edema, palpitations, cp 22:50 Eyes: Negative for injury, pain, redness, and discharge, cp 22:50 Constitutional: Negative for body aches, fever, poor PO intake, Exam: 22:20 ECG was reviewed by the Attending Physician. cp 22:55 Constitutional: The patient appears in no acute distress, alert, awake, cp non-diaphoretic, non-toxic, well developed, well nourished, uncomfortable, 22:55 Head/Face: Normocephalic, atraumatic. cp 22:55 Eyes: Periorbital structures: appear normal, Conjunctiva: normal, no exudate, no injection, Sclera: no appreciated abnormality, Lids and lashes: appear normal, bilaterally, 22:55 ENT: External ear(s): are unremarkable, Nose: is normal, Mouth: Lips: moist, Oral mucosa: pink and intact, moist, Posterior pharynx: Airway: no evidence of obstruction, patent, 22:55 Neck: ROM/movement: is normal, is supple, without pain, no range of motions limitations, no meningismus, no nuchal rigidity, 22:55 Chest/axilla: Inspection: normal, 22:55 Cardiovascular: Rate: normal, Rhythm: regular, Edema: is not appreciated, JVD: is not appreciated, 22:55 Respiratory: the patient does not display signs of respiratory distress, Respirations: normal, no use of accessory muscles, no retractions, labored breathing, is not present, Breath sounds: are clear throughout, no decreased breath sounds, no stridor, no wheezing, 22:55 Abdomen/GI: Inspection: abdomen appears normal, Palpation: abdomen is soft and non-tender, in all quadrants, 22:55 Back: ROM is normal, 22:55 Neuro: Orientation: to person, place \T\ time. Mentation: is normal, Motor: moves all fours, strength is normal, Sensation: is normal, Vital Signs: 22:00 BP 145 / 95; Pulse 81; Resp 20; Temp 98.3; Pulse Ox 99% ; Weight 92.99 kg; Height 5 ft. jj7 2 in. ; Pain 10/10; 23:51 BP 126 / 94; Pulse 66; Resp 17; Temp 98.3; Pulse Ox 99% ; Pain 8/10; 8 12/21 01:52 BP 125 / 62; Pulse 69; Resp 16; Temp 98.3; Pulse Ox 99% ; Pain 0/10; bm8 12/20 22:00 Body Mass Index 37.49 (92.99 kg, 157.48 cm) [facility] 12/20 22:00 Pain Scale: Adult [facility] 23:51 Pain Scale: Adult 8 12/21 01:52 Pain Scale: Adult 8 [place] Coma Score: 12/20 23:51 Eye Response: spontaneous(4). Motor Response: obeys commands(6). Verbal Response: bm8 oriented(5). Total: 15. 12/21 01:52 Eye Response: spontaneous(4). Motor Response: obeys commands(6). Verbal Response: bm8 oriented(5). Total: 15. MDM: 12/20 22:13 Patient medically screened. 12/21 01:46 Data reviewed: vital signs, nurses notes, lab test result(s), EKG, radiologic studies, cp plain films, and as a result, I will discharge patient. 01:46 Differential diagnosis: abnormal EKG, acute myocardial infarction, chest wall pain, cp cholecystitis, Cholelithiasis pleurisy, pneumonia, pneumothorax, pulmonary embolus. I considered the following discharge prescriptions or medication management in the emergency department Medications were administered in the Emergency Department. See MAR. Independent interpretation of the following test(s) in the Emergency Department EKG: See my EKG interpretation above X-Ray: My interpretation is chest image negative for infiltrates. Care significantly affected by the following chronic conditions: asthma. Counseling: I had a detailed discussion with the patient and/or guardian regarding the historical points, exam findings, and any diagnostic results supporting the discharge/admit diagnosis, lab results, radiology results, to return to the emergency department if symptoms worsen or persist or if there are any questions or concerns that arise at home. Response to treatment: the patient's symptoms have mildly improved after treatment, and as a result, I will discharge patient. Special discussion: Based on the patient's history, exam, and Dx evaluation, there is no indication for emergent intervention or inpatient Tx. It is understood by the patient/guardian that if the Sx's persist or worsen they need to return immediately for re-evaluation. 12/20 22:40 Order name: Basic Metabolic Panel; Complete Time: 00:29 cp 12/21 00:29 Interpretation: Normal except: CL 109. 12/20 22:40 Order name: CBC with Diff; Complete Time: 23:33 12/20 23:33 Interpretation: Normal except: MCH 25.9; MCHC 31.8. 12/20 22:40 Order name: LFT's; Complete Time: 00:29 cp 12/21 00:29 Interpretation: Normal except: AST 14; BILIT < 0.2; IBILI, CALC 0.0; ALB 3.3; GLOB 3.9; cp A/G 0.8. 12/20 22:40 Order name: Magnesium; Complete Time: 00:29 cp 12/20 22:40 Order name: Troponin HS; Complete Time: 00:29 cp 12/20 22:40 Order name: Urinalysis w/ reflexes; Complete Time: 23:33 cp 12/21 00:29 Interpretation: Normal except: [facility] Turbid; UESTR 250; UWBC 20-50. cp 12/20 22:40 Order name: Test, Serum; Complete Time: 23:33 cp 12/20 22:40 Order name: D-Dimer; Complete Time: 23:33 cp 12/20 23:29 Order name: Urine Culture EDMS 12/20 22:40 Order name: XRAY Chest (1 view) cp 12/20 22:40 Order name: EKG; Complete Time: 22:40 cp 12/20 22:40 Order name: Cardiac monitoring; Complete Time: 22:44 cp 12/20 22:40 Order name: EKG - Nurse/Tech; Complete Time: 22:44 cp 12/20 22:40 Order name: IV Saline Lock; Complete Time: 22:44 cp 12/20 22:40 Order name: Labs collected and sent; Complete Time: 22:44 cp 12/20 22:40 Order name: O2 Per Protocol; Complete Time: 22:44 cp 12/20 22:40 Order name: O2 Sat Monitoring; Complete Time: 22:44 cp EC/31 22:20 Rate is 78 beats/min. Rhythm is regular. IA interval is normal. QRS interval is normal. cp QT interval is normal. T waves are Inverted in lead aVR. Interpreted by me. Reviewed by me. Administered Medications: 22:47 Drug: Albuterol Inhalation 2.5 mg Inhalation once Route: Inhalation; bm8 12/21 00:54 Follow up: Response: No adverse reaction bm8 01:05 Drug: Ketorolac IVP 15 mg IVP once Route: IVP; Site: left antecubital; bm8 01:55 Follow up: Response: No adverse reaction bm8 01:05 Drug: NS 0.9% IV 1000 ml IV at 1 bolus Per protocol; 1000 mL bolus Route: IV; Rate: 1 bm8 bolus; Site: left antecubital; 01:55 Follow up: Response: No adverse reaction; IV Status: Completed infusion; IV Intake: bm8 1000ml 01:05 Drug: Dexamethasone IVP 10 mg IVP once Route: IVP; Site: left antecubital; bm8 01:55 Follow up: Response: No adverse reaction bm8 Disposition: 04:31 Co-signature as Attending Physician, Ricky Ricci MD I agree with the assessment sp4 and plan of care. I reviewed the patient's care provided by the Advanced Practice Provider and agree with the diagnosis and treatment plan. Disposition Summary: 12/22/23 01:47 Discharge Ordered Notes: Location: Home cp Problem: new cp Symptoms: have improved cp Condition: Stable cp Diagnosis - Chest pain, unspecified cp Followup: cp - With: Private Physician - When: 2 - 3 days - Reason: Recheck today's complaints Discharge Instructions: - Discharge Summary Sheet cp - Nonspecific Chest Pain, Adult cp Forms: - Medication Reconciliation Form cp - Antibiotic Education cp - Prescription Opioid Use cp - Patient Portal Instructions cp - Leadership Thank You Letter cp - Work release form bm8 Prescriptions: - albuterol sulfate 90 mcg/actuation Inhalation HFA Aerosol Inhaler - inhale 1 inhalation INHALATION route every 4 to 6 hours as needed for cp bronchospasm; administer via ventilator; 1 unit; Refills: 0, Product Selection Permitted - Anaprox DS 550 mg Oral Tablet - take 1 tablet ORAL route every 12 hours As needed; 20 tablet; Refills: 0, cp Product Selection Permitted - Medrol ([place]) 4 mg Oral Tablets, Dose Pack - take 1 tablet ORAL route as directed - follow package instructions; 1 packet; cp Refills: 0, Product Selection Permitted Signatures: Dispatcher [employer] EDMS Les Bell PA PA cp Johnson, Juwairiyah, RN RN jj7 Ricky Ricci MD MD sp4 Jose Dinh RN RN bm8 Corrections: (The following items were deleted from the chart) 01:59 12/20 23:33 This 23 yrs old Female presents to ER via Ambulatory with complaints of cp Chest Tightness. cp
--- NOTE | 2023-12-22 01:48 | ER ---
Nurse's Notes [facility] Name: Izzy Krishnan Age: 23 yrs Sex: Female : 2000 Arrival Date: 12/21/2023 Time: 21:56 Bed 8 Private MD: Diagnosis: Chest pain, unspecified Presentation: 12/20 22:00 Chief complaint: Patient states: CHEST TIGHTNESS SINCE LAST NIGHT. WEANING HERSELF OFF j OF NICOTINE AND THINKS THAT MIGHT BE CAUSING IT. Coronavirus screen: At this time, the client does not indicate any symptoms associated with coronavirus-19. Ebola Screen: No symptoms or risks identified at this time. Initial Sepsis Screen: Does the patient meet any 2 criteria? No. Patient's initial sepsis screen is negative. Does the patient have a suspected source of infection? No. Patient's initial sepsis screen is negative. Risk Assessment: Do you want to hurt yourself or someone else? Patient reports no desire to harm self or others. Onset of symptoms was December 20, 2023. 22:00 Method Of Arrival: Ambulatory [facility] 22:00 Acuity: ESAU 3 jj7 Triage Assessment: 22:16 General: Appears in no apparent distress. comfortable, Behavior is calm, cooperative, jj7 appropriate for age. Pain: Complains of pain in chest. Cardiovascular: Reports chest pain. 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 - Infectious Disease History:: Denies. - Social history:: Smoking status: Reported history of juuling and/or vaping. Patient uses alcohol, occasionally. street drugs, marijuana. Screenin:17 [facility] ED Fall Risk Assessment (Adult) History of falling in the last 3 months, jj7 including since admission No falls in past 3 months (0 pts) Confusion or Disorientation No (0 pts) Intoxicated or Sedated No (0 pts) Impaired Gait No (0 pts) Mobility Assist Device Used No (0 pt) Altered Elimination No (0 pt) Score/Fall Risk Level 0 - 2 = Low Risk Oriented to surroundings, Maintained a safe environment, Educated pt \T\ family on fall prevention, incl call for assistance when getting out of bed. Abuse screen: Denies threats or abuse. Nutritional screening: No deficits noted. Tuberculosis screening: No symptoms or risk factors identified. Assessment: 22:34 Reassessment: Patient appears in no apparent distress at this time. Patient and/or bm8 family updated on plan of care and expected duration. Pain level reassessed. Patient is alert, oriented x 3, equal unlabored respirations, skin warm/dry/pink. Patient states feeling better. Patient states symptoms have improved. Pain: Complains of pain in chest Pain does not radiate. Pain currently is 10 out of 10 on a pain scale. Quality of pain is described as tight Pain began 2-3 days ago. Neuro: No deficits noted. Level of Consciousness is awake, alert, obeys commands, Oriented to person, place, time, situation, Appropriate for age. Cardiovascular: Reports chest pain, Heart tones S1 S2 present. Respiratory: Airway is patent Respiratory effort is even, unlabored, Respiratory pattern is regular, symmetrical. GI: No signs and/or symptoms were reported involving the gastrointestinal system. : No signs and/or symptoms were reported regarding the genitourinary system. EENT: No signs and/or symptoms were reported regarding the EENT system. 23:51 Reassessment: Patient appears in no apparent distress at this time. No changes from 8 previously documented assessment. Patient and/or family updated on plan of care and expected duration. Pain level reassessed. Patient is alert, oriented x 3, equal unlabored respirations, skin warm/dry/pink. Cardiovascular: Reports chest pain, Capillary refill < 3 seconds Patient's skin is warm and dry. 12/21 01:52 Reassessment: Patient appears in no apparent distress at this time. Patient and/or bm8 family updated on plan of care and expected duration. Pain level reassessed. Patient is alert, oriented x 3, equal unlabored respirations, skin warm/dry/pink. Patient denies pain at this time. Patient states feeling better. Patient states symptoms have improved. Vital Signs: 12/20 22:00 BP 145 / 95; Pulse 81; Resp 20; Temp 98.3; Pulse Ox 99% ; Weight 92.99 kg; Height 5 ft. jj7 2 in. ; Pain 10/10; 23:51 BP 126 / 94; Pulse 66; Resp 17; Temp 98.3; Pulse Ox 99% ; Pain 8/10; bm8 12/21 01:52 BP 125 / 62; Pulse 69; Resp 16; Temp 98.3; Pulse Ox 99% ; Pain 0/10; bm8 12/20 22:00 Body Mass Index 37.49 (92.99 kg, 157.48 cm) 7 12/20 22:00 Pain Scale: Adult jj7 23:51 Pain Scale: Adult bm8 12/21 01:52 Pain Scale: Adult bm8 [place] Coma Score: 12/20 23:51 Eye Response: spontaneous(4). Motor Response: obeys commands(6). Verbal Response: bm8 oriented(5). Total: 15. 12/21 01:52 Eye Response: spontaneous(4). Motor Response: obeys commands(6). Verbal Response: bm8 oriented(5). Total: 15. ED Course: 12/20 22:01 Patient arrived in ED. gm2 22:13 Les Bell PA is PHCP. cp 22:13 Ricky Ricci MD is Attending Physician. cp 22:16 Triage completed. jj7 22:16 Arm band placed on right wrist. Patient placed in an exam room, on a stretcher. jj7 22:17 Patient has correct armband on for positive identification. Placed in gown. Bed in low jj7 position. Call light in reach. Provided Education on: USE OF CALL MADDEN. Client placed on continuous cardiac and pulse oximetry monitoring. NIBP monitoring applied. 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 22:34 Jose Dinh, RN is Primary Nurse. bm8 22:36 EKG done, by ED staff, reviewed by Les GARLAND. bm8 23:51 No provider procedures requiring assistance completed. Inserted saline lock: 20 gauge bm8 in left antecubital area, using aseptic technique. Blood collected. Flushed with 10 mL NS. Patient maintains SpO2 saturation greater than 95% on room air. 23:57 XRAY Chest (1 view) In Process Unspecified. EDMS 12/21 01:52 IV discontinued, intact, bleeding controlled, No redness/swelling at site. Pressure bm8 dressing applied. Administered Medications: 12/20 22:47 Drug: Albuterol Inhalation 2.5 mg Inhalation once Route: Inhalation; bm8 12/21 00:54 Follow up: Response: No adverse reaction bm8 01:05 Drug: Ketorolac IVP 15 mg IVP once Route: IVP; Site: left antecubital; bm8 01:55 Follow up: Response: No adverse reaction bm8 01:05 Drug: NS 0.9% IV 1000 ml IV at 1 bolus Per protocol; 1000 mL bolus Route: IV; Rate: 1 bm8 bolus; Site: left antecubital; 01:55 Follow up: Response: No adverse reaction; IV Status: Completed infusion; IV Intake: bm8 1000ml 01:05 Drug: Dexamethasone IVP 10 mg IVP once Route: IVP; Site: left antecubital; bm8 01:55 Follow up: Response: No adverse reaction bm8 Medication: 12/20 23:51 VIS not applicable for this client. bm8 Intake: 12/21 01:55 IV: 1000ml; Total: 1000ml. bm8 Outcome: 01:47 Discharge ordered by . shmuel 01:52 Discharged to home ambulatory, bm8 01:52 Condition: stable 01:54 Prescriptions given X 3, bm8 01:54 Discharge instructions given to patient, family, Instructed on discharge instructions, follow up and referral plans. no drinking with medication, no driving heavy equipment, medication usage, Demonstrated understanding of instructions, follow-up care, medications, Prescriptions given X 3, 02:02 Patient left the ED. bm8 Signatures: Dispatcher [employer] EDMS Les Bell PA PA cp Johnson, Juwairiyah RN RN jj7 Mireya Obando 2 Jose Dinh RN RN bm8 Corrections: (The following items were deleted from the chart) 01:54 01:52 Discharge instructions given to patient, family, Instructed on discharge bm8 instructions, follow up and referral plans. no drinking with medication, no driving heavy equipment, medication usage, safety practices, Demonstrated understanding of instructions, follow-up care, medications, Prescriptions given X bm8
[2023-12-22 02:30] VITALS: TEMP 98.3; O2SAT 99
[2023-12-22 02:33] VITALS: BP 125/62
--- NOTE | 2023-12-23 13:44 | RAD REPORT ---
EXAM DESCRIPTION: XR CHEST 1 VIEW CLINICAL HISTORY: Chest pain. COMPARISON: None. TECHNIQUE: XR CHEST 1 VIEW 12/21/2023 10:40 PM CDT FINDINGS: Cardiac silhouette is normal in size. Lungs are clear without consolidation, atelectasis, mass or edema. There is no pleural effusion. There is no pneumothorax. There are no acute osseous fin dings. IMPRESSION: Clear lungs. Electronically signed by: Otilio Weston MD 12/22/2023 12:14 AM CDT RP Due to temporary technical issues with the PACS/Fluency reporting system, reports are being signed by the in house radiologist without review as a courtesy to ensure prompt reporting. The interpreting r adiologist is fully responsible for the content of the report.
--- NOTE | 2023-12-24 12:45 | EKG ---
Test Date: 2023-12-21 Test Time: 22:14:03 Hockey Instructor: BIANCA MEASUREMENT RESULTS: Intervals: Rate: 78 MO: 124 QRSD: 90 QT: 352 QTc: 401 [place]: P: 44 MO: 124 QRS: 62 T: 56 INTERPRETIVE STATEMENTS: Normal sinus rhythm with sinus arrhythmia Normal ECG Compared to ECG 05/20/2023 15:48:53 No significant changes Electronically Signed On 12-24-23 12:40:52 CDT by Zion Larson
== END 2023-12-22 02:02 | disposition home or self-care (01) ==
LOC: ER 21:56
DX: R07.89 Other chest pain (principal)
CPT/HCPCS: 96361; 93005; 87088; 85025; 81001; 87086; 80048; 36415; 83735; 84703; 85379; 80076; 84484; 71045; 96374; 99285; J7613; J1100; J7030

== ENCOUNTER 2024-02-22 13:01 | Emergency (ER) | payer OTHER ==
--- OUTSIDE RECORDS SUMMARY | 2024-02-22 13:04 | XMS REPORT | Continuity of Care Document ---
Author Name Unknown Address [address] [facility] [address]. [address] [place] [address] [facility] thconnect Address [address] [facility]. 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 Name Role Phone Pcp, Patient Does Not Have A Primary Care Physic tristin DARIEN WEINER Attending Clinician Unavailable DARIEN WEINER Attending Clinician Unavailable Darien Weiner MD Attending Clinician [phone] PADMINI TORRE Attending Clinician UnavailPadmini Donnelly Attending Clinician + [phone] GORDON SAMUELS Attending Clinician Unavailable Gordon Samuels MD Attending Clinician [phone] Doctor Unassigned, [place] Attending Clinician U LOU Pressley Attending Clinician Unavailable Lou Elizondo Attending Clinician [phone] Jesus Alberto Henry Attending Clinician [phone] Jesus Alberto ARANDA Attending Clinician Unavailable GORDON SAMUELS Admitting Clinician Unavailable Jesus Alberto ARANDA Admitting Clinician Unavailable Payers Payer Name Policy Type Policy Number Effective Date Expirati on Date Source [facility] LATISHA [id number] 2021 00:00:00 Problems Condition Name Condition Details Condition Category Status Onset Date Resolution Date Last Treatment Date Treating Clinician Comments Source Behavior concern Behavior concern Disease Active 05-04 00:00: 00 General acute hospital Family circumstan ce Family circumstan ce Disease Active 05-04 00:00: 00 General acute hospital Hx of suicide attempt Hx of suicide attempt Disease Active 05-04 00:00: 00 General acute hospital Depression , unspecifie d depression type Depression , unspecifie d depression type Disease Active 05-04 00:00: 00 General acute hospital BMI (body mass index), pediatric, 95-99% for age BMI (body mass index), pediatric, 95-99% for age Disease Active 05-04 00:00: 00 General acute hospital Appendicit is, acute Appendicit is, acute Disease Resolve d 2015-04 00:00: 00 2016-05-04 00:00:00 2016-05-04 15:32:10 General acute hospital Allergies, Adverse Reactions, Alerts Allergy Name Allergy Type Status Severity Reaction(s) Onset Date Inactive Date Treating Clinician Comments Source NO KNOWN ALLERGIE S Drug Class Active General acute hospital Social History Social Habit Start Date Stop Date Quantity Comments Source Gender identity [facility] Sexual orientation [facility] History of Social function 2023-01-03 00:00:00 2023-01-03 00:00:00 [facility] Alcohol intake 2023-01-03 00:00:00 2023-01-03 00:00:00 0 /d [facility] Alcoholic beverage intake 2023-01-03 00:00:00 2023-01-03 00:00:00 0 /d [facility] Exposure to SARS-CoV-2 (event) 2022-01-15 00:00:00 2022-01-25 16:49:00 Not sure [facility] Sex assigned at 2001 00:00:00 2000 00:00:00 [facility] Smoking Status Start Date Stop Date Source Never smoked tobacco General acute hospital Medications Ordered Medication Name Filled Medication Name Start Date Stop Date Current Medication? Ordering Clinician Indication Dosage Frequency Signature (SIG) Comments Components Source ketorolac (TORADOL) injection 30 mg 2023-04 08:15: 00 01-24 07:26 :00 No 30mg 30 mg, Slow IV Push, ONCE, 1 dose, On 01/25/24 at 0315, Routine [facility] acute hospital NaCl 0.9% (NS) IV infusion 1,000 mL 2023-04 08:00: 00 01-24 08:25 :00 No 1000mL at 999 mL/hr, Intravenou s, ONCE, 1 dose, On 01/25/24 at 0300, Routine [facility] acute hospital diphenhydrA MINE (BENADRYL) injection 25 mg 2023-04 07:15: 00 01-24 07:25 :00 No 25mg 25 mg, Slow IV Push, ONCE, 1 dose, On 01/25/24 at 0215, STAT [facility] acute hospital metoclopram oksana HCl (REGLAN) injection 10 mg 2023-04 07:15: 00 01-24 07:26 :00 No 10mg 10 mg, Slow IV Push, ONCE, 1 dose, On 01/25/24 at 0215, JOANNA General acute hospital Nitrofurant oin&Nit. Macrocryst (MACROBID) 100 mg capsule 2023-04 00:00: 00 Yes [id number] 100mg Take 1 capsule by mouth in the morning and 1 capsule in the evening. General acute hospital butalbital- acetaminoph en-caff 50-325-40 mg tablet 2023-04 00:00: 00 Yes [id number] 1{tbl} Take 1 tablet by mouth every 6 (six) hours as needed (Headache) . [facility] acute hospital acetaminoph en (TYLENOL) tablet 1,000 mg 01-04 02:30: 00 01-04 01:59 :00 No 1000mg 1,000 mg, Oral, ONCE, 1 dose, On Steffany 01/03/23 at 2130, JOANNA [facility] acute hospital ondansetron (ZOFRAN) tablet 4 mg 01-04 02:30: 00 01-04 02:30 :00 No 4mg 4 mg, Oral, ONCE, 1 dose, On Steffany 01/03/23 at 2130, Routine [facility] acute hospital ondansetron 4 mg disintegrat ing tablet 01-03 00:00: 00 Yes [id number] 4mg Take 1 tablet by mouth every 8 (eight) hours as needed for Nausea and Vomiting (N/V). [facility] acute hospital acetaminoph en (TYLENOL) tablet 975 mg 11-06 02:45: 00 11-06 01:45 :00 No 975mg 975 mg, Oral, ONCE, 1 dose, On 11/05/22 [facility] 2145[facility] pseudoephed rine (CLARITIN-D 24 HOUR) 10-240 mg per 24 hr tablet 11-05 00:00: 00 Yes [id number] 1{tbl} Take 1 tablet by mouth in the morning. General acute hospital dextrometho rphan-guaif enesin 10-100 mg/5 mL solution 11-05 00:00: 00 Yes [id number] 10mL Take 10 mL by mouth every 6 (six) hours as needed for Cough. General acute hospital ondansetron 4 mg disintegrat ing tablet 11-05 00:00: 00 Yes [id number] 4mg Take 1 tablet by mouth every 4 (four) hours as needed for Nausea and Vomiting (N/V). [facility] acute hospital naproxen 500 mg tablet 11-05 00:00: 00 11-16 04:59 :00 No [id number] 500mg Take 1 tablet by mouth in the morning and 1 tablet in the evening. Take with meals. Do all this for 10 days. General acute hospital ondansetron (ZOFRAN (PF)) injection 4 mg 2021-04 0 23:30: 00 01-25 22:39 :00 No 4mg 4 mg, Slow IV Push, ONCE, 1 dose, On Steffany 01/25/22 at 1830, JOANNA General acute hospital ketorolac (TORADOL) injection 15 mg 2021-04 0 23:30: 00 01-25 22:39 :00 No 15mg 15 mg, Slow IV Push, ONCE, 1 dose, On Steffany 01/25/22 at 1830, Routine General acute hospital ondansetron (ZOFRAN (PF)) injection 4 mg 2021-04 0 22:45: 00 01-25 22:04 :00 No 4mg 4 mg, Slow IV Push, ONCE, 1 dose, On Steffany 01/25/22 at 1745, JOANNA General acute hospital NaCl 0.9% (NS) bolus infusion 1,000 mL 2021-04 22:45: 00 01-25 23:10 :00 No 1000mL at 999 mL/hr, 1,000 mL, IV Infusion, ONCE, 1 dose, On Steffany 01/25/22 at 1745, JOANNA [facility] acute hospital dicyclomine 20 mg tablet 2021-04 0 00:00: 00 Yes [id number] 20mg Take 1 tablet by mouth every 6 (six) hours as needed for Abdominal pain. General acute hospital ondansetron 4 mg disintegrat ing tablet 2021-04 00:00: 00 Yes [id number] 4mg Take 1 tablet by mouth every 6 (six) hours as needed for Nausea and Vomiting (N/V). General acute hospital amoxicillin (TRIMOX) capsule 500 mg 2020-04 00:30: 00 04-06 23:33 :00 No 500mg 500 mg, Oral, ONCE, 1 dose, On Steffany 04/06/21 at 1830, JOANNA
Re ason for Anti-Infec tive: Documented Infection< br>Documen nadiya Infection Site: HEENT
D uration of Therapy: Other (see Comments) General acute hospital ketorolac (TORADOL) injection 30 mg 2020-04 00:30: 00 04-06 23:33 :00 No 30mg 30 mg, Intramuscu lar, ONCE, 1 dose, On Steffany 04/06/21 at 1830, JOANNA [facility] acute hospital ibuprofen 800 mg tablet 2020-04 00:00: 00 Yes [id number] 800mg Take 1 tablet by mouth 3 (three) times daily with meals. General acute hospital chlorhexidi ne 0.12 % mouthwash 2020-04 00:00: 00 Yes [id number] 15mL Swish and spit out 15 mL 2 (two) times daily. General acute hospital chlorhexidi ne 0.12 % mouthwash 2020-04 00:00: 00 Yes [id number] 15mL Swish and spit out 15 mL 2 (two) times daily. General acute hospital amoxicillin 500 mg capsule 2020-04 00:00: 00 04-14 05:59 :00 No [id number] 500mg Take 1 capsule by mouth 3 (three) times daily for 7 days. General acute hospital NaCl 0.9% (NS) bolus infusion 1,000 mL 2020-04 015 23:15: 00 02-03 23:43 :00 No 1000mL at 999 mL/hr, 1,000 mL, IV Infusion, ONCE, 1 dose, On 02/03/21 at 1815, STAT General acute hospital METAXALONE (SKELAXIN ORAL) 05-14 14:34: 04 Yes Take by mouth. General acute hospital Vital Signs Vital Name Observation Time Observation Value Comments S ource Heart rate 2024-01-25 09:13:00 75 /min [facility] Body temperature 2024-01-25 09:13:00 36.89 Charo [facility] Oxygen saturation in Arterial blood by Pulse oximetry 2024-01-25 09:13:00 99 /min [facility] Systolic blood pressure 2024-01-25 09:00:00 106 mm[Hg] [facility] Diastolic blood pressure 2024-01-25 09:00:00 65 mm[Hg] [facility] Respiratory rate 2024-01-25 09:00:00 16 /min [facility] Body height 2024-01-25 05:50:00 162.6 cm [facility] Body weight 2024-01-25 05:50:00 99.791 kg [facility] BMI 2024-01-25 05:50:00 37.76 kg/m2 [facility] Systolic blood pressure 2023-01-04 01:35:00 148 mm[Hg] [facility] Diastolic blood pressure 2023-01-04 01:35:00 107 mm[Hg] [facility] Heart rate 2023-01-04 01:35:00 98 /min [facility] Body temperature 2023-01-04 01:35:00 37.39 Charo [facility] Respiratory rate 2023-01-04 01:35:00 18 /min [facility] Body height 2023-01-04 01:35:00 157.5 cm [facility] Body weight 2023-01-04 01:35:00 89.812 kg [facility] BMI 2023-01-04 01:35:00 36.21 kg/m2 [facility] Oxygen saturation in Arterial blood by Pulse oximetry 2023-01-04 01:35:00 99 /min [facility] Heart rate 2022-11-06 04:10:00 96 /min [facility] Body temperature 2022-11-06 04:10:00 37.28 Charo [facility] Respiratory rate 2022-11-06 04:10:00 18 /min [facility] Oxygen saturation in Arterial blood by Pulse oximetry 2022-11-06 04:10:00 98 /min [facility] Systolic blood pressure 2022-11-06 01:19:00 116 mm[Hg] [facility] Diastolic blood pressure 2022-11-06 01:19:00 83 mm[Hg] [facility] Body height 2022-11-06 01:19:00 157.5 cm [facility] Body weight 2022-11-06 01:19:00 97.523 kg [facility] BMI 2022-11-06 01:19:00 39.32 kg/m2 [facility] Systolic blood pressure 2022-01-25 21:49:00 152 mm[Hg] [facility] Diastolic blood pressure 2022-01-25 21:49:00 102 mm[Hg] [facility] Heart rate 2022-01-25 21:49:00 80 /min [facility] Body temperature 2022-01-25 21:49:00 37.06 Charo [facility] Respiratory rate 2022-01-25 21:49:00 16 /min [facility] Body height 2022-01-25 21:49:00 160 cm [facility] Body weight 2022-01-25 21:49:00 88.451 kg [facility] BMI 2022-01-25 21:49:00 34.54 kg/m2 [facility] Oxygen saturation in Arterial blood by Pulse oximetry 2022-01-25 21:49:00 97 /min [facility] Body temperature 2021-04-06 22:53:00 36.94 Charo [facility] Respiratory rate 2021-04-06 22:53:00 18 /min [facility] Body height 2021-04-06 22:53:00 162.6 cm [facility] Body weight 2021-04-06 22:53:00 86.183 kg [facility] BMI 2021-04-06 22:53:00 32.61 kg/m2 [facility] Oxygen saturation in Arterial blood by Pulse oximetry 2021-04-06 22:53:00 99 /min [facility] Systolic blood pressure 2021-04-06 22:53:00 139 mm[Hg] [facility] Diastolic blood pressure 2021-04-06 22:53:00 99 mm[Hg] [facility] Heart rate 2021-04-06 22:53:00 76 /min [facility] Systolic blood pressure 2021-02-03 22:20:00 140 mm[Hg] [facility] Diastolic blood pressure 2021-02-03 22:20:00 98 mm[Hg] [facility] Heart rate 2021-02-03 22:20:00 85 /min [facility] Respiratory rate 2021-02-03 22:20:00 18 /min [facility] Oxygen saturation in Arterial blood by Pulse oximetry 2021-02-03 22:20:00 99 /min [facility] Body temperature 2021-02-03 15:54:00 36.78 Charo [facility] Body height 2021-02-03 15:54:00 160 cm [facility] Body weight 2021-02-03 15:54:00 74.844 kg [facility] BMI 2021-02-03 15:54:00 29.23 kg/m2 [facility] Body mass index (BMI) [Percentile] Per age and sex 2021-02-03 15:54:00 91.94 % [facility] Procedures Procedure Date / Time Performed Performing Clinician Source URINALYSIS 2024-01-25 07:27:00 Darien Weiner [facility] INFLUENZA A/B RSV COVID NAAT 2024-01-25 07:27:00 Darien Weiner [facility] POCT TEST 2024-01-25 07:04:00 Darien Weiner [facility] URINALYSIS 2023-01-04 02:27[facility]00 [facility] 2023-01-04 02:27:00 Tarun Torre [facility] CONSENT/REFUSAL FOR DIAGNOSIS AND TREATMENT 2023-01-04 01:19:40 Doctor Unassigned, [place] XR CHEST 2 VW 2022-11-06 03:46:00 Gordon Samuels [facility] RAPID STREP SCREEN FOR GROUP A 2022-11-06 01:45:00 Gordon Samuels [facility] RAPID INFLUENZA A/B 2022-11-06 01:45:00 Twan Samuels [facility] COVID-19 (ID NOW RAPID TESTING) 2022-11-06 01:45:00 Gordon Samuels [facility] CONSENT/REFUSAL FOR DIAGNOSIS AND TREATMENT 2022-11-06 01:06:48 Doctor Unassigned, [place] [facility] POCT TEST 2022-01-25 22:06:00 Jose L Tarun pete [facility] LIPASE 2022-01-25 22:03:00 Padmini Torre [facility] MAGNESIUM 2022-01-25 22:03:00 Padimni Torre [facility] COMP. METABOLIC PANEL ([id number]) 2022-01-25 22:03:00 Jose L [facility] CBC WITH DIFF 2022-01-25 22:03:00 Jose L [facility] NOTICE OF PRIVACY PRACTICES 2022-01-25 21:25:28 Doctor Unassigned, [place] [facility] CONSENT/REFUSAL FOR DIAGNOSIS AND TREATMENT 2022-01-25 21:25:07 Doctor Unassigned, [place] [facility] POCT TEST 2021-04-06 23:20:00 Lou Gardner [facility] CONSENT/REFUSAL FOR DIAGNOSIS AND TREATMENT 2021-04-06 22:35:43 Doctor Unassigned, [place] [facility] XR CHEST 1 VW 2021-02-03 23:04:39 Jesus Alberto Aranda [facility] D-DIMER 2021-02-03 18:33:00 Jesus Alberto Aranda [facility] LIPASE 2021-02-03 18:24:00 Jesus Alberto Aranda [facility] MAGNESIUM 2021-02-03 18:24:00 Jesus Alberto Aranda [facility] COMP. METABOLIC PANEL ([id number]) 2021-02-03 18:24:00 Jesus Alberto Aranda [facility] CBC WITH DIFF 2021-02-03 18:24:00 Jesus Alberto Aranda [facility] URINALYSIS 2021-02-03 18:24:00 Jesus Alberto Aranda [facility] URINE DRUG (IMMUNOASSAY) - COMPREHENSIVE DRUG SCREEN 2021-02-03 18:23:00 Jesus Alberto Aranda [facility] POCT TEST 2021-02-03 18:23:00 Jesus Alberto Aranda e [facility] NOTICE OF PRIVACY PRACTICES 2021-02-03 15:44:16 Doctor Unassigned, [place] [facility] Encounters Start Date/Time End Date/Time Encounter Type Admission Type Attending [facility] Facility Care Department Encounter ID Source 2024-01-25 00:53:00 2024-01-25 04:17:00 Emergency X ROSIBEL WEINERMAGDI CASTAÑEDAMARYAMDARIEN [facility] ERT [id number] General acute hospital 2024-01-25 00:53:00 2024-01-25 04:17:00 Emergency Darien Weiner Jey [facility] [id number] [id number] [id number] General acute hospital 2023-01-03 20:37:00 2023-01-03 22:10:00 [id number] acute hospital 2023-01-03 20:37:00 2023-01-03 22:10:00 Emergency Padmini Torre [facility] [id number] 350.1.13.10 4.2.7.2.686 [id number] General acute hospital 2022-11-05 20:21:00 2022-11-05 23:12:00 Emergency X GORDON SAMUELS [facility] ERT [id number] General acute hospital 2022-11-05 20:21:00 2022-11-05 23:12:00 Emergency ArvindGordon [facility] [id number] 350.1.13.10 4.2.7.2.686 [id number] General acute hospital 2022-10-01 08:43:03 2022-10-01 08:43:03 Outpatient SFA SFA [id number] Erasmo Payan 2022-01-25 16:50:00 2022-01-25 18:32:00 Emergency X PADMINI TORRE [facility] ERT [id number] General acute hospital 2022-01-25 16:50:00 2022-01-25 18:32:00 Emergency Padmini Torre [facility] [id number] 350.1.13.10 4.2.7.2.686 [id number] General acute hospital 2022-01-25 00:00:00 2022-01-25 00:00:00 Orders Only Doctor Unassigned, [place] [id number] 350.1.13.10 4.2.7.2.686 [id number] General acute hospital 2021-04-06 16:54:00 2021-04-06 17:47:00 Emergency X GARDNERLOU ALMAZAN [facility] ERT [id number] General acute hospital 2021-04-06 16:54:00 2021-04-06 17:47:00 Emergency GardnerLou [facility] 1.2840.114 350.1.13.10 4.2.7.2.686 [id number] General acute hospital 2021-02-03 11:11:00 2021-02-03 18:44:00 Emergency Jesus Alberto Aranda [facility] [id number] 350.1.13.10 4.2.7.2.686 [id number] General acute hospital 2021-02-03 11:11:00 2021-02-03 18:44:00 Emergency X Jesus Alberto ARANDA [facility] ERT [id number] General acute hospital Results Test Description Test Time Test Comments Results Result Co mments Source [id number]:27:00* Test Item Value Reference Range Interpretation Comme nts POCT PREG (test code = 1605) Negative On board controls acceptable with C Line (test code = 3574) Yes POCT PREG LOT # (test code = 3575) [id number] POCT PREG TEST DATE ( test code = 3576) 2024-04-24 Lab Interpretation (test cod e = 57861-8) Normal [facility] [id number] 22:06:00* Test Item Value Reference Range Interpretation Comme nts POCT PREG (test code = 1605) negative On board controls acceptable with C Line (test code = 3574) present POCT PREG LOT # (test code = 3575) [id number] POCT PREG TEST DATE ( test code = 3576) Lab Interpretation (test cod e = 62343-4) [facility] [id number] 23:20:00* Test Item Value Reference Range Interpretation Comme nts POCT PREG (test code = 1605) negative POCT PREG LOT # (test code = 3575) [id number] POCT PREG TEST DATE ( test code = 3576) 2022-05-22 Lab Interpretation (test cod e = 16536-3) Normal [id number] 19:30:18* Test Item Value Reference Range Interpretation Comments D-DIMER (test code = 3835017597) <0.27 See_Comment [Automated message] The system which [...] a diagnosis. Lab Interpretation (test code = 72366-3) [facility] 19:00:14* Test Item Value Reference Range Interpretation Comme nts MAGNESIUM (test code = 7967507423) 1.8 mg/dL 1.7-2.4 Lab Interpretation (test cod e = 92809-6) Normal [facility] (41973)2021-02-03 18:59:54* Test Item Value Reference Range Interpretation Comme nts NA (test code = 2106958383) 139 mmol/L 135-145 K (test code = 4507864964) 4.0 mmol/L 3.5-5.0 CL (test code = 4732724438) 101 mmol/L 98-108 CO2 TOTAL (test code = 2031514711) 30 mmol/L 23-31 AGAP (test code = 2968473324) 2-16 BUN (test code = 3821994263) 13 mg/dL 7-23 GLUCOSE (test code = 3242069215) 87 mg/dL 70-110 CREATININE (test code = 8111514265) 0.57 mg/dL 0.50-1.04 TOTAL BILI (test code = 2641190273) 0.4 mg/dL 0.1-1.1 CALCIUM (test code = 9623400680) 9.7 mg/dL 8.6-10.6 T PROTEIN (test code = 3997811769) 8.0 g/dL 6.3-8.2 ALBUMIN (test code = 1651795737) 4.6 g/dL 3.5-5.0 ALK PHOS (test code = 1459589587) 90 U/L 34-122 ALTv (test code = 1742-6) 15 U/L 5-35 AST(SGOT) (test code = 0594760779) 23 U/L 13-40 eGFR (test code = 5757296626) mL/min/1.73m2 NIKA (test code = NIKA) Association [...] or urine or abnormalities in imaging tests). [facility] 18:59:34* Test Item Value Reference Range Interpretation Comme nts LIPASE (test code = 7020983711) 37 U/L 0-220 Lab Interpretation (test cod e = 00210-3) Normal [facility] WITH [id number] 18:37:09* Test Item Value Reference Range Interpretation Comme nts WBC (test code = 6690-2) See_Comment [Automated [employer]] The system which generated this result transmitted reference range: 4.30 - 11.10 10*3/?L. The reference range was not used to interpret this result as normal/abnormal. RBC (test code = 789-8) See_Comment [Automated [employer]] The system which generated this result transmitted [...] g/dL 31.6-35.1 L RDW-SD (test code = 20239-2) 38.9 fL 39.0-49.9 L RDW-CV (test code = 788-0) 13.2 % 12.0-15.5 PLT (test code = 777-3) See_Comment H [Automated messa ge] The system which generated this result transmitted reference range: 166 - 358 10*3/?L. The reference range was not used to interpret this result as normal/abnormal. MPV (test code = 03639-7) 9.2 fL 9.5-12.9 L NRBC/100 WBC (test code = 1619521870) See_Comment [Automated [employer] ssage] The system which generated this result transmitted reference range: 0.0 - 10.0 /100 WBCs. The reference range was not used to interpret this result as normal/abnormal. NRBC x10^3 (test code = 1887030828) <0.01 See_Comment [Automated messa ge] The system which generated this result transmitted reference range: 10*3/?L. The reference range was not used to interpret this result as normal/abnormal. GRAN MAT (NEUT) % (test code = 770-8) 66.3 % IMM GRAN % (test code = 3315030557) 0.70 % LYMPH % (test code = 736-9) 20.6 % MONO % (test code = 5905-5) 9.8 % EOS % (test code = 713-8) 1.7 % BASO % (test code = 706-2) 0.9 % GRAN MAT x10^3(ANC) (test code = 0812435416) 5.09 10*3/uL 1.88-7.09 IMM GRAN x10^3 (test code = 6450239091) 0.05 10*3/uL 0.00-0.06 LYMPH x10^3 (test code = 731-0) 1.58 10*3/uL 1.32-3.29 MONO x10^3 (test code = 742-7) 0.75 10*3/uL 0.33-0.92 EOS x10^3 (test code = 711-2) 0.13 10*3/uL 0.03-0.39 BASO x10^3 (test code = 704-7) 0.07 10*3/uL 0.01-0.07 Lab Interpretation (test code = 91309-3) Abnormal [facility] [id number] 18:23:00* Test Item Value Reference Range Interpretation Comme nts POCT PREG (test code = 1605) negative On board controls acceptable with C Line (test code = 3574) present Lab Interpretation (test cod e = 23343-6) Normal [facility] Notes Date/Time Note Provider Source 2024-01-25 04:16:22 Pt given printed and verbal discharge instructions regarding Bladder infection, headache, encouraged hydration, Prescriptions provided Discussed antibiotic therapy and to take until all completed unless adverse reaction occurs - if occurs, discontinue medication and follow up with pcp/seek medical attention Pt verbalized understanding of instructions, pt awake alert oriented, resp reg unlabored, skin w/d, color appropriate for race, moves all ext well,pt encouraged to follow up with pcp Advised to seek medical attention for new/prolonged/worsening of symptoms, No adverse reaction to meds given in ER noted upon discharge PIV d'cd, dressing to site, catheter in tact. Awake, alert oriented, resp reg unlabored, skin w/d, pt leaving amb with steady gait, in no apparent distress, Mahesh Valladares RN [facility] 2024-01-25 00:48:14 CC: Headache, N/V, and abdominal pain since 11am today. Awake, alert, oriented, resp reg unlabored, skin intact, color appropriate for race, moves all ext without difficulty, amb into triage Aleida Alcantara RN [facility] 2023-01-03 22:05:51 Formatting of this n ote [...] noted upon discharge Pt ambulated to the [facility] with steady gait [facility] 2023-01-03 20:32:45 Formatting of this n ote might be different from the original. Pt states that she was seen @ [facility] this am and was neg for covid and strep. Pt states she is still not feeling well and she has to work tomorrow and doesn't want to feel this way. Vomiting X2, fever, cough, chest discomfort that started 1 hr [place]. Pt states the pain is sharp. T Angi Perry RN [facility]
[2024-02-22] MEDS ORDERED: NA CHLORIDE 0.9% 1,000 ML ONE (13:51)
[2024-02-22] MEDS ORDERED: PROMETHAZINE INJ 25 MG/ML AMP ONE (13:51)
[2024-02-22 13:55] LABS: Absolute Eosinophils 0.1 K/uL (0-0.5); Absolute Monocytes 0.5 K/uL (0.1-1.3); Absolute Neutrophil 8.1 K/uL (1.8-8.0); Basophils % 0.4 % (0-1.3); Eosinophils % 1.1 % (0-4.4); Hematocrit 40.3 % (36.0-45.0); Lymphocytes % 10.1 % (15.3-44.8); MCH 26.6 pg (27.0-35.0); MCHC 32.2 g/dL (32.0-36.0); MCV 82.7 fL (80-100); Monocytes % 5.6 % (3.3-12.3); Neutrophils % 82.8 % (41.7-73.7); Platelets 374 thou/uL (152-406); RBC Red Blood Cell Count 4.87 M/uL (3.86-4.86); Red Cell Distribution Width 13.8 % (12.1-15.2)
[2024-02-22 14:21] LABS: Anion Gap 6.4 mEq/L (5.0-15.0); BUN Blood Urea Nitrogen 14 mg/dL (7-18); Bicarbonate 28 mEq/L (21-32); Glomerular Filtration Rate 120 ml/min (=/>90); Glucose Level 102 mg/dL (74-106); Potassium 3.4 mEq/L (3.5-5.1); Sodium Level 136 mEq/L (136-145)
[2024-02-22 14:22] LABS: HCG, Quantitative < 1 mIU/mL (1-3)
[2024-02-22 14:38] LABS: Specific Gravity > 1.030 (1.005-1.030); Sqamous Epithelial <5 /HPF (None Seen); Urine Bacteria <20 /HPF (<20); Urine Bilirubin NEGATIVE (Negative); Urine Blood Negative (Negative); Urine Clarity Clear (Clear); Urine Color Yellow (Yellow); Urine Culture Reflex Order NOT NEEDED; Urine Glucose NEGATIVE (Negative); Urine Ketones NEGATIVE (Negative); Urine Micro Reflex YN NO BILL MICROSCOPIC; Urine Mucus 1+ /HPF (None Seen); Urine Nitrite NEGATIVE (Negative); Urine Protein TRACE (Negative); Urine RBC <5 /HPF (None Seen); Urine Urobilinogen 1+ (Normal); Urine WBC <5 /HPF (<5); Urine WBC Clump Rare /HPF (None Seen); Urine Yeast (Budding) Trace /HPF (None Seen); Urine pH 6.5 (5.0-7.0)
[2024-02-22 14:39] LABS: Specific Gravity > 1.030 (1.005-1.030)
--- NOTE | 2024-02-22 15:06 | RAD REPORT ---
EXAMINATION: Transvaginal OB COMPARISON: None. HISTORY: malaise TECHNIQUE: Real-time ultrasound was performed through the pelvis. A transvaginal scan was performed t o better visualize the intrauterine contents and adnexa. FINDINGS: No IUP seen. Endometrium measures 5 mm. Both ovaries are visualized and appear unremarkable. There is no free fluid in the cul-de-sac. Measurements and Calculations: N/A IMPRESSION: No IUP is confirmed on this study. In the setting of a positive hCG level, this would indicate of unknown location. Serial hCG level measurements and follow-up pelvic sonography in 7-10 days would be recommended.
--- NOTE | 2024-02-22 15:12 | ER ---
Nurse's Notes [facility] Name: Izzy Krishnan Age: 24 yrs Sex: Female : 2000 Arrival Date: 02/22/2024 Time: 13:01 Bed 19 Private MD: Diagnosis: Vomiting;Volume depletion, unspecified Presentation: 02/21 13:13 Chief complaint: Patient states: vomiting since last night, feet were swollen this iw morning , fever , headache, fingers and toes tingling. Coronavirus screen: Client presents with at least one sign or symptom that may indicate coronavirus-19. Ebola Screen: No symptoms or risks identified at this time. Initial Sepsis Screen: Does the patient meet any 2 criteria? No. Patient's initial sepsis screen is negative. Does the patient have a suspected source of infection? No. Patient's initial sepsis screen is negative. Risk Assessment: Do you want to hurt yourself or someone else? Patient reports no desire to harm self or others. Onset of symptoms was February 21, 2024. 13:13 Method Of Arrival: Wheelchair iw 13:13 Acuity: ESAU 3 iw 13:17 Chief complaint: Patient states: pt had positive test on 02-09-24 then she iw passed a sac like tissue 4-5 days ago. 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 - Infectious Disease History:: Denies. - Social history:: Smoking status: Reported history of juuling and/or vaping. Patient uses street drugs, marijuana. Screenin:[address] [facility] ED Fall Risk Assessment (Adult) History of falling in the last 3 months, me1 including since admission No falls in past 3 months (0 pts) Confusion or Disorientation No (0 pts) Intoxicated or Sedated No (0 pts) Impaired Gait No (0 pts) Mobility Assist Device Used No (0 pt) Altered Elimination No (0 pt) Score/Fall Risk Level 0 - 2 = Low Risk Maintained a safe environment, Provided non-skid footwear, Hourly rounding (assess needs \T\ fall precautionary measures) done. Abuse screen: Denies threats or abuse. Nutritional screening: No deficits noted. Tuberculosis screening: No symptoms or risk factors identified. Assessment: 14:14 General: Appears ill, well developed, well nourished, Behavior is calm, cooperative, me1 appropriate for age, Reports Positive home test about a week ago and a couple of days later patient started bleeding. She has been vomiting since last night, feet were swollen this morning , fever , headache, fingers and toes tingling. Pain: Complains of pain in head Pain does not radiate. Pain currently is 3 out of 10 on a pain scale. Quality of pain is described as aching, Pain began gradually, 1 day ago. Is continuous. Neuro: Level of Consciousness is awake, alert, obeys commands, Oriented to person, place, time, situation, Appropriate for age. Cardiovascular: Patient's skin is warm and dry. Respiratory: Airway is patent Respiratory effort is even, unlabored, Respiratory pattern is regular, symmetrical. GI: Reports diarrhea, nausea, vomiting. : Reports vaginal bleeding that is bright red. : No signs and/or symptoms were reported regarding the genitourinary system. EENT: No signs and/or symptoms were reported regarding the EENT system. Derm: Skin is intact, is healthy with good turgor, Skin is pink, warm \T\ dry. Musculoskeletal: No signs and/or symptoms reported regarding the musculoskeletal system. Vital Signs: 13:13 BP 138 / 97; Pulse 97; Resp 18; Temp 98.6; Pulse Ox 99% on R/A; Weight 100.7 kg; Height iw 5 ft. 4 in. ; Pain 9/10; 13:30 BP 134 / 84; Pulse 88; Resp 16; Pulse Ox 98% ; me1 14:30 BP 124 / 69; Pulse 68; Resp 16; Pulse Ox 99% ; me1 15:24 BP 129 / 72; Pulse 73; Resp 16; Temp 98.6; Pulse Ox 99% ; me1 13:13 Body Mass Index 38.11 (100.70 kg, 162.56 cm) iw 13:13 Pain Scale: Adult iw ED Course: 13:03 Patient arrived in ED. im 13:15 Triage completed. iw 13:15 Arm band placed on. iw 13:20 [facility]C [facility]. snw 13:20 David Tineo MD is Attending Physician. snw 13:32 Ashlee Jo, IRIS is Primary Nurse. me1 13:55 Initial lab(s) drawn, by me, sent to lab. Inserted saline lock: 22 gauge in left me1 antecubital area, using aseptic technique. 13:55 Abo/rh Typing Sent. me1 13:55 Basic Metabolic Panel Sent. me1 13:55 CBC with Diff Sent. me1 13:55 Quantitative Hcg Sent. me1 13:55 PREGU Sent. me1 14:14 Patient has correct armband on for positive identification. Bed in low position. Call fl1 light in reach. Side rails up X 1. Provided Education on: POC. Verbalized understanding.. Client placed on continuous cardiac and pulse oximetry monitoring. NIBP monitoring applied. Pulse ox on. NIBP on. 14:14 No provider procedures requiring assistance completed. me1 14:32 Test, Urine Sent. me1 14:32 Urine W/Microscopic (UAM) Sent. me1 14:32 Urine collected: clean catch specimen, cloudy, tea colored. me1 14:33 US Transvaginal Ob In Process Unspecified. EDMS 15:33 IV discontinued, intact, bleeding controlled, No redness/swelling at site. Pressure me1 dressing applied. Administered Medications: 13:55 Drug: NS 0.9% IV 1000 ml IV at 1000 ml once; to be given as a bolus over 60 minutes me1 Route: IV; Rate: 1000 ml; Site: left antecubital; 15:24 Follow up: Response: No adverse reaction; IV Status: Completed infusion; IV Intake: me1 1000ml 13:55 Drug: Promethazine IVP 6.25 mg IVP once Route: IVP; Site: left antecubital; me1 14:32 Follow up: Response: No adverse reaction; Nausea is decreased me1 Medication: 14:14 VIS not applicable for this client. me1 Intake: 15:24 IV: 1000ml; Total: 1000ml. me1 Outcome: 15:11 Discharge ordered by . snw 15:33 Discharged to home ambulatory, me1 15:33 Condition: stable 15:33 Discharge instructions given to patient, Instructed on discharge instructions, follow up and referral plans. medication usage, Demonstrated understanding of instructions, follow-up care, medications, Prescriptions given X 2, 15:34 Patient left the ED. me1 Signatures: Dispatcher [employer] EDDeidra Go, LOOSELEAF BINDER COVERER-C LOOSELEAF BINDER COVERER-Csnw Vandana Craig, RN RN iw Suri Vasquez Michelle, RN RN me1 Corrections: (The following items were deleted from the chart) 13:33 13:13 Chief complaint: Patient states: vomiting since last night, feet were swollen me1 this morning , fever , headache, fingers and toes tingling iw 14:14 13:13 Chief complaint: Patient states: vomiting since last night, feet were swollen me1 this morning , fever , headache, fingers and toes tingling me1
--- NOTE | 2024-02-22 15:12 | EDPHYS ---
Physician Documentation [facility] Name: Izzy Krishnan Age: 24 yrs Sex: Female : 2000 Arrival Date: 02/22/2024 Time: 13:01 Bed 19 Private MD: ED Physician David Tineo HPI: 02/21 14:38 This 24 yrs old Female presents to ER via Wheelchair with complaints of Flu Symptoms. snw 14:38 The patient presents to the emergency department with nausea, vomiting, awoke last pm snw vomiting. 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 Possible causes: sick contacts, as noted. The symptoms are aggravated by nothing. The symptoms are alleviated by nothing. Severity of symptoms: At their worst the symptoms were moderate in the emergency department the symptoms have improved. The patient has not experienced similar symptoms in the past. It is unknown whether or not the patient has recently seen a physician. pt states she had a + test last month but a few days later passed tissue. HCG in ED <1. vag probe US cancelled. 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 - Infectious Disease History:: Denies. - Social history:: Smoking status: Reported history of juuling and/or vaping. Patient uses street drugs, marijuana. ROS: 14:38 Eyes: Negative for injury, pain, redness, and discharge, ENT: Negative for injury, snw pain, and discharge, Neck: Negative for injury, pain, and swelling, Cardiovascular: Negative for chest pain, palpitations, and edema, Respiratory: Negative for shortness of breath, cough, wheezing, and pleuritic chest pain, 14:38 Back: Negative for injury and pain, : Negative for injury, bleeding, discharge, and swelling, MS/Extremity: Negative for injury and deformity, Skin: Negative for injury, rash, and discoloration, Neuro: Negative for headache, weakness, numbness, tingling, and seizure, Psych: Negative for depression, anxiety, suicide ideation, homicidal ideation, and hallucinations, 14:38 Constitutional: Positive for body aches, malaise, vomiting, 14:38 Abdomen/GI: Positive for abdominal pain, nausea and vomiting, Exam: 14:36 Head/Face: Normocephalic, atraumatic. Eyes: Pupils equal round and reactive to light, snw extra-ocular motions intact. Lids and lashes normal. Conjunctiva and sclera are non-icteric and not injected. Cornea within normal limits. Periorbital areas with no swelling, redness, or edema. ENT: Nares patent. No nasal discharge, no septal abnormalities noted. Tympanic membranes are normal and external auditory canals are clear. Oropharynx with no redness, swelling, or masses, exudates, or evidence of obstruction, uvula midline. Mucous membranes moist. Neck: Trachea midline, no thyromegaly or masses palpated, and no cervical lymphadenopathy. Supple, full range of motion without nuchal rigidity, or vertebral point tenderness. No Meningismus. Chest/axilla: Normal chest wall appearance and motion. Nontender with no deformity. No lesions are appreciated. Cardiovascular: Regular rate and rhythm with a normal S1 and S2. No gallops, murmurs, or rubs. Normal PMI, no JVD. No pulse deficits. Respiratory: Lungs have equal breath sounds bilaterally, clear to auscultation and percussion. No rales, rhonchi or wheezes noted. No increased work of breathing, no retractions or nasal flaring. 14:36 Back: No spinal tenderness. No costovertebral tenderness. Full range of motion. Skin: Warm, dry with normal turgor. Normal color with no rashes, no lesions, and no evidence of cellulitis. MS/ Extremity: Pulses equal, no cyanosis. Neurovascular intact. Full, normal range of motion. Neuro: Awake and alert, GCS 15, oriented to person, place, time, and situation. Cranial nerves II-XII grossly intact. Motor strength 5/5 in all extremities. Sensory grossly intact. Cerebellar exam normal. Normal gait. Psych: Awake, alert, with orientation to person, place and time. Behavior, mood, and affect are within normal limits. 14:36 Constitutional: The patient appears alert, awake, obese, pale, 14:36 Abdomen/GI: Inspection: obese Bowel sounds: normal, Palpation: mild abdominal tenderness, in the suprapubic area and left upper quadrant, Vital Signs: 13:13 BP 138 / 97; Pulse 97; Resp 18; Temp 98.6; Pulse Ox 99% on R/A; Weight 100.7 kg; Height iw 5 ft. 4 in. ; Pain 9/10; 13:30 BP 134 / 84; Pulse 88; Resp 16; Pulse Ox 98% ; me1 14:30 BP 124 / 69; Pulse 68; Resp 16; Pulse Ox 99% ; me1 15:24 BP 129 / 72; Pulse 73; Resp 16; Temp 98.6; Pulse Ox 99% ; me1 13:13 Body Mass Index 38.11 (100.70 kg, 162.56 cm) iw 13:13 Pain Scale: Adult iw MDM: 13:20 Medical Screening Exam initiated snw 15:12 Differential diagnosis: Nonspecific abd pain, gastritis, viral gastroenteritis, snw gastroenteritis. Data reviewed: vital signs, nurses notes, lab test result(s), radiologic studies. I considered the following discharge prescriptions or medication management in the emergency department Medications were administered in the Emergency Department. See MAR. Counseling: I had a detailed discussion with the patient and/or guardian regarding the historical points, exam findings, and any diagnostic results supporting the discharge/admit diagnosis, the presence of at least one elevated blood pressure reading (>120/80) during this emergency department visit, lab results, radiology results, the need for outpatient follow up, to return to the emergency department if symptoms worsen or persist or if there are any questions or concerns that arise at home. Special discussion: Based on the patient's Hx, exam, and Dx evaluation, there is no indication for emergent surgery or inpatient Tx. It is understood by the patient/guardian that if the Sx's persist or worsen they need to return immediately for re-evaluation. Based on the history and exam findings, there is no indication for further emergent testing or inpatient evaluation. I discussed with the patient/guardian the need to see the primary care provider for further evaluation of the symptoms. 15:46 Response to treatment: the patient's symptoms have mildly improved after treatment. snw Special discussion: Based on the history and exam findings, there is no indication for further emergent testing or inpatient evaluation. 02/21 13:22 Order name: Urine W/Microscopic (UAM); Complete Time: 15:09 snw 02/21 13:22 Order name: PREGU; Complete Time: 15:09 snw 02/21 13:22 Order name: Abo/rh Typing; Complete Time: 14:27 snw 02/21 13:22 Order name: Basic Metabolic Panel; Complete Time: 14:27 snw 02/21 13:22 Order name: CBC with Diff; Complete Time: 14:27 snw 02/21 13:22 Order name: Test, Urine snw 02/21 13:22 Order name: Quantitative Hcg; Complete Time: 14:27 snw 02/21 13:22 Order name: US Transvaginal Ob; Complete Time: 15:09 snw 02/21 13:22 Order name: IV Saline Lock; Complete Time: 13:55 snw 02/21 13:22 Order name: Labs collected and sent; Complete Time: 13:55 snw 02/21 13:22 Order name: NPO; Complete Time: 13:55 snw Administered Medications: 13:55 Drug: NS 0.9% IV 1000 ml IV at 1000 ml once; to be given as a bolus over 60 minutes me1 Route: IV; Rate: 1000 ml; Site: left antecubital; 15:24 Follow up: Response: No adverse reaction; IV Status: Completed infusion; IV Intake: me1 1000ml 13:55 Drug: Promethazine IVP 6.25 mg IVP once Route: IVP; Site: left antecubital; me1 14:32 Follow up: Response: No adverse reaction; Nausea is decreased me1 Disposition Summary: 02/22/24 15:11 Discharge Ordered Notes: Location: Home snw Condition: Stable snw Diagnosis - Vomiting snw - Volume depletion, unspecified snw Followup: snw - With: Private Physician - When: 2 - 3 days - Reason: Recheck today's complaints, Continuance of care, Re-evaluation by your physician Followup: snw - With: Emergency Department - When: As needed - Reason: Worsening of condition Discharge Instructions: - Discharge Summary Sheet snw - Dehydration, Adult snw - Nausea and Vomiting, Adult snw - Rehydration, Adult snw Forms: - Work release form snw - Medication Reconciliation Form snw - Antibiotic Education snw - Prescription Opioid Use snw - Patient Portal Instructions snw - Leadership Thank You Letter snw Prescriptions: - Zofran 4 mg Oral Tablet - take 1 tablet ORAL route every 12 hours As needed; 6 tablet; Refills: 0, snw Product Selection Permitted - promethazine 25 mg Oral Tablet - take 1 tablet ORAL route every 6 hours As needed; 20 tablet; Refills: 0, snw Product Selection Permitted Signatures: Dispatcher [employer] Deidra Trevino FNP-C FURNITURE FINISHER HELPER-Csnw Vandana Craig RN RN iw Ashlee Jo RN RN me1
[2024-02-22 16:01] VITALS: TEMP 98.6
[2024-02-22 16:04] VITALS: O2SAT 99
[2024-02-22 16:05] VITALS: BP 129/72
== END 2024-02-22 15:34 | disposition home or self-care (01) ==
LOC: ER 13:01
DX: E86.9 Volume depletion, unspecified (principal); R10.12 Left upper quadrant pain; R53.81 Other malaise
CPT/HCPCS: 96361; 85025; 81001; 80048; 36415; 86900; 81025; 86901; 84702; 76817; 96374; 99284; J2550; J7030

== ENCOUNTER 2024-07-24 01:47 | Emergency (ER) | payer OTHER ==
--- OUTSIDE RECORDS SUMMARY | 2024-07-24 01:51 | XMS REPORT | Continuity of Care Document ---
Author Name Unknown Address [address] [place] [address] [facility] Address [address] [place] [address] Care Team Providers Care Clay Pigeon Loader Name Role Phone Giordano KIMTianacait Gtz Primary Care Physician Doctor Unassigned, [place] Attending Clinician U DARIEN Harrison Attending Clinician Unavailable DARIEN WEINER Attending Clinician Unavailable Darien Weiner MD Attending Clinician [phone] PADMINI TORRE Attending Clinician UnavailPadmini Donnelly Attending Clinician + [phone] GORDON SAMUELS Attending Clinician Unavailable Gordon Samuels MD Attending Clinician [phone] Doctor Unassigned, [place] Attending Clinician U LOU Pressley Attending Clinician Unavailable Lou Elizondo Attending Clinician [phone] Jesus Alberto Henry Attending Clinician [phone] Jesus Alberto ARANDA Attending Clinician Unavailable GORDON SAMUELS Admitting Clinician Unavailable Jesus Alberto ARANDA Admitting Clinician Unavailable Payers Payer Name Policy Type Policy Number Effective Date Expirati on Date Source [facility] TONI GOOD [id number] 2021 00:00:00 Problems Condition Name Condition Details Condition Category Status Onset Date Resolution Date Last Treatment Date Treating Clinician Comments Source Behavior concern Behavior concern Disease Active 05-04 00:00: 00 [facility] Family circumstan ce Family circumstan ce Disease Active 05-04 00:00: 00 [facility] Hx of suicide attempt Hx of suicide attempt Disease Active 05-04 00:00: 00 [facility] Depression , unspecifie d depression type Depression , unspecifie d depression type Disease Active 05-04 00:00: 00 [facility] BMI (body mass index), pediatric, 95-99% for age BMI (body mass index), pediatric, 95-99% for age Disease Active 05-04 00:00: 00 [facility] Appendicit is, acute Appendicit is, acute Disease Resolve d 2015-04 00:00: 00 2016-05-04 00:00:00 2016-05-04 15:32:10 [facility] Allergies, Adverse Reactions, Alerts Allergy Name Allergy Type Status Severity Reaction(s) Onset Date Inactive Date Treating Clinician Comments Source NO KNOWN ALLERGIE S Drug Class Active [facility] Social History Social Habit Start Date Stop Date Quantity Comments Source Gender identity [facility] of Social function 2024-01-25 00:00:00 2024-01-25 00:00:00 [facility] Alcohol intake 2023-01-03 00:00:00 2023-01-03 00:00:00 0 /d [facility] Exposure to SARS-CoV-2 (event) 2022-01-15 00:00:00 2022-01-25 16:49:00 Not sure [facility] Alcoholic beverage intake 2016-05-14 00:00:00 2016-05-14 00:00:00 0 /d [facility] Sex assigned at 2001 00:00:00 2000 00:00:00 [facility] Smoking Status Start Date Stop Date Source Never smoked tobacco [facility] Medications Ordered Medication Name Filled Medication Name Start Date Stop Date Current Medication? Ordering Clinician Indication Dosage Frequency Signature (SIG) Comments Components Source ketorolac (TORADOL) injection 30 mg 2023-04 08:15: 00 01-24 07:26 :00 No 30mg 30 mg, Slow IV Push, ONCE, 1 dose, On 01/25/24 at 0315, Routine [facility] NaCl 0.9% (NS) IV infusion 1,000 mL 2023-04 08:00: 00 01-24 08:25 :00 No 1000mL at 999 mL/hr, Intravenou s, ONCE, 1 dose, On 01/25/24 at 0300, Routine [facility] diphenhydrA MINE (BENADRYL) injection 25 mg 2023-04 07:15: 00 01-24 07:25 :00 No 25mg 25 mg, Slow IV Push, ONCE, 1 dose, On 01/25/24 at 0215, STAT [facility] metoclopram oksana HCl (REGLAN) injection 10 mg 2023-04 07:15: 01-24 07:26 :00 No 10mg 10 mg, Slow IV Push, ONCE, 1 dose, On 01/25/24 at 0215, JOANNA [facility] Nitrofurant oin&Nit. Macrocryst (MACROBID) 100 mg capsule 2023-04 00:00: 00 Yes [id number] 100mg Take 1 capsule by mouth in the morning and 1 capsule in the evening. [facility] butalbital- acetaminoph en-caff 50-325-40 mg tablet 2023-04 00:00: 00 Yes [id number] 1{tbl} Take 1 tablet by mouth every 6 (six) hours as needed (Headache) . [facility] acetaminoph en (TYLENOL) tablet 1,000 mg 01-04 02:30: 00 01-04 01:59 :00 No 1000mg 1,000 mg, Oral, ONCE, 1 dose, On Steffany 01/03/23 at 2130, OJANNA [facility] ondansetron (ZOFRAN) tablet 4 mg 01-04 02:30: 00 01-04 02:30 :00 No 4mg 4 mg, Oral, ONCE, 1 dose, On Steffany 01/03/23 at 2130, Routine [facility] ondansetron 4 mg disintegrat ing tablet 01-03 00:00: 00 Yes [id number] 4mg Take 1 tablet by mouth every 8 (eight) hours as needed for Nausea and Vomiting (N/V). [facility] acetaminoph en (TYLENOL) tablet 975 mg 11-06 02:45: 00 11-06 01:45 :00 No 975mg 975 mg, Oral, ONCE, 1 dose, On Sat11/05/22 at 2145, [facility] loratadine- pseudoephed rine (CLARITIN-D 24 HOUR) 10-240 mg per 24 hr tablet 11-05 00:00: 00 Yes [id number] 1{tbl} Take 1 tablet by mouth in the morning. [facility] dextrometho rphan-guaif enesin 10-100 mg/5 mL solution 11-05 00:00: 00 Yes [id number] 10mL Take 10 mL by mouth every 6 (six) hours as needed for Cough. [facility] ondansetron 4 mg disintegrat ing tablet 11-05 00:00: 00 Yes [id number] 4mg Take 1 tablet by mouth every 4 (four) hours as needed for Nausea and Vomiting (N/V). [facility] naproxen 500 mg tablet 11-05 00:00: 00 11-16 04:59 :00 No [id number] 500mg Take 1 tablet by mouth in the morning and 1 tablet in the evening. Take with meals. Do all this for 10 days. [facility] ondansetron (ZOFRAN (PF)) injection 4 mg 2021-04 006 23:30: 00 01-25 22:39 :00 No 4mg 4 mg, Slow IV Push, ONCE, 1 dose, On Steffany 01/25/22 at 1830, JOANNA [facility] ketorolac (TORADOL) injection 15 mg 2021-04 0 23:30: 00 01-25 22:39 :00 No 15mg 15 mg, Slow IV Push, ONCE, 1 dose, On Steffany 01/25/22 at 1830, Routine [facility] ondansetron (ZOFRAN (PF)) injection 4 mg 2021-04 0 22:45: 00 01-25 22:04 :00 No 4mg 4 mg, Slow IV Push, ONCE, 1 dose, On Steffany 01/25/22 at 1745, JOANNA [facility] NaCl 0.9% (NS) bolus infusion 1,000 mL 2021-04 22:45: 00 01-25 23:10 :00 No 1000mL at 999 mL/hr, 1,000 mL, IV Infusion, ONCE, 1 dose, On Steffany 01/25/22 at 1745, JOANNA [facility] dicyclomine 20 mg tablet 2021-04 0 00:00: 00 Yes [id number] 20mg Take 1 tablet by mouth every 6 (six) hours as needed for Abdominal pain. [facility] ondansetron 4 mg disintegrat ing tablet 2021-04 00:00: 00 Yes [id number] 4mg Take 1 tablet by mouth every 6 (six) hours as needed for Nausea and Vomiting (N/V). [facility] amoxicillin (TRIMOX) capsule 500 mg 2020-04 00:30: 00 04-06 23:33 :00 No 500mg 500 mg, Oral, ONCE, 1 dose, On Steffany 04/06/21 at 1830, JOANNA
Re ason for Anti-Infec tive: Documented Infection< br>Documen nadiya Infection Site: HEENT
D uration of Therapy: Other (see Comments) [facility] ketorolac (TORADOL) injection 30 mg 2020-04 00:30: 00 04-06 23:33 :00 No 30mg 30 mg, Intramuscu lar, ONCE, 1 dose, On Steffany 04/06/21 at 1830, JOANNA [facility] ibuprofen 800 mg tablet 2020-04 00:00: 00 Yes [id number] 800mg Take 1 tablet by mouth 3 (three) times daily with meals. [facility] chlorhexidi ne 0.12 % mouthwash 2020-04 00:00: 00 Yes [id number] 15mL Swish and spit out 15 mL 2 (two) times daily. [facility] chlorhexidi ne 0.12 % mouthwash 2020-04 00:00: 00 Yes [id number] 15mL Swish and spit out 15 mL 2 (two) times daily. [facility] amoxicillin 500 mg capsule 2020-04 00:00: 00 04-14 05:59 :00 No [id number] 500mg Take 1 capsule by mouth 3 (three) times daily for 7 days. [facility] NaCl 0.9% (NS) bolus infusion 1,000 mL 2020-04 015 23:15: 00 02-03 23:43 :00 No 1000mL at 999 mL/hr, 1,000 mL, IV Infusion, ONCE, 1 dose, On 02/03/21 at 1815, STAT [facility] METAXALONE (SKELAXIN ORAL) 05-14 14:34: 04 Yes Take by mouth. [facility] Vital Signs Vital Name Observation Time Observation Value Comments S ource Heart rate 2024-01-25 09:13:00 75 /min [facility] Body temperature 2024-01-25 09:13:00 36.89 Charo [facility] Oxygen saturation in Arterial blood by Pulse oximetry 2024-01-25 09:13:00 99 /min [facility] Systolic blood pressure 2024-01-25 09:00:00 106 mm[Hg] [facility] Diastolic blood pressure 2024-01-25 09:00:00 65 mm[Hg] [facility] Respiratory rate 2024-01-25 09:00:00 16 /min [facility] Body height 2024-01-25 05:50:00 162.6 cm [facility] Body weight 2024-01-25 05:50:00 99.791 kg [facility] BMI 2024-01-25 05:50:00 37.76 kg/m2 [facility] Systolic blood pressure 2023-01-04 01:35:00 148 mm[Hg] [facility] Diastolic blood pressure 2023-01-04 01:35:00 107 mm[Hg] [facility] Heart rate 2023-01-04 01:35:00 98 /min [facility] Body temperature 2023-01-04 01:35:00 37.39 Charo [facility] Respiratory rate 2023-01-04 01:35:00 18 /min [facility] Body height 2023-01-04 01:35:00 157.5 cm [facility] Body weight 2023-01-04 01:35:00 89.812 kg [facility] BMI 2023-01-04 01:35:00 36.21 kg/m2 [facility] Oxygen saturation in Arterial blood by Pulse oximetry 2023-01-04 01:35:00 99 /min [facility] Heart rate 2022-11-06 04:10:00 96 /min [facility] Body temperature 2022-11-06 04:10:00 37.28 Charo [facility] Respiratory rate 2022-11-06 04:10:00 18 /min [facility] Oxygen saturation in Arterial blood by Pulse oximetry 2022-11-06 04:10:00 98 /min [facility] Systolic blood pressure 2022-11-06 01:19:00 116 mm[Hg] [facility] Diastolic blood pressure 2022-11-06 01:19:00 83 mm[Hg] [facility] Body height 2022-11-06 01:19:00 157.5 cm [facility] Body weight 2022-11-06 01:19:00 97.523 kg [facility] BMI 2022-11-06 01:19:00 39.32 kg/m2 [facility] Systolic blood pressure 2022-01-25 21:49:00 152 mm[Hg] [facility] Diastolic blood pressure 2022-01-25 21:49:00 102 mm[Hg] [facility] Heart rate 2022-01-25 21:49:00 80 /min [facility] Body temperature 2022-01-25 21:49:00 37.06 Charo [facility] Respiratory rate 2022-01-25 21:49:00 16 /min [facility] Body height 2022-01-25 21:49:00 160 cm [facility] Body weight 2022-01-25 21:49:00 88.451 kg [facility] BMI 2022-01-25 21:49:00 34.54 kg/m2 [facility] Oxygen saturation in Arterial blood by Pulse oximetry 2022-01-25 21:49:00 97 /min [facility] Body temperature 2021-04-06 22:53:00 36.94 Charo [facility] Respiratory rate 2021-04-06 22:53:00 18 /min [facility] Body height 2021-04-06 22:53:00 162.6 cm [facility] Body weight 2021-04-06 22:53:00 86.183 kg [facility] BMI 2021-04-06 22:53:00 32.61 kg/m2 [facility] Oxygen saturation in Arterial blood by Pulse oximetry 2021-04-06 22:53:00 99 /min [facility] Systolic blood pressure 2021-04-06 22:53:00 139 mm[Hg] [facility] Diastolic blood pressure 2021-04-06 22:53:00 99 mm[Hg] [facility] Heart rate 2021-04-06 22:53:00 76 /min [facility] Systolic blood pressure 2021-02-03 22:20:00 140 mm[Hg] [facility] Diastolic blood pressure 2021-02-03 22:20:00 98 mm[Hg] [facility] Heart rate 2021-02-03 22:20:00 85 /min [facility] Respiratory rate 2021-02-03 22:20:00 18 /min [facility] Oxygen saturation in Arterial blood by Pulse oximetry 2021-02-03 22:20:00 99 /min [facility] Body temperature 2021-02-03 15:54:00 36.78 Charo [facility] Body height 2021-02-03 15:54:00 160 cm [facility] Body weight 2021-02-03 15:54:00 74.844 kg [facility] BMI 2021-02-03 15:54:00 29.23 kg/m2 [facility] Body mass index (BMI) [Percentile] Per age and sex 2021-02-03 15:54:00 91.94 % [facility] Procedures Procedure Date / Time Performed Performing Clinician Source URINALYSIS 2024-01-25 07:27:00 Darien Weiner [facility] INFLUENZA A/B RSV COVID NAAT 2024-01-25 07:27:00 Darien Weiner [facility] POCT TEST 2024-01-25 07:04:00 Darien Weiner [facility] URINALYSIS 2023-01-04 02:27:00 Padmini Torre [facility] POCT TEST 2023-01-04 02:27:00 Tarun Torre [facility] CONSENT/REFUSAL FOR DIAGNOSIS AND TREATMENT 2023-01-04 01:19:40 Doctor Unassigned, [place] [facility] XR CHEST 2 VW 2022-11-06 03:46:00 Gordon Samuels [facility] RAPID STREP SCREEN FOR GROUP A 2022-11-06 01:45:00 Gordon Samuesl [facility] RAPID INFLUENZA A/B 2022-11-06 01:45:00 Twan Samuels [facility] COVID-19 (ID NOW RAPID TESTING) 2022-11-06 01:45:00 Gordon Samuels [facility] CONSENT/REFUSAL FOR DIAGNOSIS AND TREATMENT 2022-11-06 01:06:48 Doctor Unassigned, [place] [facility] POCT TEST 2022-01-25 22:06:00 Tarun Torre [facility] LIPASE 2022-01-25 22:03:00 Padmini Torre [facility] MAGNESIUM 2022-01-25 22:03:00 Padmini Torre [facility] COMP. METABOLIC PANEL (60504) 2022-01-25 22:03:00 Jose L [facility] CBC WITH DIFF 2022-01-25 22:03:00 Jose L [facility] NOTICE OF PRIVACY PRACTICES 2022-01-25 21:25:28 Doctor Unassigned, [place] [facility] CONSENT/REFUSAL FOR DIAGNOSIS AND TREATMENT 2022-01-25 21:25:07 Doctor Unassigned, [place] [facility] POCT TEST 2021-04-06 23:20:00 Lou Gardner [facility] CONSENT/REFUSAL FOR DIAGNOSIS AND TREATMENT 2021-04-06 22:35:43 Doctor Unassigned, [place] [facility] XR CHEST 1 VW 2021-02-03 23:04:39 Jesus Alberto Aranda [facility] D-DIMER 2021-02-03 18:33:00 Jesus Alberto Aranda [facility] LIPASE 2021-02-03 18:24:00 Jesus Alberto Aranda [facility] MAGNESIUM 2021-02-03 18:24:00 Jesus Alberto Aranda [facility] COMP. METABOLIC PANEL (31666) 2021-02-03 18:24:00 Jesus Alberto Aranda [facility] CBC WITH DIFF 2021-02-03 18:24:00 Jesus Alberto Aranda [facility] URINALYSIS 2021-02-03 18:24:00 Jesus Alberto Aranda [facility] URINE DRUG (IMMUNOASSAY) - COMPREHENSIVE DRUG SCREEN 2021-02-03 18:23:00 Jesus Alberto Aranda [facility] POCT TEST 2021-02-03 18:23:00 Jesus Alberto Aranda e [facility] NOTICE OF PRIVACY PRACTICES 2021-02-03 15:44:16 Doctor Unassigned, [place] [facility] US PELVIS LIMITED 2016-05-21 22:16:00 Komal Giordano [facility] Encounters Start Date/Time End Date/Time Encounter Type Admission Type Attending [facility] Care Department Encounter ID Source 2016-05-21 00:00:00 2024-06-06 03:57:56 Orders Only Doctor Unassigned, [place] Doctor Unassigned, [place] [facility] [id number] 350.1.13.10 4.2.7.2.686 [id number] [facility] 2024-01-25 00:53:00 2024-01-25 04:17:00 Emergency X DARIEN WEINER WAKILI [facility] ERT [id number] [facility] 2024-01-25 00:53:00 2024-01-25 04:17:00 Emergency Darien Weiner [facility] [id number] 350.1.13.10 4.2.7.2.686 [id number] [facility] 2023-01-03 20:37:00 2023-01-03 22:10:00 Emergency X PADMINI TORRE [facility] ERT [id number] [facility] 2023-01-03 20:37:00 2023-01-03 22:10:00 Emergency Padmini Torre [facility] [id number] 350.1.13.10 4.2.7.2.686 [id number] [facility] 2022-11-05 20:21:00 2022-11-05 23:12:00 Emergency X GORDON SAMUELS [facility] ERT [id number] [facility] 2022-11-05 20:21:00 2022-11-05 23:12:00 Emergency Gordon Samuels [facility] [id number] 350.1.13.10 4.2.7.2.686 [id number] [facility] 2022-10-01 08:43:03 2022-10-01 08:43:03 Outpatient [facility] [id number] Erasmo Payan 2022-01-25 16:50:00 2022-01-25 18:32:00 Emergency X PADMINI TORRE [facility] ERT [id number] [facility] 2022-01-25 16:50:00 2022-01-25 18:32:00 [facility] 1.2840.114 350.1.13.10 4.2.7.2.686 [id number] [facility] 2022-01-25 00:00:00 2022-01-25 00:00:00 Orders Only Doctor Unassigned, [place] [facility] 1.2840.114 350.1.13.10 4.2.7.2.686 [id number] [facility] 2021-04-06 16:54:00 2021-04-06 17:47:00 Emergency X LOU GARDNER [facility] ERT [id number] [facility] 2021-04-06 16:54:00 2021-04-06 17:47:00 Emergency Lou Gardner [facility] 1.2840.114 350.1.13.10 4.2.7.2.686 [id number] [facility] 2021-02-03 11:11:00 2021-02-03 18:44:00 Emergency Jesus Alberto Aranda [facility] 1.2840.114 350.1.13.10 4.2.7.2.686 [id number] [facility] 2021-02-03 11:11:00 2021-02-03 18:44:00 Emergency X Jesus Alberto ARANDA [facility] ERT [id number] [facility] Results Test Description Test Time Test Comments Results Result Co mments Source [id number] 02:27:00* Test Item Value Reference Range Interpretation Comme nts POCT PREG (test code = 1605) Negative On board controls acceptable with C Line (test code = 3574) Yes POCT PREG LOT # (test code = 3575) [id number] POCT PREG TEST DATE ( test code = 3576) 2024-04-24 Lab Interpretation (test cod e = 66470-4) Normal [facility] [id number] 22:06:00* Test Item Value Reference Range Interpretation Comme nts POCT PREG (test code = 1605) negative On board controls acceptable with C Line (test code = 3574) present POCT PREG LOT # (test code = 3575) [id number] POCT PREG TEST DATE ( test code = 3576) Lab Interpretation (test cod e = 13151-2) Normal [facility] [id number] 23:20:00* Test Item Value Reference Range Interpretation Comme nts POCT PREG (test code = 1605) negative POCT PREG LOT # (test code = 3575) [id number] POCT PREG TEST DATE ( test code = 3576) 2022-05-22 Lab Interpretation (test cod e = 95838-0) Normal [facility][id number] 19:30:18* Test Item Value Reference Range Interpretation Comments D-DIMER (test code = 4104280017) <0.27 See_Comment [Automated message] The system which [...] a diagnosis. Lab Interpretation (test code = 77791-1) Normal [facility]2021-[facility]-15 19:00:14* Test Item Value Reference Range Interpretation Comme nts MAGNESIUM (test code = 5981385428) 1.8 mg/dL 1.7-2.4 Lab Interpretation (test cod e = 23826-9) [facility]OLIC PANEL (28235)2021-02-03 18:59:54* Test Item Value Reference Range Interpretation Comme nts NA (test code = 9274582179) 139 mmol/L 135-145 K (test code = 8320664713) 4.0 mmol/L 3.5-5.0 CL (test code = 5551099468) 101 mmol/L 98-108 CO2 TOTAL (test code = 1318305186) 30 mmol/L 23-31 AGAP (test code = 1185736721) 2-16 BUN (test code = 3348928772) 13 mg/dL 7-23 GLUCOSE (test code = 6961046570) 87 mg/dL 70-110 CREATININE (test code = 8329688083) 0.57 mg/dL 0.50-1.04 TOTAL BILI (test code = 4615137901) 0.4 mg/dL 0.1-1.1 CALCIUM (test code = 9163066463) 9.7 mg/dL 8.6-10.6 T PROTEIN (test code = 2795257144) 8.0 g/dL 6.3-8.2 ALBUMIN (test code = 5060464485) 4.6 g/dL 3.5-5.0 ALK PHOS (test code = 7707297115) 90 U/L 34-122 ALTv (test code = 1742-6) 15 U/L 5-35 AST(SGOT) (test code = 6394174970) 23 U/L 13-40 eGFR (test code = 1329413321) mL/min/1.73m2 NIKA (test code = NIKA) Association [...] or urine or abnormalities in imaging tests). [facility] 18:59:34* Test Item Value Reference Range Interpretation Comme nts LIPASE (test code = 9049495426) 37 U/L 0-220 Lab Interpretation (test cod e = 52262-0) Normal [facility] WITH [id number] 18:37:09* Test Item Value Reference Range Interpretation Comme nts WBC (test code = 6690-2) See_Comment [Automated Magin] The system which generated this result transmitted [...] g/dL 31.6-35.1 L RDW-SD (test code = 27891-2) 38.9 fL 39.0-49.9 L RDW-CV (test code = 788-0) 13.2 % 12.0-15.5 PLT (test code = 777-3) See_Comment H [Automated messa ge] The system which generated this result transmitted reference range: 166 - 358 10*3/?L. The reference range was not used to interpret this result as normal/abnormal. MPV (test code = 96824-4) 9.2 fL 9.5-12.9 L NRBC/100 WBC (test code = 5108916728) See_Comment [Automated Glamit ssage] The system which generated this result transmitted reference range: 0.0 - 10.0 /100 WBCs. The reference range was not used to interpret this result as normal/abnormal. NRBC x10^3 (test code = 1106179408) <0.01 See_Comment [Automated messa ge] The system which generated this result transmitted reference range: 10*3/?L. The reference range was not used to interpret this result as normal/abnormal. GRAN MAT (NEUT) % (test code = 770-8) 66.3 % IMM GRAN % (test code = 2259459622) 0.70 % LYMPH % (test code = 736-9) 20.6 % MONO % (test code = 5905-5) 9.8 % EOS % (test code = 713-8) 1.7 % BASO % (test code = 706-2) 0.9 % GRAN MAT x10^3(ANC) (test code = 1902824522) 5.09 10*3/uL 1.88-7.09 IMM GRAN x10^3 (test code = 6047220581) 0.05 10*3/uL 0.00-0.06 LYMPH x10^3 (test code = 731-0) 1.58 10*3/uL 1.32-3.29 MONO x10^3 (test code = 742-7) 0.75 10*3/uL 0.33-0.92 EOS x10^3 (test code = 711-2) 0.13 10*3/uL 0.03-0.39 BASO x10^3 (test code = 704-7) 0.07 10*3/uL 0.01-0.07 Lab Interpretation (test code = 85722-8) Abnormal [facility] [id number] 18:23:00* Test Item Value Reference Range Interpretation Comme nts POCT PREG (test code = 1605) negative On board controls acceptable with C Line (test code = 3574) present Lab Interpretation (test cod e = 57132-0) Normal [facility] Center[facility] P[facility], LIMITED OR FOL/[id number] 22:26:00*.*.*.*.*.*.*.*.*.*.*.*.*.*FINAL*.*.*.*.*.*.*.*.*.*.*.*.*.*.*HISTORY: ?Abdominal pain. TECHNIQUE: Transabdominal pelvic ultrasound studies were completed by thetechnologist. Initial study was suboptimal due to incompletely distended urinarybladder. Patient was given additional liquids and after waiting for 1 hour,repeat ultrasound study was completed. FINDINGS: Despite 2 separate attempts, the study remains technically suboptimaldue to incompletely distended urinary bladder. ? Uterus is of normal size and shape, measures approximately 5.2 x2.6 x 3.9 cm in size with homogeneous echo texture of the myometrium.Endometrial echo complex is 0.0 mm. No free fluid in the cul-de-sac. Right ovaryis 2.1 x 1.6 x 2.4 cm ( ?4.28 cc)and left ovary is not visualized. CONCLUSIONS: Poor qualitystudy as described above. Normal uterus and rightovary. Left ovary is not visualized in this examination. ?Personally interpreted by: BUCK STARR MD /Signed/ BUCK STARR MD[facility] Medical Center Notes Date/Time Note Provider [...] in no apparent distress, Mahesh Valladares RN [facility] 2024-01-25 00:48:14 CC: Headache, N/V, and abdominal pain since 11am today. Awake, alert, oriented, resp reg unlabored, skin intact, color appropriate for race, moves all ext without difficulty, amb into triage Aleida Alcantara RN [facility] 2023-01-03 22:05:51 Formatting of this [...] noted upon discharge Pt [facility] gait [facility] 2023-01-03 20:32:45 Formatting of this n ote might be different from the original. Pt states that she was seen @ [facility] this am and was neg for covid and strep. Pt states she is still not feeling well and she has to work tomorrow and doesn't want to feel this way. 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 Pt states the pain is sharp. Angi Perry RN [facility]
--- NOTE | 2024-07-24 02:08 | ER ---
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 cp4 [employer] notified. Coronavirus screen: Client denies travel out of the [place] in the last 14 days. At this time, the client does not indicate any symptoms associated with coronavirus-19. Ebola Screen: Patient negative for fever greater than or equal to 101.5 degrees Fahrenheit, and additional compatible Ebola Virus Disease symptoms Patient denies exposure to infectious person. Patient denies travel to an Ebola-affected area in the 21 days before illness onset. No symptoms or risks identified at this time. Initial Sepsis Screen: Does the patient meet any 2 criteria? No. Patient's initial sepsis screen is negative. Does the patient have a suspected source of infection? No. Patient's initial sepsis screen is negative. Risk Assessment: Do you want to hurt yourself or someone else? Patient reports no desire to harm self or others. Onset of symptoms was July 24, 2024. 02:02 Method Of Arrival: Ambulatory [facility] 02:02 Acuity: ESAU 5 cp4 Triage Assessment: 02:04 Bite description: bite sustained to chest and left arm by a cat, animal information: cp4 vaccination(s) is unknown. General: Appears in no apparent distress. comfortable, Behavior is calm, cooperative, appropriate for age. Pain: Complains of pain in chest and left arm. 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 - Infectious Disease History:: Denies. - Social history:: Smoking status: Reported history of juuling and/or vaping. - Family history:: not pertinent. Screenin:11 [facility] ED Fall Risk Assessment (Adult) History of falling in the last 3 months, br2 including since admission No falls in past 3 months (0 pts) Confusion or Disorientation No (0 pts) Intoxicated or Sedated No (0 pts) Impaired Gait No (0 pts) Mobility Assist Device Used No (0 pt) Altered Elimination No (0 pt) Score/Fall Risk Level 0 - 2 = Low Risk Oriented to surroundings. Abuse screen: Denies threats or abuse. Denies injuries from another. Nutritional screening: No deficits noted. Tuberculosis screening: No symptoms or risk factors identified. Assessment: 02:11 Reassessment: Patient and/or family updated on plan of care and expected duration. Pain br2 level reassessed. Patient is alert, oriented x 3, equal unlabored respirations, skin warm/dry/pink. General: Appears uncomfortable, Behavior is calm, cooperative. Pain: Complains of pain in anterior aspect of left upper chest. Neuro: Pandey Agitation-Sedation Scale (RASS): 0 - Alert and Calm Level of Consciousness is awake, alert, Oriented to person, place, time, situation. Cardiovascular: Denies chest pain. Respiratory: Denies cough, shortness of breath. GI: No signs and/or symptoms were reported involving the gastrointestinal system. : No signs and/or symptoms were reported regarding the genitourinary system. EENT: No signs and/or symptoms were reported regarding the EENT system. Derm: Skin multiple small punctures Skin is moist, Skin is pink, warm \T\ dry. Vital Signs: 02:02 BP 141 / 100; Pulse 78; Resp 18; Temp 98.1; Pulse Ox 98% ; Weight 44.45 kg; Height 5 cp4 ft. 2 in. ; Pain 7/10; 02:02 Body Mass Index 17.92 (44.45 kg, 157.48 cm) cp4 02:02 Pain Scale: Adult cp4 ED Course: 01:50 Patient arrived in ED. gm2 01:53 Marlon Dao MD is Attending Physician. rt 02:04 Triage completed. cp4 02:04 Arm band placed on right wrist. Patient placed in waiting room. cp4 02:11 Patient has correct armband on for positive identification. Bed in low position. Call br2 light in reach. Side rails up X 1. Provided Education on: plan of care. 02:27 Wound care: to puncture located on scalp, left scapular area and chest was cleaned with br2 Hibiclens, Patient tolerated well. 02:29 No provider procedures requiring assistance completed. Patient did not have IV access br2 during this emergency room visit. Administered Medications: : Drug: Ibuprofen PO 600 mg PO once Route: PO; br2 02:28 Follow up: Response: Medication administered at discharge. br2 : Drug: Boostrix Tdap IM 0.5 ml IM once; as a single dose Route: IM; Site: left deltoid; br2 02:28 Follow up: Response: Medication administered at discharge. br2 02: Drug: Amoxicillin-Clavulanate PO 875 mg PO once Route: PO; br2 02:29 Follow up: Response: Medication administered at discharge. br2 Medication: 02:29 Vaccine Information Statement (VIS) provided today. Questions and/or concerns br2 addressed. VIS edition date: November 25, 2020. Outcome: 02:08 Discharge ordered by . rt 02:29 Discharged to home ambulatory, br2 :29 Condition: improved 02:29 Discharge instructions given to patient, Instructed on discharge instructions, follow up and referral plans. Demonstrated understanding of instructions, follow-up care, medications, Prescriptions given X 1, 02:31 Patient left the ED. br2 Signatures: Marlon Dao MD MD rt Ruthann Michelle cp4 Mireya Obando gm2 Amina Domingo RN RN br2
--- NOTE | 2024-07-24 02:08 | EDPHYS ---
Physician Documentation [facility] Name: Izzy Krishnan Age: 24 yrs Sex: Female : 2000 Arrival Date: 07/24/2024 Time: 01:47 Bed 6 Private MD: ED Physician Marlon Dao HPI: 07/24 02:16 This 24 yrs old Female presents to ER via Ambulatory with complaints of Cat Bite. rt 02:16 Patient presents to the ED following a cat bite. Patient was bitten on to the left rt breast, the back of her neck and onto her left arm. Denies any ongoing bleeding. Denies other acute complaints at this time, symptoms are moderate in severity, no other aggravating or alleviating factors.. 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 - Infectious Disease History:: Denies. - Social history:: Smoking status: Reported history of juuling and/or vaping. - Family history:: not pertinent. ROS: 02:16 Constitutional: Negative for fever, chills, and weight loss, Cardiovascular: Negative rt for chest pain, palpitations, and edema, Respiratory: Negative for shortness of breath, cough, wheezing, and pleuritic chest pain, Abdomen/GI: Negative for abdominal pain, nausea, vomiting, diarrhea, and constipation, MS/Extremity: Negative for injury and deformity, Neuro: Negative for headache, weakness, numbness, tingling, and seizure, 02:16 Skin: Positive for Bites, negative for bleed, Exam: 02:16 Constitutional: This is a well developed, well nourished patient who is awake, alert, rt and in no acute distress. Chest/axilla: Normal chest wall appearance and motion. Nontender with no deformity. No lesions are appreciated. Cardiovascular: Regular rate and rhythm with a normal S1 and S2. No gallops, murmurs, or rubs. Normal PMI, no JVD. No pulse deficits. Respiratory: Lungs have equal breath sounds bilaterally, clear to auscultation and percussion. No rales, rhonchi or wheezes noted. No increased work of breathing, no retractions or nasal flaring. Abdomen/GI: Soft, non-tender, with normal bowel sounds. No distension or tympany. No guarding or rebound. No evidence of tenderness throughout. 02:16 Skin: Multiple cat bites, puncture wounds noted to the left breast, the neck, left arm, no active bleeding, no laceration. Vital Signs: 02:02 BP 141 / 100; Pulse 78; Resp 18; Temp 98.1; Pulse Ox 98% ; Weight 44.45 kg; Height 5 cp4 ft. 2 in. ; Pain 7/10; 02:02 Body Mass Index 17.92 (44.45 kg, 157.48 cm) cp4 02:02 Pain Scale: Adult cp4 MDM: 01:54 Medical Screening Exam initiated rt 02:16 Differential diagnosis: Cat bite. Data reviewed: vital signs, nurses notes. I rt considered the following discharge prescriptions or medication management in the emergency department Medications were administered in the Emergency Department. See MAR. Counseling: I had a detailed discussion with the patient and/or guardian regarding the historical points, exam findings, and any diagnostic results supporting the discharge/admit diagnosis, the need for outpatient follow up, Inform patient on need to follow-up with health department for consideration for rabies prophylaxis, was given contact information for health department. 07/24 02:06 Order name: Wound Care rt Administered Medications: 02:27 Drug: Ibuprofen PO 600 mg PO once Route: PO; br2 02:28 Follow up: Response: Medication administered at discharge. br2 02:27 Drug: Boostrix Tdap IM 0.5 ml IM once; as a single dose Route: IM; Site: left deltoid; br2 02:28 Follow up: Response: Medication administered at discharge. br2 02:27 Drug: Amoxicillin-Clavulanate PO 875 mg PO once Route: PO; br2 02:29 Follow up: Response: Medication administered at discharge. br2 Disposition Summary: 07/24/24 02:08 Discharge Ordered Notes: Location: Home rt Problem: new rt Symptoms: have improved rt Condition: Stable rt Diagnosis - Bitten by cat rt Followup: rt - With: Private Physician - When: 2 - 3 days - Reason: Discharge Instructions: - Discharge Summary Sheet rt - Animal Bite, Adult rt Forms: - Medication Reconciliation Form rt - Antibiotic Education rt - Prescription Opioid Use rt - Patient Portal Instructions rt - Leadership Thank You Letter rt Prescriptions: - Augmentin 875-125 mg Oral Tablet - take 1 tablet ORAL route every 12 hours for 10 days; 20 tablet; Refills: 0, rt Product Selection Permitted Signatures: Marlon Dao MD MD rt Ruthann Michelle cp4 Amina Domingo RN RN br2
[2024-07-24] MEDS ORDERED: AMOX/K CLAV 875 MG TAB ONE (02:17)
[2024-07-24] MEDS ORDERED: IBUPROFEN 400 MG TAB ONE (02:17)
[2024-07-24] MEDS ORDERED: IBUPROFEN 200 MG TAB PO ONE (02:17)
[2024-07-24] MEDS ORDERED: TDAP (DIPHTH,PERTUSS(ACELL),TET VAC) 0.5 ML VIAL IMVAC ONE (02:18)
[2024-07-24 02:49] VITALS: BP 141/100; TEMP 98.1; O2SAT 98
== END 2024-07-24 02:31 | disposition home or self-care (01) ==
LOC: ER 01:47
DX: S21.032A Puncture wound without foreign body of left breast, initial encounter (principal); S11.93XA Puncture wound without foreign body of unspecified part of neck, initial encounter; S41.132A Puncture wound without foreign body of left upper arm, initial encounter; W55.01XA Bitten by cat, initial encounter; Z23 Encounter for immunization
CPT/HCPCS: 90715; 96372; 99284